=== PATIENT | male | born 1965 | race Caucasian/White ===

== ENCOUNTER 2017-04-28 05:07 | Outpatient (CLI) | payer MEDICARE | END 2017-04-28 05:08 | disposition EMS.NT | LOC: EMS 05:07 | PROVIDERS: ATTEND Surgery | DX: Z04.1 Encounter for examination and observation following transport accident (principal); V58.5XXA Driver of pick-up truck or van injured in noncollision transport accident in traffic accident, initial encounter; Y92.414 Local residential or business street as the place of occurrence of the external cause ==

== ENCOUNTER 2017-07-07 09:50 | Emergency (ER) | payer MEDICARE ==
[2017-07-07] MEDS ORDERED: SODIUM CHLORIDE 0.9% 1,000 ML IV ONE ×2 (10:07→10:16)
[2017-07-07] MEDS ORDERED: HYDROmorphone 1 MG/ML SYRINGE IVP STA (10:07)
[2017-07-07] MEDS ORDERED: ONDANSETRON 4 MG/2 ML VIAL IVP STA (10:07)
[2017-07-07] MEDS ORDERED: ONDANSETRON 4 MG/2 ML VIAL ONE (10:16)
[2017-07-07] MEDS ORDERED: HYDROmorphone 1 MG/ML SYRINGE ONE (10:16)
[2017-07-07 10:17] LABS: BASOPHILS # (AUTO) 0.1 10^3/uL (0.0-0.1); BASOPHILS % (AUTO) 1.2 %; EOSINOPHILS # (AUTO) 0.1 10^3/uL (0.0-0.7); HCT - HEMATOCRIT 45.3 % (42.0-52.0); HGB - HEMOGLOBIN 15.5 g/dL (14.0-18.0); LYMPHOCYTES # (AUTO) 1.9 10^3/uL (1.5-3.5); LYMPHOCYTES % (AUTO) 25.2 %; MEAN CORPUSCULAR HEMOGLOBIN 29.3 pg (27.0-31.0); MEAN CORPUSCULAR HGB CONC 34.1 g/dL (32.0-36.0); MEAN CORPUSCULAR VOLUME 85.9 fL (80.0-94.0); MEAN PLATELET VOLUME 8.5 fL (7.4-11.4); MONOCYTES # (AUTO) 0.6 10^3/uL (0.0-1.0); MONOCYTES % (AUTO) 8.4 %; NEUTROPHILS % (AUTO) 64.2 %; RED BLOOD COUNT 5.27 10^6/uL (4.70-6.10); RED CELL DISTRIBUTION WIDTH 13.2 % (12.0-15.0); UNCORRECTED WHITE BLOOD COUNT 7.7 x10^3/uL; WHITE BLOOD COUNT 7.7 x10^3/uL (4.8-10.8)
[2017-07-07 10:30] LABS: ALBUMIN/GLOBULIN RATIO 1.3 (1.0-2.2); BILIRUBIN,TOTAL 0.6 mg/dL (0.2-1.0); CALCIUM 9.8 mg/dL (8.5-10.3); CREATININE 0.8 mg/dL (0.6-1.2); POTASSIUM 4.2 mmol/L (3.5-5.0); TOTAL PROTEIN 7.2 g/dL (6.7-8.2)
[2017-07-07 10:56] VITALS: BP 120/76
[2017-07-07] MEDS ORDERED: IOPAMIDOL-300 100 ML VIAL IVP ONE (11:09)
--- NOTE | 2017-07-07 11:51 | CT Report ---
EXAM: CT ABDOMEN AND PELVIS EXAM DATE: 07/07/2017 11:03 AM. CLINICAL HISTORY: LlQ PAIN TENDERNESS. COMPARISONS: None. TECHNIQUE: Routine helical CT imaging was performed through the abdomen and pelvis. IV contrast: 100 cc Isovue-300. Enteric contrast: No. Reconstructions: Coronal and sagittal. In accordance with CT protocol optimization, one or more of the following dose reduction techniques w ere utilized for this exam: automated exposure control, adjustment of mA and/or KV based on patient s ize, or use of iterative reconstructive technique. FINDINGS: Lung Bases: Unremarkable. Liver: Normal. No masses. Gallbladder/Bile Ducts: Unremarkable. Spleen: Normal. Pancreas: Normal. Adrenal Glands: Normal. Kidneys: Bilateral multiple renal cysts, the largest is seen in the mid pole of left kidney measuring about 3 cm. No masses, opaque stone, hydroureter or hydronephrosis. No ureteral stone. Peritoneal Cavity/Bowel: Normal. No free fluid, free air or adenopathy. No masses or acute inflammato ry process. The appendix is not visualized. No evidence of acute diverticulitis or colitis. Pelvic Organs: Normal. The bladder and visualized pelvic organs are within normal limits. Vasculature: No aneurysms or other significant abnormality. Bones: L5-S1 grade 2 anterolisthesis with bilateral pars interarticularis defects. Degenerative mathis es in the lower thoracic and upper lumbar spine and L5-S1. Status post L5-S1 laminectomy. Other: None. IMPRESSION: 1. No acute intra-abdominal abnormality. Specifically, there is no evidence of bowel obstruction, acu te diverticulitis or colitis. 2. No urinary stone or obstruction. Bilateral multiple renal cysts. 3. L5-S1 grade 2 anterolisthesis with bilateral pars interarticularis defects. Degenerative changes i n the lower thoracic and upper lumbar spine and L5-S1. Status post L5-S1 laminectomy. [facility] Referring Provider Line: [phone] SITE ID: [id number]
--- NOTE | 2017-07-07 18:08 | ED Physician Documentation ---
History of Present Illness - Stated complaint Stated Complaint: ALOC - Chief complaint Chief Complaint: Abd Pain - Additonal information Additional information: Patient is a 52-year-old man with a history of previous stroke. He has a history of hypertension dyslipidemia and is a smoker. He presents with acute onset of left-sided abdominal pain and has had nausea vomiting diarrhea over the last day. Initially he was reticent to talk her once we got him in the room he started talking because it turns out he is very slow to respond because of receptive and probably expressive aphasia from a distant CVA. He says he has a history of diverticulitis and he feels like he might have it again. Review of systems: For pertinent positive and negatives in the review of systems please see the history of present illness, otherwise all other systems have been reviewed and are negative. Dragon disclaimer: Parts of this medical record were created using voice recognition technology. Because of the inherent limitations of this system, occasional same sounding word substitutions do occur and persist despite proofreading. Please read the document for context. Review of Systems Constitutional: denies: Fever, Chills GI: reports: Abdominal Pain, Nausea, Vomiting, Diarrhea. denies: Abdominal Swelling PD PAST MEDICAL HISTORY - Past Medical History Cardiovascular: Hypertension Respiratory: Pneumonia, Sleep apnea Neuro: CVA, TIA Endocrine/Autoimmune: None GI: None, Diverticulitis : Benign prostate hypertrophy HEENT: None Psych: Anxiety, Panic attacks, Claustrophobia Musculoskeletal: Rheumatoid arthritis Derm: None - Past Surgical History Past Surgical History: Yes Ortho: Spine surgery, Other - Present Medications Home Medications: Ambulatory Orders Medication Instructions Recorded Confirmed Aspirin 81 mg PO DAILY 02/21/15 07/29/16 Pravastatin Sodium [Pravachol] 20 mg PO DAILY 07/29/16 07/29/16 Propranolol HCl 60 mg PO DAILY 07/29/16 07/30/16 Sertraline [Zoloft] 50 mg PO DAILY 07/29/16 07/29/16 Acetaminophen [Tylenol] 650 - 975 mg PO Q4HR PRN #0 tablet 07/31/16 Ibuprofen [Motrin] 600 mg PO Q6HR PRN #0 tablet 07/31/16 Sulfamethoxazole/Trimethoprim 1 each PO BID #56 tablet 07/31/16 [Bactrim Ds Tablet] - Allergies Allergies/Adverse Reactions: Allergies Allergy/AdvReac Type Severity Reaction Status Date / Time morphine AdvReac Intermediate Anxiety Verified 07/29/16 12:08 - Social History Does the pt smoke?: Yes Smoking Status: Current every day smoker Does the pt drink ETOH?: Yes Does the pt have substance abuse?: Yes Substance Use and Type: Meth - Immunizations Immunizations are current?: Yes PD ED PE NORMAL - General General: Alert and oriented X 3, No acute distress, Well developed/nourished - HEENT HEENT: Atraumatic, PERRL, EOMI - Neck Neck: Supple, no meningeal sign, No JVD, No bruit - Cardiac Cardiac: RRR, No murmur, No gallop - Respiratory Respiratory: No respiratory distress, Clear bilaterally - Abdomen Abdomen: Normal bowel sounds, Soft, Non tender, Non distended - Back Back: No CVA TTP - Derm Derm: Normal color, Warm and dry - Extremities Extremities: No deformity, No tenderness to palpate, Normal ROM s pain, No edema , No calf tenderness / cord - Neuro Neuro: Alert and oriented X 3, No motor deficit, No sensory deficit Results - Vitals Vitals: Vital Signs - 24 hr 07/07/17 07/07/17 07/07/17 09:52 10:18 10:55 Heart Rate 84 76 86 Respiratory 20 16 15 Rate Blood Pressure 123/97 H 129/82 H 120/76 O2 Saturation 98 97 99 Oxygen O2 Source Room air - Labs Labs: Laboratory Tests 07/07/17 07/07/17 07/07/17 09:55 10:05 10:05 WBC 7.7 RBC 5.27 Hgb 15.5 Hct 45.3 MCV 85.9 MCH 29.3 MCHC 34.1 RDW 13.2 Plt Count 216 MPV 8.5 Neut # 5.0 Lymph # 1.9 [place] # 0.6 Eos # 0.1 Baso # 0.1 Absolute Nucleated RBC 0.00 Nucleated RBCs 0.0 Sodium 137 Potassium 4.2 Chloride 104 Carbon Dioxide 25 Anion Gap 8.0 BUN 13 Creatinine 0.8 Estimated GFR (MDRD) 101 Glucose 89 POC Whole Bld Glucose 90 Calcium 9.8 Total Bilirubin 0.6 AST 30 ALT 55 Alkaline Phosphatase 49 Total Protein 7.2 Albumin 4.0 Globulin 3.2 Albumin/Globulin Ratio 1.3 Lipase 26 PD MEDICAL DECISION MAKING - ED course Complexity details: reviewed old records ED course: Patient presents with outside abdominal pain nausea and vomiting diarrhea 1 day. Initially is hard to get information from them so there is a concern is having a stroke but once we got him in the room and waited for a short while he is able to communicate with us this is secondary to aphasia from a previous stroke. On examination he had mild left lower quadrant tenderness and given his symptoms and past history workup for diverticulitis ensued. Routine blood work was performed and is unremarkable. We did obtain a CT of the abdomen and pelvis with and without contrast and the CT scan is normal. He is given fluids pain and nausea medications and the patient left AGAINST MEDICAL ADVICE. I never had a chance to speak with him before leaving. Apparently he felt better. Disposition: AGAINST MEDICAL ADVICE Clinical impression: 1. Alleged nausea vomiting and diarrhea with left lower quadrant pain-negative workup Departure - Departure Disposition: 07 Against Medical Advice Discharge Date/Time: 07/07/17 12:59
== END 2017-07-07 12:59 | disposition left against medical advice (07) ==
LOC: ED 09:50
DX: R10.32 Left lower quadrant pain (principal); R11.2 Nausea with vomiting, unspecified; R19.7 Diarrhea, unspecified; Z87.19 Personal history of other diseases of the digestive system; I69.320 Aphasia following cerebral infarction; Z53.20 Procedure and treatment not carried out because of patient's decision for unspecified reasons; I10 Essential (primary) hypertension; E78.5 Hyperlipidemia, unspecified; N40.0 Benign prostatic hyperplasia without lower urinary tract symptoms; M06.9 Rheumatoid arthritis, unspecified; G47.30 Sleep apnea, unspecified; Z79.82 Long term (current) use of aspirin; F17.200 Nicotine dependence, unspecified, uncomplicated
CPT/HCPCS: 36415; 74177; 80053; 83690; 85025; 96374; 96375; 99283; 99284; J1170; Q9967

== ENCOUNTER 2017-09-02 16:04 | Outpatient (CLI) | payer MEDICARE ==
--- NOTE | 2017-09-03 09:51 | XRAY Report ---
TWO-VIEW CHEST: 09/02/2017 CLINICAL INDICATION: Cough. COMPARISON: 09/07/2016 FINDINGS: Frontal and lateral views of the chest demonstrate a normal cardiac silhouette. The lungs are clear. No effusion or pneumothorax is present. IMPRESSION: NORMAL CHEST, UNCHANGED. JOB #: [id number] EXT JOB #:[id number]
== END 2017-09-02 16:05 | disposition home or self-care (01) ==
LOC: DI.S 16:04
PROVIDERS: ATTEND Family Medicine
DX: R05 Cough (principal)
CPT/HCPCS: 71020

== ENCOUNTER 2017-10-22 07:00 | Outpatient (CLI) | payer MEDICARE | END 2017-10-22 07:01 | disposition EMS.NT | LOC: EMS 07:00 | PROVIDERS: ATTEND Surgery | DX: R56.9 Unspecified convulsions (principal) ==

== ENCOUNTER 2017-11-05 16:57 | Outpatient (CLI) | payer MEDICARE | END 2017-11-05 16:58 | disposition EMS.NT | LOC: EMS 16:57 | PROVIDERS: ATTEND Surgery | DX: Z03.89 Encounter for observation for other suspected diseases and conditions ruled out (principal) ==

== ENCOUNTER 2017-11-19 10:36 | Outpatient (CLI) | payer MEDICARE ==
--- NOTE | 2017-11-19 17:56 | XRAY Report ---
DATE OF SERVICE: 11/19/2017 EXAM: TWO VIEW CHEST CLINICAL INDICATION: Bronchitis. COMPARISON: 09/02/2017. FINDINGS: Frontal and lateral views of the chest demonstrate a normal cardiac silhouette. The lungs are clear. No effusion or pneumothorax is present. IMPRESSION: NORMAL CHEST, UNCHANGED. TD: 11/19/2017 16:51
== END 2017-11-19 10:37 | disposition home or self-care (01) ==
LOC: DI.S 10:36
PROVIDERS: ATTEND Nurse Practitioner Family
DX: J20.9 Acute bronchitis, unspecified (principal)
CPT/HCPCS: 71020

== ENCOUNTER 2017-12-07 07:46 | Emergency (ER) | payer MEDICARE ==
--- NOTE | 2017-12-07 08:00 | ED Physician Documentation ---
PD HPI URI - Stated complaint Stated Complaint: DIFFICULTY BREATHING - Chief complaint Chief Complaint: Resp - History obtained from History obtained from: Patient - History of Present Illness Timing - onset: How many days ago (he had cough and URI symptoms last month and was treated with Amox and Prednisone, Albuterol MDI. Improved but still some cough. He has increased cough with sputum and dyspnea the past few days.) Timing duration: Days Timing details: Gradual onset, Still present Associated symptoms: Chills, Nasal congestion, Dry cough, Dyspnea. No: Fever, Productive cough, Hemoptysis, Chest pain, NVD, Bilateral edema Contributing factors: Other (he is living in his car currently, so poor living conditions.). No: Sick contact, Travel, Immunocompromised Improves by: Rest Worsened by: Other (coughing) Similar symptoms before: Diagnosis (bronchitis last month) Recently seen: Clinic (a month ago with similar, improved awhile.) Review of Systems Constitutional: reports: Chills, Myalgias. denies: Fever Nose: reports: Congestion Throat: denies: Sore throat Cardiac: denies: Chest pain / pressure, Palpitations, Pedal edema, Calf pain Respiratory: reports: Dyspnea, Cough, Wheezing GI: denies: Nausea, Vomiting, Diarrhea Skin: denies: Rash, Lesions Immunocompromised: denies: Immunocompromised PD PAST MEDICAL HISTORY - Past Medical History Cardiovascular: Hypertension Respiratory: Pneumonia, Sleep apnea Neuro: CVA, TIA Endocrine/Autoimmune: None GI: None, Diverticulitis : Benign prostate hypertrophy HEENT: None Psych: Anxiety, Panic attacks, Claustrophobia Musculoskeletal: Rheumatoid arthritis Derm: None - Past Surgical History Past Surgical History: Yes Ortho: Spine surgery, Other - Present Medications Home Medications: Ambulatory Orders Medication Instructions Recorded Confirmed Aspirin 81 mg PO DAILY 02/21/15 12/07/17 Propranolol HCl 60 mg PO DAILY 07/29/16 12/07/17 Albuterol 12/07/17 Albuterol Sulf [Ventolin Hfa 1 - 2 puffs INH Q4HR PRN #1 inhaler 12/07/17 Inhaler] Azithromycin [Zithromax] 250 mg PO DAILY #6 tablet 12/07/17 Benzonatate [Tessalon] 100 mg PO TID PRN #25 capsule 12/07/17 Dexamethasone [Decadron] 4 mg PO DAILY #5 tablet 12/07/17 - Allergies Allergies/Adverse Reactions: Allergies Allergy/AdvReac Type Severity Reaction Status Date / Time morphine AdvReac Intermediate Anxiety Verified 12/07/17 07:57 - Social History Does the pt smoke?: Yes Smoking Status: Current every day smoker Does the pt drink ETOH?: Yes Does the pt have substance abuse?: Yes - Immunizations Immunizations are current?: Yes PD ED PE NORMAL - Vitals Vital signs reviewed: Yes - General General: Alert and oriented X 3, Well developed/nourished - HEENT HEENT: Ears normal, Pharynx benign - Neck Neck: Supple, no meningeal sign, No adenopathy - Cardiac Cardiac: RRR, No murmur - Respiratory Respiratory: No respiratory distress, Other (diffuse exp wheezing, no coarse sounds. ) - Abdomen Abdomen: Soft, Non tender - Derm Derm: Normal color, Warm and dry - Extremities Extremities: Normal ROM s pain, No edema, No calf tenderness / cord - Neuro Neuro: Alert and oriented X 3, No motor deficit, Normal speech (slightly hoarse) Results - Vitals Vitals: Oxygen O2 Source Room air - Rads (name of study) chest Radiology: Prelim report reviewed, EMP read contemporaneously (no infiltrates) PD MEDICAL DECISION MAKING - ED course Complexity details: reviewed results, considered differential, d/w patient Departure - Departure Disposition: 01 Home, Self Care Clinical Impression: Upper respiratory infection Qualifiers: URI type: unspecified URI Qualified Code(s): J06.9 - Acute upper respiratory infection, unspecified Condition: Stable Record reviewed to determine appropriate education?: Yes Instructions: ED URI Viral W Wheezing Follow-Up: Venecia Dumont ARNP [Primary Care Provider] - Prescriptions: Albuterol Sulf [Ventolin Hfa Inhaler] 1 - 2 puffs INH Q4HR PRN #1 inhaler PRN Reason: Shortness Of Air/Wheezing Azithromycin [Zithromax] 250 mg PO DAILY #6 tablet Benzonatate [Tessalon] 100 mg PO TID PRN #25 capsule PRN Reason: Cough Dexamethasone [Decadron] 4 mg PO DAILY #5 tablet Comments: The cause of this is likely viral or environmental. Forward we would treat with the albuterol inhaler as well as steroids, to decrease airway inflammation , and that often helps the most. for the cough, can use Tessalon to help suppress the cough. Codeine cough medicine sometimes helps a little bit. These are only sometimes bacterial and so antibiotics have a smaller likelihood of helping, but can be used in the mix of medications. Discharge Date/Time: 12/07/17 09:05
[2017-12-07] MEDS ORDERED: BENZONATATE 100 MG CAPSULE PO STA (08:25)
[2017-12-07] MEDS ORDERED: ALBUTEROL NEB 2.5 MG/3 ML INH STA (08:25)
[2017-12-07] MEDS ORDERED: DEXAMETHASONE 10 MG/ML VIAL PO STA (08:25)
--- NOTE | 2017-12-07 08:26 | XRAY Report ---
EXAM: CHEST RADIOGRAPHY EXAM DATE: 12/07/2017 08:15 AM. CLINICAL HISTORY: Cough. History of pneumonia. COMPARISON: 11/19/2017. 07/29/2016. TECHNIQUE: 2 views. FINDINGS: Lungs/Pleura: No focal opacities evident. No pleural effusion. No pneumothorax. Normal volumes. Mediastinum: Heart size is normal. Aorta is mildly tortuous. Other: Degenerative changes of the thoracic spine and both shoulders. IMPRESSION: 1. No acute disease in the chest. [facility] Referring Provider Line: [phone] SITE ID: [id number]
[2017-12-07 08:52] VITALS: BP 125/93
== END 2017-12-07 09:05 | disposition home or self-care (01) ==
LOC: ED 07:46
DX: J06.9 Acute upper respiratory infection, unspecified (principal); I10 Essential (primary) hypertension; F17.200 Nicotine dependence, unspecified, uncomplicated; Z86.73 Personal history of transient ischemic attack (TIA), and cerebral infarction without residual deficits
CPT/HCPCS: 71046; 93005; 94640; 94664; 99283; A9270; J7613

== ENCOUNTER 2018-02-01 07:59 | Inpatient (IN) | payer MEDICARE ==
[2018-02-01] MEDS ORDERED: LIDOCAINE 1% 2 ML VIAL SUBQ STA (08:31)
[2018-02-01] MEDS ORDERED: LIDOCAINE 1% 2 ML VIAL ONE (08:40)
[2018-02-01] MEDS ORDERED: HYDROcod/ACETAM 5/325 MG TABLET PO STA (08:52)
[2018-02-01] MEDS ORDERED: LORazepam 0.5 MG TABLET PO STA (08:52)
--- NOTE | 2018-02-01 08:56 | ED Physician Documentation ---
History of Present Illness - Stated complaint Stated Complaint: RT ARM SWOLLEN - Chief complaint Chief Complaint: Ext Problem - History obtained from History obtained from: Patient - History of Present Illness Timing: Today - Additonal information Additional information: 52-year-old male awoke this morning with a sore right elbow is discovered a lot of swelling and some redness associated with it. He has been working on some cars he does state that he is been leaning on his elbows a bit as well. He has had something similar to this happen to him on his knee and at that time he was seen in the emergency department placed on some antibiotic after incision and drainage and followed up in the orthopedic clinic the next day and needed admission for incision and drainage and IV antibiotic. The patient is disabled secondary to multiple TIAs and CVA. Review of Systems Constitutional: reports: Chills. denies: Fever Eyes: denies: Decreased vision Ears: denies: Ear pain Nose: denies: Congestion Throat: denies: Sore throat Respiratory: denies: Cough GI: denies: Vomiting Musculoskeletal: reports: Extremity pain, Joint pain, Extremity swelling, Joint swelling Neurologic: denies: Generalized weakness, Focal weakness, Numbness PD PAST MEDICAL HISTORY - Past Medical History Cardiovascular: Hypertension Respiratory: Pneumonia, Sleep apnea Neuro: CVA, TIA Endocrine/Autoimmune: None GI: None, Diverticulitis : Benign prostate hypertrophy HEENT: None Psych: Anxiety, Panic attacks, Claustrophobia Musculoskeletal: Rheumatoid arthritis Derm: None - Past Surgical History Past Surgical History: Yes Ortho: Spine surgery, Other - Present Medications Home Medications: Ambulatory Orders Medication Instructions Recorded Confirmed Aspirin 81 mg PO DAILY 02/21/15 12/07/17 Propranolol HCl 60 mg PO DAILY 07/29/16 12/07/17 Albuterol 12/07/17 Albuterol Sulf [Ventolin Hfa 1 - 2 puffs INH Q4HR PRN #1 inhaler 12/07/17 Inhaler] - Allergies Allergies/Adverse Reactions: Allergies Allergy/AdvReac Type Severity Reaction Status Date / Time morphine AdvReac Intermediate Anxiety Verified 12/07/17 07:57 - Social History Does the pt smoke?: Yes Smoking Status: Current every day smoker Does the pt drink ETOH?: Yes Does the pt have substance abuse?: No - Immunizations Immunizations are current?: Yes - POLST Patient has POLST: No PD ED PE NORMAL - Vitals Vital signs reviewed: Yes (normal) - General General: No acute distress, Well developed/nourished - HEENT HEENT: Atraumatic, PERRL, EOMI - Respiratory Respiratory: No respiratory distress - Derm Derm: Normal color, Warm and dry, No rash - Extremities Extremities: Other (There is swelling to the olecrenon with fluctuance and erythema that extends from the mid forearm dorsally to the mid arm dorsally distal n/v is intact. 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 ) Results - Vitals Vitals: Vital Signs - 24 hr 02/01/18 02/01/18 08:16 12:11 Temperature 36.6 C Heart Rate 96 96 Respiratory 20 18 Rate Blood Pressure 121/84 H 154/92 H O2 Saturation 97 97 Oxygen O2 Source Room air - Labs Labs: Laboratory Tests 02/01/18 02/01/18 10:45 10:45 Fluid Source SYNOVIAL Fluid Color PINK Fluid Clarity CLOUDY Fluid WBC 84756 Fluid RBC 73677 Fluid Neutrophils % 96 Fluid Lymphocytes % 3 Fluid Monocytes % 1 Fluid Crystals NONE SEEN Procedures - Arthrocentesis Joint: Elbow Preparation: Sterile prep and drape Anesthesia: Lidocaine 1% Fluid: Sent for cell count, Cloudy, Sent for crystals, Fluid obtained - cc (12) , Sent for gram stain Aftercare: Dressing applied, No complications. No: Patient tolerated well PD MEDICAL DECISION MAKING - ED course Complexity details: reviewed results, re-evaluated patient, considered differential, d/w patient, d/w [facility] consultant (Marley.) ED course: 52-year-old disabled male with a an olecranon bursa that appears infected infection appears angry it involves the forearm and arm. The fluid is drained from the olecranon bursa it is cloudy and purulent and Dr. Roach is consulted in the case and recommends admission for IV antibiotic and a posterior splint. The patient has some disability from his CVA and he has hyperalgesia associated with his elbow. Departure - Departure Disposition: [facility] DC/Xfer Clinical Impression: Olecranon bursitis of right elbow Condition: Stable
[2018-02-01] MEDS ORDERED: cefTRIAXone 1 GM VIAL IM STA (10:44)
[2018-02-01] MEDS ORDERED: LIDOCAINE 1% 2 ML VIAL SUBQ ONE (10:44)
[2018-02-01 11:18] LABS: CC,BF RBC 24831 /mm^3
[2018-02-01 11:32] LABS: BF COLOR PINK; BF SOURCE SYNOVIAL
[2018-02-01 12:34] LABS: LYMPHOCYTES %,BODY FLUID 3; MONOCYTES %,BODY FLUID 1 %
[2018-02-01] MEDS ORDERED: ONDANSETRON 4 MG/2 ML VIAL IVP STA (13:10)
[2018-02-01] MEDS ORDERED: HYDROmorphone 1 MG/ML SYRINGE IVP STA (13:10)
[2018-02-01] MEDS ORDERED: SODIUM CHLORIDE 0.9% 1,000 ML IV ONE (13:10)
[2018-02-01] MEDS ORDERED: VANCOMYCIN INJ 1 GM in SODIUM CHLORIDE 0.9% 250 ML IV STA (13:11)
[2018-02-01 13:53] LABS: BASOPHILS # (AUTO) 0.1 10^3/uL (0.0-0.1); BASOPHILS % (AUTO) 0.5 %; EOSINOPHILS # (AUTO) 0.1 10^3/uL (0.0-0.7); EOSINOPHILS % (AUTO) 0.8 %; HGB - HEMOGLOBIN 14.5 g/dL (14.0-18.0); LYMPHOCYTES # (AUTO) 1.4 10^3/uL (1.5-3.5); LYMPHOCYTES % (AUTO) 9.4 %; MEAN CORPUSCULAR HEMOGLOBIN 29.7 pg (27.0-31.0); MEAN CORPUSCULAR HGB CONC 34.1 g/dL (32.0-36.0); MEAN PLATELET VOLUME 8.5 fL (7.4-11.4); MONOCYTES % (AUTO) 6.4 %; NEUTROPHILS # (AUTO) 12.6 10^3/uL (1.5-6.6); NEUTROPHILS % (AUTO) 82.9 %; PLT - PLATELET COUNT 166 10^3/uL (130-450); RED BLOOD COUNT 4.87 10^6/uL (4.70-6.10); RED CELL DISTRIBUTION WIDTH 13.3 % (12.0-15.0); WHITE BLOOD COUNT 15.2 x10^3/uL (4.8-10.8)
[2018-02-01 14:08] LABS: ALBUMIN/GLOBULIN RATIO 1.3 (1.0-2.2); CALCIUM 9.3 mg/dL (8.5-10.3); CREATININE 0.9 mg/dL (0.6-1.2); TOTAL PROTEIN 7.1 g/dL (6.7-8.2)
--- NOTE | 2018-02-01 14:39 | PROVIDER PROGRESS NOTE ---
Subjective - Prog Note Date Prog Note Date: 02/01/18 Prog Note Time: 14:36 - Subjective Pt reports feeling: Worse (Patient has noted progressive redness and swelling about his irght posterior elbow, extending to his wrist over the past several days. 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.) Objective - Vital Signs/Intake & Output Vital Signs: Vital Signs x48h Temp Pulse Resp BP Pulse Ox 02/01/18 14:10 95 20 100 02/01/18 12:11 96 18 154/92 H 97 02/01/18 08:16 36.6 C 96 20 121/84 H 97 - Lab Results Fish Bones: 02/01/18 13:33 02/01/18 13:33 Other Labs: Lab Results x24hrs 02/01/18 02/01/18 02/01/18 Range/Units 13:33 13:33 10:45 WBC 15.2 H (4.8-10.8) x10^3/uL RBC 4.87 (4.70-6.10) 10^6/uL Hgb 14.5 (14.0-18.0) g/dL Hct 42.4 (42.0-52.0) % MCV 87.0 (80.0-94.0) fL MCH 29.7 (27.0-31.0) pg MCHC 34.1 (32.0-36.0) g/dL RDW 13.3 (12.0-15.0) % Plt Count 166 (130-450) 10^3/uL MPV 8.5 (7.4-11.4) fL Neut # 12.6 H (1.5-6.6) 10^3/uL Lymph # 1.4 L (1.5-3.5) 10^3/uL [place] # 1.0 (0.0-1.0) 10^3/uL Eos # 0.1 (0.0-0.7) 10^3/uL Baso # 0.1 (0.0-0.1) 10^3/uL Absolute Nucleated RBC 0.00 x10^3/uL Nucleated RBC % 0.0 /100WBC Sodium 138 (135-145) mmol/L Potassium 4.1 (3.5-5.0) mmol/L Chloride 105 (101-111) mmol/L Carbon Dioxide 27 (21-32) mmol/L Anion Gap 6.0 (6-13) BUN 12 (6-20) mg/dL Creatinine 0.9 (0.6-1.2) mg/dL Estimated GFR (MDRD) 88 L (>89) Glucose 107 H (70-100) mg/dL Calcium 9.3 (8.5-10.3) mg/dL Total Bilirubin 1.0 (0.2-1.0) mg/dL AST 24 (10-42) IU/L ALT 27 (10-60) IU/L Alkaline Phosphatase 41 L (42-121) IU/L Total Protein 7.1 (6.7-8.2) g/dL Albumin 4.0 (3.2-5.5) g/dL Globulin 3.1 (2.1-4.2) g/dL Albumin/Globulin Ratio 1.3 (1.0-2.2) Lipase 16 L (22-51) U/L Fluid Source Fluid Color Fluid Clarity Fluid WBC /mm^3 Fluid RBC /mm^3 Fluid Neutrophils % % Fluid Lymphocytes % Fluid Monocytes % % Fluid Crystals NONE SEEN (N) 02/01/18 Range/Units 10:45 WBC (4.8-10.8) x10^3/uL RBC (4.70-6.10) 10^6/uL Hgb (14.0-18.0) g/dL Hct (42.0-52.0) % MCV (80.0-94.0) fL MCH (27.0-31.0) pg MCHC (32.0-36.0) g/dL RDW (12.0-15.0) % Plt Count (130-450) 10^3/uL MPV (7.4-11.4) fL Neut # (1.5-6.6) 10^3/uL Lymph # (1.5-3.5) 10^3/uL [place] # (0.0-1.0) 10^3/uL Eos # (0.0-0.7) 10^3/uL Baso # (0.0-0.1) 10^3/uL Absolute Nucleated RBC x10^3/uL Nucleated RBC % /100WBC Sodium (135-145) mmol/L Potassium (3.5-5.0) mmol/L Chloride (101-111) mmol/L Carbon Dioxide (21-32) mmol/L Anion Gap (6-13) BUN (6-20) mg/dL Creatinine (0.6-1.2) mg/dL Estimated GFR (MDRD) (>89) Glucose (70-100) mg/dL Calcium (8.5-10.3) mg/dL Total Bilirubin (0.2-1.0) mg/dL AST (10-42) IU/L ALT (10-60) IU/L Alkaline Phosphatase (42-121) IU/L Total Protein (6.7-8.2) g/dL Albumin (3.2-5.5) g/dL Globulin (2.1-4.2) g/dL Albumin/Globulin Ratio (1.0-2.2) Lipase (22-51) U/L Fluid Source SYNOVIAL Fluid Color PINK Fluid Clarity CLOUDY Fluid WBC 20492 /mm^3 Fluid RBC 56637 /mm^3 Fluid Neutrophils % 96 % Fluid Lymphocytes % 3 Fluid Monocytes % 1 % Fluid Crystals (N) - Other Results/Comments Other Results/Comments: EXAM: Right olecranon bursa - swollen and red with some pain with AROM. Aspiration site covered with gauze. Erythema extends down to wrist. Elbow ROM : 30-90 degrees. Moves fingers well without pain. N/V ok distally Assessment/Plan - Problem List (1) Olecranon bursitis of right elbow Impression: PLAN: Long arm posterior splint to immobilize elbow and antibiotics to cover possible MRSA, pending culture results from today's aspiration.
[2018-02-01] MEDS ORDERED: ONDANSETRON ODT 4 MG TABLET TL PRN (15:10)
[2018-02-01] MEDS ORDERED: ACETAMINOPHEN 325 MG TABLET PO PRN (15:10)
[2018-02-01] MEDS ORDERED: ONDANSETRON 4 MG/2 ML VIAL IVP PRN (15:10)
--- NOTE | 2018-02-01 16:43 | CONSULTATION NOTE ---
DATE OF SERVICE: 02/01/2018 Physician: Neftaly Roach MD REFERRING PHYSICIAN: Dr. Kole Thomas, emergency room department. CHIEF COMPLAINT: "My right elbow hurts." HISTORY OF PRESENT ILLNESS: The patient is a 52-year-old male status post multiple TIAs and strokes in the past, who is being evaluated now for an acutely swollen and red right elbow. The patient does not talk a great deal in part due to his recent strokes. Unclear how long the redness and swelling around the elbow has been present. The patient has had no fever. No distal weakness or numbness noted in the hand. PHYSICAL EXAMINATION: The patient's right elbow shows a marked amount of redness and tenderness and fluctuance over the olecranon bursa of his right elbow. Has some limited range of motion to about 30 degrees secondary to the swelling and pain. Neurovascular appears to be intact distally. Has good finger range of motion noted. The patient apparently had an aspiration of his olecranon bursa sac done by the emergency room doctor prior to my examination. The aspiration site is currently dressed. Aspiration of the olecranon bursa fluid showed a white cell count of greater than 88,000 with 96% neutrophils. No crystals were seen. ASSESSMENT 1. Probable septic right olecranon bursitis - per examination clinically and initial analysis of the bursal fluid. 2. History of prior cerebrovascular accident and transient ischemic attacks - the patient shows some lack of understanding of his current problem likely due to his prior strokes. PLAN: The patient will go into a long-arm posterior splint to immobilize the elbow. Recommend starting him on some IV antibiotics, which will cover possible MRSA. The patient apparently had a prior MRSA knee infection. We will need to adjust the antibiotics as needed depending on the clinical response and the results of the culture results that were taken from the aspiration today. TD: 02/01/2018 16:42
--- NOTE | 2018-02-01 17:10 | HISTORY & PHYSICAL EXAMINATION ---
DATE OF SERVICE: 02/01/2018 Physician: Ramona Dangelo MD PRIMARY CARE PROVIDER: Venecia Mirza/Mario Laboy. ADMITTING PROVIDER: Ramona Dangelo MD.. CHIEF COMPLAINT: Right arm pain at the elbow with heat and redness. HISTORY OF PRESENT ILLNESS: The patient is a methamphetamine abuser. He protests that description and says that this society does not know the difference between abuse and regular recreational use. In either case, his last use was a week ago. He has a previous history of an MRSA knee infection that was taken care of by Dr. Ellis Cash in 06/2016. He ended up having to have the joint washed out. Between then and now he has had circumstances change in his life. [place], she last fall approximately September 2017. He was ejected from the home he was living in October 2017. He has been living out of his car. He chews tobacco, does no alcohol. Again, occasional methamphetamine abuse. A few days ago, he developed right elbow pain and it has gotten more and more swollen, more tender and he came to the emergency room. He was brought in by ambulance. Since he is living in his car I do not know if the ambulance brought him from his car or not. He denies fever or chills. Has not had any sweats. Appetite has been about the same. Denies any myalgias or rigors. He was seen by Dr. Thomas who found him to be afebrile, normotensive , oxygenating normally. However, would cry out in pain whenever you touch the right elbow. He needed quite a bit of pain medicine and sedation to do an arthrocentesis. Laboratory values found him to have an serum elevated white cell count of 15.2 and his synovial fluid was pink , cloudy, with 88,227 white cells. 96% neutrophils. No crystals were seen. The case was discussed with Dr. Neftaly Roach, Orthopedics. Dr. Roach is sitting on the fence about whether the patient needs to be admitted or not, but Dr. Thomas feels that the patient's joint is quite infected, very impressive redness and heat that extends from the elbow joint proximally up into the triceps region , and distally over the brachioradialis region. As such the patient is now admitted for IV antibiotics. Dr. Roach will consult. PAST MEDICAL HISTORY 1. History of cognitive deficit. Ostensibly from stroke x3 and he is on disability for this. 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 Then, he had stroke and has lost everything. An MRA and MRI of the brain was done 05/30/2015 for involuntary movements that may or may not be tremors. His mom had Parkinson's disease and tremors as well. The MRI in 05/2015 shows a completely normal arterial system with regards to angiogram. On brain tissue evaluation, there is no encephalomalacia. No evidence of acute or chronic infarcts. Nevertheless, he is felt to have significant cognitive deficits because of these strokes. He states that simple addition, subtraction, reading are beyond him now.He cannot focus on tasks. 2. Significant anxiety and depression secondary to #1. Also claustrophobia. Emotional lability. Cries easily. 3. Hypertension. 4. History of back surgery. 5. Benign prostatic hypertrophy. 6. Seizure disorder with last seizure 09/2014. 7. Obstructive sleep apnea. 8. Hyperlipidemia, on Pravachol in the past. 9. Gastroesophageal reflux disease. 10. Diverticular disease. Scope in 1999 was done. Most recent scope was [address] Cornelio Shaikh and he had a hyperplastic polyp and diverticulosis. He has been seen for diverticulitis in the emergency room and left lower quadrant pain, but his most recent CT of the abdomen and pelvis was negative this last year for acute inflammatory state. He left AMA before he could be treated. 11. Right knee MRSA as above 06/2016. 12. Chronic obstructive pulmonary disease/asthma. Seen 08/2017 and 10/2017 for bronchitis, coughing. Negative chest x-ray. In August, he was treated with Z-DAELA and prednisone. In October, he was treated with amoxicillin and prednisone. He also takes ProAir p.r.n. 13. Rheumatoid arthritis, seronegative. ALLERGY:Morphine makes him really angry. MEDICATIONS: Medications are supposed to be: 1. Zoloft for his anxiety, depression. 2. Pravachol for hyperlipidemia. 3. ProAir. He states he has not had them for over 2 months. He does not remember the last time he filled those prescriptions. SOCIAL HISTORY: He is . He has 1 child. He saw her about 2 weeks ago after two years of not seeing her. [place] He is not in contact with any of his family members. He states they just do not see eye to eye. He says it has nothing to do with his substance abuse. He was living with his mom until she this last September. He says that methamphetamine abuse is sporadic. Alcohol use is maybe once every 6 months. He never smoked tobacco, but he does chew tobacco on a regular basis. He denies any use of cocaine, heroin, LSD, cannabis. FAMILY HISTORY: Mom last September. She had a history of breast cancer, ovarian cancer, rheumatoid arthritis, Parkinson's disease. Dad of heart disease and had ruptured aneurysm. Also, had history of diabetes. Of three brothers, one has bipolar. His daughter is healthy. REVIEW OF SYSTEMS: He denies any unexpected weight changes, fevers, sweats on a constitutional basis. ENT: Does not see a dentist on a regular basis, teeth sometimes hurt. Denies any blurred vision. Denies any headaches. May be slight decreased hearing. Has allergies and a runny nose, depending on the time of year. PULMONARY: Has easy wheezing if he is not careful depending on what he is exposed to. But currently no acute bronchitis symptoms. Denies coughing, wheezing, shortness of breath right now. No chest congestion. CARDIOVASCULAR: Denies palpitations, orthopnea, edema, decreased endurance. He did have an episode of chest pain when he was in the emergency room and he was sent home last year. No stress test. Troponins were negative. GI: Intermittently poor appetite. Intermittent reflux. Intermittent left lower quadrant pain, but no recent change in bowel or bladder habits. Denies blood in his stool. : Positive nocturia. Positive hesitancy. Positive decreased stream. Denies dysuria, urgency, frequency, flank pain or hematuria. JOINTS: Positive for the above-knee infection. Occasional intermittent joint aching, but nothing severe. DERMATOLOGIC: No new lesions. Denies any MRSA boils. No rashes. PSYCHIATRIC: Significant anxiety, starts to cry just thinking about it. He says that he is under a lot of stress right now being homeless and living out of his car. Sometimes he lives with a friend named Amrik. Sometimes he stays with Amrik's mom. These are just friends. His last bath was about a week ago. This discussion brings on quite a bit of anxiety and hyperventilation for him. CENTRAL NERVOUS SYSTEM: Denies syncope. Seizure was 2014. He has had significant cognitive deficits from strokes. No hemiplegia, but more of a basis of unable to think straight. That is unchanged. PHYSICAL EXAMINATION VITAL SIGNS: On examination, temperature is 36.6, pulse is 95, blood pressure 154/92, respirations 20, and he is 100% on room air. GENERAL: He is a disheveled, malodorous middle-aged male who is unshaven, curled into the position on his left side, crying when you try and move his right arm. HEAD AND NECK: Has poor dental care, sclerae that is muddy. Pupils that are reactive. Halitosis. No facial asymmetry. Voice is slightly hoarse. Back of the throat is normal without erythema or cobblestoning. Tympanic membranes are slightly retracted, but no redness. NECK: Shotty adenopathy. No goiter or bruits. LUNGS: Clear to auscultation and percussion without any increased respiratory effort. HEART: PMI is normally placed with a regular rate and rhythm. No murmurs, rubs or gallops. ABDOMEN: Soft, nontender. No organomegaly. No masses. EXTREMITIES: Slightly cold hands and feet, but he says this is because he is cold, but no clubbing, cyanosis or edema. The right elbow is in a posterior forearm splint that keeps the angle of the elbow at about 30 degrees to 40 degrees. He cries out with pain when I undressed the Aram wrap to take off the splint to look at the elbow. The skin is pink and starts at the mid triceps region and extends distally to mid forearm region posteriorly. The elbow is swollen and hot. The flexion and extension of the right wrist is intact. Movement at the shoulder is intact. There is no necrosis, no petechiae. NEUROLOGIC: He is alert and oriented to person, place and time. He is uncomfortable with some of the questions I have asked him and wonders what this has to do anything with his hospitalization. But he can follow 2-step commands. Can sit up on his own with some help as long as he can use his left arm, but cannot use his right arm because of the elbow pain. He lifts his legs up for me. Extends at the knees for me without any difficulty. LABORATORY DATA: White cell count is 15.2, hemoglobin 14.5, hematocrit 42.4. Sodium 138, potassium 4.1, BUN 12, creatinine 0.9, glucose 107. Synovium is pink, cloudy with 88,227 white cells. 24,831 red cells. 96% segs, 3% lymphs. No crystals seen. ASSESSMENT 1. Olecranon bursitis with infection. Cellulitis. Dr. Roach does not feel that the joint in and of itself is infected. There is no fever, only an elevated white cell count. PLAN: Admit for IV antibiotics for a minimum of 48 hours. We are going to see if the cultures come back and the need to switch the antibiotics. At this time, it will be vancomycin and Rocephin. Once the cultures are done and we can switch him to an oral alternative the patient will be discharged. ATTESTATION: That the patient will be admitted for less than 96 hours with reevaluation at 96 hours for discharge or transfer. 2. Hypertension. Norvasc 5 mg p.o. daily will be started. 3. Anxiety and depression. Zoloft will be resumed while here. 4. Hyperlipidemia. Pravachol will be resumed. 5. Chronic obstructive pulmonary disease, asthma. At this time, no acute exacerbation. No rhinitis. No coryza, no chest congestion. He uses ProAir p.r.n. While here, we will order Albuterol p.r.n. 6. Seronegative rheumatoid arthritis. This is by history in the chart. On physical exam I am not finding any destructive joint disease of rheumatoid arthritis. 7. History of stroke. Again, MRA and MRI were negative 05/30/2015. Nevertheless, the patient still states that he is on disability for cognitive delay and deficits. 8. Deep venous thrombosis prophylaxis will be NANCY hose and he will be encouraged to ambulate in the room. 9. FULL CODE STATUS. 10. Homeless status. I will make sure the nurses help him get in and out of the shower and he can take this opportunity to do so. We will see if we can find him some clean clothes. TD: 02/01/2018 17:09 [facility]
[2018-02-01] MEDS: HYDROcod/ACETAM 5/325 MG TABLET PO PRN (17:56)
[2018-02-01] MEDS: SODIUM CHLORIDE FLUSH 0.9% 10 ML SYRINGE IVP SCH ×4 (18:59→23:52)
[2018-02-01] MEDS: PROPRANOLOL 10 MG TABLET PO SCH ×2 (18:59→22:21)
[2018-02-01] MEDS: SODIUM CHLORIDE FLUSH 0.9% 10 ML SYRINGE IVP PRN ×2 (18:59→21:39)
[2018-02-01] MEDS: SODIUM CHLORIDE 0.9% 1,000 ML IV SCH (18:59)
[2018-02-01] MEDS: cefTRIAXone 1 GM in SODIUM CHLORIDE 0.9% MINIBAG 100 ML IV SCH (19:00)
[2018-02-01] MEDS ORDERED: LORazepam 0.5 MG TABLET PO PRN (20:57)
[2018-02-01 21:15] LABS: MUDS CUTOFF CONCENTRATIONS CUTOFF CONC BELOW:
[2018-02-01 21:29] LABS: AMPHETAMINE SCREEN,URINE NEGATIVE (NEGATIVE); BENZODIAZEPINES SCREEN, URINE POSITIVE (NEGATIVE); COCAINE SCREEN URINE NEGATIVE (NEGATIVE); METHADONE SCREEN, URINE NEGATIVE (NEGATIVE); METHAMPHETAMINES SCREEN, URINE POSITIVE (NEGATIVE); OPIATE SCREEN, URINE POSITIVE (NEGATIVE); OXYCODONE SCREEN, URINE NEGATIVE (NEGATIVE); PROPOXYPHENE SCREEN, URINE NEGATIVE (NEGATIVE); TRICYCLIC ANTIDEPRESSANT,URINE NEGATIVE (NEGATIVE)
[2018-02-01] MEDS: VANCOMYCIN INJ 1 GM in SODIUM CHLORIDE 0.9% 250 ML IV SCH (21:31)
[2018-02-01] MEDS: KETOROLAC 30 MG/ML VIAL IVP PRN (21:31)
[2018-02-02] MEDS: HYDROcod/ACETAM 5/325 MG TABLET PO PRN ×4 (00:04→18:57)
[2018-02-02] MEDS ORDERED: WATER FOR INJECTION,STERILE 20 ML ONE (05:56)
[2018-02-02] MEDS: PROPRANOLOL 10 MG TABLET PO SCH ×3 (05:59→21:52)
[2018-02-02] MEDS: SODIUM CHLORIDE FLUSH 0.9% 10 ML SYRINGE IVP PRN (05:59)
[2018-02-02] MEDS: VANCOMYCIN INJ 1 GM in SODIUM CHLORIDE 0.9% 250 ML IV SCH ×2 (06:01→16:06)
[2018-02-02] MEDS: SODIUM CHLORIDE 0.9% 1,000 ML IV SCH (09:24)
[2018-02-02] MEDS: SODIUM CHLORIDE FLUSH 0.9% 10 ML SYRINGE IVP SCH ×2 (09:27→18:57)
--- NOTE | 2018-02-02 10:03 | PROVIDER PROGRESS NOTE ---
Subjective - Prog Note Date Prog Note Date: 02/02/18 Prog Note Time: 10:01 - Subjective Pt reports feeling: Improved (Less painful elbow today.) Objective - Vital Signs/Intake & Output Vital Signs: Vital Signs x48h Temp Pulse Resp BP Pulse Ox 02/02/18 06:06 36.8 C 82 18 127/75 92 Intake & Output: Intake & Output 01/30/18 01/31/18 02/01/18 02/02/18 23:59 23:59 23:59 23:59 Intake Total 2111.667 1538.333 Balance 2111.667 1538.333 - Lab Results Fish Bones: 02/01/18 13:33 02/01/18 13:33 Other Labs: Lab Results x24hrs 02/01/18 Range/Units 20:30 Urine Opiates Screen POSITIVE H (NEGATIVE) Ur Oxycodone Screen NEGATIVE (NEGATIVE) Urine Methadone Screen NEGATIVE (NEGATIVE) Ur Propoxyphene Screen NEGATIVE (NEGATIVE) Ur Barbiturates Screen NEGATIVE (NEGATIVE) Ur Tricyclics Screen NEGATIVE (NEGATIVE) Ur Phencyclidine Scrn NEGATIVE (NEGATIVE) Ur Amphetamine Screen NEGATIVE (NEGATIVE) U Methamphetamines Scrn POSITIVE H (NEGATIVE) U Benzodiazepines Scrn POSITIVE H (NEGATIVE) Urine Cocaine Screen NEGATIVE (NEGATIVE) U Cannabinoids Screen NEGATIVE (NEGATIVE) - Other Results/Comments Other Results/Comments: EXAM: Splint removed. Right olecranon bursa _ still swollen and tender without flocculence. Less erythema. Better ROM: 20-100 degrees. Hand somewhat swollen but non tender. Moves fingers well. Sensation intact. Good cap filling Assessment/Plan - Problem List (1) Olecranon bursitis of right elbow Impression: Improved Paln: Continue splint and elevation of hand/elbow with pillows. Will AROM hand THEODORA. Continue IV antibiotics and adjust per C&S>
[2018-02-02] MEDS: cefTRIAXone 1 GM in SODIUM CHLORIDE 0.9% MINIBAG 100 ML IV SCH (11:51)
[2018-02-02] MEDS: POLYETHYLENE GLYCOL 3350 17 GM PACKET PO SCH (11:59)
[2018-02-02 15:03] LABS: VANCOMYCIN,TROUGH 8.2 ug/mL (5.0-15.0)
--- NOTE | 2018-02-02 17:30 | PROVIDER PROGRESS NOTE ---
Subjective - Prog Note Date Prog Note Date: 02/02/18 Prog Note Time: 17:27 - Subjective Pt reports feeling: Improved Subjective: he still has pain in the right elbow joint but not as acute. frustrated bc his phone is and can't charge it. I tried to an android charger operator helper for his [place] but no luck seen by Dr. Roach. no fever, no rigors, Current Medications - Current Medications Current Medications: Active Medications Acetaminophen (Tylenol) 650 mg PO Q4HR PRN PRN Reason: Pain 1 to 4 Acetaminophen/Hydrocodone Bitart ([place] 5/325) 1 tab PO Q4HR PRN PRN Reason: Pain 5 to 7 Last Admin: 02/02/18 11:50 Dose: 1 tab Ceftriaxone Sodium 1 gm/ (Sodium Chloride) 100 mls @ 200 mls/hr IV DAILY [facility] Last Infusion: 02/02/18 12:30 Dose: Infused Vancomycin HCl 1 gm/ Sodium (Chloride) 250 mls @ 167 mls/hr IV Q8HR [facility] Last Admin: 02/02/18 16:06 Dose: 167 mls/hr Ketorolac Tromethamine (Toradol Inj) 30 mg IVP Q6HR PRN PRN Reason: PAIN Stop: 02/06/18 20:56 Last Admin: 02/01/18 21:31 Dose: 30 mg Lorazepam (Ativan) 1 mg PO Q6H PRN PRN Reason: Anxiety Ondansetron HCl (Zofran Inj) 4 mg IVP Q6HR PRN PRN Reason: Nausea / Vomiting Ondansetron HCl (Zofran Odt) 4 mg TL Q6HR PRN PRN Reason: Nausea / Vomiting Polyethylene Glycol (Miralax) 17 gm PO DAILY [facility] Last Admin: 02/02/18 11:59 Dose: 17 gm Propranolol HCl (Inderal) 10 mg PO TID [facility] Last Admin: 02/02/18 15:44 Dose: 10 mg Sodium Chloride (Normal Saline Flush 0.9%) 10 ml IVP PRN PRN PRN Reason: NEEDED PER PROVIDER ORDERS Last Admin: 02/02/18 05:59 Dose: 10 ml Sodium Chloride (Normal Saline Flush 0.9%) 10 ml IVP 0100,0900,1700 [facility] Last Admin: 02/02/18 09:27 Dose: Not Given Aspirin 81 mg PO DAILY 03/26/15 Propranolol HCl 60 mg PO DAILY 07/29/16 Objective - Vital Signs/Intake & Output Reviewed Vital Signs: Yes Vital Signs: Vital Signs x48h Temp Pulse Resp BP Pulse Ox 02/02/18 15:55 37.2 C 80 18 115/64 94 02/02/18 10:16 82 18 123/65 94 Intake & Output: Intake & Output 01/30/18 01/31/18 02/01/18 02/02/18 23:59 23:59 23:59 23:59 Intake Total 2111.667 2438.333 Balance 2111.1 2438.333 - Objective General Appearance: positive: No acute distress, Alert, Other (middle aged unshaven white male in NAD.) Eyes Bilateral: positive: PERRL, EOMI Neck: positive: No JVD. negative: Stiff neck, Carotid bruit Respiratory: positive: Chest non-tender. negative: Wheezes, Rales, Rhonchi Cardiovascular: positive: Regular rate & rhythm. negative: Systolic murmur, Gallop/S4, Friction rub Skin: positive: Warm, Dry, Pallor Extremities: positive: No pedal edema, Other (right elbow joint in posterior splint. Not examined, per Dr. Roach's note he has improved.) Neurologic/Psychiatric: positive: Oriented x3, CN's nml (2-12), Motor nml - Lab Results Fish Bones: 02/01/18 13:33 02/01/18 13:33 Other Labs: Lab Results x24hrs 02/02/18 02/01/18 Range/Units 14:25 20:30 Last Dose Date 02/02/2018 Last Dose Time 0800 Vancomycin Trough 8.2 (5.0-15.0) ug/mL Urine Opiates Screen POSITIVE H (NEGATIVE) Ur Oxycodone Screen NEGATIVE (NEGATIVE) Urine Methadone Screen NEGATIVE (NEGATIVE) Ur Propoxyphene Screen NEGATIVE (NEGATIVE) Ur Barbiturates Screen NEGATIVE (NEGATIVE) Ur Tricyclics Screen NEGATIVE (NEGATIVE) Ur Phencyclidine Scrn NEGATIVE (NEGATIVE) Ur Amphetamine Screen NEGATIVE (NEGATIVE) U Methamphetamines Scrn POSITIVE H (NEGATIVE) U Benzodiazepines Scrn POSITIVE H (NEGATIVE) Urine Cocaine Screen NEGATIVE (NEGATIVE) U Cannabinoids Screen NEGATIVE (NEGATIVE) Assessment/Plan - Problem List (1) Cellulitis and abscess of upper arm and forearm Impression: right elbow area with right olecranon bursitis. Staph aureus on fluid culture. no fever, no chills vancomycin and rocephin Day #2. Plan: await sensitivities and then change abx to oral plan to send home (2) HTN (hypertension) Impression: controlled so far while here. On propranolol for his tremors not HTN. Qualifiers: Hypertension type: essential hypertension Qualified Code(s): I10 - Essential (primary) hypertension (3) Rheumatoid arthritis Impression: seronegative by hx. recheck serolgoy check plain films of hands and feet to assess his joints. Qualifiers: Rheumatoid arthritis location: unspecified site Rheumatoid factor presence : without rheumatoid factor Qualified Code(s): M06.00 - Rheumatoid arthritis without rheumatoid factor, unspecified site (4) Methamphetamine abuse Impression: urine tox screen is positive. he confirms last use last week but doesn't regard it as a problem. educated about risk, complication, side effects, intermediate teacher problems that can develop including his MRSA status w joint infections.
[2018-02-02] MEDS: KETOROLAC 30 MG/ML VIAL IVP PRN (18:57)
--- NOTE | 2018-02-02 21:30 | XRAY Report ---
EXAMS: 1. RIGHT HAND RADIOGRAPHY 2. LEFT HAND RADIOGRAPHY EXAM DATE: 02/02/2018 07:52 PM. CLINICAL HISTORY: Followup of erosive arthritis. COMPARISON: None. TECHNIQUE: 2 views each hand. FINDINGS: Right: Bones: No traumatic or destructive bone abnormalities. No erosions or periostitis identified. Joints: Alignment and joint spaces maintained. No spurring. Soft Tissues: Normal. No soft tissue swelling. Left: Bones: No traumatic or destructive bone abnormalities. No erosions or periostitis identified. Joints: Alignment and joint spaces maintained. No spurring. Soft Tissues: Normal. No soft tissue swelling. IMPRESSION: Normal bilateral hand radiography. [facility] Referring Provider Line: [phone] SITE ID: [id number]
--- NOTE | 2018-02-02 21:44 | XRAY Report ---
EXAMS: 1. RIGHT FOOT RADIOGRAPHY 2. LEFT FOOT RADIOGRAPHY EXAM DATE: 02/02/2018 08:17 PM. CLINICAL HISTORY: Followup of erosive arthritis hx. COMPARISON: None. TECHNIQUE: 2 views each foot. FINDINGS: Right: Bones: No traumatic or destructive bone abnormalities. No erosions or periostitis identified. Joints: Alignment and joint spaces maintained. Soft Tissues: Unremarkable. Left: Bones: No traumatic or destructive bone abnormalities. No erosions or periostitis identified. Joints: Alignment and joint spaces maintained. Soft Tissues: Unremarkable. IMPRESSION: Normal bilateral feet radiography. [facility] Referring Provider Line: [phone] SITE ID: [id number]
[2018-02-03] MEDS: SODIUM CHLORIDE FLUSH 0.9% 10 ML SYRINGE IVP SCH ×2 (00:17→10:27)
[2018-02-03] MEDS: VANCOMYCIN INJ 1 GM in SODIUM CHLORIDE 0.9% 250 ML IV SCH ×2 (00:17→09:53)
[2018-02-03] MEDS: HYDROcod/ACETAM 5/325 MG TABLET PO PRN (03:42)
[2018-02-03 05:47] LABS: CALCIUM 8.9 mg/dL (8.5-10.3); CREATININE 0.8 mg/dL (0.6-1.2)
[2018-02-03 05:57] LABS: BASOPHILS # (AUTO) 0.1 10^3/uL (0.0-0.1); BASOPHILS % (AUTO) 0.7 %; EOSINOPHILS # (AUTO) 0.1 10^3/uL (0.0-0.7); EOSINOPHILS % (AUTO) 0.8 %; HGB - HEMOGLOBIN 12.7 g/dL (14.0-18.0); LYMPHOCYTES # (AUTO) 1.7 10^3/uL (1.5-3.5); LYMPHOCYTES % (AUTO) 13.8 %; MEAN CORPUSCULAR VOLUME 87.8 fL (80.0-94.0); MEAN PLATELET VOLUME 8.8 fL (7.4-11.4); MONOCYTES # (AUTO) 0.9 10^3/uL (0.0-1.0); MONOCYTES % (AUTO) 7.8 %; NEUTROPHILS # (AUTO) 9.2 10^3/uL (1.5-6.6); NEUTROPHILS % (AUTO) 76.9 %; PLT - PLATELET COUNT 168 10^3/uL (130-450); RED BLOOD COUNT 4.38 10^6/uL (4.70-6.10); RED CELL DISTRIBUTION WIDTH 12.9 % (12.0-15.0)
[2018-02-03] MEDS: PROPRANOLOL 10 MG TABLET PO SCH (06:07)
--- NOTE | 2018-02-03 07:49 | Discharge Plan ---
Discharge Plan Disposition: 01 Home, Self Care Condition: Stable Prescriptions: Albuterol Sulf [Ventolin Hfa Inhaler] 1 - 2 puffs INH Q4HR PRN #1 inhaler PRN Reason: Shortness Of Air/Wheezing Propranolol HCl 60 mg PO DAILY #30 tablet Sulfamethoxazole/Trimethoprim [Bactrim 400-80 mg Tablet] 1 each PO BID #24 tablet Diet: Regular Activity Restrictions: Additional Comments (please refrain from using any recreational substances such as metamphetamines.) Additional Instructions or Follow Up instructions: You were admitted to the hospital because of skin infection around your right elbow and an infected bursa around that elbow with Staph aureus bacteria. Dr. Roach from Orthopedics drained the elbow but you will not need surgery right now. After 48 hours the bacteria was identified and you can go home with appropriate antibiotics. you must finish the Bactrim tablets that are twice a day. Please see your primary care provider Venecia Dumont in the next 1-2 weeks. Please refrain from using metamphetamines. This is contributing to your resistant bacterial infections such as your previous knee infection and this. Use of this illegal substance may also cause high blood pressure, damage to the heart muscle, damage to your brain, personality changes, strokes, or early . No Smoking: If you smoke, Please STOP! Call for help. Follow-up with: Venecia Dumont ARNP [Primary Care Provider] -
[2018-02-03] MEDS: cefTRIAXone 1 GM in SODIUM CHLORIDE 0.9% MINIBAG 100 ML IV SCH (09:53)
[2018-02-03 10:10] VITALS: BP 134/71
[2018-02-03] MEDS: POLYETHYLENE GLYCOL 3350 17 GM PACKET PO SCH (10:27)
[2018-02-03] MEDS: KETOROLAC 30 MG/ML VIAL IVP PRN (11:41)
[2018-02-03] MEDS: SODIUM CHLORIDE FLUSH 0.9% 10 ML SYRINGE IVP PRN (11:42)
--- NOTE | 2018-02-03 12:46 | PROVIDER PROGRESS NOTE ---
Subjective - Prog Note Date Prog Note Date: 02/03/18 Prog Note Time: 12:44 - Subjective Pt reports feeling: Improved Objective - Vital Signs/Intake & Output Vital Signs: Vital Signs x48h Temp Pulse Resp BP Pulse Ox 02/03/18 10:09 36.5 C 77 18 134/71 H 98 02/03/18 06:08 75 16 123/75 Intake & Output: Intake & Output 01/31/18 02/01/18 02/02/18 02/03/18 23:59 23:59 23:59 23:59 Intake Total 2111.667 4248.333 1000 Output Total 400 1600 Balance 2111.667 3848.333 -600 - Lab Results Fish Bones: 02/03/18 05:28 02/03/18 05:28 Other Labs: Lab Results x24hrs 02/03/18 02/03/18 02/02/18 Range/Units 05:28 05:28 14:25 WBC 12.0 H (4.8-10.8) x10^3/uL RBC 4.38 L (4.70-6.10) 10^6/uL Hgb 12.7 L (14.0-18.0) g/dL Hct 38.5 L (42.0-52.0) % MCV 87.8 (80.0-94.0) fL MCH 29.0 (27.0-31.0) pg MCHC 33.0 (32.0-36.0) g/dL RDW 12.9 (12.0-15.0) % Plt Count 168 (130-450) 10^3/uL MPV 8.8 (7.4-11.4) fL Neut # 9.2 H (1.5-6.6) 10^3/uL Lymph # 1.7 (1.5-3.5) 10^3/uL Bradford # 0.9 (0.0-1.0) 10^3/uL Eos # 0.1 (0.0-0.7) 10^3/uL Baso # 0.1 (0.0-0.1) 10^3/uL Absolute Nucleated RBC 0.01 x10^3/uL Nucleated RBC % 0.0 /100WBC Sodium 136 (135-145) mmol/L Potassium 4.2 (3.5-5.0) mmol/L Chloride 107 (101-111) mmol/L Carbon Dioxide 23 (21-32) mmol/L Anion Gap 6.0 (6-13) BUN 8 (6-20) mg/dL Creatinine 0.8 (0.6-1.2) mg/dL Estimated GFR (MDRD) 101 (>89) Glucose 117 H (70-100) mg/dL Calcium 8.9 (8.5-10.3) mg/dL Last Dose Date 02/02/2018 Last Dose Time 0800 Vancomycin Trough 8.2 (5.0-15.0) ug/mL - Other Results/Comments Other Results/Comments: EXAM: Arm in posterior splint. Moving fingers ok Assessment/Plan - Problem List (1) Olecranon bursitis of right elbow Impression: Improving. C&S: Staph aureus Sensitive to muple antibiotics (not MRSA) PLAN: Benny p elbow splinted x 5 more days. Oral antibiotics per Sensitivities from cultures. Follow up with PCP as scheduled.
--- NOTE | 2018-02-04 03:20 | DISCHARGE SUMMARY ---
Physician: Ramona Dangelo MD DATE OF ADMISSION: 02/01/2018 DATE OF DISCHARGE: 02/03/2018 DISCHARGE DIAGNOSES 1. Olecranon bursitis of right elbow. 2. Cellulitis of right upper limb. 3. Staphylococcus aureus infection. 4. Hypertension. 5. Seronegative rheumatoid arthritis. 6. Methamphetamine abuse. DISCHARGE MEDICATIONS 1. Albuterol Ventolin HFA 1 puff. 2. Aspirin 81 mg a day. 3. Propranolol XL 60 mg daily. 4. Bactrim double strength b.i.d. #24. PRINCIPAL PROCEDURE 1. Arthrocentesis of bursa, right elbow. 2. Culture and sensitivity of fluid growing Staph aureus that is resistant to clindamycin, erythromycin, penicillin, but not MRSA. HOSPITAL COURSE: The patient is a 52-year-old, homeless man. He got kicked out of his mother's house in September, after she had in October. Prior to that, he has been an intermittent methamphetamine abuser. He had an MRSA joint infection of the knee , taken care of by Dr. Cash, Orthopedics, in 2015. In the days before this admission he developed swelling and redness and heat of the right elbow. No fever, no chills, no rigors. His last methamphetamine use was a week ago. In the emergency room, he had cellulitis of the elbow skin that extended distally to the forearm, and proximally up the triceps skin area. Because he is homeless, and it was unclear if the patient had MRSA versus regular Staph aureus, patient was brought in for IV antibiotics. He did have a mildly elevated white cell count, but no fever. Urine tox screen was positive for methamphetamines. The rest of his lab work was unremarkable. Dr. Neftaly Roach, Orthopedics, saw the patient. He did not feel the patient needed to go to the OR for a bursectomy. Risk of fistulas in this type of patient are high he said , or at least higher than normal. He did a simple arthrocentesis, sent off the culture and cell count. There were numerous, numerous white cells; numerous red cells. Culture ended up growing Staph aureus with above sensitivities. He was treated empirically with Rocephin and vancomycin while in the hospital. He was transitioned to oral Bactrim once these cultures came back. With identity known , no need to going into the OR, afebrile and stable, the patient was felt to be stable to go home to discharge. On the day of discharge, temperature was 36.5, pulse 77, blood pressure 134/71, respirations 18, 98% on room air. He is an alert, oriented, middle-aged man who has some cognitive deficits which related to a previous history of stroke. He is disheveled, malodorous. Unfortunately, he did not avail himself of the opportunity of taking a bath here. He has shotty cervical adenopathy. Clear lungs. A regular rate and rhythm without any murmurs, rubs or gallops. Benign abdominal exam. The right elbow has almost complete resolution of the redness and heat of the skin over that right elbow. The olecranon bursa still boggy and slightly swollen with about 50% reduction in size. He is ambulatory, eating well. He is asked to follow up with his primary care provider, Venecia Dumont, and to follow up with Dr. Roach in the next 1-2 weeks. He is to finish his antibiotic therapy. I have asked him to please refrain from any methamphetamine use. TD: 02/04/2018 03:18 MAU
== END 2018-02-03 12:46 | disposition home or self-care (01) | DRG 558 ==
LOC: ED 07:59 → MS3 15:10
PROVIDERS: ADMIT Specialist; ATTEND Specialist
DX: M70.21 Olecranon bursitis, right elbow (principal); I69.398 Other sequelae of cerebral infarction; R20.8 Other disturbances of skin sensation; L03.113 Cellulitis of right upper limb; F17.200 Nicotine dependence, unspecified, uncomplicated; B95.61 Methicillin susceptible Staphylococcus aureus infection as the cause of diseases classified elsewhere; I10 Essential (primary) hypertension; M06.00 Rheumatoid arthritis without rheumatoid factor, unspecified site; F15.10 Other stimulant abuse, uncomplicated; I69.315 Cognitive social or emotional deficit following cerebral infarction; F32.89 Other specified depressive episodes; F41.8 Other specified anxiety disorders; F40.240 Claustrophobia; E78.5 Hyperlipidemia, unspecified; J44.9 Chronic obstructive pulmonary disease, unspecified; R25.1 Tremor, unspecified; Z86.69 Personal history of other diseases of the nervous system and sense organs; Z79.82 Long term (current) use of aspirin; Z59.0 Homelessness; Z86.14 Personal history of Methicillin resistant Staphylococcus aureus infection; Z72.0 Tobacco use
CPT/HCPCS: 20605; 36415; 80048; 80053; 80306; 83690; 85025; 87070; 87205; 87640; 89051; 89060; 96365; 96372; 96375; 99283; 99284

== ENCOUNTER 2019-02-13 02:22 | Emergency (ER) | payer MEDICARE ==
[2019-02-13] MEDS ORDERED: DEXAMETHASONE 10 MG/ML VIAL PO STA (02:56)
--- NOTE | 2019-02-13 02:58 | ED Physician Documentation ---
PD HPI HEENT - Stated complaint Stated Complaint: SOA/SWOLLEN THROAT - Chief complaint Chief Complaint: Heent - History obtained from History obtained from: Patient - History of Present Illness Timing - onset: How many minutes ago (2) Timing - details: Still present (getting worse) Location: Throat Worsens: Swalllowing Associated symptoms: Cough Similar symptoms before: Has not had sx before - Additional information Additional information: The patient is a 53-year-old male who presents with sore throat that started yesterday, and has become worse during the past hour. He complains of swollen tonsils, and pain with swallowing. He reports having a "sinus cold" for the past 2 days. He has had cough, and complains of right earache. He denies fever or headache. He denies history of similar symptoms in the past. Review of Systems Constitutional: denies: Fever Eyes: denies: Irritation Ears: reports: Ear pain (right) Nose: reports: Congestion, Sinus pressure / pain Throat: reports: Sore throat, Swollen tonsils Cardiac: denies: Chest pain / pressure Respiratory: reports: Cough. denies: Dyspnea GI: denies: Abdominal Pain, Nausea, Vomiting Skin: denies: Rash Musculoskeletal: denies: Back pain, Extremity swelling Neurologic: denies: Headache PD PAST MEDICAL HISTORY - Past Medical History Past Medical History: Yes Cardiovascular: Hypertension Respiratory: Pneumonia, Sleep apnea Neuro: CVA Endocrine/Autoimmune: None GI: Diverticulitis : Benign prostate hypertrophy HEENT: None Psych: Anxiety, Panic attacks, Claustrophobia Musculoskeletal: Rheumatoid arthritis Derm: None - Past Surgical History Past Surgical History: Yes Ortho: Spine surgery, Other - Present Medications Home Medications: Ambulatory Orders Medication Instructions Recorded Confirmed Aspirin 81 mg PO DAILY 02/21/15 02/01/18 Albuterol Sulf [Ventolin Hfa 1 - 2 puffs INH Q4HR PRN #1 inhaler 02/03/18 Inhaler] Propranolol HCl 60 mg PO DAILY #30 tablet 02/03/18 Sulfamethoxazole/Trimethoprim 1 each PO BID #24 tablet 02/03/18 [Bactrim 400-80 mg Tablet] cephALEXin [Cephalexin] 500 mg PO TID #20 tablet 02/13/19 - Allergies Allergies/Adverse Reactions: Allergies Allergy/AdvReac Type Severity Reaction Status Date / Time morphine AdvReac Intermediate Anxiety Verified 02/13/19 02:29 - Social History Does the pt smoke?: Yes Smoking Status: Current every day smoker Does the pt drink ETOH?: No Does the pt have substance abuse?: No - Immunizations Immunizations are current?: Yes - POLST Patient has POLST: No PD ED PE NORMAL - Vitals Vital signs reviewed: Yes (hypertensive) - General General: Alert and oriented X 3, Well developed/nourished, Other (Appears to have pain with swallowing.) - HEENT HEENT: Atraumatic, Ears normal, Other (Oropharynx is erythematous with enlarged tonsils and uvula, without exudates.) - Neck Neck: Supple, no meningeal sign, No adenopathy - Cardiac Cardiac: RRR - Respiratory Respiratory: Clear bilaterally - Abdomen Abdomen: Soft, Non tender - Derm Derm: No rash - Extremities Extremities: No edema - Neuro Neuro: Alert and oriented X 3, No motor deficit, No sensory deficit Results - Vitals Vitals: Oxygen O2 Source Room air - Labs Labs: Microbiology 02/13/19 02:50 Group A Strep Throat Culture - Final Throat Beta Hemolytic Strep Group A Laboratory Tests 02/13/19 02:50 Group A Strep Rapid Negative - Rads (name of study) CT soft tissue neck w/contrast Radiology: Prelim report reviewed, EMP read contemporaneously, See rad report (There is asymmetric enlargement of the right Palatino tonsil with inflammatory change in the adjacent right parapharyngeal space fat. The findings suggest right-sided tonsillitis/phlegmon formation. No abscess is identified. There is no significant airway compromise. Otherwise unremarkable CT of the neck soft tissues.) PD MEDICAL DECISION MAKING - ED course Complexity details: reviewed results, re-evaluated patient, considered differential, d/w patient ED course: The patient's presentation is most consistent with right sided tonsillitis. Rapid strep screen is negative. CT soft tissue neck, reveals enlarged tonsils with surrounding inflammation, without evidence of abscess. There is no airway compromise. Treatment in the emergency department included administration of dexamethasone 10 mg orally, ceftriaxone 1 g IM, and ketorolac 30 mg IV. He is being discharged with a prescription for cephalexin. I discussed with him the expected course of illness, antibiotic treatment and outpatient follow-up, as well as potentially worrisome signs or symptoms that should prompt reevaluation in the emergency department. Departure - Departure Disposition: 01 Home, Self Care Clinical Impression: Tonsillitis Condition: Stable Instructions: ED Tonsillitis Follow-Up: Venecia Dumont ARNP [Primary Care Provider] - Prescriptions: cephALEXin [Cephalexin] 500 mg PO TID #20 tablet Comments: Gargle with cool liquids. You can use Tylenol or ibuprofen as needed for fever or discomfort. Take cephalexin as prescribed. Follow-up with your primary physician within 1 week. Call to schedule appointment. Return to the emergency department if you develop increasing difficulty swallowing, shortness of breath, or otherwise worsening symptoms. Discharge Date/Time: 02/13/19 07:40
[2019-02-13] MEDS ORDERED: cefTRIAXone 1 GM VIAL IM STA (04:05)
[2019-02-13] MEDS ORDERED: LIDOCAINE 1% 2 ML VIAL SUBQ ONE (04:05)
[2019-02-13] MEDS ORDERED: KETOROLAC 30 MG/ML VIAL IVP STA (05:16)
[2019-02-13] MEDS ORDERED: IOPAMIDOL-300 100 ML VIAL ONE (05:25)
[2019-02-13] MEDS ORDERED: IOPAMIDOL-300 100 ML VIAL IVP ONE (06:01)
--- NOTE | 2019-02-13 06:22 | CT Report ---
Reason: oropharyngeal swelling and erythema, ? abscess Procedure Date: 02/13/2019 Accession Number: [id number] / [id number] Procedure: CT - SOFT TISSUE NECK W CPT Code: FULL RESULT: EXAM: CT SOFT TISSUE NECK WITH CONTRAST. EXAM DATE: 02/13/2019 05:59 AM. HISTORY: Oral pharyngeal swelling and edema. Sore throat.? Abscess. COMPARISONS: None. TECHNIQUE: Routine soft tissue neck CT protocol. Reconstructions: Coronal and sagittal. IV contrast: 80 ML ISOVUE 300. In accordance with CT protocol optimization, one or more of the following dose reduction techniques were utilized for this exam: automated exposure control, adjustment of mA and/or KV based on patient size, or use of iterative reconstructive technique. FINDINGS: There is asymmetric enlargement of the right palatine tonsil compared to the left. In addition, there is stranding in the adjacent right parapharyngeal space fat compatible with inflammatory change. The findings are compatible with a right tonsillitis with possible phlegmon formation. There is no rimming enhancing collection to indicate a peritonsillar abscess. The left tonsil is unremarkable. There is no significant airway narrowing. There is no evidence of an abscess or mass lesion elsewhere in the neck. There is no abnormal cervical lymph node enlargement. The parotid and submandibular glands are within normal limits bilaterally. The thyroid gland is unremarkable. The laryngeal structures are symmetric and within normal limits bilaterally. Subglottic airway appears normal. Visualized intracranial structures and orbits are unremarkable. There is mild scattered mucosal thickening in the ethmoid air cells bilaterally and in both maxillary sinuses. No sinus fluid levels are present. Mastoid air cells are clear. There is mild to moderate degenerative change in the lower cervical spine. Visible osseous structures are otherwise unremarkable. Visualized lung apices are clear. IMPRESSION: 1. There is asymmetric enlargement of the right palatine tonsil with inflammatory change in the adjacent right parapharyngeal space fat. The findings suggest right-sided tonsillitis/phlegmon formation. No abscess is identified. There is no significant airway compromise. 2. Otherwise unremarkable CT of neck soft tissues. RADIA
[2019-02-13 07:30] VITALS: BP 121/77
== END 2019-02-13 07:40 | disposition home or self-care (01) ==
LOC: ED 02:22
DX: J03.90 Acute tonsillitis, unspecified (principal); I10 Essential (primary) hypertension; F17.200 Nicotine dependence, unspecified, uncomplicated
CPT/HCPCS: 36415; 70491; 87070; 87077; 87430; 96372; 96374; 99283; 99284; Q9967

== ENCOUNTER 2019-06-23 11:19 | Emergency (ER) | payer MEDICARE ==
[2019-06-23 13:12] LABS: BASOPHILS # (AUTO) 0.1 10^3/uL (0.0-0.1); BASOPHILS % (AUTO) 0.9 %; EOSINOPHILS % (AUTO) 0.3 %; HGB - HEMOGLOBIN 15.1 g/dL (14.0-18.0); LYMPHOCYTES # (AUTO) 0.7 10^3/uL (1.5-3.5); LYMPHOCYTES % (AUTO) 9.2 %; MEAN CORPUSCULAR HEMOGLOBIN 29.1 pg (27.0-31.0); MEAN CORPUSCULAR VOLUME 85.5 fL (80.0-94.0); MEAN PLATELET VOLUME 9.3 fL (7.4-11.4); MONOCYTES # (AUTO) 0.6 10^3/uL (0.0-1.0); MONOCYTES % (AUTO) 7.7 %; NEUTROPHILS # (AUTO) 6.4 10^3/uL (1.5-6.6); NEUTROPHILS % (AUTO) 81.3 %; PLT - PLATELET COUNT 192 10^3/uL (130-450); RED BLOOD COUNT 5.19 10^6/uL (4.70-6.10); RED CELL DISTRIBUTION WIDTH 12.8 % (12.0-15.0); WHITE BLOOD COUNT 7.9 x10^3/uL (4.8-10.8)
[2019-06-23 13:43] LABS: CARBON DIOXIDE - CO2 23 mmol/L (21-32); CHLORIDE 106 mmol/L (101-111); SODIUM 138 mmol/L (135-145)
[2019-06-23 13:44] LABS: ALBUMIN 3.6 g/dL (3.2-5.5); ALBUMIN/GLOBULIN RATIO 1.1 (1.0-2.2); ALKALINE PHOSPHATASE 50 IU/L (42-121); ALT ALANINE AMINOTRANSFERASE 31 IU/L (10-60); AST ASPARTATE AMINOTRANSFERASE 23 IU/L (10-42); BILIRUBIN,TOTAL 0.7 mg/dL (0.2-1.0); BUN - BLOOD UREA NITROGEN 10 mg/dL (6-20); CALCIUM 9.4 mg/dL (8.5-10.3); CREATININE 0.7 mg/dL (0.6-1.2); GFR - MDRD 117 (>89); GLUCOSE 123 mg/dL (70-100); TOTAL PROTEIN 6.9 g/dL (6.7-8.2)
--- NOTE | 2019-06-23 14:02 | ED Physician Documentation ---
PD HPI MHE - Stated complaint Stated Complaint: ETOH - Chief complaint Chief Complaint: MHE - History obtained from History obtained from: Patient - History of Present Illness Primary symptom: Other (drug abuse, having suicidal thoughts but denies any plan to harm himself, he is depressed and wants to get off of drugs. He abuses heroin and methamphetamines.) Timing - onset: Chronic, Other (he stopped using 1 day ago) Severity Comments: moderate. Contributing factors: Substance abuse - drugs Similar symptoms before: Has not had sx before Recently seen: Not recently seen - Treatment prior to arrival Treatment prior to arrival: none Review of Systems Ten Systems: 10 systems reviewed and negative Cardiac: reports: Reviewed and negative Respiratory: reports: Reviewed and negative GI: reports: Nausea Skin: reports: Reviewed and negative Musculoskeletal: reports: Reviewed and negative Neurologic: denies: Focal weakness, Numbness Psychiatric: reports: Anxiety, Insomnia Endocrine: reports: Reviewed and negative PD PAST MEDICAL HISTORY - Past Medical History Past Medical History: Yes Cardiovascular: Hypertension Respiratory: Pneumonia, Sleep apnea Neuro: CVA Endocrine/Autoimmune: None GI: Diverticulitis : Benign prostate hypertrophy HEENT: None Psych: Anxiety, Panic attacks, Claustrophobia Musculoskeletal: Rheumatoid arthritis Derm: None - Past Surgical History Past Surgical History: Yes Ortho: Spine surgery, Other - Present Medications Home Medications: Ambulatory Orders Medication Instructions Recorded Confirmed Aspirin 81 mg PO DAILY 02/21/15 02/01/18 Albuterol Sulf [Ventolin Hfa 1 - 2 puffs INH Q4HR PRN #1 inhaler 02/03/18 Inhaler] Propranolol HCl 60 mg PO DAILY #30 tablet 02/03/18 Sulfamethoxazole/Trimethoprim 1 each PO BID #24 tablet 02/03/18 [Bactrim 400-80 mg Tablet] cephALEXin [Cephalexin] 500 mg PO TID #20 tablet 02/13/19 Buprenorphine HCl/Naloxone HCl 1 each SL 5XD #8 film 06/23/19 [Suboxone 2 mg-0.5 mg Sl Film] - Allergies Allergies/Adverse Reactions: Allergies Allergy/AdvReac Type Severity Reaction Status Date / Time morphine AdvReac Intermediate Anxiety Verified 02/13/19 02:29 - Social History Does the pt smoke?: Yes Smoking Status: Current every day smoker Does the pt drink ETOH?: No Does the pt have substance abuse?: No - Immunizations Immunizations are current?: Yes - POLST Patient has POLST: No PD ED PE NORMAL - Vitals Vital signs reviewed: Yes - General General: Alert and oriented X 3, No acute distress, Well developed/nourished, Other (unkempt ) - HEENT HEENT: Atraumatic - Neck Neck: Supple, no meningeal sign - Cardiac Cardiac: RRR - Respiratory Respiratory: No respiratory distress - Abdomen Abdomen: Non distended - Male Male : Deferred - Rectal Rectal: Deferred - Derm Derm: Normal color, Warm and dry, No rash - Extremities Extremities: No deformity - Neuro Neuro: Alert and oriented X 3 Eye Opening: Spontaneous Motor: Obeys Commands Verbal: Oriented GCS Score: 15 - Psych Psych: Normal mood, Normal affect Results - Vitals Vitals: Vital Signs - 24 hr 06/23/19 06/23/19 11:25 14:09 Temperature 36.8 C 37 C Heart Rate 103 H 100 Respiratory 20 16 Rate Blood Pressure 131/85 H 142/84 H O2 Saturation 98 98 Oxygen O2 Source Room air - Labs Labs: Laboratory Tests 06/23/19 06/23/19 13:06 13:06 WBC 7.9 RBC 5.19 Hgb 15.1 Hct 44.4 MCV 85.5 MCH 29.1 MCHC 34.0 RDW 12.8 Plt Count 192 MPV 9.3 Neut # (Auto) 6.4 Lymph # (Auto) 0.7 L Crowley # (Auto) 0.6 Eos # (Auto) 0.0 Baso # (Auto) 0.1 Absolute Nucleated RBC 0.00 Nucleated RBC % 0.0 Sodium 138 Potassium 3.8 Chloride 106 Carbon Dioxide 23 Anion Gap 9.0 BUN 10 Creatinine 0.7 Estimated GFR (MDRD) 117 Glucose 123 H Calcium 9.4 Total Bilirubin 0.7 AST 23 ALT 31 Alkaline Phosphatase 50 Total Protein 6.9 Albumin 3.6 Globulin 3.3 Albumin/Globulin Ratio 1.1 Ethyl Alcohol < 5.0 mild hyperglycemia, otherwise stable PD MEDICAL DECISION MAKING - ED course Complexity details: reviewed old records, reviewed results, re-evaluated patient, considered differential, d/w patient, d/w it consultant ED course: ddx drug abuse, drug withdrawal, suicidal ideation, depression. 54 y/o male with hx of meth and heroin abuse as above. Last use 1 day ago having some thoughts of self harm without any plan. Does not appear to be acutely suicidal on my evaluation or social work's evaluation. He would like to stop abusing drugs. SW met with him and pt will go to [facility] today or tomorrow for outpt f/u. Prescribed him suboxone in the short term. Departure - Departure Disposition: 01 Home, Self Care Clinical Impression: Polysubstance (including opioids) dependence w/o physiol dependence Condition: Stable Instructions: ED Drug Abuse General Follow-Up: your, doctor [Other] Prescriptions: Buprenorphine HCl/Naloxone HCl [Suboxone 2 mg-0.5 mg Sl Film] 1 each SL 5XD #8 film
[2019-06-23 14:10] VITALS: BP 142/84
== END 2019-06-23 14:17 | disposition home or self-care (01) ==
LOC: ED 11:19
DX: F11.20 Opioid dependence, uncomplicated (principal); F15.20 Other stimulant dependence, uncomplicated; R45.851 Suicidal ideations; F32.9 Major depressive disorder, single episode, unspecified; F41.9 Anxiety disorder, unspecified; I10 Essential (primary) hypertension; Z79.82 Long term (current) use of aspirin; F17.200 Nicotine dependence, unspecified, uncomplicated
CPT/HCPCS: 36415; 80053; 80320; 85025; 99283

== ENCOUNTER 2020-01-09 12:29 | Emergency (ER) | payer MEDICARE ==
--- NOTE | 2020-01-09 13:12 | XRAY Report ---
Reason: tree vs shoulder, now with pain Procedure Date: 01/09/2020 Accession Number: [id number] / [id number] Procedure: XR - Shoulder 3 View LT CPT Code: Final Report FULL RESULT: EXAM: LEFT SHOULDER RADIOGRAPHY EXAM DATE: 01/09/2020 12:58 PM. CLINICAL HISTORY: Tree vs shoulder, now with pain. COMPARISON: CHEST 2 VIEW 12/07/2017 8:02 AM. TECHNIQUE: 3 views. FINDINGS: Bones: Normal. No fracture or bone lesion. Joints: Ovoid lucencies along left acromioclavicular joint are probably subchondral cysts from degenerative change. Subtle lucency was present along the superior aspect of distal left clavicle on prior chest x-ray 12/07/2017. Soft tissues: The visualized hemithorax is unremarkable. No soft tissue swelling. IMPRESSION: 1. Ovoid lucencies along left acromioclavicular joint are probably subchondral cysts from degenerative change. 2. No radiographic evidence of fracture. RADIA
[2020-01-09] MEDS ORDERED: CYCLOBENZAPRINE 10 MG TABLET PO STA (13:22)
[2020-01-09] MEDS ORDERED: KETOROLAC 60 MG/2 ML VIAL IM STA (13:22)
--- NOTE | 2020-01-09 13:27 | ED Physician Documentation ---
History of Present Illness - Stated complaint Stated Complaint: LT SHOULDER INJURY - Chief complaint Chief Complaint: Ext Problem - History obtained from History obtained from: Patient - History of Present Illness Timing: Today Pain level max: 8 Pain level now: 8 - Additonal information Additional information: Patient was cutting a tree branch when it fell on his left shoulder. Now has pain with movement. No numbness or tingling. Nothing makes it better or worse. Did not take anything prior to arrival. Patient is right-handed. Review of Systems Constitutional: denies: Fever, Chills GI: denies: Vomiting, Diarrhea Skin: denies: Rash Musculoskeletal: denies: Neck pain, Back pain Neurologic: denies: Confused, Headache, Head injury, LOC PD PAST MEDICAL HISTORY - Past Medical History Past Medical History: Yes Cardiovascular: Hypertension Respiratory: Pneumonia, Sleep apnea Neuro: CVA Endocrine/Autoimmune: None GI: Diverticulitis : Benign prostate hypertrophy HEENT: None Psych: Anxiety, Panic attacks, Claustrophobia Musculoskeletal: Rheumatoid arthritis Derm: None - Past Surgical History Past Surgical History: Yes Ortho: Spine surgery, Other - Present Medications Home Medications: Ambulatory Orders Medication Instructions Recorded Confirmed Aspirin 81 mg PO DAILY 02/21/15 02/01/18 Albuterol Sulf [Ventolin Hfa 1 - 2 puffs INH Q4HR PRN #1 inhaler 02/03/18 Inhaler] Propranolol HCl 60 mg PO DAILY #30 tablet 02/03/18 Sulfamethoxazole/Trimethoprim 1 each PO BID #24 tablet 02/03/18 [Bactrim 400-80 mg Tablet] cephALEXin [Cephalexin] 500 mg PO TID #20 tablet 02/13/19 Buprenorphine HCl/Naloxone HCl 1 each SL 5XD #8 film 06/23/19 [Suboxone 2 mg-0.5 mg Sl Film] Cyclobenzaprine [Flexeril] 10 mg PO TID PRN #20 tablet 01/09/20 Meloxicam [Mobic] 15 mg PO DAILY PRN #20 tablet 01/09/20 Oxycodone HCl/Acetaminophen 1 - 2 each PO Q6H PRN #14 tablet 01/09/20 [Percocet 5-325 mg Tablet] - Allergies Allergies/Adverse Reactions: Allergies Allergy/AdvReac Type Severity Reaction Status Date / Time morphine AdvReac Intermediate Anxiety Verified 01/09/20 12:31 - Social History Does the pt smoke?: Yes Smoking Status: Current every day smoker Does the pt drink ETOH?: No Does the pt have substance abuse?: No - Immunizations Immunizations are current?: Yes - POLST Patient has POLST: No PD ED PE NORMAL - Vitals Vital signs reviewed: Yes - General General: Alert and oriented X 3, No acute distress, Well developed/nourished - HEENT HEENT: Moist mucous membranes - Neck Neck: Supple, no meningeal sign - Cardiac Cardiac: RRR, Strong equal pulses - Respiratory Respiratory: No respiratory distress, Clear bilaterally - Abdomen Abdomen: Soft, Non tender, Non distended - Derm Derm: Warm and dry - Extremities Extremities: Other (Tender to palpation over the left glenohumeral joint. No deformity. Neurovascular intact. Limited range of motion secondary to pain. Otherwise normal exam of the elbow, wrist, forearm.) - Neuro Neuro: Alert and oriented X 3, staff climate scientist 2-12 intact, No motor deficit, No sensory deficit, Normal speech Eye Opening: Spontaneous Motor: Obeys Commands Verbal: Oriented GCS Score: 15 - Psych Psych: Normal mood, Normal affect Results - Vitals Vitals: Vital Signs - 24 hr 01/09/20 01/09/20 12:31 14:20 Temperature 36.5 C 36.6 C Heart Rate 109 H 99 Respiratory 14 16 Rate Blood Pressure 135/95 H 145/95 H O2 Saturation 98 97 Oxygen O2 Source Room air - Rads (name of study) Left shoulder x-ray Radiology: Prelim report reviewed, EMP read contemporaneously, See rad report (1. Ovoid lucencies along left acromioclavicular joint are probably subchondral cysts from degenerative change. 2. No radiographic evidence of fracture. ) PD MEDICAL DECISION MAKING - ED course Complexity details: reviewed results, re-evaluated patient, considered differential, d/w patient ED course: 54-year-old male presents to the emergency department with left shoulder injury. Likely that this represents a rotator cuff injury. Placed in a Byers brace for comfort. Neurovascularly intact. Axillary nerve intact. No compartment syndrome. Patient counseled regarding signs and symptoms for which I believe and urgent re-evaluation would be necessary. Patient with good understanding of and agreement to plan and is comfortable going home at this time This document was made in part using voice recognition software. While efforts are made to proofread this document, sound alike and grammatical errors may occur. Departure - Departure Disposition: 01 Home, Self Care Clinical Impression: Rotator cuff injury Qualifiers: Encounter type: initial encounter Laterality: left Qualified Code(s): S46.002A - Unspecified injury of muscle(s) and tendon(s) of the rotator cuff of left shoulder, initial encounter Condition: Good Instructions: ED Torn Rotator Cuff Follow-Up: [facility] [Provider Group] - Within 1 week Prescriptions: Cyclobenzaprine [Flexeril] 10 mg PO TID PRN #20 tablet PRN Reason: Spasms Meloxicam [Mobic] 15 mg PO DAILY PRN #20 tablet PRN Reason: pain Oxycodone HCl/Acetaminophen [Percocet 5-325 mg Tablet] 1 - 2 each PO Q6H PRN #14 tablet PRN Reason: pain Comments: Return if you worsen. Wear the splint for comfort. Follow-up with orthopedics for repeat evaluation. Do not drink alcohol or drive while on narcotic pain medicine. Note that many narcotic pain relievers also contain tylenol/acetaminophen. Please ensure that your total dose of acetaminophen from all sources does not exceed 3 grams (3000mg) per day. You may constipated on this medication, take a stool softener such as "Colace" twice a day while you are on it. Also recommend a [id number] laxative such as senna or MiraLAX any day that you do not have a bowel movement. If you received narcotic pain medication in the emergency department, do not drive or operate machinery for the next 24 hours. Discharge Date/Time: 01/09/20 14:24
[2020-01-09] MEDS ORDERED: oxyCODONE 5 MG TABLET PO STA (14:15)
[2020-01-09 14:21] VITALS: BP 145/95
== END 2020-01-09 14:24 | disposition home or self-care (01) ==
LOC: ED 12:29
DX: S46.002A Unspecified injury of muscle(s) and tendon(s) of the rotator cuff of left shoulder, initial encounter (principal); W20.8XXA Other cause of strike by thrown, projected or falling object, initial encounter; Y93.H2 Activity, gardening and landscaping; I10 Essential (primary) hypertension; F17.200 Nicotine dependence, unspecified, uncomplicated
CPT/HCPCS: 73030; 96372; 99283; 99284; A9270

== ENCOUNTER 2020-01-22 14:45 | Emergency (ER) | payer MEDICARE ==
[2020-01-22 15:24] VITALS: BP 134/95
== END 2020-01-22 16:50 | disposition left against medical advice (07) ==
LOC: ED 14:45
DX: Z53.21 Procedure and treatment not carried out due to patient leaving prior to being seen by health care provider (principal)

== ENCOUNTER 2020-03-05 17:30 | Emergency (ER) | payer MEDICARE ==
[2020-03-05] MEDS ORDERED: LIDOCAINE 1%-EPI 1:100000 20 ML MDV SUBQ STA (18:12)
--- NOTE | 2020-03-05 18:15 | ED Physician Documentation ---
History of Present Illness - Stated complaint Stated Complaint: LOW RT QUAD PX - Chief complaint Chief Complaint: Wound - History obtained from History obtained from: Patient (Pt presents with several days of redness and tenderness on his abdomen. Worsening today. He has been trying hot and cold compresses w/o relief. Denies fever, chills, cp, dyspnea, n/v/d. Has hx/o abscesses on his arms, but "I usually just pop them myself." Never had to come in for one before or take abx.) Review of Systems Constitutional: reports: Reviewed and negative Cardiac: reports: Reviewed and negative Respiratory: reports: Reviewed and negative GI: reports: Reviewed and negative : reports: Reviewed and negative Skin: reports: Rash, Lesions, Other (redness and swelling on the abdomen) Musculoskeletal: reports: Reviewed and negative Neurologic: reports: Reviewed and negative PD PAST MEDICAL HISTORY - Past Medical History Past Medical History: Yes Cardiovascular: Hypertension Respiratory: Pneumonia, Sleep apnea Neuro: CVA Endocrine/Autoimmune: None GI: Diverticulitis : Benign prostate hypertrophy HEENT: None Psych: Anxiety, Panic attacks, Claustrophobia Musculoskeletal: Rheumatoid arthritis Derm: None - Past Surgical History Past Surgical History: Yes Ortho: Spine surgery, Other - Present Medications Home Medications: Ambulatory Orders Medication Instructions Recorded Confirmed Aspirin 81 mg PO DAILY 02/21/15 02/01/18 Albuterol Sulf [Ventolin Hfa 1 - 2 puffs INH Q4HR PRN #1 inhaler 02/03/18 Inhaler] Propranolol HCl 60 mg PO DAILY #30 tablet 02/03/18 Sulfamethoxazole/Trimethoprim 1 each PO BID #24 tablet 02/03/18 [Bactrim 400-80 mg Tablet] cephALEXin [Cephalexin] 500 mg PO TID #20 tablet 02/13/19 Buprenorphine HCl/Naloxone HCl 1 each SL 5XD #8 film 06/23/19 [Suboxone 2 mg-0.5 mg Sl Film] Cyclobenzaprine [Flexeril] 10 mg PO TID PRN #20 tablet 01/09/20 Meloxicam [Mobic] 15 mg PO DAILY PRN #20 tablet 01/09/20 Oxycodone HCl/Acetaminophen 1 - 2 each PO Q6H PRN #14 tablet 01/09/20 [Percocet 5-325 mg Tablet] Clindamycin HCl [Clindamycin 300MG 300 mg PO Q6H #28 capsule 03/05/20 CAP] - Allergies Allergies/Adverse Reactions: Allergies Allergy/AdvReac Type Severity Reaction Status Date / Time morphine AdvReac Intermediate Anxiety Verified 03/05/20 17:44 - Social History Does the pt smoke?: Yes Smoking Status: Current every day smoker Does the pt drink ETOH?: No Does the pt have substance abuse?: Yes Substance Use and Type: Meth - Immunizations Immunizations are current?: Yes Immunizations: TDAP >10years/unknown - POLST Patient has POLST: No PD ED PE NORMAL - Vitals Vital signs reviewed: Yes - General General: Alert and oriented X 3, No acute distress, Well developed/nourished - HEENT HEENT: Atraumatic, PERRL - Neck Neck: Supple, no meningeal sign - Cardiac Cardiac: RRR, No murmur, No gallop, No rub, Strong equal pulses - Respiratory Respiratory: No respiratory distress, Clear bilaterally - Abdomen Abdomen: Normal bowel sounds, Other (There is cellulitis of the mid to right lower abdomen and up to the umbilicus. This area is tender. There is a large area of induration (see skin notes)) - Derm Derm: Other (Large patch of cellulitis on the lower mid and right abdomen extending up to the umbilicus. There is a 12cm in diameter area of induration in the right mid lower quadrant. ) - Extremities Extremities: No deformity, No tenderness to palpate, Normal ROM s pain, No edema, No calf tenderness / cord - Neuro Neuro: Alert and oriented X 3, No motor deficit, No sensory deficit, Normal speech Eye Opening: Spontaneous Motor: Obeys Commands Verbal: Oriented GCS Score: 15 Results - Vitals Vitals: Vital Signs - 24 hr 03/05/20 03/05/20 17:44 19:08 Temperature 36.5 C 36.8 C Heart Rate 98 86 Respiratory 18 20 Rate Blood Pressure 145/96 H 131/87 H O2 Saturation 96 99 Oxygen O2 Source Room air Procedures - Abscess I&D (location) abdomen Preparation: Confirmed with ultrasound (Confirmed w/ US by Dr. Sanches), Chlorhexadine, Alcohol, Lidocaine 1% Incision: Incised with scalpel (Incised area of fluid collection noted on US with #11 blade. There was small amt of purulent drainage followed by blood. A sterile hemostat was used to open wound but no additional purulent drainage was noted. The wound was packed with a single packing strip and covered with gauze and an ABD pad. Pt received 1gm of IM ceftriaxone here and will be sent home on Clindamycin for cellulitis + Abscess.), Loculations broken, Packed, Culture obta ined, Other Other: Pt tolerated well, Dressing applied, Antibiotic prescribed PD MEDICAL DECISION MAKING - ED course Complexity details: re-evaluated patient, considered differential, d/w patient ED course: Pt presented with abdominal cellulitis and abscess. Due to the large area of induration, I consulted w/ Dr. Sanches who evaluated pt w/ me at the bedside. We ultrasound the large area of induration and noted only a small area of fluid collection and the remainder was inflammation. After informed verbal consent obtained I prepped site in the usual manner and anesthetized locally with 4ml of 1% lidocaine plain. I then made a 2.5cm incision into the area of fluid collection noted on US. There was minimal pus. The wound was explored and then packed and dressed. Pt to continue warm compresses at home. He will go home with Clindamycin to cover strep/and mrsa. He was advised to monitor area of redness closely and return if worsening, increased pain, fever/chills, or otherwise worsening sx. Pt voices understanding. Departure - Departure Disposition: 01 Home, Self Care Clinical Impression: Abscess Condition: Good Instructions: ED Abscess IandD, ED Infec Skin Cellulitis Prescriptions: Clindamycin HCl [Clindamycin 300MG CAP] 300 mg PO Q6H #28 capsule Discharge Date/Time: 03/05/20 19:20
[2020-03-05] MEDS ORDERED: LIDOCAINE 1% 2 ML VIAL MC ONE (18:58)
[2020-03-05] MEDS ORDERED: cefTRIAXone 1 GM VIAL IM STA (18:58)
[2020-03-05 19:08] VITALS: BP 131/87
== END 2020-03-05 19:20 | disposition home or self-care (01) ==
LOC: ED 17:30
DX: L02.211 Cutaneous abscess of abdominal wall (principal); L03.311 Cellulitis of abdominal wall; F17.200 Nicotine dependence, unspecified, uncomplicated
CPT/HCPCS: 10061

== ENCOUNTER 2020-04-27 06:06 | Emergency (ER) | payer MEDICARE ==
[2020-04-27 06:23] VITALS: BP 123/87
--- NOTE | 2020-04-27 07:09 | ED Physician Documentation ---
PD HPI UPPER EXT INJURY - Stated complaint Stated Complaint: L SHOULDER PAIN - Chief complaint Chief Complaint: Ext Problem - History obtained from History obtained from: Patient PD PAST MEDICAL HISTORY - Past Medical History Past Medical History: Yes Cardiovascular: Hypertension Respiratory: Pneumonia, Sleep apnea Neuro: CVA Endocrine/Autoimmune: None GI: Diverticulitis : Benign prostate hypertrophy HEENT: None Psych: Anxiety, Panic attacks, Claustrophobia Musculoskeletal: Rheumatoid arthritis Derm: None - Past Surgical History Past Surgical History: Yes Ortho: Spine surgery, Other - Present Medications Home Medications: Ambulatory Orders Medication Instructions Recorded Confirmed Aspirin 81 mg PO DAILY 02/21/15 02/01/18 Albuterol Sulf [Ventolin Hfa 1 - 2 puffs INH Q4HR PRN #1 inhaler 02/03/18 Inhaler] Propranolol HCl 60 mg PO DAILY #30 tablet 02/03/18 Sulfamethoxazole/Trimethoprim 1 each PO BID #24 tablet 02/03/18 [Bactrim 400-80 mg Tablet] cephALEXin [Cephalexin] 500 mg PO TID #20 tablet 02/13/19 Buprenorphine HCl/Naloxone HCl 1 each SL 5XD #8 film 06/23/19 [Suboxone 2 mg-0.5 mg Sl Film] Cyclobenzaprine [Flexeril] 10 mg PO TID PRN #20 tablet 01/09/20 Meloxicam [Mobic] 15 mg PO DAILY PRN #20 tablet 01/09/20 Oxycodone HCl/Acetaminophen 1 - 2 each PO Q6H PRN #14 tablet 01/09/20 [Percocet 5-325 mg Tablet] Clindamycin HCl [Clindamycin 300MG 300 mg PO Q6H #28 capsule 03/05/20 CAP] - Allergies Allergies/Adverse Reactions: Allergies Allergy/AdvReac Type Severity Reaction Status Date / Time morphine AdvReac Intermediate Anxiety Verified 04/27/20 06:24 - Social History Does the pt smoke?: Yes Smoking Status: Current every day smoker Does the pt drink ETOH?: No Does the pt have substance abuse?: Yes - Immunizations Immunizations are current?: Yes Immunizations: TDAP >10years/unknown - POLST Patient has POLST: No Results - Vitals Vitals: Vital Signs - 24 hr 04/27/20 04/27/20 06:20 06:30 Temperature 36.6 C Heart Rate 100 Respiratory 16 17 Rate Blood Pressure 123/87 H O2 Saturation 96 Oxygen O2 Source Room air
== END 2020-04-27 07:20 | disposition left against medical advice (07) ==
LOC: ED 06:06
DX: Z53.21 Procedure and treatment not carried out due to patient leaving prior to being seen by health care provider (principal)

== ENCOUNTER 2020-08-01 04:01 | Emergency (ER) | payer MEDICARE ==
--- NOTE | 2020-08-01 04:40 | ED Physician Documentation ---
PD HPI SKIN - Stated complaint Stated Complaint: ARM PX - Chief complaint Chief Complaint: Wound - History obtained from History obtained from: Patient - History of Present Illness Timing - onset: How many days ago (5-6) Timing - duration: Days Timing - details: Abrupt onset Pain level now: 4 Location: LUE Quality / character: Painful, Burning, Discolored, Raised, Swelling Associated symptoms: No: Fever Contributing factors: Unknown (recently injected IV drugs at site) Similar symptoms before: Has not had sx before Recently seen: Not recently seen - Additional information Additional information: c/o 4-5 days sudden onset left antecubital painful swelling at site of recent injection of intravenous drug (heroin, methamphetamine), he says shortly after onset, the entire LUE became red, swollen, and tender along anterior surface d istal to antecubital fossa, but the area of inflammation has subsequently decreased to only involve antecubital fossa (left). he has been getting pus drainage from the wound x 1-2 days Review of Systems Constitutional: reports: Reviewed and negative Skin: reports: Rash, Lesions Musculoskeletal: reports: Extremity pain, Extremity swelling Neurologic: denies: Focal weakness, Numbness PD PAST MEDICAL HISTORY - Past Medical History Cardiovascular: Hypertension Respiratory: Pneumonia, Sleep apnea Neuro: CVA Endocrine/Autoimmune: None GI: Diverticulitis : Benign prostate hypertrophy HEENT: None Psych: Anxiety, Panic attacks, Claustrophobia Musculoskeletal: Rheumatoid arthritis Derm: None - Past Surgical History Past Surgical History: Yes Ortho: Spine surgery, Other - Present Medications Home Medications: Ambulatory Orders Medication Instructions Recorded Confirmed Aspirin 81 mg PO DAILY 02/21/15 08/01/20 Propranolol HCl 60 mg PO DAILY #30 tablet 02/03/18 08/01/20 Clindamycin HCl [Clindamycin 300MG 300 mg PO Q6H #28 capsule 08/01/20 CAP] - Allergies Allergies/Adverse Reactions: Allergies Allergy/AdvReac Type Severity Reaction Status Date / Time morphine AdvReac Intermediate Anxiety Verified 04/27/20 06:24 - Social History Does the pt smoke?: Yes Smoking Status: Current every day smoker Does the pt drink ETOH?: No Does the pt have substance abuse?: Yes - Immunizations Immunizations are current?: Yes Immunizations: TDAP >10years/unknown - POLST Patient has POLST: No PD ED PE NORMAL - Vitals Vital signs reviewed: Yes - General General: Alert and oriented X 3, No acute distress, Well developed/nourished - Extremities Extremities: Normal ROM s pain - Neuro Neuro: No motor deficit, No sensory deficit PD ED PE EXPANDED - Extremities ANITA UE/Hands Visual: 1 - swelling (swelling, tenderness, erythema, sinus tract with small purulent drainage without fluctuance), tenderness Results - Vitals Vitals: Oxygen O2 Source Room air PD MEDICAL DECISION MAKING - ED course Complexity details: considered differential, d/w patient Departure - Departure Disposition: 01 Home, Self Care Clinical Impression: Cellulitis Condition: Good Instructions: ED Infec Skin Cellulitis Prescriptions: Clindamycin HCl [Clindamycin 300MG CAP] 300 mg PO Q6H #28 capsule Discharge Date/Time: 08/01/20 05:28
[2020-08-01] MEDS ORDERED: CLINDAMYCIN 150 MG CAPSULE PO STA (05:07)
[2020-08-01] MEDS ORDERED: BACITRACIN ZINC OINT 1 PACKET TOP STA (05:18)
[2020-08-01 05:32] VITALS: BP 143/87
== END 2020-08-01 05:28 | disposition home or self-care (01) ==
LOC: ED 04:01
DX: L03.114 Cellulitis of left upper limb (principal); F11.10 Opioid abuse, uncomplicated; F15.10 Other stimulant abuse, uncomplicated; F17.200 Nicotine dependence, unspecified, uncomplicated; I10 Essential (primary) hypertension; Z79.82 Long term (current) use of aspirin
CPT/HCPCS: 99282; 99283; A9270

== ENCOUNTER 2020-10-09 22:55 | Outpatient (CLI) | payer MEDICARE | END 2020-10-09 22:56 | disposition critical access hospital (66) | LOC: EMS 22:55 | PROVIDERS: ATTEND Surgery | DX: R56.9 Unspecified convulsions (principal) | CPT/HCPCS: A0425; A0427 ==

== ENCOUNTER 2020-10-09 23:15 | Emergency (ER) | payer MEDICARE ==
--- NOTE | 2020-10-09 23:21 | ED Physician Documentation ---
PD HPI ALTERED MENTAL STATUS - Stated complaint Stated Complaint: SZ - History obtained from History obtained from: EMS - History of Present Illness Timing - onset: Today Quality / character: Less responsive Associated symptoms: Seizure activity Contributing factors: Substance abuse Basline status: Alert and oriented X 3, Ambulatory, Independent Treatment ENROLLMENT NURSE: Accucheck (80) Recently seen: Not recently seen - Additional information Additional information: BIBA, roommate called 911 for convulsions (per EMS; roommate is not in ED) followed by decreased responsiveness. EMS note patient has been shaking intermittently en route but not in coordinated nor rhythmic pattern (does not appear to be seizure activity that they are seeing). they also note that en route, patient answers few questions but not others Review of Systems Unable to obtain: AMS PD PAST MEDICAL HISTORY - Past Medical History Cardiovascular: Hypertension Respiratory: Pneumonia, Sleep apnea Neuro: CVA Endocrine/Autoimmune: None GI: Diverticulitis : Benign prostate hypertrophy HEENT: None Psych: Anxiety, Panic attacks, Claustrophobia Musculoskeletal: Rheumatoid arthritis Derm: None - Past Surgical History Past Surgical History: Yes Ortho: Spine surgery, Other - Present Medications Home Medications: Ambulatory Orders Medication Instructions Recorded Confirmed Aspirin 81 mg PO DAILY 02/21/15 08/01/20 Propranolol HCl 60 mg PO DAILY #30 tablet 02/03/18 08/01/20 Clindamycin HCl [Clindamycin 300MG 300 mg PO Q6H #28 capsule 08/01/20 CAP] - Allergies Allergies/Adverse Reactions: Allergies Allergy/AdvReac Type Severity Reaction Status Date / Time morphine AdvReac Intermediate Anxiety Verified 04/27/20 06:24 - Social History Does the pt smoke?: Yes Smoking Status: Current every day smoker Does the pt drink ETOH?: No Does the pt have substance abuse?: Yes - Immunizations Immunizations are current?: Yes Immunizations: TDAP >10years/unknown - POLST Patient has POLST: No PD ED PE NORMAL - Vitals Vital signs reviewed: Yes - General General: Well developed/nourished - HEENT HEENT: Atraumatic, PERRL, Moist mucous membranes - Neck Neck: Supple, no meningeal sign - Cardiac Cardiac: RRR, No murmur - Respiratory Respiratory: No respiratory distress, Clear bilaterally - Abdomen Abdomen: Soft, Non distended - Derm Derm: Normal color, Warm and dry - Extremities Extremities: No edema PD ED PE EXPANDED - General General: Lethargic, Other (follows few simple commands only. does not verbalize any responses to questions on my exam) - Neuro Neuro: Lethargic Results - Vitals Vitals: Vital Signs - 24 hr 10/10/20 10/10/20 10/10/20 00:40 01:57 05:00 Temperature 36.9 C 36.6 C Heart Rate 89 79 Respiratory 16 18 Rate Blood Pressure 140/92 H 145/87 H O2 Saturation 95 97 10/10/20 07:00 Temperature 36.7 C Heart Rate 85 Respiratory 18 Rate Blood Pressure 145/79 H O2 Saturation 96 Oxygen O2 Source Room air - EKG (time done) No standard instances Rate: Rate (enter#) Rhythm: NSR - Labs Labs: Laboratory Tests 10/09/20 10/09/20 10/09/20 00:05 00:05 00:05 WBC 10.0 RBC 4.88 Hgb 13.9 L Hct 43.0 MCV 88.1 MCH 28.5 MCHC 32.3 RDW 13.4 Plt Count 221 MPV 9.3 Neut # (Auto) 7.8 H Lymph # (Auto) 1.2 L [place] # (Auto) 0.8 Eos # (Auto) 0.1 Baso # (Auto) 0.1 Absolute Nucleated RBC 0.00 Nucleated RBC % 0.0 Sodium 140 Potassium 4.1 Chloride 104 Carbon Dioxide 29 Anion Gap 7.0 BUN 18 Creatinine 1.0 Estimated GFR (MDRD) 77 L Glucose 108 H Calcium 9.4 Magnesium 2.5 Total Bilirubin 0.4 AST 23 ALT 36 Alkaline Phosphatase 59 Total Creatine Kinase 99 CK-MB (CK-2) 2.9 Total Protein 7.1 Albumin 3.7 Globulin 3.4 Albumin/Globulin Ratio 1.1 Lipase 26 Urine Color Urine Clarity Urine pH Ur Specific [place] Urine Protein Urine Glucose (UA) Urine Ketones Urine Occult Blood Urine Nitrite Urine Bilirubin Urine Urobilinogen Ur Leukocyte Esterase Ur Microscopic Review Urine Culture Comments Salicylates < 6.0 Urine Opiates Screen Ur Oxycodone Screen Urine Methadone Screen Ur Propoxyphene Screen Acetaminophen < 10 L Ur Barbiturates Screen Ur Tricyclics Screen Ur Phencyclidine Scrn Ur Amphetamine Screen U Methamphetamines Scrn U Benzodiazepines Scrn Urine Cocaine Screen U Cannabinoids Screen Ethyl Alcohol < 5.0 10/10/20 02:05 WBC RBC Hgb Hct MCV MCH MCHC RDW Plt Count MPV Neut # (Auto) Lymph # (Auto) [place] # (Auto) Eos # (Auto) Baso # (Auto) Absolute Nucleated RBC Nucleated RBC % Sodium Potassium Chloride Carbon Dioxide Anion Gap BUN Creatinine Estimated GFR (MDRD) Glucose Calcium Magnesium Total Bilirubin AST ALT Alkaline Phosphatase Total Creatine Kinase CK-MB (CK-2) Total Protein Albumin Globulin Albumin/Globulin Ratio Lipase Urine Color YELLOW Urine Clarity CLEAR Urine pH 7.0 Ur Specific [place] 1.020 Urine Protein NEGATIVE Urine Glucose (UA) NEGATIVE Urine Ketones NEGATIVE Urine Occult Blood TRACE-INTA Urine Nitrite NEGATIVE Urine Bilirubin NEGATIVE Urine Urobilinogen 0.2 (NORMAL) Ur Leukocyte Esterase NEGATIVE Ur Microscopic Review NOT INDICATED Urine Culture Comments NOT INDICATED Salicylates Urine Opiates Screen POSITIVE H Ur Oxycodone Screen NEGATIVE Urine Methadone Screen NEGATIVE Ur Propoxyphene Screen NEGATIVE Acetaminophen Ur Barbiturates Screen NEGATIVE Ur Tricyclics Screen NEGATIVE Ur Phencyclidine Scrn NEGATIVE Ur Amphetamine Screen POSITIVE H U Methamphetamines Scrn POSITIVE H U Benzodiazepines Scrn NEGATIVE Urine Cocaine Screen NEGATIVE U Cannabinoids Screen POSITIVE H Ethyl Alcohol - Rads (name of study) CTA head Radiology: Prelim report reviewed, See rad report cxr Radiology: Prelim report reviewed, See rad report PD MEDICAL DECISION MAKING - ED course Complexity details: reviewed old records, reviewed results, re-evaluated patient, considered differential, d/w patient ED course: reassuring test results without diagnostic results although UDS is positive for opiates, methamphetamine, amphetamine, and cannabinoids. during ED stay, roommate called in and told ED RN that patient did inject drugs earlier tonight but not sure what he injected. When I was the treating physician for this patient in July, he had purulent cellulitis of arm at an injection site and he told me he had been using methamphetamines and heroin. During ED stay over the course of several hours, patient gradually became more awake and alert. At one point, patient wandered out of the ED unnoticed with IV in until stopped at front attendant by security who informed ED staff of this. ED RN and I went out and retrieved patient who was afraid, tearful, and slightly disoriented; he was cooperative but unsteady, repeatedly asking where he was and why he was here. He was reassurable and was clearly confused and frightened. He fell back asleep once returned to his room. At the end of my shift, he awoke and was ambulatory to and from bathroom with steady gait and without assistance. He eventually was AAOx3, conversant and appropriate. Test results d/w patient and advised to seek f/u with primary care provider or clinic Departure - Departure Disposition: 01 Home, Self Care Clinical Impression: Polysubstance abuse Altered mental status Qualifiers: Altered mental status type: unspecified Qualified Code(s): R41.82 - Altered mental status, unspecified Condition: Good Instructions: ED Altered Loc, ED Drug Abuse General Discharge Date/Time: 10/10/20 07:04
[2020-10-09] MEDS ORDERED: SODIUM CHLORIDE 0.9% 500 ML IV STA (23:26)
[2020-10-10 00:11] LABS: BASOPHILS # (AUTO) 0.1 10^3/uL (0.0-0.1); BASOPHILS % (AUTO) 0.6 %; EOSINOPHILS # (AUTO) 0.1 10^3/uL (0.0-0.7); EOSINOPHILS % (AUTO) 0.7 %; HGB - HEMOGLOBIN 13.9 g/dL (14.0-18.0); LYMPHOCYTES # (AUTO) 1.2 10^3/uL (1.5-3.5); MEAN CORPUSCULAR HEMOGLOBIN 28.5 pg (27.0-31.0); MEAN CORPUSCULAR HGB CONC 32.3 g/dL (32.0-36.0); MEAN CORPUSCULAR VOLUME 88.1 fL (80.0-94.0); MEAN PLATELET VOLUME 9.3 fL (7.4-11.4); MONOCYTES # (AUTO) 0.8 10^3/uL (0.0-1.0); MONOCYTES % (AUTO) 7.6 %; NEUTROPHILS # (AUTO) 7.8 10^3/uL (1.5-6.6); NEUTROPHILS % (AUTO) 78.4 %; PLT - PLATELET COUNT 221 10^3/uL (130-450); RED BLOOD COUNT 4.88 10^6/uL (4.70-6.10); RED CELL DISTRIBUTION WIDTH 13.4 % (12.0-15.0)
[2020-10-10 00:44] LABS: ACETAMINOPHEN < 10 ug/mL (10-30); ALBUMIN 3.7 g/dL (3.2-5.5); ALBUMIN/GLOBULIN RATIO 1.1 (1.0-2.2); ALKALINE PHOSPHATASE 59 IU/L (42-121); ALT ALANINE AMINOTRANSFERASE 36 IU/L (10-60); AST ASPARTATE AMINOTRANSFERASE 23 IU/L (10-42); BILIRUBIN,TOTAL 0.4 mg/dL (0.2-1.0); BUN - BLOOD UREA NITROGEN 18 mg/dL (6-20); CALCIUM 9.4 mg/dL (8.5-10.3); CARBON DIOXIDE - CO2 29 mmol/L (21-32); CHLORIDE 104 mmol/L (101-111); CK- CREATINE KINASE 99 IU/L (22-269); GLUCOSE 108 mg/dL (70-100); LIPASE 26 U/L (22-51); MAGNESIUM 2.5 mg/dL (1.7-2.8); SALICYLATE < 6.0 mg/dL; SODIUM 140 mmol/L (135-145); TOTAL PROTEIN 7.1 g/dL (6.7-8.2)
[2020-10-10] MEDS ORDERED: IOVERSOL 320 100 ML VIAL IVP ONE ×2 (01:01→01:23)
[2020-10-10 02:10] LABS: MUDS CUTOFF CONCENTRATIONS CUTOFF CONC BELOW:
[2020-10-10 02:11] LABS: BILIRUBIN,URINE NEGATIVE (NEGATIVE); GLUCOSE, URINE (UA) NEGATIVE (NEGATIVE); KETONES,URINE (UA) NEGATIVE (NEGATIVE); LEUKOCYTE ESTERASE, URINE NEGATIVE (NEGATIVE); NITRITE,URINE NEGATIVE (NEGATIVE); OCCULT BLOOD,URINE TRACE-INTA (NEGATIVE); PROTEIN,URINE NEGATIVE (NEGATIVE); UROBILINOGEN,URINE 0.2 (NORMAL) E.U./dL (NORMAL)
[2020-10-10 02:12] LABS: CLARITY,URINE CLEAR (CLEAR)
[2020-10-10 02:21] LABS: AMPHETAMINE SCREEN,URINE POSITIVE (NEGATIVE); BENZODIAZEPINES SCREEN, URINE NEGATIVE (NEGATIVE); COCAINE SCREEN URINE NEGATIVE (NEGATIVE); METHADONE SCREEN, URINE NEGATIVE (NEGATIVE); METHAMPHETAMINES SCREEN, URINE POSITIVE (NEGATIVE); OPIATE SCREEN, URINE POSITIVE (NEGATIVE); OXYCODONE SCREEN, URINE NEGATIVE (NEGATIVE); PROPOXYPHENE SCREEN, URINE NEGATIVE (NEGATIVE); TRICYCLIC ANTIDEPRESSANT,URINE NEGATIVE (NEGATIVE)
[2020-10-10 07:04] VITALS: BP 145/79
--- NOTE | 2020-10-10 08:46 | CT Report ---
PROCEDURE: ANGIO HEAD W/WO INDICATIONS: L sided facial droop CONTRAST: IV CONTRAST: Optiray 320 ml: 80 PO CONTRAST: *NO PO CONTRAST TECHNIQUE: Precontrast 4.5 mm thick angled axial sections acquired from the foramen magnum to the vertex. Afte r the administration of intravenous contrast, 1 mm thick sections acquired through the [place] of [place] is. Postcontrast 4.5 mm thick sections then re-acquired from the foramen magnum to the vertex. 3-di mensional [id number] (MIP) and/or volume rendering reformats were acquired of the c entral intracranial vasculature. For radiation dose reduction, the following was used: automated ex posure control, adjustment of mA and/or kV according to patient size. COMPARISON: None FINDINGS: Image quality: Excellent. Anterior circulation: Intracranial internal carotid arteries are normal in size and flow. The flow within the paired anterior cerebral arteries is normal and symmetric. The flow within the middle cer ebral arteries is normal and symmetric. The anterior communicating artery is seen. No aneurysms are seen. Posterior circulation: Visualized portions of the vertebral arteries demonstrate normal caliber, and join to form a normal appearing basilar artery. Flow within the posterior cerebral arteries is norm al and symmetric. No aneurysms are seen. Dural sinuses demonstrate normal postcontrast enhancement. CSF spaces: Ventricles are normal in size and shape. Basal cisterns are patent. No extra-axial flu id collections. Brain: No midline shift. No intracranial bleeds or masses. [place]-white matter interface appears int act. Skull and face: Calvarium and facial bones appear intact, without suspicious lesions. Sinuses: Visualized sinuses and mastoids are clear. IMPRESSION: 1. No acute intracranial disease process. 2. No large vessel occlusion, vascular stenosis, vascular dissection or aneurysm. Reviewed by: Aliza Cerrato MD, PhD on 10/10/2020 8:45 AM PST Approved by: Aliza Cerrato MD, PhD on 10/10/2020 8:[address] [facility] Station ID: [id number]
--- NOTE | 2020-10-10 09:01 | XRAY Report ---
PROCEDURE: Chest 1 View X-Ray INDICATIONS: AMS TECHNIQUE: One view of the chest was acquired. COMPARISON: 12/07/2017 FINDINGS: Surgical changes and devices: None. Lungs and pleura: No pleural effusions or pneumothorax. Lungs are clear. Mediastinum: Mediastinal contours appear normal. Heart size is normal. Bones and chest wall: No suspicious bony lesions. Overlying soft tissues appear unremarkable. IMPRESSION: No acute cardiopulmonary disease process. Reviewed by: Aliza Cerrato MD, PhD on 10/10/2020 8:59 AM [facility] Approved by: Aliza Cerrato MD, PhD on 10/10/2020 8:59 AM [facility] Station ID: [id number]
== END 2020-10-10 07:04 | disposition home or self-care (01) ==
LOC: EDUNIT# → ED 23:15
DX: F19.10 Other psychoactive substance abuse, uncomplicated (principal); R41.82 Altered mental status, unspecified; I45.10 Unspecified right bundle-branch block; I10 Essential (primary) hypertension; F17.200 Nicotine dependence, unspecified, uncomplicated; R53.83 Other fatigue; R00.0 Tachycardia, unspecified
CPT/HCPCS: 36415; 70496; 71045; 80053; 80306; 81003; 82550; 82553; 83690; 83735; 85025; 93005; 96360; 99281; 99284; Q9967; 80307; 80320; 80329; 81001; 87086

== ENCOUNTER 2021-02-07 17:32 | Emergency (ER) | payer MEDICARE ==
[2021-02-07 17:40] VITALS: BP 145/97
[2021-02-07] MEDS ORDERED: BUFFERED LIDOCAINE 10 ML SYRINGE SUBQ STA (17:47)
[2021-02-07] MEDS ORDERED: LIDOCAINE 1%-EPI 1:100000 20 ML MDV SUBQ STA (17:47)
[2021-02-07] MEDS ORDERED: SULFAMETH/TRIMETH DS 800/160 MG TABLET PO STA (17:47)
--- NOTE | 2021-02-07 17:49 | ED Physician Documentation ---
PD HPI WOUND RECHECK - Stated complaint Stated Complaint: LT ARM/BACK ABCESS - Chief complaint Chief Complaint: Wound - Histroy obtained from History obtained from: Patient - Additional information Additional information: 55-year-old gentleman with history of injection drug use presents with 2 abscesses, 1 on the upper back and one on the left forearm. He has a history of MRSA. Denies fevers. He also like his teeth looked at. Has not been to a dentist in a long time. Review of Systems Constitutional: reports: Reviewed and negative Eyes: reports: Reviewed and negative Ears: reports: Reviewed and negative Nose: reports: Reviewed and negative PD PAST MEDICAL HISTORY - Past Medical History Cardiovascular: Hypertension Respiratory: Pneumonia, Sleep apnea Neuro: CVA Endocrine/Autoimmune: None GI: Diverticulitis : Benign prostate hypertrophy HEENT: None Psych: Anxiety, Panic attacks, Claustrophobia Musculoskeletal: Rheumatoid arthritis Derm: None - Past Surgical History Past Surgical History: Yes Ortho: Spine surgery, Other - Present Medications Home Medications: Ambulatory Orders Medication Instructions Recorded Confirmed Aspirin 81 mg PO DAILY 02/21/15 02/07/21 Propranolol HCl 60 mg PO DAILY #30 tablet 02/03/18 02/07/21 Sulfamethoxazole/Trimethoprim 1 each PO BID #20 tablet 02/07/21 [Bactrim 400-80 mg Tablet] - Allergies Allergies/Adverse Reactions: Allergies Allergy/AdvReac Type Severity Reaction Status Date / Time morphine AdvReac Intermediate Anxiety Verified 02/07/21 17:35 - Social History Does the pt smoke?: Yes Smoking Status: Current every day smoker Does the pt drink ETOH?: No Does the pt have substance abuse?: Yes - Immunizations Immunizations are current?: Yes Immunizations: TDAP >10years/unknown - POLST Patient has POLST: No PD ED PE NORMAL - Vitals Vital signs reviewed: Yes - General General: Alert and oriented X 3, No acute distress - HEENT HEENT: Other (He is all but edentulous with carious teeth down to the gumline for the most part. No evidence of active infection.) - Neck Neck: Supple, no meningeal sign, No bony TTP - Extremities Extremities: Other (Large pointed abscess to the medial's posterior side of the left forearm. There is a shallow staphylococcal type infection of the right upper back with mild surrounding cellulitis.) - Neuro Neuro: Alert and oriented X 3, Normal speech Results - Vitals Vitals: Vital Signs - 24 hr 02/07/21 17:36 Temperature 36.4 C L Heart Rate 97 Respiratory 19 Rate Blood Pressure 145/97 H O2 Saturation 98 Oxygen O2 Source Room air Procedures - Abscess I&D (location) Back Preparation: Other (It was quite shallow and was really just debrided. Did not need anything else.) L forearm Preparation: Alcohol, Lidocaine 1% Incision: Incised with scalpel, Purulent drainage, Loculations broken, Culture obtained Other: Pt tolerated well, Dressing applied, Antibiotic prescribed Departure - Departure Disposition: Home, Self Care Clinical Impression: Carious teeth, Abscess, Polysubstance (including opioids) dependence w/o physiol dependence Condition: Stable Record reviewed to determine appropriate education?: Yes Instructions: ED Abscess IandD, ED Tooth Pain Follow-Up: EUGENE HERNANDEZ [Physician No Access] - Prescriptions: Sulfamethoxazole/Trimethoprim [Bactrim 400-80 mg Tablet] 1 each PO BID #20 tablet Comments: We are performing a wound culture, the results should be done in 48-72 hours. If antibiotic change is necessary we will call you. Return if worse in the meantime, especially if you develop increased pain, fevers, cannot keep down the medication. Otherwise follow-up with your physician in approximately 2-3 days.
--- NOTE | 2021-02-09 15:12 | ED Physician Documentation ---
ED Addendum - Addendum Addendum: 02/09/21 15:12 Cultures and sensitivities reviewed. Will change to clindamycin 300 mg p.o. every 6 hours x7 days. The MRSA is resistant to Bactrim
== END 2021-02-07 18:14 | disposition home or self-care (01) ==
LOC: ED 17:32
DX: L02.212 Cutaneous abscess of back [any part, except buttock and flank] (principal); L02.414 Cutaneous abscess of left upper limb; I10 Essential (primary) hypertension; F17.200 Nicotine dependence, unspecified, uncomplicated; K02.9 Dental caries, unspecified; F19.20 Other psychoactive substance dependence, uncomplicated
CPT/HCPCS: 10060; 87070; 87181; 87205; 99283; A9270

== ENCOUNTER 2021-06-07 20:56 | Outpatient (CLI) | payer OTHER | END 2021-06-07 20:57 | disposition critical access hospital (66) | LOC: EMS 20:56 | DX: R40.0 Somnolence (principal); R40.4 Transient alteration of awareness | CPT/HCPCS: A0425; A0427 ==

== ENCOUNTER 2021-06-07 21:16 | Emergency (ER) | payer MEDICARE, OTHER ==
[2021-06-07] MEDS ORDERED: NALOXONE 0.4 MG/ML VIAL IVP STA (21:27)
[2021-06-07] MEDS ORDERED: ONDANSETRON 4 MG/2 ML VIAL IVP STA (21:30)
[2021-06-07 21:42] LABS: BASOPHILS # (AUTO) 0.1 10^3/uL (0.0-0.1); BASOPHILS % (AUTO) 1.2 %; EOSINOPHILS # (AUTO) 0.2 10^3/uL (0.0-0.7); EOSINOPHILS % (AUTO) 2.3 %; HCT - HEMATOCRIT 42.2 % (42.0-52.0); HGB - HEMOGLOBIN 13.6 g/dL (14.0-18.0); LYMPHOCYTES # (AUTO) 1.9 10^3/uL (1.5-3.5); LYMPHOCYTES % (AUTO) 23.5 %; MEAN CORPUSCULAR HEMOGLOBIN 28.4 pg (27.0-31.0); MEAN CORPUSCULAR HGB CONC 32.2 g/dL (32.0-36.0); MEAN CORPUSCULAR VOLUME 88.1 fL (80.0-94.0); MEAN PLATELET VOLUME 10.1 fL (7.4-11.4); MONOCYTES # (AUTO) 0.7 10^3/uL (0.0-1.0); MONOCYTES % (AUTO) 8.9 %; NEUTROPHILS # (AUTO) 5.2 10^3/uL (1.5-6.6); NEUTROPHILS % (AUTO) 63.6 %; PLT - PLATELET COUNT 216 10^3/uL (130-450); RED BLOOD COUNT 4.79 10^6/uL (4.70-6.10); RED CELL DISTRIBUTION WIDTH 13.8 % (12.0-15.0); WHITE BLOOD COUNT 8.1 x10^3/uL (4.8-10.8)
[2021-06-07 22:00] LABS: ACETAMINOPHEN < 10 ug/mL (10-30); ALBUMIN 3.8 g/dL (3.2-5.5); ALBUMIN/GLOBULIN RATIO 1.1 (1.0-2.2); ALKALINE PHOSPHATASE 63 IU/L (42-121); ALT ALANINE AMINOTRANSFERASE 25 IU/L (10-60); AST ASPARTATE AMINOTRANSFERASE 23 IU/L (10-42); BILIRUBIN,TOTAL 0.5 mg/dL (0.2-1.0); BUN - BLOOD UREA NITROGEN 15 mg/dL (6-20); CALCIUM 9.4 mg/dL (8.5-10.3); CARBON DIOXIDE - CO2 27 mmol/L (21-32); CHLORIDE 104 mmol/L (101-111); CREATININE 0.8 mg/dL (0.6-1.2); ETOH - ETHANOL < 5.0 mg/dL; GFR - MDRD 100 (>89); GLUCOSE 63 mg/dL (70-100); LIPASE 26 U/L (22-51); POTASSIUM 3.9 mmol/L (3.5-5.0); SALICYLATE < 6.0 mg/dL; SODIUM 142 mmol/L (135-145); TOTAL PROTEIN 7.3 g/dL (6.7-8.2)
[2021-06-08 04:08] LABS: MUDS CUTOFF CONCENTRATIONS CUTOFF CONC BELOW:
[2021-06-08 04:10] LABS: BILIRUBIN,URINE NEGATIVE (NEGATIVE); CLARITY,URINE CLEAR (CLEAR); GLUCOSE, URINE (UA) NEGATIVE (NEGATIVE); KETONES,URINE (UA) NEGATIVE (NEGATIVE); LEUKOCYTE ESTERASE, URINE NEGATIVE (NEGATIVE); NITRITE,URINE NEGATIVE (NEGATIVE); OCCULT BLOOD,URINE TRACE-LYSE (NEGATIVE); PROTEIN,URINE NEGATIVE (NEGATIVE); UROBILINOGEN,URINE 0.2 (NORMAL) E.U./dL (NORMAL)
[2021-06-08 04:20] LABS: AMPHETAMINE SCREEN,URINE POSITIVE (NEGATIVE); METHAMPHETAMINES SCREEN, URINE POSITIVE (NEGATIVE); OPIATE SCREEN, URINE POSITIVE (NEGATIVE)
[2021-06-08 04:21] LABS: BARBITURATE SCREEN,UR NEGATIVE (NEGATIVE); BENZODIAZEPINES SCREEN, URINE NEGATIVE (NEGATIVE); COCAINE SCREEN URINE NEGATIVE (NEGATIVE); METHADONE SCREEN, URINE NEGATIVE (NEGATIVE); OXYCODONE SCREEN, URINE NEGATIVE (NEGATIVE); PROPOXYPHENE SCREEN, URINE NEGATIVE (NEGATIVE); THC CANNABINOID SCREEN, URINE NEGATIVE (NEGATIVE); TRICYCLIC ANTIDEPRESSANT,URINE NEGATIVE (NEGATIVE)
--- NOTE | 2021-06-08 04:51 | ED Physician Documentation ---
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 Please came in and administered for milligrams of Narcan intranasally which did not do much and when the ambulance arrived the eventually administered a total of another 2.8 mg intravenously at which time the patient went through acute withdrawal. He arrived to the emergency department in withdrawal vomiting and in pain.The patient states that he does have Narcan at his home but his roommates did not use it. He states he is not homicidal or suicidal and was not expecting to have an overdose. He has done heroin for more than 10 years. He is interested in treatment today. Review of Systems Constitutional: denies: Fever Eyes: denies: Decreased vision Ears: denies: Ear pain Nose: denies: Congestion Throat: denies: Sore throat Cardiac: denies: Chest pain / pressure, Palpitations Respiratory: reports: Cough. denies: Dyspnea GI: reports: Nausea, Vomiting. denies: Abdominal Pain : denies: Dysuria, Frequency Skin: denies: Rash Musculoskeletal: denies: Neck pain, Back pain, Extremity pain Neurologic: reports: Focal weakness (s/p CVA). denies: Generalized weakness PD PAST MEDICAL HISTORY - Past Medical History Past Medical History: Yes Cardiovascular: Hypertension Respiratory: Pneumonia, Sleep apnea Neuro: CVA Endocrine/Autoimmune: None GI: Diverticulitis : Benign prostate hypertrophy HEENT: None Psych: Anxiety, Panic attacks, Claustrophobia Musculoskeletal: Rheumatoid arthritis Derm: None - Past Surgical History Past Surgical History: Yes Ortho: Spine surgery, Other - Present Medications Home Medications: Ambulatory Orders Medication Instructions Recorded Confirmed Aspirin 81 mg PO DAILY 02/21/15 02/07/21 Propranolol HCl 60 mg PO DAILY #30 tablet 02/03/18 02/07/21 Sulfamethoxazole/Trimethoprim 1 each PO BID #20 tablet 02/07/21 [Bactrim 400-80 mg Tablet] - Allergies Allergies/Adverse Reactions: Allergies Allergy/AdvReac Type Severity Reaction Status Date / Time morphine AdvReac Intermediate Anxiety Verified 06/07/21 21:23 - Social History Does the pt smoke?: Yes Smoking Status: Current every day smoker Does the pt drink ETOH?: No Does the pt have substance abuse?: Yes - Immunizations Immunizations are current?: Yes Immunizations: TDAP >10years/unknown - POLST Patient has POLST: No PD ED PE NORMAL - Vitals Vital signs reviewed: Yes (tachy and hypertensive) - General General: Alert and oriented X 3, No acute distress, Well developed/nourished - HEENT HEENT: Atraumatic, PERRL, EOMI - Neck Neck: Supple, no meningeal sign, No bony TTP - Cardiac Cardiac: RRR, No murmur - Respiratory Respiratory: No respiratory distress, Clear bilaterally - Abdomen Abdomen: Normal bowel sounds, Soft, Non tender, Non distended, No organomegaly - Back Back: No CVA TTP, No spinal TTP - Derm Derm: Normal color, Warm and dry, No rash - Extremities Extremities: No deformity, No edema - Neuro Neuro: Alert and oriented X 3, filer metal patterns 2-12 intact, No motor deficit, No sensory deficit, Normal speech Eye Opening: Spontaneous Motor: Obeys Commands Verbal: Oriented GCS Score: 15 - Psych Psych: Normal mood, Normal affect Results - Vitals Vitals: Vital Signs - 24 hr 06/07/21 06/07/21 06/07/21 21:23 21:59 22:29 Temperature 36.6 C 36.6 C 36.5 C Heart Rate 92 92 92 Respiratory 26 H 16 16 Rate Blood Pressure 132/90 H 114/78 105/73 O2 Saturation 98 98 96 06/07/21 06/07/21 06/07/21 22:30 23:00 23:30 Temperature 36.9 C 36.8 C Heart Rate 86 85 Respiratory 15 16 Rate Blood Pressure 105/73 117/81 H 134/82 H O2 Saturation 93 92 06/08/21 06/08/21 06/08/21 00:00 00:30 01:00 Temperature 36.7 C 36.7 C 36.8 C Heart Rate 87 87 84 Respiratory 16 13 15 Rate Blood Pressure 128/81 H 122/87 H 138/82 H O2 Saturation 92 93 95 06/08/21 06/08/21 06/08/21 01:37 02:00 02:30 Temperature Heart Rate 84 84 78 Respiratory 15 13 12 Rate Blood Pressure 124/86 H 133/85 H 138/93 H O2 Saturation 93 94 96 06/08/21 06/08/21 06/08/21 03:00 03:30 04:00 Temperature 36.6 C Heart Rate 76 74 82 Respiratory 14 14 12 Rate Blood Pressure 136/90 H 122/87 H 117/91 H O2 Saturation 96 94 94 06/08/21 06/08/21 06/08/21 04:30 05:00 05:30 Temperature Heart Rate 85 73 68 Respiratory 16 12 13 Rate Blood Pressure 105/84 H 117/84 H 117/86 H O2 Saturation 95 94 95 06/08/21 06/08/21 06:00 06:30 Temperature Heart Rate 72 69 Respiratory 16 16 Rate Blood Pressure 117/92 H 129/90 H O2 Saturation 97 94 Oxygen O2 Source Room air - Labs Labs: Laboratory Tests 06/07/21 06/07/21 06/08/21 21:36 21:36 04:00 WBC 8.1 RBC 4.79 Hgb 13.6 L Hct 42.2 MCV 88.1 MCH 28.4 MCHC 32.2 RDW 13.8 Plt Count 216 MPV 10.1 Neut # (Auto) 5.2 Lymph # (Auto) 1.9 [place] # (Auto) 0.7 Eos # (Auto) 0.2 Baso # (Auto) 0.1 Absolute Nucleated RBC 0.00 Nucleated RBC % 0.0 Sodium 142 Potassium 3.9 Chloride 104 Carbon Dioxide 27 Anion Gap 11.0 BUN 15 Creatinine 0.8 Estimated GFR (MDRD) 100 Glucose 63 L Calcium 9.4 Total Bilirubin 0.5 AST 23 ALT 25 Alkaline Phosphatase 63 Total Protein 7.3 Albumin 3.8 Globulin 3.5 Albumin/Globulin Ratio 1.1 Lipase 26 Urine Color YELLOW Urine Clarity CLEAR Urine pH 6.0 Ur Specific [place] 1.025 Urine Protein NEGATIVE Urine Glucose (UA) NEGATIVE Urine Ketones NEGATIVE Urine Occult Blood TRACE-LYSE Urine Nitrite NEGATIVE Urine Bilirubin NEGATIVE Urine Urobilinogen 0.2 (NORMAL) Ur Leukocyte Esterase NEGATIVE Ur Microscopic Review NOT INDICATED Urine Culture Comments NOT INDICATED Salicylates < 6.0 Urine Opiates Screen POSITIVE H Ur Oxycodone Screen NEGATIVE Urine Methadone Screen NEGATIVE Ur Propoxyphene Screen NEGATIVE Acetaminophen < 10 L Ur Barbiturates Screen NEGATIVE Ur Tricyclics Screen NEGATIVE Ur Phencyclidine Scrn NEGATIVE Ur Amphetamine Screen POSITIVE H U Methamphetamines Scrn POSITIVE H U Benzodiazepines Scrn NEGATIVE Urine Cocaine Screen NEGATIVE U Cannabinoids Screen NEGATIVE Ethyl Alcohol < 5.0 PD MEDICAL DECISION MAKING - ED course Complexity details: reviewed results, re-evaluated patient, considered differential, d/w patient ED course: 56-year-old male IV drug abuser overdosed unintentionally on black tar heroin last night. He was tender to in the emergency department in acute withdrawal and this morning he is remorseful wants to talk to social media content manager about treatment and will consider going to treatment today. At shift change the patient's care is turned over to Dr. Carvajal with a chest x-ray pending as well as a nasal PCR.And a social work consult. Departure - Departure Clinical Impression: Polysubstance (including opioids) dependence w/o physiol dependence Opiate or related narcotic overdose Qualifiers: Encounter type: initial encounter Injury intent: accidental or unintentional Qualified Code(s): T40.601A - Poisoning by unspecified narcotics, accidental (unintentional), initial encounter Condition: Stable Instructions: ED Overdose Accidental Follow-Up: [facility] [Provider Group]
--- NOTE | 2021-06-08 07:39 | XRAY Report ---
PROCEDURE: Chest 1 View X-Ray INDICATIONS: chest pain TECHNIQUE: One view of the chest was acquired. COMPARISON: 10/09/2020, 09/07/2016, 11/08/2015 FINDINGS: Surgical changes and devices: None. Lungs and pleura: No pleural effusions or pneumothorax. Lungs are clear. Mediastinum: Mediastinal contours appear normal. Heart size is normal. Bones and chest wall: No suspicious bony lesions. Overlying soft tissues appear unremarkable. IMPRESSION: Portable chest within normal limits for age. Note: No significant discrepancy from the preliminary report. Reviewed by: Jewel Borrego MD on 06/08/2021 6:37 AM LUIS ALBERTO Approved by: Jewel Borrego MD on 06/08/2021 6:37 AM LUIS ALBERTO Station ID: [id number]
[2021-06-08 08:21] LABS: B. PARAPERTUSSIS- RESP PCR PAN NOT DETECTED; B. PERTUSSIS- RESP PCR PANEL NOT DETECTED; C. PNEUMONIAE- RESP PCR PANEL NOT DETECTED; CORONAVIRUS 229E-RESP PCR NOT DETECTED; CORONAVIRUS HKU1-RESP PCR NOT DETECTED; CORONAVIRUS NL63-RESP PCR NOT DETECTED; CORONAVIRUS OC43-RESP PCR NOT DETECTED; HUMAN METAPNEUMOVIRUS NOT DETECTED; INFLUENZA A- RESP PCR PANEL NOT DETECTED; INFLUENZA B - RESP PCR PANEL NOT DETECTED; M. PNEUMONIAE- RESP PCR PANEL NOT DETECTED; PARAINFLUENZA VIRUS 1 NOT DETECTED; PARAINFLUENZA VIRUS 2 NOT DETECTED; PARAINFLUENZA VIRUS 3 NOT DETECTED; PARAINFLUENZA VIRUS 4 NOT DETECTED; RHINOVIRUS/ENTEROVIRUS NOT DETECTED; RSV- RESP PCR PANEL NOT DETECTED; SARS-CoV-2 -RESP PCR PANEL NOT DETECTED
[2021-06-08 11:46] VITALS: BP 127/90
--- NOTE | 2021-06-08 12:14 | ED Physician Documentation ---
ED Addendum - Addendum Addendum: 06/08/21 12:12 Patient accepted to detox by [facility] in [place]. Patient clear for detox. Departure - Departure Disposition: 01 Home, Self Care Clinical Impression: Polysubstance (including opioids) dependence w/o physiol dependence Opiate or related narcotic overdose Qualifiers: Encounter type: initial encounter Injury intent: accidental or unintentional Qualified Code(s): T40.601A - Poisoning by unspecified narcotics, accidental (unintentional), initial encounter Condition: Good Instructions: ED Overdose Accidental Follow-Up: [facility] [Provider Group] Comments: Please got to [facility] as directed today. [address] in [place] [phone]
== END 2021-06-08 13:01 | disposition home or self-care (01) ==
LOC: EDUNIT# → ED 21:16
DX: T40.1X1A Poisoning by heroin, accidental (unintentional), initial encounter (principal); F11.23 Opioid dependence with withdrawal; R11.10 Vomiting, unspecified; R00.0 Tachycardia, unspecified; I10 Essential (primary) hypertension; F17.200 Nicotine dependence, unspecified, uncomplicated; Z79.82 Long term (current) use of aspirin; Z20.822 Contact with and (suspected) exposure to COVID-19
CPT/HCPCS: 0202U; 36415; 71045; 80053; 80306; 80307; 80320; 80329; 81003; 83690; 85025; 96374; 99284; 81001; 87086

== ENCOUNTER 2021-07-24 14:58 | Emergency (ER) | payer MEDICARE, OTHER ==
[2021-07-24] MEDS ORDERED: TETANUS/DIPHTHERIA/PERTUSSIS 0.5 ML SYRINGE IM ONE (15:18)
[2021-07-24] MEDS ORDERED: cefTRIAXone 1 GM VIAL IM STA (15:18)
[2021-07-24] MEDS ORDERED: LIDOCAINE 1% 2 ML VIAL MC ONE (15:18)
--- NOTE | 2021-07-24 15:24 | ED Physician Documentation ---
History of Present Illness - Stated complaint Stated Complaint: RT HAND/FOOT SWELLING - Chief complaint Chief Complaint: Ext Problem - Additonal information Additional information: 56-year-old homeless male with a history of opioid abuse presents the emergency department for evaluation 2 days right hand swelling and erythema. He believes that he was bitten by a spider. He states that he did have swelling and erythema that extended up the forearm though that has improved. He denies any fevers. No red streaking. He is also reporting right foot pain after dropping a set of wrenches on his foot about 1 week ago. He has pain in the midfoot and has had difficulty bearing weight and walking since. Unknown last tetanus Review of Systems Constitutional: denies: Fever, Chills Eyes: reports: Reviewed and negative Ears: reports: Reviewed and negative Nose: reports: Reviewed and negative Cardiac: reports: Reviewed and negative Respiratory: reports: Reviewed and negative GI: reports: Reviewed and negative : reports: Reviewed and negative Skin: denies: Rash, Lesions Musculoskeletal: reports: Extremity pain (Right hand; right foot) Neurologic: reports: Reviewed and negative PD PAST MEDICAL HISTORY - Past Medical History Cardiovascular: Hypertension Respiratory: Pneumonia, Sleep apnea Neuro: CVA Endocrine/Autoimmune: None GI: Diverticulitis : Benign prostate hypertrophy HEENT: None Psych: Anxiety, Panic attacks, Claustrophobia Musculoskeletal: Rheumatoid arthritis Derm: None - Past Surgical History Past Surgical History: Yes Ortho: Spine surgery, Other - Present Medications Home Medications: Ambulatory Orders Medication Instructions Recorded Confirmed Aspirin 81 mg PO DAILY 02/21/15 07/24/21 Propranolol HCl 60 mg PO DAILY #30 tablet 02/03/18 07/24/21 Ibuprofen [Motrin] 600 mg PO Q8H PRN #30 tablet 07/24/21 Sulfamethox/Trimeth 800/160 1 each PO BID #14 tablet 07/24/21 [Bactrim Ds 800/160] - Allergies Allergies/Adverse Reactions: Allergies Allergy/AdvReac Type Severity Reaction Status Date / Time morphine AdvReac Intermediate Anxiety Verified 07/24/21 15:07 - Social History Does the pt smoke?: Yes Smoking Status: Current every day smoker Does the pt drink ETOH?: No Does the pt have substance abuse?: Yes Substance Use and Type: Meth, Heroin - Immunizations Immunizations are current?: Yes Immunizations: TDAP >10years/unknown - POLST Patient has POLST: No PD ED PE EXPANDED - General General: Alert, Disheveled, poorly kept - Cardiac Cardiac: Regular Rate, Radial strong equal, Cap refill < 2 sec, Prolonged cap refill - Respiratory Respiratory: Clear to ausultation sarthak. No: Distress, Labored - Extremities Extremities: Normal, Tenderness, Right hand (Swelling on the dorsum of the hand without palpable fluctuance. No obvious sores or lesions. Ultrasound does not reveal abscess or fluid collection. Normal grasp and flexion of the fingers and wrist.), Right foot (Tenderness on the dorsum of the foot with palpation over the proximal and mid second and third metatarsals. No swelling or deformity. No tenderness of the ankle or Achilles. Full range of motion of the ankle in all planes. 2+ DP pulse.), Pedal Pulses Present. No: Deformity, Pedal edema bilateral Results - Vitals Vitals: Vital Signs - 24 hr 07/24/21 15:03 Temperature 36.8 C Heart Rate 84 Respiratory 15 Rate Blood Pressure 142/93 H O2 Saturation 99 Oxygen O2 Source Room air - Rads (name of study) right foot Radiology: EMP read indepedently (No acute fracture or dislocation) PD MEDICAL DECISION MAKING - ED course Complexity details: reviewed results, d/w patient ED course: 56-year-old homeless male has a history of opioid abuse presents emergency department for evaluation infection in the right hand as well as pain in the right foot after dropping a set of wrenches on it. He has significant swelling and erythema on the dorsum of the right hand but using ultrasound no fluid collection was found. Tetanus was updated today in the emergency department he was given a gram of ceftriaxone. Patient will be started on Bactrim. Emergent worrisome return precautions were discussed regarding the hand infection. He also reported pain in the right foot after dropping wrenches. X-ray does not reveal any obvious fracture or dislocation. He is able to ambulate well on the foot. I do suspect soft tissue injury or contusion. Prescription for ibuprofen was levied. Emergent worrisome return precautions discussed. Departure - Departure Disposition: 01 Home, Self Care Clinical Impression: Cellulitis of right hand Contusion of right foot Qualifiers: Encounter type: initial encounter Qualified Code(s): S90.31XA - Contusion of right foot, initial encounter Condition: Stable Record reviewed to determine appropriate education?: Yes Instructions: Cellulitis Dc, ED Contusion Lower Extr Ch Prescriptions: Sulfamethox/Trimeth 800/160 [Bactrim Ds 800/160] 1 each PO BID #14 tablet Ibuprofen [Motrin] 600 mg PO Q8H PRN #30 tablet PRN Reason: PAIN &/OR FEVER Comments: He was seen in the ER today for evaluation of pain in the right foot and right hand. You do have a bacterial skin infection of your right hand. This is called cellulitis. We did look with an ultrasound and did not see an abscess or fluid collection. Your first dose of antibiotics was given in the emergency department. Please fill the prescription for the Bactrim and begin taking twice daily for the next 7 days. If you are able I encourage you to place a warm compress over the hand for 10 minutes three times a day. This will help get good blood flow to the hand and can also help kill bacteria. You also had pain in the right foot after dropping a set of wrenches on your foot. The x-ray does not show a fracture. You most likely have contusion or bruising within the soft tissues. This will usually get better after about 1 to 2 weeks. I prescribed some ibuprofen to help with this. If any point you feel that the infection in your hand is worsening, you were swelling, fevers, red stringing them please return immediately to the ER for a second evaluation.
[2021-07-24 15:48] VITALS: BP 130/95
--- NOTE | 2021-07-24 16:18 | XRAY Report ---
PROCEDURE: Foot 3 View RT INDICATIONS: dropped wrenches; r/o fx TECHNIQUE: 3 views of the foot were acquired. COMPARISON: X-ray foot 02/02/2018 FINDINGS: Bones: No fractures or dislocations. No suspicious bony lesions. Soft tissues: No tibiotalar joint effusion. Achilles tendon appears normal. IMPRESSION: No visualized acute fracture or dislocation. However, occult injury cannot be excluded. Recommend guille rt interval imaging follow-up in 7-10 days as clinically indicated for additional evaluation. Reviewed by: Marlyn Torres MD on 07/24/2021 4:17 PM PDT Approved by: Marlyn Torres MD on 07/24/2021 4:17 PM PDT Station ID: [id number]
== END 2021-07-24 15:48 | disposition home or self-care (01) ==
LOC: ED 14:58
DX: S90.31XA Contusion of right foot, initial encounter (principal); W20.8XXA Other cause of strike by thrown, projected or falling object, initial encounter; L03.113 Cellulitis of right upper limb; I10 Essential (primary) hypertension; F17.200 Nicotine dependence, unspecified, uncomplicated; Z59.0 Homelessness
CPT/HCPCS: 90471; 96372; 99283

== ENCOUNTER 2021-08-18 20:27 | Emergency (ER) | payer MEDICARE ==
[2021-08-18 22:48] VITALS: BP 122/85
== END 2021-08-19 00:15 | disposition left against medical advice (07) ==
LOC: ED 20:27
DX: Z53.21 Procedure and treatment not carried out due to patient leaving prior to being seen by health care provider (principal)

== ENCOUNTER 2021-08-25 14:24 | Outpatient (CLI) | payer MEDICARE | END 2021-08-25 14:25 | disposition critical access hospital (66) | LOC: EMS 14:24 | DX: M54.9 Dorsalgia, unspecified (principal); R05 Cough; R50.9 Fever, unspecified | CPT/HCPCS: A0425; A0429 ==

== ENCOUNTER 2021-08-25 14:50 | Emergency (ER) | payer MEDICARE ==
[2021-08-25] MEDS ORDERED: HYDROmorphone 1 MG/ML CARPUJECT IVP STA ×2 (15:15→17:31)
--- NOTE | 2021-08-25 15:20 | ED Physician Documentation ---
PD HPI BACK PAIN - Stated complaint Stated Complaint: BACK PX - Chief complaint Chief Complaint: Back Pain - History obtained from History obtained from: Patient - Additional information Additional information: 56-year-old gentleman with history of IV drug use presents with productive cough for few days and body aches and chills. Developed mid to low back pain last night while coughing. Denies weakness, numbness, tingling, saddle anesthesia. Had a temperature 100.[address] here. He has a remote history of low back surgeries. Review of Systems Ten Systems: 10 systems reviewed and negative Constitutional: reports: Fever, Chills, Myalgias Cardiac: denies: Chest pain / pressure, Palpitations Respiratory: reports: Dyspnea, Cough PD PAST MEDICAL HISTORY - Past Medical History Cardiovascular: Hypertension Respiratory: Pneumonia, Sleep apnea Neuro: CVA Endocrine/Autoimmune: None GI: Diverticulitis : Benign prostate hypertrophy HEENT: None Psych: Anxiety, Panic attacks, Claustrophobia Musculoskeletal: Rheumatoid arthritis Derm: None - Past Surgical History Past Surgical History: Yes Ortho: Spine surgery, Other - Present Medications Home Medications: Ambulatory Orders Medication Instructions Recorded Confirmed Propranolol HCl 60 mg PO DAILY #30 tablet 02/03/18 08/18/21 Amox/Clav 875/125 [Augmentin] 1 each PO Q12H #20 tablet 08/25/21 Ibuprofen [Motrin] 800 mg PO Q8H PRN #30 tablet 08/25/21 Oxycodone HCl/Acetaminophen 1 - 2 each PO Q6H PRN #14 tablet 08/25/21 [Percocet 5-325 mg Tablet] - Allergies Allergies/Adverse Reactions: Allergies Allergy/AdvReac Type Severity Reaction Status Date / Time morphine AdvReac Intermediate Anxiety Verified 08/25/21 14:57 - Social History Does the pt smoke?: Yes Smoking Status: Current every day smoker Does the pt drink ETOH?: No Does the pt have substance abuse?: Yes - Immunizations Immunizations are current?: Yes Immunizations: TDAP >10years/unknown - POLST Patient has POLST: No PD ED PE NORMAL - Vitals Vital signs reviewed: Yes - General General: Alert and oriented X 3, Other (He is writhing and uncomfortable, but also winces with motion.) - HEENT HEENT: PERRL, EOMI - Neck Neck: Supple, no meningeal sign, No bony TTP - Cardiac Cardiac: RRR, No murmur - Respiratory Respiratory: No respiratory distress, Clear bilaterally - Abdomen Abdomen: Non tender - Back Back: Other (Severe tenderness in the upper lumbar low thoracic spine) - Extremities Extremities: Other (Track mendoza to both upper extremities, the patient has equal and normal Achilles and patellar reflexes bilaterally. Normal sensation in all areas of the legs. Patient denies saddle anesthesia. Normal strength in flexion-extension at the ankles, knees, and flexion of the hips.) - Neuro Neuro: Alert and oriented X 3, Normal speech Results - Vitals Vitals: Vital Signs - 24 hr 08/25/21 08/25/21 08/25/21 14:57 17:42 18:53 Temperature 37.2 C 36.5 C Heart Rate 86 89 88 Respiratory 20 20 18 Rate Blood Pressure 140/90 H 130/86 H 118/94 H O2 Saturation 96 95 98 Oxygen O2 Source Room air - Labs Labs: Laboratory Tests 08/25/21 08/25/21 08/25/21 15:27 15:27 15:27 WBC 11.7 H RBC 4.67 L Hgb 13.3 L Hct 39.6 L MCV 84.8 MCH 28.5 MCHC 33.6 RDW 13.1 Plt Count 161 MPV 9.5 Neut # (Auto) 9.6 H Lymph # (Auto) 1.0 L [place] # (Auto) 1.0 Eos # (Auto) 0.0 Baso # (Auto) 0.1 Absolute Nucleated RBC 0.00 Nucleated RBC % 0.0 ESR 49 H Sodium 131 L Potassium 3.7 Chloride 98 L Carbon Dioxide 22 Anion Gap 11.0 BUN 10 Creatinine 0.9 Estimated GFR (MDRD) 87 L Glucose 107 H Lactic Acid Calcium 8.7 C-Reactive Protein 10.7 H Nasal Adenovirus (PCR) Nasal B. parapertussis DNA (PCR) Nasal Coronavir 229E PCR Nasal Coronavir HKU1 PCR Nasal Coronavir NL63 PCR Nasal Coronavir OC43 PCR Nasal Enterovir/Rhinovir PCR Nasal Influenza B PCR Nasal Influenza A PCR Nasal Parainfluen 1 PCR Nasal Parainfluen 2 PCR Nasal Parainfluen 3 PCR Nasal Parainfluen 4 PCR Nasal RSV (PCR) Nasal B.pertussis DNA PCR Nasal C.pneumoniae (PCR) Derrek Human Metapneumo PCR Nasal M.pneumoniae (PCR) Nasal SARS-CoV-2 (PCR) 08/25/21 08/25/21 15:27 15:27 WBC RBC Hgb Hct MCV MCH MCHC RDW Plt Count MPV Neut # (Auto) Lymph # (Auto) [place] # (Auto) Eos # (Auto) Baso # (Auto) Absolute Nucleated RBC Nucleated RBC % ESR Sodium Potassium Chloride Carbon Dioxide Anion Gap BUN Creatinine Estimated GFR (MDRD) Glucose Lactic Acid 0.7 Calcium C-Reactive Protein Nasal Adenovirus (PCR) NOT DETECTED Nasal B. parapertussis DNA (PCR) NOT DETECTED Nasal Coronavir 229E PCR NOT DETECTED Nasal Coronavir HKU1 PCR NOT DETECTED Nasal Coronavir NL63 PCR NOT DETECTED Nasal Coronavir OC43 PCR NOT DETECTED Nasal Enterovir/Rhinovir PCR NOT DETECTED Nasal Influenza B PCR NOT DETECTED Nasal Influenza A PCR NOT DETECTED Nasal Parainfluen 1 PCR NOT DETECTED Nasal Parainfluen 2 PCR NOT DETECTED Nasal Parainfluen 3 PCR NOT DETECTED Nasal Parainfluen 4 PCR NOT DETECTED Nasal RSV (PCR) NOT DETECTED Nasal B.pertussis DNA PCR NOT DETECTED Nasal C.pneumoniae (PCR) NOT DETECTED Derrek Human Metapneumo PCR NOT DETECTED Nasal M.pneumoniae (PCR) NOT DETECTED Nasal SARS-CoV-2 (PCR) NOT DETECTED - Rads (name of study) 1v cxr Radiology: EMP read contemporaneously (NAD) PD MEDICAL DECISION MAKING - ED course ED course: 56-year-old gentleman with history of IV drug abuse presents with severe mid back pain and a low-grade temperature. History was not consistent with spinal epidural abscess and that it started suddenly while coughing, that said the rest of his findings and his lab work are concerning. His pain was controlled with divided doses of medications here and because of the circumstances needed urgent MRI to rule out infectious disease of the spine, this was done and negative for same. He was encouraged to go to the stabilization center to or for tomorrow. I suspect some of the severity of his pain is due to narcotic withdrawal. Given the cough and elevated inflammatory markers, seems reasonable to cover him with antibiotics. Departure - Departure Disposition: 01 Home, Self Care Clinical Impression: Polysubstance (including opioids) dependence w/o physiol dependence, Cough Back pain Qualifiers: Back pain location: low back pain Chronicity: acute Back pain laterality: unspecified Sciatica presence: without sciatica Qualified Code(s): M54.5 - Low back pain Fever Qualifiers: Fever type: due to other condition Qualified Code(s): R50.81 - Fever presenting with conditions classified elsewhere Condition: Good Record reviewed to determine appropriate education?: Yes Instructions: ED Low Back Pain Injury, ED Fever Unconf Cause Prescriptions: Amox/Clav 875/125 [Augmentin] 1 each PO Q12H #20 tablet Ibuprofen [Motrin] 800 mg PO Q8H PRN #30 tablet PRN Reason: PAIN &/OR FEVER Oxycodone HCl/Acetaminophen [Percocet 5-325 mg Tablet] 1 - 2 each PO Q6H PRN #14 tablet PRN Reason: pain Comments: Prescription sent electronically to [facility] in [place]. Return if you worsen. Otherwise recommend that you go to to have a stabilization center tomorrow, they are in [place]. The address is [facility] [address] Follow-up with your primary care physician as well. I am prescribing a short course of narcotic pain medication for you. These are potentially dangerous and addictive medications that should be used carefully. These medications may constipate you. Take an wzay-vse-subjpri stool softener (docusate) twice daily with plenty of water while taking these medications. If you go 24 hours without a bowel movement, take spoy-ufr-wywvgsz miralax, per package instructions. Do not drink or drive while taking these medications. If you received narcotic or sedating medications while in the emergency department, do not drive for 24 hours. Store this medication in a safe, secure place and out of reach of children. It is a violation of federal law to give or sell this medication to another person or to use in a manner other than prescribed. The ED will not refill narcotic prescriptions, including prescriptions lost or stolen. To dispose of unwanted medications: 1. [facility] at [address] in [place] has a medication drop box. They accept prescription medications (in pill form) Wednesday through Wednesday 9:00 a.m. to 5:00 p.m. 2. The [facility] [employer] accepts prescription medications (in pill form only) for disposal year round. Call for more inf ormation. 3. Contact the [facility] for the next [facility] sponsored prescription drug collection event. , [phone], or [phone]; Note that many narcotic pain relievers also contain Tylenol/acetaminophen. Please ensure that your total dose of acetaminophen from all sources does not exceed 3 g (3000 mg) per day. Discharge Date/Time: 08/25/21 19:15
[2021-08-25 15:34] LABS: BASOPHILS # (AUTO) 0.1 10^3/uL (0.0-0.1); BASOPHILS % (AUTO) 0.7 %; EOSINOPHILS % (AUTO) 0.3 %; HCT - HEMATOCRIT 39.6 % (42.0-52.0); HGB - HEMOGLOBIN 13.3 g/dL (14.0-18.0); LYMPHOCYTES % (AUTO) 8.3 %; MEAN CORPUSCULAR HEMOGLOBIN 28.5 pg (27.0-31.0); MEAN CORPUSCULAR HGB CONC 33.6 g/dL (32.0-36.0); MEAN CORPUSCULAR VOLUME 84.8 fL (80.0-94.0); MEAN PLATELET VOLUME 9.5 fL (7.4-11.4); MONOCYTES % (AUTO) 8.2 %; NEUTROPHILS # (AUTO) 9.6 10^3/uL (1.5-6.6); PLT - PLATELET COUNT 161 10^3/uL (130-450); RED BLOOD COUNT 4.67 10^6/uL (4.70-6.10); RED CELL DISTRIBUTION WIDTH 13.1 % (12.0-15.0); WHITE BLOOD COUNT 11.7 x10^3/uL (4.8-10.8)
--- NOTE | 2021-08-25 15:35 | XRAY Report ---
PROCEDURE: Chest 1 View X-Ray INDICATIONS: cough TECHNIQUE: One view of the chest was acquired. COMPARISON: 06/08/2021 FINDINGS: Suboptimal film secondary to difficulty positioning patient due to condition. Surgical changes and devices: None. Lungs and pleura: No pleural effusions or pneumothorax. Low lung volumes. Lungs are grossly clear. Mediastinum: Mediastinal contours appear normal. Heart size is normal. Bones and chest wall: No suspicious bony lesions. Overlying soft tissues appear unremarkable. IMPRESSION: 1. Given patient condition and technical limitations of the study, the lungs are grossly clear. Reviewed by: Jodi Ortega MD on 08/25/2021 3:34 PM PDT Approved by: Jodi Ortega MD on 08/25/2021 3:34 PM PDT Station ID: [id number]
[2021-08-25] MEDS ORDERED: KETOROLAC 30 MG/ML VIAL IVP STA (15:48)
[2021-08-25 15:55] LABS: CALCIUM 8.7 mg/dL (8.5-10.3); CREATININE 0.9 mg/dL (0.6-1.2); CRP - C-REACTIVE PROTEIN 10.7 mg/dL (0-1.0); POTASSIUM 3.7 mmol/L (3.5-5.0)
[2021-08-25] MEDS ORDERED: GADOBUTROL 15 MMOL/15 ML VIAL ONE (16:11)
[2021-08-25 16:43] LABS: B. PARAPERTUSSIS- RESP PCR PAN NOT DETECTED; B. PERTUSSIS- RESP PCR PANEL NOT DETECTED; C. PNEUMONIAE- RESP PCR PANEL NOT DETECTED; CORONAVIRUS 229E-RESP PCR NOT DETECTED; CORONAVIRUS HKU1-RESP PCR NOT DETECTED; CORONAVIRUS NL63-RESP PCR NOT DETECTED; CORONAVIRUS OC43-RESP PCR NOT DETECTED; HUMAN METAPNEUMOVIRUS NOT DETECTED; INFLUENZA A- RESP PCR PANEL NOT DETECTED; INFLUENZA B - RESP PCR PANEL NOT DETECTED; M. PNEUMONIAE- RESP PCR PANEL NOT DETECTED; PARAINFLUENZA VIRUS 1 NOT DETECTED; PARAINFLUENZA VIRUS 2 NOT DETECTED; PARAINFLUENZA VIRUS 3 NOT DETECTED; PARAINFLUENZA VIRUS 4 NOT DETECTED; RHINOVIRUS/ENTEROVIRUS NOT DETECTED; RSV- RESP PCR PANEL NOT DETECTED; SARS-CoV-2 -RESP PCR PANEL NOT DETECTED
[2021-08-25] MEDS ORDERED: GADOBUTROL 15 MMOL/15 ML VIAL IVP ONE (16:48)
--- NOTE | 2021-08-25 17:42 | MRI Report ---
PROCEDURE: Lumbar Spine W/WO INDICATIONS: Back pain, fever, IVDU, go from Mid Tspine down CONTRAST: IV CONTRAST: Gadavist ml: 9.4 TECHNIQUE: Noncontrast sagittal T1 spin echo and T2 fast spin echo, sagittal STIR, axial T1 and T2 fast spin ech o through the lumbar spine. In cases with scoliosis, additional coronal T2 fast spin echo may be per formed. After the administration of contrast, sagittal and axial T1 spin echo with fat saturation th rough the lumbar spine. The mid thoracic spine is included within the majority of this imaging. COMPARISON: None. FINDINGS: Image quality: Motion artifact is noted. Alignment and curvature: There is mild retrolisthesis at the L1-L2 level. Grade 1 anterolisthesis is seen at L5-S1, with associated bilateral pars defects. Marrow: Marrow is of normal overall signal. No acute vertebral body compression fractures. No susp icious marrow enhancement. Spinal cord: Conus medullaris terminates at the L1 level. Visualized spinal cord demonstrates camilla l signal, without suspicious enhancement. Paraspinous soft tissues: No paravertebral masses or abnormal enhancement. Simple appearing renal cy sts are seen, left larger than right. T12-L1: Moderate loss of disc height and signal are seen. No significant neural foraminal or central canal narrowing can be seen. L1-L2: Moderate loss of disc height and signal are seen. Bridging anterior osteophytes are seen. No significant neural foraminal or central canal narrowing can be seen. L2-L3: Moderate loss of disc height and signal are seen. Moderate disc bulge is seen at this le zach. There is a central disc protrusion. Bridging anterior osteophytes are seen. Mild to moderate f acet hypertrophy is seen. Mild to moderate bilateral neuroforaminal narrowing can be seen. The centr al canal is widely patent. L3-L4: The disc height and disc signal are well preserved. Mild disc bulge is seen. Mild facet hy pertrophy is seen. There is mild to moderate left-sided and mild right-sided neuroforaminal narrowin g seen. No central canal narrowing is seen. L4-L5: The disc height and disc signal are well preserved. Moderate facet hypertrophy is seen. There is moderate left-sided and at least moderate right-sided neuroforaminal narrowing seen. No significant central canal narrowing is seen. L5-S1: At least moderate loss of disc height and disc signal can be seen. Moderate disc bulge is seen at this level. At least moderate facet hypertrophy is seen. There is moderate to severe bilate ral neuroforaminal narrowing seen. Compression is seen upon the exiting nerve roots. Mild central canal narrowing is seen. IMPRESSION: Findings of discitis, osteomyelitis, or epidural abscess are seen. Degenerative changes are seen, which are worst at the L5-S1 level. Reviewed by: Jewel Borrego MD on 08/25/2021 4:41 PM LUIS ALBERTO Approved by: Jewel Borrego MD on 08/25/2021 4:41 PM LUIS ALBERTO Station ID: [id number]
[2021-08-25] MEDS ORDERED: AMOX/CLAV 875 MG/125 MG TABLET PO STA (18:04)
[2021-08-25 18:53] VITALS: BP 118/94
== END 2021-08-25 19:15 | disposition home or self-care (01) ==
LOC: ED 14:50
DX: M51.26 Other intervertebral disc displacement, lumbar region (principal); R05 Cough; R50.9 Fever, unspecified; Z20.822 Contact with and (suspected) exposure to COVID-19; F11.20 Opioid dependence, uncomplicated; F19.20 Other psychoactive substance dependence, uncomplicated; I10 Essential (primary) hypertension; F17.200 Nicotine dependence, unspecified, uncomplicated
CPT/HCPCS: 36415; 71045; 72158; 80048; 83605; 85025; 85651; 86140; 87040; 87150; 87181; 87631; 96374; 96375; 96376; 99284; A9270; A9585; J1170; 0202U

== ENCOUNTER 2021-08-26 12:24 | Outpatient (CLI) | payer MEDICARE | END 2021-08-26 12:25 | disposition critical access hospital (66) | LOC: EMS 12:24 | DX: M54.5 Low back pain (principal) | CPT/HCPCS: A0425; A0429 ==

== ENCOUNTER 2021-08-26 12:48 | Inpatient (IN) | payer MEDICARE ==
[2021-08-26] MEDS ORDERED: VANCOMYCIN INJ 2 GM in SODIUM CHLORIDE 0.9% 500 ML IV STA (12:52)
[2021-08-26 13:09] LABS: BASOPHILS # (AUTO) 0.1 10^3/uL (0.0-0.1); BASOPHILS % (AUTO) 0.5 %; EOSINOPHILS # (AUTO) 0.1 10^3/uL (0.0-0.7); EOSINOPHILS % (AUTO) 0.5 %; HCT - HEMATOCRIT 40.2 % (42.0-52.0); HGB - HEMOGLOBIN 13.5 g/dL (14.0-18.0); LYMPHOCYTES # (AUTO) 0.9 10^3/uL (1.5-3.5); MEAN CORPUSCULAR HEMOGLOBIN 28.4 pg (27.0-31.0); MEAN CORPUSCULAR HGB CONC 33.6 g/dL (32.0-36.0); MEAN CORPUSCULAR VOLUME 84.5 fL (80.0-94.0); MEAN PLATELET VOLUME 10.2 fL (7.4-11.4); MONOCYTES # (AUTO) 1.2 10^3/uL (0.0-1.0); MONOCYTES % (AUTO) 8.5 %; NEUTROPHILS # (AUTO) 12.2 10^3/uL (1.5-6.6); NEUTROPHILS % (AUTO) 83.6 %; PLT - PLATELET COUNT 173 10^3/uL (130-450); RED BLOOD COUNT 4.76 10^6/uL (4.70-6.10); RED CELL DISTRIBUTION WIDTH 13.2 % (12.0-15.0); WHITE BLOOD COUNT 14.6 x10^3/uL (4.8-10.8)
[2021-08-26] MEDS ORDERED: HYDROmorphone 1 MG/ML CARPUJECT IVP STA (13:11)
--- NOTE | 2021-08-26 13:19 | ED Physician Documentation ---
History of Present Illness - Stated complaint Stated Complaint: +CULTURE - Chief complaint Chief Complaint: General - History obtained from History obtained from: Patient - Additonal information Additional information: This is a 56-year-old gentleman with history of IV drug use who I saw yesterday with complaints of productive cough, low-grade fever and back pain. He was afebrile here with modestly elevated white count, sed rate, and CRP. Because of the predominant complaint of back pain an MRI of the lumbar spine and lower thoracic spine was done without findings of spinal epidural abscess/os teomyelitis/discitis. He was called back today and brought back by ambulance because he has 2 out of 2 blood cultures preliminarily positive for MRSA. He continues to be febrile with a fever of 101 at home and continues to have severe back pain, but now also complains of urinary hesitancy and atraumatic right foot pain. Review of Systems Ten Systems: 10 systems reviewed and negative Constitutional: denies: Fever, Chills Ears: reports: Reviewed and negative Nose: reports: Reviewed and negative Throat: reports: Reviewed and negative PD PAST MEDICAL HISTORY - Past Medical History Past Medical History: Yes Cardiovascular: Hypertension Respiratory: Pneumonia, Sleep apnea Neuro: CVA, Tremors Endocrine/Autoimmune: None GI: Diverticulitis : Benign prostate hypertrophy HEENT: None Psych: Anxiety, Panic attacks, Claustrophobia Musculoskeletal: Rheumatoid arthritis Derm: None - Past Surgical History Past Surgical History: Yes Ortho: Spine surgery, Other - Present Medications Home Medications: Ambulatory Orders Medication Instructions Recorded Confirmed Propranolol HCl 60 mg PO DAILY #30 tablet 02/03/18 08/18/21 Amox/Clav 875/125 [Augmentin] 1 each PO Q12H #20 tablet 08/25/21 Ibuprofen [Motrin] 800 mg PO Q8H PRN #30 tablet 08/25/21 Oxycodone HCl/Acetaminophen 1 - 2 each PO Q6H PRN #14 tablet 08/25/21 [Percocet 5-325 mg Tablet] - Allergies Allergies/Adverse Reactions: Allergies Allergy/AdvReac Type Severity Reaction Status Date / Time morphine AdvReac Intermediate Anxiety Verified 08/26/21 13:11 - Social History Does the pt smoke?: Yes Smoking Status: Current every day smoker Does the pt drink ETOH?: No Does the pt have substance abuse?: Yes Substance Use and Type: Heroin - Immunizations Immunizations are current?: Yes Immunizations: TDAP >10years/unknown - POLST Patient has POLST: No PD ED PE NORMAL - Vitals Vital signs reviewed: Yes - General General: Other (Appears uncomfortable, Unable to sit him up on initial evaluation to look at his back.) - HEENT HEENT: PERRL, EOMI - Neck Neck: Supple, no meningeal sign, No bony TTP - Cardiac Cardiac: Other (I do not appreciate a murmur, he is borderline tachycardic) - Respiratory Respiratory: No respiratory distress, Clear bilaterally - Abdomen Abdomen: Normal bowel sounds, Soft, Non tender - Back Back: No CVA TTP, No spinal TTP - Derm Derm: Other (He has a irregular nontender hemorrhagic macule on the medial left ankle which could be consistent with a Jan[place]ay lesion although the location is atypical.) - Extremities Extremities: Other (Quite tender to the dorsum of the right foot which is also swollen) - Neuro Neuro: Alert and oriented X 3, Normal speech Results - Vitals Vitals: Vital Signs - 24 hr 08/26/21 08/26/21 12:35 13:11 Temperature 37.4 C Heart Rate 100 97 Respiratory 20 36 H Rate Blood Pressure 134/92 H 134/92 H O2 Saturation 97 95 Oxygen O2 Source Room air - EKG (time done) 1319 Rate: Rate (enter#) (98) Rhythm: NSR [place]: Normal Intervals: RBBB QRS: Normal Ischemia: Normal ST segments - Labs Labs: Laboratory Tests 08/26/21 08/26/21 08/26/21 13:02 13:02 13:02 WBC 14.6 H RBC 4.76 Hgb 13.5 L Hct 40.2 L MCV 84.5 MCH 28.4 MCHC 33.6 RDW 13.2 Plt Count 173 MPV 10.2 Neut # (Auto) 12.2 H Lymph # (Auto) 0.9 L [place] # (Auto) 1.2 H Eos # (Auto) 0.1 Baso # (Auto) 0.1 Absolute Nucleated RBC 0.00 Nucleated RBC % 0.0 ESR 59 H Sodium 130 L Potassium 3.9 Chloride 95 L Carbon Dioxide 23 Anion Gap 12.0 BUN 13 Creatinine 0.8 Estimated GFR (MDRD) 100 Glucose 108 H Lactic Acid Calcium 9.0 Troponin I High Sens C-Reactive Protein 23.0 H 08/26/21 08/26/21 13:02 13:02 WBC RBC Hgb Hct MCV MCH MCHC RDW Plt Count MPV Neut # (Auto) Lymph # (Auto) [place] # (Auto) Eos # (Auto) Baso # (Auto) Absolute Nucleated RBC Nucleated RBC % ESR Sodium Potassium Chloride Carbon Dioxide Anion Gap BUN Creatinine Estimated GFR (MDRD) Glucose Lactic Acid 1.3 Calcium Troponin I High Sens 7.2 C-Reactive Protein PD MEDICAL DECISION MAKING - ED course ED course: 56-year-old gentleman returns at our behest because of 2 blood cultures positive preliminarily for MRSA. Now with right foot pain. Persistent back pain but this was imaged yesterday and I had the radiologist onsite look at the images to confirm that he also felt that there were no findings of infection in the spine. He does not have a murmur that I appreciate. We will x-ray the right foot and repeat labs. We will start vancomycin after repeat blood cultures. Foot x-ray, 3 views interpreted contemporaneous by me was negative without evidence of osteomyelitis. He will need to be admitted obviously for IV antibiotics and Dr. Deep connelly at 2:29 PM. Departure - Departure Disposition: [facility] DC/Xfer Clinical Impression: MRSA bacteremia, Polysubstance (including opioids) dependence w/o physiol dependence Fever Qualifiers: Fever type: due to other condition Qualified Code(s): R50.81 - Fever presenting with conditions classified elsewhere Back pain Qualifiers: Back pain location: low back pain Chronicity: acute Back pain laterality: midline Sciatica presence: without sciatica Qualified Code(s): M54.5 - Low back pain Contusion of right foot Qualifiers: Encounter type: initial encounter Qualified Code(s): S90.31XA - Contusion of right foot, initial encounter Condition: Serious
[2021-08-26 13:29] LABS: CREATININE 0.8 mg/dL (0.6-1.2); POTASSIUM 3.9 mmol/L (3.5-5.0)
--- NOTE | 2021-08-26 14:11 | XRAY Report ---
PROCEDURE: Foot 3 View RT INDICATIONS: foot pain, MRSA sepsis TECHNIQUE: 3 views of the foot were acquired. COMPARISON: None FINDINGS: Bones: No fractures or dislocations. No suspicious bony lesions. Soft tissues: No tibiotalar joint effusion. Achilles tendon appears normal. IMPRESSION: No acute fracture. No osseous lesion. If symptoms and/or clinical suspicion for pathology continue, f urther assessment with repeat plain films, or advanced imaging (e.g., CT, MRI, or bone scan) is recom mended for further assessment. Reviewed by: Shaan Eddy MD on 08/26/2021 2:09 PM PDT Approved by: Shaan Eddy MD on 08/26/2021 2:09 PM PDT Station ID: [id number]
[2021-08-26 14:25] LABS: GLUCOSE, URINE (UA) NEGATIVE (NEGATIVE); KETONES,URINE (UA) 15 mg/dL (NEGATIVE); LEUKOCYTE ESTERASE, URINE NEGATIVE (NEGATIVE); NITRITE,URINE NEGATIVE (NEGATIVE); OCCULT BLOOD,URINE LARGE (NEGATIVE); PH,URINE 5.5 PH (5.0-7.5); PROTEIN,URINE 100 mg/dL (NEGATIVE); UROBILINOGEN,URINE 0.2 (NORMAL) E.U./dL (NORMAL)
[2021-08-26 14:30] LABS: BILIRUBIN,URINE NEGATIVE (NEGATIVE); CLARITY,URINE CLEAR (CLEAR); ICTOTEST,URINE NEGATIVE
[2021-08-26 14:38] LABS: BACTERIA,URINE Few /HPF (None Seen); RBC,URINE 0-5 /HPF (0-5); SQUAMOUS EPITHELIAL CELL,UR NONE SEEN (<= Few); WBC,URINE 0-3 /HPF (0-3)
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
--- NOTE | 2021-08-26 15:12 | PHARMACY PROGRESS NOTE ---
- Therapy Status Therapy status: Awaiting steady state Basis for treatment: Culture result Treatment indication: MRSA bacteremia Trough goal: 15-20 - YASHIRA Risk Acute Kidney Injury risk factors: Goal trough >15 - Monitoring and Recommendation Clinical response to treatment: Lab Results 08/26/21 08/26/21 13:02 13:02 ESR 59 H BUN 13 Creatinine 0.8 Estimated GFR (MDRD) 100 Monitoring plan: Daily serum creatinine, Suggest ongoing fluid replacement Next trough due (date/time): 08/28 at 1230 Areas for additional monitoring: IV to PO when appropriate Pharmacy recommendation: Continue current regime (Patient received 2 gm loading dose in the ED. Will initiate maintenance dose of 1.75 gm IV q12h for estimated trough of 16.3 mcg/mL.)
[2021-08-26] MEDS: ACETAMINOPHEN 325 MG TABLET PO PRN (15:20)
[2021-08-26] MEDS: ONDANSETRON ODT 4 MG TABLET TL PRN (15:21)
[2021-08-26] MEDS: LACTATED RINGERS 1,000 ML IV SCH (15:52)
[2021-08-26] MEDS: SODIUM CHLORIDE FLUSH 0.9% 10 ML SYRINGE IVP SCH (15:53)
[2021-08-26] MEDS ORDERED: CYCLOBENZAPRINE 10 MG TABLET PO PRN (16:01)
[2021-08-26] MEDS: HYDROmorphone 2 MG/ML VIAL IVP PRN ×3 (16:09→21:42)
[2021-08-26 17:14] LABS: B. PARAPERTUSSIS- RESP PCR PAN NOT DETECTED; B. PERTUSSIS- RESP PCR PANEL NOT DETECTED; C. PNEUMONIAE- RESP PCR PANEL NOT DETECTED; CORONAVIRUS 229E-RESP PCR NOT DETECTED; CORONAVIRUS HKU1-RESP PCR NOT DETECTED; CORONAVIRUS NL63-RESP PCR NOT DETECTED; CORONAVIRUS OC43-RESP PCR NOT DETECTED; HUMAN METAPNEUMOVIRUS NOT DETECTED; INFLUENZA A- RESP PCR PANEL NOT DETECTED; INFLUENZA B - RESP PCR PANEL NOT DETECTED; M. PNEUMONIAE- RESP PCR PANEL NOT DETECTED; PARAINFLUENZA VIRUS 1 NOT DETECTED; PARAINFLUENZA VIRUS 2 NOT DETECTED; PARAINFLUENZA VIRUS 3 NOT DETECTED; PARAINFLUENZA VIRUS 4 NOT DETECTED; RHINOVIRUS/ENTEROVIRUS NOT DETECTED; RSV- RESP PCR PANEL NOT DETECTED; SARS-CoV-2 -RESP PCR PANEL NOT DETECTED
[2021-08-26] MEDS: oxyCODONE 5 MG TABLET PO PRN (18:20)
[2021-08-27] MEDS: oxyCODONE 5 MG TABLET PO PRN ×3 (00:51→09:59)
[2021-08-27] MEDS: VANCOMYCIN INJ 1.75 GM in SODIUM CHLORIDE 0.9% 500 ML IV SCH ×3 (00:52→13:02)
[2021-08-27] MEDS: SODIUM CHLORIDE FLUSH 0.9% 10 ML SYRINGE IVP SCH ×3 (01:00→16:39)
[2021-08-27] MEDS: LACTATED RINGERS 1,000 ML IV SCH (01:26)
[2021-08-27] MEDS: HYDROmorphone 2 MG/ML VIAL IVP PRN ×3 (02:53→16:48)
[2021-08-27 07:13] LABS: BASOPHILS # (AUTO) 0.1 10^3/uL (0.0-0.1); BASOPHILS % (AUTO) 0.6 %; EOSINOPHILS # (AUTO) 0.1 10^3/uL (0.0-0.7); EOSINOPHILS % (AUTO) 0.4 %; HCT - HEMATOCRIT 36.9 % (42.0-52.0); HGB - HEMOGLOBIN 12.2 g/dL (14.0-18.0); LYMPHOCYTES # (AUTO) 1.2 10^3/uL (1.5-3.5); LYMPHOCYTES % (AUTO) 7.7 %; MEAN CORPUSCULAR HEMOGLOBIN 28.2 pg (27.0-31.0); MEAN CORPUSCULAR HGB CONC 33.1 g/dL (32.0-36.0); MEAN CORPUSCULAR VOLUME 85.4 fL (80.0-94.0); MEAN PLATELET VOLUME 10.7 fL (7.4-11.4); MONOCYTES # (AUTO) 1.2 10^3/uL (0.0-1.0); MONOCYTES % (AUTO) 7.9 %; NEUTROPHILS # (AUTO) 12.7 10^3/uL (1.5-6.6); NEUTROPHILS % (AUTO) 82.4 %; PLT - PLATELET COUNT 161 10^3/uL (130-450); RED BLOOD COUNT 4.32 10^6/uL (4.70-6.10); RED CELL DISTRIBUTION WIDTH 13.2 % (12.0-15.0); WHITE BLOOD COUNT 15.4 x10^3/uL (4.8-10.8)
--- NOTE | 2021-08-27 07:25 | PROVIDER PROGRESS NOTE ---
Subjective - Prog Note Date Prog Note Date: 08/27/21 - Subjective Subjective: He states his back pain is still quite severe but is better controlled with the Dilaudid. This is only medication that works for him. He believes his abdominal pain is improved. He also has no pain in his right foot today. Current Medications - Current Medications Current Medications: Active Medications Acetaminophen (Acetaminophen 325 Mg Tablet) 650 mg PO Q4HR PRN PRN Reason: Pain 1 to 4 Last Admin: 08/26/21 15:20 Dose: 650 mg Documented by: Alcohol (Ethyl Alcohol 62% Swab Ampule) 1 amp JIMMY BID KATHERINE Aspirin (Aspirin Chew 81 Mg Tablet) 81 mg PO DAILY KATHERINE Cyclobenzaprine HCl (Cyclobenzaprine 10 Mg Tablet) 5 mg PO TID PRN PRN Reason: Spasms Last Admin: 08/26/21 16:08 Dose: 5 mg Documented by: Enoxaparin Sodium (Enoxaparin 40 Mg/0.4 Ml Syringe) 40 mg SUBQ DAILY [facility] Hydromorphone HCl (Hydromorphone 2 Mg/Ml Vial) 2 mg IVP Q2H PRN PRN Reason: PAIN Last Admin: 08/27/21 02:53 Dose: 2 mg Documented by: Lactated Ringer's (Lr) 1,000 mls @ 100 mls/hr IV .Q10H [facility] Stop: 08/27/21 10:59 Last Admin: 08/27/21 01:26 Dose: 100 mls/hr Documented by: Vancomycin HCl 1.75 gm/ Sodium (Chloride) 500 mls @ 250 mls/hr IV Q12H [facility] Last Infusion: 08/27/21 04:10 Dose: Infused Documented by: Ondansetron HCl (Ondansetron 4 Mg/2 Ml Vial) 4 mg IVP Q6HR PRN PRN Reason: Nausea / Vomiting Ondansetron HCl (Ondansetron Odt 4 Mg Tablet) 4 mg TL Q6HR PRN PRN Reason: Nausea / Vomiting Last Admin: 08/26/21 15:21 Dose: 4 mg Documented by: Oxycodone HCl (Oxycodone 5 Mg Tablet) 5 mg PO Q4HR PRN PRN Reason: PAIN Last Admin: 08/27/21 05:08 Dose: 5 mg Documented by: Sodium Chloride (Sodium Chloride Flush 0.9% 10 Ml Syringe) 10 ml IVP PRN PRN PRN Reason: NEEDED PER PROVIDER ORDERS Sodium Chloride (Sodium Chloride Flush 0.9% 10 Ml Syringe) 10 ml IVP 0100,0900,1700 KATHERINE Last Admin: 08/27/21 01:00 Dose: 10 ml Documented by: Objective - Vital Signs/Intake & Output Reviewed Vital Signs: Yes Vital Signs: Vital Signs x48h Temp Pulse Resp BP Pulse Ox 08/27/21 00:35 38.1 C H 100 22 124/76 93 Intake & Output: Intake & Output 08/24/21 08/25/21 08/26/21 08/27/21 23:59 23:59 23:59 23:59 Intake Total 1140 2306.667 Output Total 201 526 Balance 939 1780.667 - Objective General Appearance: positive: Alert, Mild distress Eyes Bilateral: positive: Normal inspection, Conjunctivae nml ENT: positive: ENT inspection nml, Other (Poor dentition.) Neck: positive: Nml inspection Respiratory: positive: No respiratory distress. negative: Wheezes, Rales Cardiovascular: positive: Regular rate & rhythm, No murmur. negative: Tachycardia Abdomen: positive: Non-tender, No distention. negative: Tenderness Back: positive: CVA tenderness (R), CVA tenderness (L), Other (He has lumbar spine tenderness as well as paraspinal tenderness) Skin: positive: Warm, Dry, Other (There is no erythema over the dorsum of his right foot.) Extremities: positive: No pedal edema Neurologic/Psychiatric: positive: Sensation nml. negative: Disoriented to pe rson, Disoriented to place, Weakness, Sensory loss - Lab Results Fish Bones: 08/27/21 05:58 08/27/21 05:58 Other Labs: Lab Results x24hrs 08/27/21 08/26/21 08/26/21 Range/Units 05:58 15:40 14:20 WBC 15.4 H (4.8-10.8) x10^3/uL RBC 4.32 L (4.70-6.10) 10^6/uL Hgb 12.2 L (14.0-18.0) g/dL Hct 36.9 L (42.0-52.0) % MCV 85.4 (80.0-94.0) fL MCH 28.2 (27.0-31.0) pg MCHC 33.1 (32.0-36.0) g/dL RDW 13.2 (12.0-15.0) % Plt Count 161 (130-450) 10^3/uL MPV 10.7 (7.4-11.4) fL Neut # (Auto) 12.7 H (1.5-6.6) 10^3/uL Lymph # (Auto) 1.2 L (1.5-3.5) 10^3/uL [place] # (Auto) 1.2 H (0.0-1.0) 10^3/uL Eos # (Auto) 0.1 (0.0-0.7) 10^3/uL Baso # (Auto) 0.1 (0.0-0.1) 10^3/uL Absolute Nucleated RBC 0.00 x10^3/uL Nucleated RBC % 0.0 /100WBC ESR (0-20) mm/Hr Sodium (135-145) mmol/L Potassium (3.5-5.0) mmol/L Chloride (101-111) mmol/L Carbon Dioxide (21-32) mmol/L Anion Gap (6-13) BUN (6-20) mg/dL Creatinine (0.6-1.2) mg/dL Estimated GFR (MDRD) (>89) Glucose (70-100) mg/dL Lactic Acid (0.5-2.2) mmol/L Calcium (8.5-10.3) mg/dL Troponin I High Sens (2.3-19.7) ng/L C-Reactive Protein (0-1.0) mg/dL Urine Color DARK YELLOW Urine Clarity CLEAR (CLEAR) Urine pH 5.5 (5.0-7.5) PH Ur Specific [place] >=1.030 H (1.002-1.030) Urine Protein 100 H (NEGATIVE) mg/dL Urine Glucose (UA) NEGATIVE (NEGATIVE) mg/dL Urine Ketones 15 H (NEGATIVE) mg/dL Urine Occult Blood LARGE H (NEGATIVE) Urine Nitrite NEGATIVE (NEGATIVE) Urine Bilirubin NEGATIVE (NEGATIVE) Urine Urobilinogen 0.2 (NORMAL) (NORMAL) E.U./dL Ur Leukocyte Esterase NEGATIVE (NEGATIVE) Urine RBC 0-5 (0-5) /HPF Urine WBC 0-3 (0-3) /HPF Ur Squamous Epith Cells NONE SEEN (<= Few) Urine Bacteria Few (None Seen) /HPF Ur Microscopic Review INDICATED Urine Culture Comments NOT INDICATED Nasal Adenovirus (PCR) NOT DETECTED Nasal B. parapertussis DNA (PCR) NOT DETECTED Nasal Coronavir 229E PCR NOT DETECTED Nasal Coronavir HKU1 PCR NOT DETECTED Nasal Coronavir NL63 PCR NOT DETECTED Nasal Coronavir OC43 PCR NOT DETECTED Nasal Enterovir/Rhinovir PCR NOT DETECTED Nasal Influenza B PCR NOT DETECTED Nasal Influenza A PCR NOT DETECTED Nasal Parainfluen 1 PCR NOT DETECTED Nasal Parainfluen 2 PCR NOT DETECTED Nasal Parainfluen 3 PCR NOT DETECTED Nasal Parainfluen 4 PCR NOT DETECTED Nasal RSV (PCR) NOT DETECTED Nasal B.pertussis DNA PCR NOT DETECTED Nasal C.pneumoniae (PCR) NOT DETECTED Jimmy Human Metapneumo PCR NOT DETECTED Nasal M.pneumoniae (PCR) NOT DETECTED Nasal SARS-CoV-2 (PCR) NOT DETECTED 08/26/21 08/26/21 08/26/21 Range/Units 13:02 13:02 13:02 WBC (4.8-10.8) x10^3/uL RBC (4.70-6.10) 10^6/uL Hgb (14.0-18.0) g/dL Hct (42.0-52.0) % MCV (80.0-94.0) fL MCH (27.0-31.0) pg MCHC (32.0-36.0) g/dL RDW (12.0-15.0) % Plt Count (130-450) 10^3/uL MPV (7.4-11.4) fL Neut # (Auto) (1.5-6.6) 10^3/uL Lymph # (Auto) (1.5-3.5) 10^3/uL [place] # (Auto) (0.0-1.0) 10^3/uL Eos # (Auto) (0.0-0.7) 10^3/uL Baso # (Auto) (0.0-0.1) 10^3/uL Absolute Nucleated RBC x10^3/uL Nucleated RBC % /100WBC ESR 59 H (0-20) mm/Hr Sodium (135-145) mmol/L Potassium (3.5-5.0) mmol/L Chloride (101-111) mmol/L Carbon Dioxide (21-32) mmol/L Anion Gap (6-13) BUN (6-20) mg/dL Creatinine (0.6-1.2) mg/dL Estimated GFR (MDRD) (>89) Glucose (70-100) mg/dL Lactic Acid 1.3 (0.5-2.2) mmol/L Calcium (8.5-10.3) mg/dL Troponin I High Sens 7.2 (2.3-19.7) ng/L C-Reactive Protein (0-1.0) mg/dL Urine Color Urine Clarity (CLEAR) Urine pH (5.0-7.5) PH Ur Specific [place] (1.002-1.030) Urine Protein (NEGATIVE) mg/dL Urine Glucose (UA) (NEGATIVE) mg/dL Urine Ketones (NEGATIVE) mg/dL Urine Occult Blood (NEGATIVE) Urine Nitrite (NEGATIVE) Urine Bilirubin (NEGATIVE) Urine Urobilinogen (NORMAL) E.U./dL Ur Leukocyte Esterase (NEGATIVE) Urine RBC (0-5) /HPF Urine WBC (0-3) /HPF Ur Squamous Epith Cells (<= Few) Urine Bacteria (None Seen) /HPF Ur Microscopic Review Urine Culture Comments Nasal Adenovirus (PCR) Nasal B. parapertussis DNA (PCR) Nasal Coronavir 229E PCR Nasal Coronavir HKU1 PCR Nasal Coronavir NL63 PCR Nasal Coronavir OC43 PCR Nasal Enterovir/Rhinovir PCR Nasal Influenza B PCR Nasal Influenza A PCR Nasal Parainfluen 1 PCR Nasal Parainfluen 2 PCR Nasal Parainfluen 3 PCR Nasal Parainfluen 4 PCR Nasal RSV (PCR) Nasal B.pertussis DNA PCR Nasal C.pneumoniae (PCR) Jimmy Human Metapneumo PCR Nasal M.pneumoniae (PCR) Nasal SARS-CoV-2 (PCR) 08/26/21 08/26/21 Range/Units 13:02 13:02 WBC 14.6 H (4.8-10.8) x10^3/uL RBC 4.76 (4.70-6.10) 10^6/uL Hgb 13.5 L (14.0-18.0) g/dL Hct 40.2 L (42.0-52.0) % MCV 84.5 (80.0-94.0) fL MCH 28.4 (27.0-31.0) pg MCHC 33.6 (32.0-36.0) g/dL RDW 13.2 (12.0-15.0) % Plt Count 173 (130-450) 10^3/uL MPV 10.2 (7.4-11.4) fL Neut # (Auto) 12.2 H (1.5-6.6) 10^3/uL Lymph # (Auto) 0.9 L (1.5-3.5) 10^3/uL [place] # (Auto) 1.2 H (0.0-1.0) 10^3/uL Eos # (Auto) 0.1 (0.0-0.7) 10^3/uL Baso # (Auto) 0.1 (0.0-0.1) 10^3/uL Absolute Nucleated RBC 0.00 x10^3/uL Nucleated RBC % 0.0 /100WBC ESR (0-20) mm/Hr Sodium 130 L (135-145) mmol/L Potassium 3.9 (3.5-5.0) mmol/L Chloride 95 L (101-111) mmol/L Carbon Dioxide 23 (21-32) mmol/L Anion Gap 12.0 (6-13) BUN 13 (6-20) mg/dL Creatinine 0.8 (0.6-1.2) mg/dL Estimated GFR (MDRD) 100 (>89) Glucose 108 H (70-100) mg/dL Lactic Acid (0.5-2.2) mmol/L Calcium 9.0 (8.5-10.3) mg/dL Troponin I High Sens (2.3-19.7) ng/L C-Reactive Protein 23.0 H (0-1.0) mg/dL Urine Color Urine Clarity (CLEAR) Urine pH (5.0-7.5) PH Ur Specific [place] (1.002-1.030) Urine Protein (NEGATIVE) mg/dL Urine Glucose (UA) (NEGATIVE) mg/dL Urine Ketones (NEGATIVE) mg/dL Urine Occult Blood (NEGATIVE) Urine Nitrite (NEGATIVE) Urine Bilirubin (NEGATIVE) Urine Urobilinogen (NORMAL) E.U./dL Ur Leukocyte Esterase (NEGATIVE) Urine RBC (0-5) /HPF Urine WBC (0-3) /HPF Ur Squamous Epith Cells (<= Few) Urine Bacteria (None Seen) /HPF Ur Microscopic Review Urine Culture Comments Nasal Adenovirus (PCR) Nasal B. parapertussis DNA (PCR) Nasal Coronavir 229E PCR Nasal Coronavir HKU1 PCR Nasal Coronavir NL63 PCR Nasal Coronavir OC43 PCR Nasal Enterovir/Rhinovir PCR Nasal Influenza B PCR Nasal Influenza A PCR Nasal Parainfluen 1 PCR Nasal Parainfluen 2 PCR Nasal Parainfluen 3 PCR Nasal Parainfluen 4 PCR Nasal RSV (PCR) Nasal B.pertussis DNA PCR Nasal C.pneumoniae (PCR) Jimmy Human Metapneumo PCR Nasal M.pneumoniae (PCR) Nasal SARS-CoV-2 (PCR) ABX Reporting Has patient been on IV antibiotics over the past 48 hours?: Yes Assessment/Plan - Problem List (1) MRSA bacteremia Impression: His initial blood cultures are positive for MRSA and repeat cultures obtained in the emergency department are still positive although this is not surprising as they were rechecked before receiving IV antibiotics. The source of his bacteremia is not clear at this moment. He does complain of significant lower back pain after trauma but MRI obtained 2 days ago does not show evidence of infection. He does have erythema over the dorsum of his right foot but no obvious osteomyelitis on imaging. He remains febrile with an increasing white count and CRP. We will keep him on vancomycin IV and will repeat blood cultures tomorrow which will be 48 hours after receiving IV antibiotics. We will obtain an echocardiogram today. If repeat cultures obtained tomorrow are still positive for MRSA then we will need to discuss with infectious disease regarding the potential need for transfer for further evaluation. (2) Back pain Impression: He continues to complain of back pain that is improved with Dilaudid. MRI showed no acute normalities and there was no evidence of infection. I suspect his back pain is like related to the trauma he received a few days ago and may not be related to his fever. We will keep him on Dilaudid for the day before slowly decreasing it. We will continue oxycodone and Tylenol. We will change the muscle relaxant to Robaxin and will trial Toradol. Qualifiers: Back pain location: low back pain Chronicity: acute Back pain laterality: midline Sciatica presence: without sciatica Qualified Code(s): M54.5 - Low back pain (3) Heroin abuse Impression: He has a history of heroin abuse with his last use being about 5 days ago now. This likely contributing to his poor the controlled pain. We have consulted social work to provide him with resources regarding substance abuse. We will continue with pain control as mentioned above. (4) History of stroke with residual deficit Impression: He has a history of stroke with residual deficit of aphasia. We will continue his aspirin.
[2021-08-27 07:29] LABS: CALCIUM 8.8 mg/dL (8.5-10.3); CREATININE 0.7 mg/dL (0.6-1.2); CRP - C-REACTIVE PROTEIN 27.7 mg/dL (0-1.0); MAGNESIUM 2.2 mg/dL (1.7-2.8); POTASSIUM 3.9 mmol/L (3.5-5.0)
[2021-08-27] MEDS: methocarbamoL 500 MG TABLET PO PRN (08:59)
[2021-08-27] MEDS: ethyl alcohoL 62% SWAB AMPULE NAS SCH ×2 (08:59→21:06)
[2021-08-27] MEDS: ASPIRIN CHEW 81 MG TABLET PO SCH (08:59)
[2021-08-27] MEDS: ENOXAPARIN 40 MG/0.4 ML SYRINGE SUBQ SCH (09:00)
--- NOTE | 2021-08-27 10:33 | PHARMACY PROGRESS NOTE ---
- Best Possible Medication History Admit Date and Time: 08/26/21 1430 Processed by: Pharmacy Medication History completed: Yes Patient Interview: Completed (PATIENT ABLE TO CONFIRM HOME MEDICATIONS) As the person ultimately responsible for medication therapy, providers are able to order a medication from an existing home medication list in [facility] via the "Reconcile Routine" prior to Confirmation of that medication by sales support coordinator. Such practice is discouraged except when the physician, in their clinical judgment, deems that a medical need exists for a medication without regard to previous use.
[2021-08-27] MEDS: SODIUM CHLORIDE FLUSH 0.9% 10 ML SYRINGE IVP PRN ×3 (11:19→21:06)
[2021-08-27] MEDS: KETOROLAC 30 MG/ML VIAL IVP PRN ×2 (11:19→21:06)
[2021-08-28] MEDS: SODIUM CHLORIDE FLUSH 0.9% 10 ML SYRINGE IVP SCH ×4 (00:38→23:28)
[2021-08-28] MEDS: VANCOMYCIN INJ 1.75 GM in SODIUM CHLORIDE 0.9% 500 ML IV SCH ×2 (00:38→14:29)
[2021-08-28] MEDS: ONDANSETRON 4 MG/2 ML VIAL IVP PRN ×2 (00:40→08:08)
[2021-08-28] MEDS: HYDROmorphone 2 MG/ML VIAL IVP PRN ×3 (01:32→12:49)
[2021-08-28 06:20] LABS: BASOPHILS # (AUTO) 0.1 10^3/uL (0.0-0.1); BASOPHILS % (AUTO) 0.6 %; EOSINOPHILS # (AUTO) 0.1 10^3/uL (0.0-0.7); EOSINOPHILS % (AUTO) 0.6 %; HGB - HEMOGLOBIN 12.2 g/dL (14.0-18.0); LYMPHOCYTES % (AUTO) 6.7 %; MEAN CORPUSCULAR HEMOGLOBIN 27.4 pg (27.0-31.0); MEAN CORPUSCULAR HGB CONC 32.1 g/dL (32.0-36.0); MEAN CORPUSCULAR VOLUME 85.4 fL (80.0-94.0); MEAN PLATELET VOLUME 10.3 fL (7.4-11.4); MONOCYTES # (AUTO) 0.9 10^3/uL (0.0-1.0); MONOCYTES % (AUTO) 5.9 %; NEUTROPHILS # (AUTO) 12.2 10^3/uL (1.5-6.6); NEUTROPHILS % (AUTO) 83.7 %; PLT - PLATELET COUNT 187 10^3/uL (130-450); RED BLOOD COUNT 4.45 10^6/uL (4.70-6.10); RED CELL DISTRIBUTION WIDTH 13.2 % (12.0-15.0); WHITE BLOOD COUNT 14.5 x10^3/uL (4.8-10.8)
[2021-08-28] MEDS: KETOROLAC 30 MG/ML VIAL IVP PRN ×3 (06:42→21:01)
[2021-08-28] MEDS: SODIUM CHLORIDE FLUSH 0.9% 10 ML SYRINGE IVP PRN ×5 (06:42→21:01)
[2021-08-28] MEDS: methocarbamoL 500 MG TABLET PO PRN ×2 (06:42→11:22)
[2021-08-28 06:52] LABS: CALCIUM 8.9 mg/dL (8.5-10.3); CREATININE 0.7 mg/dL (0.6-1.2); CRP - C-REACTIVE PROTEIN 26.3 mg/dL (0-1.0); MAGNESIUM 2.3 mg/dL (1.7-2.8); POTASSIUM 4.1 mmol/L (3.5-5.0)
--- NOTE | 2021-08-28 07:21 | PROVIDER PROGRESS NOTE ---
Subjective - Prog Note Date Prog Note Date: 08/28/21 - Subjective Subjective: Continues to complain of back pain that is not improved. He feels the erythema over his right foot has resolved. Current Medications - Current Medications Current Medications: Active Medications Acetaminophen (Acetaminophen 325 Mg Tablet) 650 mg PO Q4HR PRN PRN Reason: Pain 1 to 4 Last Admin: 08/26/21 15:20 Dose: 650 mg Documented by: Alcohol (Ethyl Alcohol 62% Swab Ampule) 1 amp JIMMY BID [facility] Last Admin: 08/27/21 21:06 Dose: 1 amp Documented by: Aspirin (Aspirin Chew 81 Mg Tablet) 81 mg PO DAILY [facility] Last Admin: 08/27/21 08:59 Dose: 81 mg Documented by: Enoxaparin Sodium (Enoxaparin 40 Mg/0.4 Ml Syringe) 40 mg SUBQ DAILY [facility] Last Admin: 08/27/21 09:00 Dose: 40 mg Documented by: Hydromorphone HCl (Hydromorphone 2 Mg/Ml Vial) 2 mg IVP Q2H PRN PRN Reason: PAIN Last Admin: 08/28/21 01:32 Dose: 2 mg Documented by: Vancomycin HCl 1.75 gm/ Sodium (Chloride) 500 mls @ 250 mls/hr IV Q12H [facility] Last Infusion: 08/28/21 02:43 Dose: Infused Documented by: Ketorolac Tromethamine (Ketorolac 30 Mg/Ml Vial) 30 mg IVP Q6HR PRN PRN Reason: PAIN Stop: 09/01/21 10:47 Last Admin: 08/28/21 06:42 Dose: 30 mg Documented by: Methocarbamol (Methocarbamol 500 Mg Tablet) 500 mg PO Q6HR PRN PRN Reason: Spasms Last Admin: 08/27/21 08:59 Dose: 500 mg Documented by: Ondansetron HCl (Ondansetron 4 Mg/2 Ml Vial) 4 mg IVP Q6HR PRN PRN Reason: Nausea / Vomiting Last Admin: 08/28/21 00:40 Dose: 4 mg Documented by: Ondansetron HCl (Ondansetron Odt 4 Mg Tablet) 4 mg TL Q6HR PRN PRN Reason: Nausea / Vomiting Last Admin: 08/26/21 15:21 Dose: 4 mg Documented by: Oxycodone HCl (Oxycodone 5 Mg Tablet) 5 mg PO Q4HR PRN PRN Reason: PAIN Last Admin: 08/27/21 09:59 Dose: 5 mg Documented by: Polyethylene Glycol (Polyethylene Glycol 3350 17 Gm Packet) 17 gm PO DAILY [facility] Sodium Chloride (Sodium Chloride Flush 0.9% 10 Ml Syringe) 10 ml IVP PRN PRN PRN Reason: NEEDED PER PROVIDER ORDERS Last Admin: 08/28/21 06:42 Dose: 10 ml Documented by: Sodium Chloride (Sodium Chloride Flush 0.9% 10 Ml Syringe) 10 ml IVP 0100,0900,1700 [facility] Last Admin: 08/28/21 00:38 Dose: 10 ml Documented by: Aspirin [Aspirin EC] 81 mg PO DAILY 08/27/21 Objective - Vital Signs/Intake & Output Reviewed Vital Signs: Yes Vital Signs: Vital Signs x48h Temp Pulse Resp BP Pulse Ox 08/27/21 23:52 37.1 C 86 20 128/79 95 Intake & Output: Intake & Output 08/25/21 08/26/21 08/27/21 08/28/21 23:59 23:59 23:59 23:59 Intake Total 1140 4786.667 800 Output Total 201 1501 400 Balance 939 3285.667 400 - Objective General Appearance: positive: Alert, Mild distress Eyes Bilateral: positive: Normal inspection, Conjunctivae nml ENT: positive: ENT inspection nml Neck: positive: Nml inspection Respiratory: negative: Wheezes, Rhonchi Cardiovascular: positive: Regular rate & rhythm. negative: Irregularly irregular, Tachycardia Abdomen: positive: No distention, Tenderness (Diffuse tenderness.). negative: Non-tender, Guarding, Rebound Skin: positive: Warm, Dry Extremities: positive: No pedal edema Neurologic/Psychiatric: negative: Disoriented to person, Disoriented to place - Lab Results Fish Bones: 08/29/21 05:25 08/29/21 05:25 Other Labs: Lab Results x24hrs 08/28/21 08/28/21 08/27/21 Range/Units 06:05 06:05 05:58 WBC 14.5 H (4.8-10.8) x10^3/uL RBC 4.45 L (4.70-6.10) 10^6/uL Hgb 12.2 L (14.0-18.0) g/dL Hct 38.0 L (42.0-52.0) % MCV 85.4 (80.0-94.0) fL MCH 27.4 (27.0-31.0) pg MCHC 32.1 (32.0-36.0) g/dL RDW 13.2 (12.0-15.0) % Plt Count 187 (130-450) 10^3/uL MPV 10.3 (7.4-11.4) fL Neut # (Auto) 12.2 H (1.5-6.6) 10^3/uL Lymph # (Auto) 1.0 L (1.5-3.5) 10^3/uL Branch # (Auto) 0.9 (0.0-1.0) 10^3/uL Eos # (Auto) 0.1 (0.0-0.7) 10^3/uL Baso # (Auto) 0.1 (0.0-0.1) 10^3/uL Absolute Nucleated RBC 0.00 x10^3/uL Nucleated RBC % 0.0 /100WBC Sodium 134 L 132 L (135-145) mmol/L Potassium 4.1 3.9 (3.5-5.0) mmol/L Chloride 97 L 98 L (101-111) mmol/L Carbon Dioxide 27 24 (21-32) mmol/L Anion Gap 10.0 10.0 (6-13) BUN 16 13 (6-20) mg/dL Creatinine 0.7 0.7 (0.6-1.2) mg/dL Estimated GFR (MDRD) 116 116 (>89) Glucose 121 H 107 H (70-100) mg/dL Calcium 8.9 8.8 (8.5-10.3) mg/dL Magnesium 2.3 2.2 (1.7-2.8) mg/dL C-Reactive Protein 26.3 H 27.7 H (0-1.0) mg/dL ABX Reporting Has patient been on IV antibiotics over the past 48 hours?: Yes Assessment/Plan - Problem List (1) MRSA bacteremia Impression: Initial blood cultures are positive for MRSA and repeat cultures obtained on admission are still positive although this was obtained before antibiotics were administered. Given his back pain, MRI was obtained 2 days ago but showed no evidence of infection. He did have erythema of his right foot but this is since resolved and imaging showed no evidence of osteomyelitis. He has been on vancomycin and we will now repeat cultures given he has received antibiotics for 48 hours. If repeat cultures are positive will need to discuss with infectious disease regarding need for potential transfer or at least obtaining a [facility]ERSON given his history of IV drug use. TTE did not show any obvious vegetation. Given he is complaining of abdominal pain with emesis, I will order a CT of the chest and abdomen/pelvis with IV contrast. (2) Back pain Impression: He continues to complain of back pain that is improved with Dilaudid. MRI sh owed no acute normalities and there was no evidence of infection. I suspect his back pain is like related to the trauma he received a few days ago and may not be related to his fever. His pain is improving as he is requiring Dilaudid less frequently. We will decrease the dose of Dilaudid and increase the frequency further before discontinuing this tomorrow. Continue oxycodone and Tylenol as well as Robaxin. Qualifiers: Back pain location: low back pain Chronicity: acute Back pain laterality: midline Sciatica presence: without sciatica Qualified Code(s): M54.50 - Low back pain, unspecified (3) Heroin abuse Impression: He has a history of heroin abuse with his last use being about one week now. This is likely contributing to his difficult to control pain. We have consulted social work to provide him with resources regarding substance abuse. We will continue with pain management as mentioned above. (4) History of stroke with residual deficit Impression: He has a history of stroke with residual deficit of aphasia. We will continue his aspirin. Will also start him on lipitor.
[2021-08-28] MEDS: ENOXAPARIN 40 MG/0.4 ML SYRINGE SUBQ SCH (08:07)
[2021-08-28] MEDS: polyethylene glycoL 3350 17 GM PACKET PO SCH (08:07)
[2021-08-28] MEDS: ethyl alcohoL 62% SWAB AMPULE NAS SCH ×2 (08:08→21:00)
[2021-08-28] MEDS: ASPIRIN CHEW 81 MG TABLET PO SCH (08:08)
[2021-08-28] MEDS: oxyCODONE 5 MG TABLET PO PRN ×4 (08:08→23:28)
[2021-08-28] MEDS ORDERED: IOVERSOL 320 100 ML VIAL IVP ONE ×2 (09:23→14:56)
[2021-08-28] MEDS: ONDANSETRON ODT 4 MG TABLET TL PRN (12:44)
[2021-08-28 13:24] LABS: VANCOMYCIN,TROUGH 9.6 ug/mL (10.0-20.0)
--- NOTE | 2021-08-28 14:19 | CT Report ---
PROCEDURE: CT chest abdomen pelvis with contrast INDICATIONS: Abdominal pain. Vomiting. Fever. MRSA bacteremia. CONTRAST: IV CONTRAST: Optiray 320 ml: 100 PO CONTRAST: *NO PO CONTRAST TECHNIQUE: Helical axial CT of the chest abdomen and pelvis was obtained with intravenous contrast an d reconstructed in multiplanar reformats. For radiation dose reduction, the following was used: auto mated exposure control, adjustment of mA and/or kV according to patient size. COMPARISON: CT abdomen and pelvis 07/07/2017 FINDINGS: Chest: Cardiovascular: Heart size is normal. Aorta and great vessels are unremarkable without evidence of aneurysm. Lungs and pleural spaces: Small bibasilar pleural effusions with associated compressive atelectasis n oted. Small rounded pleural-based consolidation in the left upper lobe measuring 1.3 cm present with surrounding pulmonary infiltrate consistent infection. An 1.4 centimeter nodule associated with the r ight minor fissure also noted. Calcified granulomas noted in the dependent right lower lobe similar p rior study. Lymph nodes: No mediastinal, hilar or axillary adenopathy. Mediastinum: Anterior mediastinum unremarkable. No hiatal hernia. Bones: Unremarkable. No acute fracture. Other: Thyroid unremarkable. Abdomen and Pelvis: Liver: Normal in size and attenuation. No contour deformity present. Biliary system: No calcified cholelithiasis or pericholecystic inflammation. No intra or extrahepat ic bile duct dilatation. Pancreas: Unremarkable without mass or inflammation evident. Spleen: Normal in size and density. Adrenals: Normal morphology and density. Reproductive system: Unremarkable as visualized. Urinary system: Normal renal size and attenuation. Left renal cortical cysts measuring up to 2.9 cm. No hydronephrosis or renal calculi present bilaterally. No renal calculi, hydronephrosis, or solid m ass present. Urinary bladder unremarkable. Gastrointestinal system: The bowel appears unremarkable with no evidence of bowel obstruction or inf lammation. The stomach appears unremarkable. No findings to suggest acute appendicitis. There is gas eous distention of the right colon without evidence of obstruction. Peritoneal spaces: No intra- or retroperitoneal adenopathy. No free air. [id number] amount o f free fluid noted dependently in the pelvis. Vasculature: The IVC, aorta and iliac vasculature are unremarkable. Musculoskeletal: Normal bone mineralization. No acute fractures. Abdominal wall intact without junior dence of ventral or inguinal hernias. There is grade 2 L5-S1 spondylolisthesis with bilateral L5 pars defects and L5 laminectomy, similar to prior exam. Degenerative disease noted at the thoracolumbar j unction. IMPRESSION: 1. Left upper lobe pulmonary infiltrate with small rounded consolidation is consistent with pneumonia . Consider follow-up to resolution to exclude underlying pulmonary nodule. 2. Small bibasilar pleural effusions with associated compressive atelectasis. 3. Right middle lobe pleural-based nodule associated with the minor fissure measures 1.4 cm. Consider short-term interval 3 month follow-up and/or PET CT 4. Small to moderate nonspecific free fluid in the pelvis is associated with right colonic gaseous di stention without obstruction. Consider colonic ileus and/or mild colitis. 5. Stable grade 2 L5-S1 isthmic spondylolisthesis and L5 laminectomy defect Reviewed by: Efrem Iraheta MD on 08/28/2021 1:18 PM [facility] Approved by: Efrem Iraheta MD on 08/28/2021 1:18 PM [facility] Station ID: [id number]
--- NOTE | 2021-08-28 15:07 | PHARMACY PROGRESS NOTE ---
- Therapy Status Vancomycin regimen day #: 3 Therapy status: Trough subtherapeutic Basis for treatment: Culture result Treatment indication: MRSA bacteremia Trough goal: 15-20 - YASHIRA Risk Risk level for Acute Kidney Injury: High Acute Kidney Injury risk factors: Goal trough >15, Total daily Vancomycin >4 grams - Monitoring and Recommendation Clinical response to treatment: I&O Previous 24 hours 08/26/21 08/27/21 08/28/21 23:59 23:59 23:59 Intake Total 1140 4786.667 1260 Output Total 201 1501 900 Balance 939 3285.667 360 Lab Results 08/28/21 08/27/21 08/26/21 06:05 05:58 13:02 ESR 59 H BUN 16 13 Creatinine 0.7 0.7 Estimated GFR (MDRD) 116 116 08/26/21 13:02 ESR BUN 13 Creatinine 0.8 Estimated GFR (MDRD) 100 Vancomycin Monitoring 08/28/21 13:07 Vancomycin Trough 9.6 L Cultures 08/26/21 13:02 Blood - Right Iv-Start Blood Culture - Preliminary Methicillin Resist S. Aureus 08/26/21 13:02 Blood - Left Hand Blood Culture - Preliminary Methicillin Resist S. Aureus Monitoring plan: Daily serum creatinine, Suggest ongoing fluid replacement Next trough due prior to maintenance dose #: 6 Next trough due (date/time): 08/30/21 @ 1300 Areas for additional monitoring: IV to PO when appropriate Pharmacy recommendation: Increase dose (Increasing total daily dose to 1.5 grams q8h; will schedule trough for next time pharmacy on site when closer to steady state.)
[2021-08-28] MEDS: DOCUSATE SODIUM 250 MG CAPSULE PO SCH (21:00)
[2021-08-28] MEDS: ATORVASTATIN 40 MG TABLET PO SCH (21:00)
[2021-08-28] MEDS: SENNA 8.6 MG TABLET PO SCH (21:00)
[2021-08-28] MEDS: VANCOMYCIN INJ 1 GM, VANCOMYCIN INJ 500 MG in SODIUM CHLORIDE 0.9% 500 ML IV SCH (21:01)
[2021-08-29] MEDS: HYDROmorphone 2 MG/ML VIAL IVP PRN (02:49)
[2021-08-29] MEDS: methocarbamoL 500 MG TABLET PO PRN ×2 (05:25→11:18)
[2021-08-29] MEDS: KETOROLAC 30 MG/ML VIAL IVP PRN ×3 (05:26→18:46)
[2021-08-29] MEDS: VANCOMYCIN INJ 1 GM, VANCOMYCIN INJ 500 MG in SODIUM CHLORIDE 0.9% 500 ML IV SCH ×3 (05:34→21:25)
[2021-08-29 06:29] LABS: BASOPHILS # (AUTO) 0.1 10^3/uL (0.0-0.1); BASOPHILS % (AUTO) 0.6 %; EOSINOPHILS # (AUTO) 0.2 10^3/uL (0.0-0.7); EOSINOPHILS % (AUTO) 1.5 %; HCT - HEMATOCRIT 36.1 % (42.0-52.0); HGB - HEMOGLOBIN 11.6 g/dL (14.0-18.0); LYMPHOCYTES # (AUTO) 1.6 10^3/uL (1.5-3.5); LYMPHOCYTES % (AUTO) 10.6 %; MEAN CORPUSCULAR HEMOGLOBIN 27.5 pg (27.0-31.0); MEAN CORPUSCULAR HGB CONC 32.1 g/dL (32.0-36.0); MEAN CORPUSCULAR VOLUME 85.5 fL (80.0-94.0); MEAN PLATELET VOLUME 10.8 fL (7.4-11.4); MONOCYTES % (AUTO) 6.9 %; NEUTROPHILS # (AUTO) 11.1 10^3/uL (1.5-6.6); NEUTROPHILS % (AUTO) 75.6 %; PLT - PLATELET COUNT 248 10^3/uL (130-450); RED BLOOD COUNT 4.22 10^6/uL (4.70-6.10); RED CELL DISTRIBUTION WIDTH 13.4 % (12.0-15.0); WHITE BLOOD COUNT 14.7 x10^3/uL (4.8-10.8)
[2021-08-29 06:31] LABS: SLIDE REVIEW? Indicated
[2021-08-29 06:57] LABS: CALCIUM 8.5 mg/dL (8.5-10.3); CREATININE 0.7 mg/dL (0.6-1.2); MAGNESIUM 2.2 mg/dL (1.7-2.8); POTASSIUM 4.1 mmol/L (3.5-5.0)
[2021-08-29 07:33] LABS: RBC MORPHOLOGY (MULTIPLE) 1+ ANISOCYTOSIS (NORMAL)
[2021-08-29] MEDS ORDERED: MAGNESIUM HYDROXIDE 2,400 MG/30 ML UDC PO ONE (08:07)
[2021-08-29] MEDS: oxyCODONE 5 MG TABLET PO PRN ×3 (09:27→21:24)
[2021-08-29] MEDS: ASPIRIN CHEW 81 MG TABLET PO SCH (09:27)
[2021-08-29] MEDS: DOCUSATE SODIUM 250 MG CAPSULE PO SCH (09:27)
[2021-08-29] MEDS: SENNA 8.6 MG TABLET PO SCH (09:27)
[2021-08-29] MEDS: ethyl alcohoL 62% SWAB AMPULE NAS SCH ×2 (09:28→21:25)
[2021-08-29] MEDS: ENOXAPARIN 40 MG/0.4 ML SYRINGE SUBQ SCH (09:28)
[2021-08-29] MEDS: polyethylene glycoL 3350 17 GM PACKET PO SCH (09:48)
--- NOTE | 2021-08-29 10:34 | PROVIDER PROGRESS NOTE ---
Assessment/Plan - Problem List (1) MRSA bacteremia Assessment/Plan: Patient is on vancomycin IV with pharmacy to dose. WBC was 14.7 today. Patient is afebrile. Repeat blood cultures of 08/28/2021 grew gram-positive cocci in clusters. We will repeat blood cultures tomorrow 08/30/2021. I spoke with an infectious disease specialist to the [facility] consult line. He advises that endocarditis is still suspect despite the TTE No vegetation. He recommended a follow-up ANDERSON. Recommended continuing vancomycin and ensuring therapeutic range/doses. Further that Staph aureus bacteremia can take a longer period to clear (2) Pneumonia Assessment/Plan: CT of the chest done 08/28/2021 showed left upper lobe pulmonary infiltrates with small round consolidation consistent with pneumonia. Patient is on vancomycin IV with pharmacy to dose. WBC was 14.7 today. Patient is afebrile. Repeat blood cultures of 08/28/2021 grew gram-positive cocci in clusters. We will repeat blood cultures tomorrow 08/30/2021. (3) Ileus Assessment/Plan: Ileus vs Colitis CT abdomen done 08/28/2021 showed small to moderate nonspecific free fluid in the pelvis associated with right colonic gaseous distention without obstruction. We will place the patient on Cipro and Flagyl (4) Heroin abuse Assessment/Plan: Social work to provide resources regarding substance abuse. (5) Back pain Qualifiers: Back pain location: low back pain Chronicity: acute Back pain laterality: midline Sciatica presence: without sciatica Qualified Code(s): M54.50 - Low back pain, unspecified Assessment/Plan: MRI of the lumbar spine done 08/25/2021 showed no findings of discitis, osteomyelitis or epidural abscess. Back pain is likely related to trauma he received a few days prior to admission. Patient is receiving Dilaudid, Toradol, Robaxin and oxycodone as needed (6) History of stroke with residual deficit Assessment/Plan: He has a history of stroke with residual deficit of aphasia. We will continue his aspirin. Will also start him on lipitor. - Current Meds Current Meds: Current Medications Generic Name Dose Route Start Last Admin Trade Name Freq PRN Reason Stop Dose Admin Acetaminophen 650 mg 08/26/21 14:30 08/26/21 15:20 Acetaminophen 325 Mg Tablet PO 650 mg Q4HR PRN Administration Pain 1 to 4 Alcohol 1 amp 08/27/21 09:00 08/29/21 09:28 Ethyl Alcohol 62% Swab Ampule JIMMY 1 amp BID KATHERINE Administration Aspirin 81 mg 08/27/21 09:00 08/29/21 09:27 Aspirin Chew 81 Mg Tablet PO 81 mg DAILY KATHERINE Administration Atorvastatin Calcium 40 mg 08/28/21 21:00 08/28/21 21:00 Atorvastatin 40 Mg Tablet PO 40 mg QPM KATHERINE Administration Docusate Sodium 250 - 500 mg 08/28/21 21:00 08/29/21 09:27 Docusate Sodium 250 Mg Capsule PO 500 mg DAILY KATHERINE Administration Enoxaparin Sodium 40 mg 08/27/21 09:00 08/29/21 09:28 Enoxaparin 40 Mg/0.4 Ml Syringe SUBQ 40 mg DAILY KATHERINE Administration Vancomycin HCl 1 gm/ 500 mls @ 250 mls/hr 08/28/21 22:00 08/29/21 07:30 Vancomycin HCl 500 mg/ Sodium IV 0 mls/hr Chloride Q8H KATHERINE Infusion Ketorolac Tromethamine 30 mg 08/27/21 10:48 08/29/21 05:26 Ketorolac 30 Mg/Ml Vial IVP 09/01/21 10:47 30 mg Q6HR PRN Administration PAIN Methocarbamol 500 mg 08/27/21 08:27 08/29/21 05:25 Methocarbamol 500 Mg Tablet PO 500 mg Q6HR PRN Administration Spasms Ondansetron HCl 4 mg 08/26/21 14:30 08/28/21 08:08 Ondansetron 4 Mg/2 Ml Vial IVP 4 mg Q6HR PRN Administration Nausea / Vomiting Ondansetron HCl 4 mg 08/26/21 14:30 08/28/21 12:44 Ondansetron Odt 4 Mg Tablet TL 4 mg Q6HR PRN Administration Nausea / Vomiting Oxycodone HCl 5 mg 08/26/21 16:00 08/29/21 09:27 Oxycodone 5 Mg Tablet PO 5 mg Q4HR PRN Administration PAIN Polyethylene Glycol 17 gm 08/28/21 09:00 08/29/21 09:48 Polyethylene Glycol 3350 17 Gm Packet PO 17 gm DAILY KATHERINE Administration Senna 8.6 - 17.2 mg 08/28/21 21:00 08/29/21 09:27 Senna 8.6 Mg Tablet PO 17.2 mg DAILY KATHERINE Administration Sodium Chloride 10 ml 08/26/21 14:30 08/28/21 21:01 Sodium Chloride Flush 0.9% 10 Ml Syringe IVP 10 ml PRN PRN Administration NEEDED PER PROVIDER ORDERS Sodium Chloride 10 ml 08/26/21 17:00 08/28/21 23:28 Sodium Chloride Flush 0.9% 10 Ml Syringe IVP 10 ml 0100,0900,1700 KATHERINE Administration - Lab Result Fish Bone Diagrams: 08/29/21 05:25 08/29/21 05:25 Subjective - Subjective Patient Reports: Other (Patient was resting comfortably in bed. He complained of back pain. He also complained of no bowel movement in 3 days. He denied any other complaints.) Objective Vital Signs: Vital Signs - 24 hr 08/28/21 08/28/21 08/29/21 15:40 23:25 07:39 Temperature 37.1 C 37 C 36.5 C Heart Rate [ 91 82 77 Brachial] Respiratory 21 16 20 Rate Blood Pressure 136/72 H 133/87 H 140/88 H [Right Brachial artery] O2 Saturation 94 94 94 Oxygen O2 Source Room air I&O (Last 24 Hrs): Intake and Output Totals x24h 08/27/21 08/28/21 08/29/21 23:59 23:59 23:59 Intake Total 4786.667 2840 843.333 Output Total 1501 1050 150 Balance 3285.667 1790 693.333 General: Alert, Oriented x3, Mild distress HEENT: PERRLA, EOMI Neck: Supple, No JVD Neuro: Alert, Non Focal, Oriented Times 3 Cardiovascular: Regular rate, No murmurs Respiratory: Chest non-tender, No respiratory distress, Breath sounds nml Abdomen: Normal bowel sounds, Soft, No tenderness Extremities: No clubbing, No cyanosis, No edema Skin: No rashes, No breakdown, No significant lesion - Results Results: Laboratory Results WBC 14.7 x10^3/uL (4.8-10.8) H 08/29/21 05:25 RBC 4.22 10^6/uL (4.70-6.10) L 08/29/21 05:25 Hgb 11.6 g/dL (14.0-18.0) L 08/29/21 05:25 Hct 36.1 % (42.0-52.0) L 08/29/21 05:25 MCV 85.5 fL (80.0-94.0) 08/29/21 05:25 MCH 27.5 pg (27.0-31.0) 08/29/21 05:25 MCHC 32.1 g/dL (32.0-36.0) 08/29/21 05:25 RDW 13.4 % (12.0-15.0) 08/29/21 05:25 Plt Count 248 10^3/uL (130-450) 08/29/21 05:25 MPV 10.8 fL (7.4-11.4) 08/29/21 05:25 Neut # (Auto) 11.1 10^3/uL (1.5-6.6) H 08/29/21 05:25 Lymph # (Auto) 1.6 10^3/uL (1.5-3.5) 08/29/21 05:25 [place] # (Auto) 1.0 10^3/uL (0.0-1.0) 08/29/21 05:25 Eos # (Auto) 0.2 10^3/uL (0.0-0.7) 08/29/21 05:25 Baso # (Auto) 0.1 10^3/uL (0.0-0.1) 08/29/21 05:25 Absolute Nucleated RBC 0.00 x10^3/uL 08/29/21 05:25 Nucleated RBC % 0.0 /100WBC 08/29/21 05:25 Manual Slide Review Indicated 08/29/21 05:25 RBC Morph Micro Appear 1+ ANISOCYTOSIS (NORMAL) 08/29/21 05:25 ESR 59 mm/Hr (0-20) H 08/26/21 13:02 Sodium 132 mmol/L (135-145) L 08/29/21 05:25 Potassium 4.1 mmol/L (3.5-5.0) 08/29/21 05:25 Chloride 99 mmol/L (101-111) L 08/29/21 05:25 Carbon Dioxide 25 mmol/L (21-32) 08/29/21 05:25 Anion Gap 8.0 (6-13) 08/29/21 05:25 BUN 15 mg/dL (6-20) 08/29/21 05:25 Creatinine 0.7 mg/dL (0.6-1.2) 08/29/21 05:25 Estimated GFR (MDRD) 116 (>89) 08/29/21 05:25 Glucose 105 mg/dL (70-100) H 08/29/21 05:25 Lactic Acid 1.3 mmol/L (0.5-2.2) 08/26/21 13:02 Calcium 8.5 mg/dL (8.5-10.3) 08/29/21 05:25 Magnesium 2.2 mg/dL (1.7-2.8) 08/29/21 05:25 Troponin I High Sens 7.2 ng/L (2.3-19.7) 08/26/21 13:02 C-Reactive Protein 20.0 mg/dL (0-1.0) H 08/29/21 05:25 Urine Color DARK YELLOW 08/26/21 14:20 Urine Clarity CLEAR (CLEAR) 08/26/21 14:20 Urine pH 5.5 PH (5.0-7.5) 08/26/21 14:20 Ur Specific [place] >=1.030 (1.002-1.030) H 08/26/21 14:20 Urine Protein 100 mg/dL (NEGATIVE) H 08/26/21 14:20 Urine Glucose (UA) NEGATIVE mg/dL (NEGATIVE) 08/26/21 14:20 Urine Ketones 15 mg/dL (NEGATIVE) H 08/26/21 14:20 Urine Occult Blood LARGE (NEGATIVE) H 08/26/21 14:20 Urine Nitrite NEGATIVE (NEGATIVE) 08/26/21 14:20 Urine Bilirubin NEGATIVE (NEGATIVE) 08/26/21 14:20 Urine Urobilinogen 0.2 (NORMAL) E.U./dL (NORMAL) 08/26/21 14:20 Ur Leukocyte Esterase NEGATIVE (NEGATIVE) 08/26/21 14:20 Urine RBC 0-5 /HPF (0-5) 08/26/21 14:20 Urine WBC 0-3 /HPF (0-3) 08/26/21 14:20 Ur Squamous Epith Cells NONE SEEN (<= Few) 08/26/21 14:20 Urine Bacteria Few /HPF (None Seen) 08/26/21 14:20 Ur Microscopic Review INDICATED 08/26/21 14:20 Urine Culture Comments NOT INDICATED 08/26/21 14:20 Nasal Adenovirus (PCR) NOT DETECTED 08/26/21 15:40 Nasal B. parapertussis DNA (PCR) NOT DETECTED 08/26/21 15:40 Nasal Coronavir 229E PCR NOT DETECTED 08/26/21 15:40 Nasal Coronavir HKU1 PCR NOT DETECTED 08/26/21 15:40 Nasal Coronavir NL63 PCR NOT DETECTED 08/26/21 15:40 Nasal Coronavir OC43 PCR NOT DETECTED 08/26/21 15:40 Nasal Enterovir/Rhinovir PCR NOT DETECTED 08/26/21 15:40 Nasal Influenza B PCR NOT DETECTED 08/26/21 15:40 Nasal Influenza A PCR NOT DETECTED 08/26/21 15:40 Nasal Parainfluen 1 PCR NOT DETECTED 08/26/21 15:40 Nasal Parainfluen 2 PCR NOT DETECTED 08/26/21 15:40 Nasal Parainfluen 3 PCR NOT DETECTED 08/26/21 15:40 Nasal Parainfluen 4 PCR NOT DETECTED 08/26/21 15:40 Nasal RSV (PCR) NOT DETECTED 08/26/21 15:40 Nasal B.pertussis DNA PCR NOT DETECTED 08/26/21 15:40 Nasal C.pneumoniae (PCR) NOT DETECTED 08/26/21 15:40 Jimmy Human Metapneumo PCR NOT DETECTED 08/26/21 15:40 Nasal M.pneumoniae (PCR) NOT DETECTED 08/26/21 15:40 Nasal SARS-CoV-2 (PCR) NOT DETECTED 08/26/21 15:40 Last Dose Date 08/28/21 08/28/21 13:07 Last Dose Time 0243 08/28/21 13:07 Vancomycin Trough 9.6 ug/mL (10.0-20.0) L 08/28/21 13:07 - Procedures Procedures: Procedures ENDOSC POLYPECTOMY OF LG INTEST (02/22/15) EXCISION OF RIGHT KNEE BURSA AND LIGAMENT, OPEN APPROACH (07/29/16) ABX Reporting Has patient been on IV antibiotics over the past 48 hours?: Yes
[2021-08-29] MEDS: SODIUM CHLORIDE FLUSH 0.9% 10 ML SYRINGE IVP SCH ×3 (11:22→23:56)
[2021-08-29] MEDS: HYDROmorphone 1 MG/ML CARPUJECT IVP PRN ×3 (11:22→23:49)
[2021-08-29] MEDS ORDERED: MAGNESIUM CITRATE 296 ML BOTTLE PO PRN (15:48)
[2021-08-29] MEDS: CIPROFLOXACIN 400 MG/200 ML 400 MG/200 ML BAG IV SCH (16:11)
[2021-08-29] MEDS: metroNIDAZOLE 500 MG/100 ML 500 MG/100 ML BAG IV SCH ×2 (16:30→23:53)
[2021-08-29] MEDS: ATORVASTATIN 40 MG TABLET PO SCH (21:25)
[2021-08-30] MEDS: CIPROFLOXACIN 400 MG/200 ML 400 MG/200 ML BAG IV SCH ×2 (03:31→18:22)
[2021-08-30] MEDS: KETOROLAC 30 MG/ML VIAL IVP PRN ×4 (03:35→20:39)
[2021-08-30] MEDS: HYDROmorphone 1 MG/ML CARPUJECT IVP PRN ×6 (04:46→21:18)
[2021-08-30] MEDS: VANCOMYCIN INJ 1 GM, VANCOMYCIN INJ 500 MG in SODIUM CHLORIDE 0.9% 500 ML IV SCH ×3 (06:18→21:18)
[2021-08-30 07:12] LABS: CALCIUM 8.1 mg/dL (8.5-10.3); CREATININE 0.7 mg/dL (0.6-1.2); CRP - C-REACTIVE PROTEIN 13.4 mg/dL (0-1.0); MAGNESIUM 2.3 mg/dL (1.7-2.8); POTASSIUM 3.6 mmol/L (3.5-5.0)
[2021-08-30 07:21] LABS: EOSINOPHILS % (AUTO) 1.8 %; HCT - HEMATOCRIT 35.2 % (42.0-52.0); HGB - HEMOGLOBIN 11.5 g/dL (14.0-18.0); LYMPHOCYTES % (AUTO) 8.8 %; MEAN CORPUSCULAR HGB CONC 32.7 g/dL (32.0-36.0); MEAN CORPUSCULAR VOLUME 85.9 fL (80.0-94.0); MEAN PLATELET VOLUME 10.3 fL (7.4-11.4); MONOCYTES % (AUTO) 7.1 %; NEUTROPHILS % (AUTO) 74.4 %; PLT - PLATELET COUNT 261 10^3/uL (130-450); RED CELL DISTRIBUTION WIDTH 13.4 % (12.0-15.0); WHITE BLOOD COUNT 14.7 x10^3/uL (4.8-10.8)
[2021-08-30 07:27] LABS: SLIDE REVIEW? Indicated
--- NOTE | 2021-08-30 07:49 | PROVIDER PROGRESS NOTE ---
Assessment/Plan - Problem List (1) MRSA bacteremia Assessment/Plan: (1) MRSA bacteremia Assessment/Plan: Patient is on vancomycin IV with pharmacy to dose. WBC remains at 14.7 today. Patient is afebrile. Repeat blood cultures of 08/28/2021 grew gram-positive cocci in clusters. Blood cultures repeated 08/30/2021. I spoke with an infectious disease specialist via [facility] med consult line. He advised that endocarditis is still suspect despite the TTE showing No vegetation. He recommended a follow-up ANDERSON. He eecommended continuing vancomycin and ensuring therapeutic range. Further that Staph aureus bacteremia can take a longer period to clear Give high volumes at hospitals in the area difficulty for transfers and long wait timed for transfer, we will coordinated transfer to another facility for ANDERSON and then return to [facility] during a week day (2) Pneumonia Assessment/Plan: CT of the chest done 08/28/2021 showed left upper lobe pulmonary infiltrates with small round consolidation consistent with pneumonia. Patient is on vancomycin IV with pharmacy to dose. WBC was 14.7 today. Patient is afebrile. Repeat blood cultures of 08/28/2021 grew gram-positive cocci in clusters. Blood cultures repeated on 08/30/2021. (3) Ileus Assessment/Plan: Ileus vs Colitis CT abdomen done 08/28/2021 showed small to moderate nonspecific free fluid in the pelvis associated with right colonic gaseous distention without obstruction. We will place the patient on Cipro and Flagyl (4) Heroin abuse Assessment/Plan: Social work to provide resources regarding substance abuse. (5) Back pain Qualifiers: Back pain location: low back pain Chronicity: acute Back pain laterality: midline Sciatica presence: without sciatica Qualified Code(s): M54.50 - Low back pain, unspecified Assessment/Plan: MRI of the lumbar spine done 08/25/2021 showed no findings of discitis, ost eomyelitis or epidural abscess. Back pain is likely related to trauma he received a few days prior to admission. Patient is receiving Dilaudid, Toradol, Robaxin and oxycodone as needed (6) History of stroke with residual deficit Assessment/Plan: He has a history of stroke with residual deficit of aphasia. We will continue his aspirin. Will also start him on lipitor. (5) Back pain Qualifiers: Back pain location: low back pain Chronicity: acute Back pain laterality: midline Sciatica presence: without sciatica Qualified Code(s): M54.50 - Low back pain, unspecified - Current Meds Current Meds: Current Medications Generic Name Dose Route Start Last Admin Trade Name Freq PRN Reason Stop Dose Admin Acetaminophen 650 mg 08/26/21 14:30 08/26/21 15:20 Acetaminophen 325 Mg Tablet PO 650 mg Q4HR PRN Administration Pain 1 to 4 Alcohol 1 amp 08/27/21 09:00 08/29/21 21:25 Ethyl Alcohol 62% Swab Ampule JIMMY 1 amp BID KATHERINE Administration Aspirin 81 mg 08/27/21 09:00 08/29/21 09:27 Aspirin Chew 81 Mg Tablet PO 81 mg DAILY KATHERINE Administration Atorvastatin Calcium 40 mg 08/28/21 21:00 08/29/21 21:25 Atorvastatin 40 Mg Tablet PO 40 mg QPM KATHERINE Administration Docusate Sodium 250 - 500 mg 08/28/21 21:00 08/29/21 09:27 Docusate Sodium 250 Mg Capsule PO 500 mg DAILY KATHERINE Administration Enoxaparin Sodium 40 mg 08/27/21 09:00 08/29/21 09:28 Enoxaparin 40 Mg/0.4 Ml Syringe SUBQ 40 mg DAILY KATHERINE Administration Hydromorphone HCl 1 mg 08/29/21 10:33 08/30/21 04:46 Hydromorphone 1 Mg/Ml Carpuject IVP 1 mg Q3H PRN Administration PAIN Vancomycin HCl 1 gm/ 500 mls @ 250 mls/hr 08/28/21 22:00 08/30/21 06:18 Vancomycin HCl 500 mg/ Sodium IV 250 mls/hr Chloride Q8H KATHERINE Administration Metronidazole 500 mg in 100 mls @ 100 mls/hr 08/29/21 16:00 08/30/21 00:57 Flagyl 500 Mg/100 Ml IV Infused Q8H KATHERINE Infusion Ciprofloxacin 400 mg in 200 mls @ 200 mls/hr 08/29/21 16:00 08/30/21 04:44 Cipro 400 Mg/200 Ml IV Infused Q12H KATHERINE Infusion Ketorolac Tromethamine 30 mg 08/27/21 10:48 08/30/21 03:35 Ketorolac 30 Mg/Ml Vial IVP 09/01/21 10:47 30 mg Q6HR PRN Administration PAIN Methocarbamol 500 mg 08/27/21 08:27 08/29/21 11:18 Methocarbamol 500 Mg Tablet PO 500 mg Q6HR PRN Administration Spasms Ondansetron HCl 4 mg 08/26/21 14:30 08/28/21 08:08 Ondansetron 4 Mg/2 Ml Vial IVP 4 mg Q6HR PRN Administration Nausea / Vomiting Ondansetron HCl 4 mg 08/26/21 14:30 08/28/21 12:44 Ondansetron Odt 4 Mg Tablet TL 4 mg Q6HR PRN Administration Nausea / Vomiting Oxycodone HCl 5 mg 08/26/21 16:00 08/29/21 21:24 Oxycodone 5 Mg Tablet PO 5 mg Q4HR PRN Administration PAIN Polyethylene Glycol 17 gm 08/28/21 09:00 08/29/21 09:48 Polyethylene Glycol 3350 17 Gm Packet PO 17 gm DAILY KATHERINE Administration Senna 8.6 - 17.2 mg 08/28/21 21:00 08/29/21 09:27 Senna 8.6 Mg Tablet PO 17.2 mg DAILY KATHERINE Administration Sodium Chloride 10 ml 08/26/21 14:30 08/28/21 21:01 Sodium Chloride Flush 0.9% 10 Ml Syringe IVP 10 ml PRN PRN Administration NEEDED PER PROVIDER ORDERS Sodium Chloride 10 ml 08/26/21 17:00 08/29/21 23:56 Sodium Chloride Flush 0.9% 10 Ml Syringe IVP 10 ml 0100,0900,1700 KATHERINE Administration - Lab Result Fish Bone Diagrams: 08/30/21 06:15 08/30/21 06:15 - Additional Planning My Orders: My Active Orders 08/29/21 16:00 Ciprofloxacin 400 mg/200 ml [Cipro 400 mg/200 ml] 400 mg in 200 ml IV Q12H metroNIDAZOLE 500 MG/100 ML [Flagyl 500 mg/100 ml] 500 mg in 100 ml IV Q8H 08/30/21 Blood Culture [CULTURE, BLOOD #1] [] Routine Blood Culture [CULTURE, BLOOD #2] [] Routine 08/30/21 07:45 Pharmacy Consult [CONS] Routine Subjective - Subjective Patient Reports: Other (He was resting comfortably in the bedside chair. His back pain from recent trauma he received persist. He denies any other complaints.) Objective Vital Signs: Vital Signs - 24 hr 08/29/21 08/29/21 15:32 23:46 Temperature 36.4 C L 36.6 C Heart Rate [ 78 79 Brachial] Respiratory 24 20 Rate Blood Pressure 141/88 H 126/79 [Right Brachial artery] O2 Saturation 97 97 Oxygen O2 Source Room air I&O (Last 24 Hrs): Intake and Output Totals x24h 08/28/21 08/29/21 08/30/21 23:59 23:59 23:59 Intake Total 2840 2433.333 1000 Output Total 1050 152 775 Balance 1790 2281.333 225 Comments/Notes: General: Alert, Oriented x3, Mild distress HEENT: PERRLA, EOMI Neck: Supple, No JVD Neuro: Alert, Non Focal, Oriented Times 3 Cardiovascular: Regular rate, No murmurs Respiratory: Chest non-tender, No respiratory distress, Breath sounds nml Abdomen: Normal bowel sounds, Soft, No tenderness Extremities: No clubbing, No cyanosis, No edema Skin: No rashes, No breakdown, No significant lesion - Results Results: Laboratory Results WBC 14.7 x10^3/uL (4.8-10.8) H 08/30/21 06:15 RBC 4.10 10^6/uL (4.70-6.10) L 08/30/21 06:15 Hgb 11.5 g/dL (14.0-18.0) L 08/30/21 06:15 Hct 35.2 % (42.0-52.0) L 08/30/21 06:15 MCV 85.9 fL (80.0-94.0) 08/30/21 06:15 MCH 28.0 pg (27.0-31.0) 08/30/21 06:15 MCHC 32.7 g/dL (32.0-36.0) 08/30/21 06:15 RDW 13.4 % (12.0-15.0) 08/30/21 06:15 Plt Count 261 10^3/uL (130-450) 08/30/21 06:15 MPV 10.3 fL (7.4-11.4) 08/30/21 06:15 Neut # (Auto) 11.1 10^3/uL (1.5-6.6) H 08/29/21 05:25 Lymph # (Auto) 1.6 10^3/uL (1.5-3.5) 08/29/21 05:25 [place] # (Auto) 1.0 10^3/uL (0.0-1.0) 08/29/21 05:25 Eos # (Auto) 0.2 10^3/uL (0.0-0.7) 08/29/21 05:25 Baso # (Auto) 0.1 10^3/uL (0.0-0.1) 08/29/21 05:25 Absolute Nucleated RBC 0.00 x10^3/uL 08/29/21 05:25 Nucleated RBC % 0.0 /100WBC 08/29/21 05:25 Manual Slide Review Indicated 08/30/21 06:15 RBC Morph Micro Appear 1+ ANISOCYTOSIS (NORMAL) 08/29/21 05:25 ESR 59 mm/Hr (0-20) H 08/26/21 13:02 Sodium 135 mmol/L (135-145) 08/30/21 06:15 Potassium 3.6 mmol/L (3.5-5.0) 08/30/21 06:15 Chloride 102 mmol/L (101-111) 08/30/21 06:15 Carbon Dioxide 24 mmol/L (21-32) 08/30/21 06:15 Anion Gap 9.0 (6-13) 08/30/21 06:15 BUN 14 mg/dL (6-20) 08/30/21 06:15 Creatinine 0.7 mg/dL (0.6-1.2) 08/30/21 06:15 Estimated GFR (MDRD) 116 (>89) 08/30/21 06:15 Glucose 102 mg/dL (70-100) H 08/30/21 06:15 Lactic Acid 1.3 mmol/L (0.5-2.2) 08/26/21 13:02 Calcium 8.1 mg/dL (8.5-10.3) L 08/30/21 06:15 Magnesium 2.3 mg/dL (1.7-2.8) 08/30/21 06:15 Troponin I High Sens 7.2 ng/L (2.3-19.7) 08/26/21 13:02 C-Reactive Protein 13.4 mg/dL (0-1.0) H 08/30/21 06:15 Urine Color DARK YELLOW 08/26/21 14:20 Urine Clarity CLEAR (CLEAR) 08/26/21 14:20 Urine pH 5.5 PH (5.0-7.5) 08/26/21 14:20 Ur Specific [place] >=1.030 (1.002-1.030) H 08/26/21 14:20 Urine Protein 100 mg/dL (NEGATIVE) H 08/26/21 14:20 Urine Glucose (UA) NEGATIVE mg/dL (NEGATIVE) 08/26/21 14:20 Urine Ketones 15 mg/dL (NEGATIVE) H 08/26/21 14:20 Urine Occult Blood LARGE (NEGATIVE) H 08/26/21 14:20 Urine Nitrite NEGATIVE (NEGATIVE) 08/26/21 14:20 Urine Bilirubin NEGATIVE (NEGATIVE) 08/26/21 14:20 Urine Urobilinogen 0.2 (NORMAL) E.U./dL (NORMAL) 08/26/21 14:20 Ur Leukocyte Esterase NEGATIVE (NEGATIVE) 08/26/21 14:20 Urine RBC 0-5 /HPF (0-5) 08/26/21 14:20 Urine WBC 0-3 /HPF (0-3) 08/26/21 14:20 Ur Squamous Epith Cells NONE SEEN (<= Few) 08/26/21 14:20 Urine Bacteria Few /HPF (None Seen) 08/26/21 14:20 Ur Microscopic Review INDICATED 08/26/21 14:20 Urine Culture Comments NOT INDICATED 08/26/21 14:20 Nasal Adenovirus (PCR) NOT DETECTED 08/26/21 15:40 Nasal B. parapertussis DNA (PCR) NOT DETECTED 08/26/21 15:40 Nasal Coronavir 229E PCR NOT DETECTED 08/26/21 15:40 Nasal Coronavir HKU1 PCR NOT DETECTED 08/26/21 15:40 Nasal Coronavir NL63 PCR NOT DETECTED 08/26/21 15:40 Nasal Coronavir OC43 PCR NOT DETECTED 08/26/21 15:40 Nasal Enterovir/Rhinovir PCR NOT DETECTED 08/26/21 15:40 Nasal Influenza B PCR NOT DETECTED 08/26/21 15:40 Nasal Influenza A PCR NOT DETECTED 08/26/21 15:40 Nasal Parainfluen 1 PCR NOT DETECTED 08/26/21 15:40 Nasal Parainfluen 2 PCR NOT DETECTED 08/26/21 15:40 Nasal Parainfluen 3 PCR NOT DETECTED 08/26/21 15:40 Nasal Parainfluen 4 PCR NOT DETECTED 08/26/21 15:40 Nasal RSV (PCR) NOT DETECTED 08/26/21 15:40 Nasal B.pertussis DNA PCR NOT DETECTED 08/26/21 15:40 Nasal C.pneumoniae (PCR) NOT DETECTED 08/26/21 15:40 Jimmy Human Metapneumo PCR NOT DETECTED 08/26/21 15:40 Nasal M.pneumoniae (PCR) NOT DETECTED 08/26/21 15:40 Nasal SARS-CoV-2 (PCR) NOT DETECTED 08/26/21 15:40 Last Dose Date 08/28/21 08/28/21 13:07 Last Dose Time 0243 08/28/21 13:07 Vancomycin Trough 9.6 ug/mL (10.0-20.0) L 08/28/21 13:07 - Procedures Procedures: Procedures ENDOSC POLYPECTOMY OF LG INTEST (02/22/15) EXCISION OF RIGHT KNEE BURSA AND LIGAMENT, OPEN APPROACH (07/29/16) ABX Reporting Has patient been on IV antibiotics over the past 48 hours?: Yes
[2021-08-30 07:58] LABS: ABNORMAL LYMPHS % (MANUAL) 0 %; BAND NEUTROPHILS % (MANUAL) 8 %; DIFFERENTIAL COMMENT MANUAL DIFFERENTIAL; EOSINOPHILS # (MANUAL) 0.3 10^3/uL (0-0.7); LYMPHOCYTES # (MANUAL) 1.6 10^3/uL (1.5-3.5); LYMPHOCYTES % (MANUAL) 10 %; MONOCYTES # (MANUAL) 0.9 10^3/uL (0.0-1.0); NEUTROPHILS # (MANUAL) 11.9 10^3/uL (1.5-6.6); PLATELET ESTIMATE, MANUAL NORMAL (130-450,000) (NORMAL); PLATELET MORPHOLOGY NORMAL APPEARANCE (NORMAL); RBC MORPHOLOGY (MULTIPLE) NORMAL APPEARANCE (NORMAL); REACTIVE LYMPHS % (MANUAL) 1 %
[2021-08-30] MEDS: methocarbamoL 500 MG TABLET PO PRN ×2 (08:11→20:39)
[2021-08-30] MEDS: ASPIRIN CHEW 81 MG TABLET PO SCH (08:12)
[2021-08-30] MEDS: ENOXAPARIN 40 MG/0.4 ML SYRINGE SUBQ SCH (08:12)
[2021-08-30] MEDS: DOCUSATE SODIUM 250 MG CAPSULE PO SCH (08:12)
[2021-08-30] MEDS: polyethylene glycoL 3350 17 GM PACKET PO SCH (08:13)
[2021-08-30] MEDS: SENNA 8.6 MG TABLET PO SCH (08:13)
[2021-08-30] MEDS: ethyl alcohoL 62% SWAB AMPULE NAS SCH ×2 (08:13→20:39)
[2021-08-30] MEDS: SODIUM CHLORIDE FLUSH 0.9% 10 ML SYRINGE IVP SCH ×3 (08:14→23:50)
[2021-08-30] MEDS: metroNIDAZOLE 500 MG/100 ML 500 MG/100 ML BAG IV SCH ×3 (08:20→23:50)
[2021-08-30] MEDS: SODIUM CHLORIDE FLUSH 0.9% 10 ML SYRINGE IVP PRN (12:18)
[2021-08-30] MEDS: oxyCODONE 5 MG TABLET PO PRN ×3 (12:18→20:39)
[2021-08-30 13:27] LABS: VANCOMYCIN,TROUGH 15.8 ug/mL (10.0-20.0)
[2021-08-30] MEDS ORDERED: VANCOMYCIN 1 GM VIAL ONE (16:35)
[2021-08-30] MEDS ORDERED: SODIUM CHLORIDE 0.9% 500 ML IV ONE (16:35)
[2021-08-30] MEDS: ACETAMINOPHEN 325 MG TABLET PO PRN (16:40)
[2021-08-30] MEDS: SODIUM CHLORIDE 0.9% 500 ML IV PRN (17:15)
[2021-08-30] MEDS: ATORVASTATIN 40 MG TABLET PO SCH (20:39)
[2021-08-30] MEDS: NICOTINE 14 MG PATCH TOP SCH (21:20)
[2021-08-31] MEDS: HYDROmorphone 1 MG/ML CARPUJECT IVP PRN ×5 (01:13→20:01)
[2021-08-31] MEDS: methocarbamoL 500 MG TABLET PO PRN ×2 (02:27→12:52)
[2021-08-31] MEDS: KETOROLAC 30 MG/ML VIAL IVP PRN (02:27)
[2021-08-31] MEDS: oxyCODONE 5 MG TABLET PO PRN ×2 (02:27→07:55)
[2021-08-31] MEDS: CIPROFLOXACIN 400 MG/200 ML 400 MG/200 ML BAG IV SCH ×2 (04:41→16:56)
[2021-08-31] MEDS: VANCOMYCIN INJ 1 GM, VANCOMYCIN INJ 500 MG in SODIUM CHLORIDE 0.9% 500 ML IV SCH (05:35)
[2021-08-31 06:01] LABS: BASOPHILS % (AUTO) 0.8 %; EOSINOPHILS % (AUTO) 2.4 %; HCT - HEMATOCRIT 32.7 % (42.0-52.0); HGB - HEMOGLOBIN 10.7 g/dL (14.0-18.0); LYMPHOCYTES % (AUTO) 10.1 %; MEAN CORPUSCULAR HEMOGLOBIN 27.9 pg (27.0-31.0); MEAN CORPUSCULAR HGB CONC 32.7 g/dL (32.0-36.0); MEAN CORPUSCULAR VOLUME 85.4 fL (80.0-94.0); MONOCYTES % (AUTO) 5.5 %; NEUTROPHILS % (AUTO) 72.9 %; PLT - PLATELET COUNT 271 10^3/uL (130-450); RED BLOOD COUNT 3.83 10^6/uL (4.70-6.10); RED CELL DISTRIBUTION WIDTH 13.4 % (12.0-15.0); WHITE BLOOD COUNT 15.9 x10^3/uL (4.8-10.8)
[2021-08-31 06:03] LABS: ABNORMAL LYMPHS % (MANUAL) 0 %
[2021-08-31 06:16] LABS: CALCIUM 8.2 mg/dL (8.5-10.3); CREATININE 0.7 mg/dL (0.6-1.2); CRP - C-REACTIVE PROTEIN 9.8 mg/dL (0-1.0); MAGNESIUM 2.2 mg/dL (1.7-2.8); POTASSIUM 3.8 mmol/L (3.5-5.0)
[2021-08-31 07:23] LABS: BAND NEUTROPHILS % (MANUAL) 12 %; BASOPHILS # (MANUAL) 0.2 10^3/uL (0-0.1); BASOPHILS % (MANUAL) 1 %; LYMPHOCYTES % (MANUAL) 19 %; METAMYELOCYTES % (MANUAL) 2 %; MONOCYTES # (MANUAL) 0.3 10^3/uL (0.0-1.0); MYELOCYTES % (MANUAL) 1 %; NEUTROPHILS # (MANUAL) 11.9 10^3/uL (1.5-6.6)
[2021-08-31 07:26] LABS: DIFFERENTIAL COMMENT MANUAL DIFFERENTIAL
[2021-08-31] MEDS: ethyl alcohoL 62% SWAB AMPULE NAS SCH ×2 (07:50→20:55)
[2021-08-31] MEDS: polyethylene glycoL 3350 17 GM PACKET PO SCH (07:50)
[2021-08-31] MEDS: ENOXAPARIN 40 MG/0.4 ML SYRINGE SUBQ SCH (07:54)
[2021-08-31] MEDS: NICOTINE 14 MG PATCH TOP SCH (07:54)
[2021-08-31] MEDS: DOCUSATE SODIUM 250 MG CAPSULE PO SCH (07:55)
[2021-08-31] MEDS: SENNA 8.6 MG TABLET PO SCH (07:55)
[2021-08-31] MEDS: ASPIRIN CHEW 81 MG TABLET PO SCH (07:55)
[2021-08-31] MEDS: SODIUM CHLORIDE FLUSH 0.9% 10 ML SYRINGE IVP SCH ×2 (07:57→16:32)
--- NOTE | 2021-08-31 08:11 | PROVIDER PROGRESS NOTE ---
Assessment/Plan - Problem List (1) MRSA bacteremia Assessment/Plan: Patient is on vancomycin IV with pharmacy to dose. WBC further elevated to 15.9 from 14.7. Patient is afebrile. Repeat blood cultures of 08/30/2021 grew gram-positive cocci in clusters. Blood cultures will be [id number]/04/2021. Repeating CT of the chest, abdomen and pelvis with contrast today to assess for possible abscess. Will also do an MRI of the cervical, lumbar and thoracic spine tomorrow 09/01/2021 I spoke with an infectious disease specialist via [facility] med consult line on 08/29/21. He advised that endocarditis is still suspect despite the TTE showing No vegetation. He recommended a follow-up ANDERSON. He recommended continuing vancomycin and ensuring therapeutic range. Further that Staph aureus bacteremia can take a longer period to clear Give high volumes at hospitals in the area difficulty for transfers and long wait timed for transfer, we will coordinated transfer to another facility for ANDERSON and then return to [facility] during a week day (2) Pneumonia Assessment/Plan: CT of the chest done 08/28/2021 showed left upper lobe pulmonary infiltrates with small round consolidation consistent with pneumonia. Patient has been on vancomycin IV with pharmacy to dose. WBC was 15.9 today. Patient is afebrile. Repeating CT of the chest with contrast due to persistent MRSA bacteremia as of 08/30/2021 and elevating white blood cell count Blood cultures repeated on 09/01/2021. (3) Ileus Assessment/Plan: Ileus vs Colitis CT abdomen done 08/28/2021 showed small to moderate nonspecific free fluid in the pelvis associated with right colonic gaseous distention without obstruction. On Cipro and Flagyl. Started 08/30/21. Will discontinue 09/02/21 (4) Heroin abuse Assessment/Plan: Social work to provide resources regarding substance abuse. (5) Back pain Qualifiers: Back pain location: low back pain Chronicity: acute Back pain laterality: midline Sciatica presence: without sciatica Qualified Code(s): M54.50 - Low back pain, unspecified Assessment/Plan: MRI of the lumbar spine done 08/25/2021 showed no findings of discitis, osteomyelitis or epidural abscess. Patient's pain appears worse today and white blood cell count is further elevated at 15.9. Furthermore blood cultures done 08/30/2021 continue to be positive for MRSA. We will repeat cultures on 09/01/2021 We will repeat MRI of the entire spine on 09/01/21 Patient is receiving Dilaudid, Toradol, Robaxin and oxycodone as needed (6) History of stroke with residual deficit Assessment/Plan: He has a history of stroke with residual deficit of aphasia. We will continue his aspirin. Will also start him on lipitor. - Current Meds Current Meds: Current Medications Generic Name Dose Route Start Last Admin Trade Name Freq PRN Reason Stop Dose Admin Acetaminophen 650 mg 08/26/21 14:30 08/30/21 16:40 Acetaminophen 325 Mg Tablet PO 650 mg Q4HR PRN Administration Pain 1 to 4 Alcohol 1 amp 08/27/21 09:00 08/31/21 07:50 Ethyl Alcohol 62% Swab Ampule JIMMY 1 amp BID KATHERINE Administration Aspirin 81 mg 08/27/21 09:00 08/31/21 07:55 Aspirin Chew 81 Mg Tablet PO 81 mg DAILY KATHERINE Administration Atorvastatin Calcium 40 mg 08/28/21 21:00 08/30/21 20:39 Atorvastatin 40 Mg Tablet PO 40 mg QPM KATHERINE Administration Docusate Sodium 250 - 500 mg 08/28/21 21:00 08/31/21 07:55 Docusate Sodium 250 Mg Capsule PO 250 mg DAILY KATHERINE Administration Enoxaparin Sodium 40 mg 08/27/21 09:00 08/31/21 07:54 Enoxaparin 40 Mg/0.4 Ml Syringe SUBQ 40 mg DAILY KATHERINE Administration Hydromorphone HCl 1 mg 08/29/21 10:33 08/31/21 04:41 Hydromorphone 1 Mg/Ml Carpuject IVP 1 mg Q3H PRN Administration PAIN Vancomycin HCl 1 gm/ 500 mls @ 250 mls/hr 08/28/21 22:00 08/31/21 06:01 Vancomycin HCl 500 mg/ Sodium IV 250 mls/hr Chloride Q8H KATHERINE Infusion Metronidazole 500 mg in 100 mls @ 100 mls/hr 08/29/21 16:00 08/31/21 01:06 Flagyl 500 Mg/100 Ml IV Infused Q8H KATHERINE Infusion Ciprofloxacin 400 mg in 200 mls @ 200 mls/hr 08/30/21 17:00 08/31/21 06:01 Cipro 400 Mg/200 Ml IV Infused Q12H KATHERINE Infusion Sodium Chloride 500 mls @ 20 mls/hr 08/30/21 16:26 08/30/21 17:15 Normal Saline 0.9% IV 25 mls/hr Q24H PRN Administration TKO RATE Ketorolac Tromethamine 30 mg 08/27/21 10:48 08/31/21 02:27 Ketorolac 30 Mg/Ml Vial IVP 09/01/21 10:47 30 mg Q6HR PRN Administration PAIN Methocarbamol 500 mg 08/27/21 08:27 08/31/21 02:27 Methocarbamol 500 Mg Tablet PO 500 mg Q6HR PRN Administration Spasms Nicotine 1 patch 08/30/21 20:43 08/31/21 07:54 Nicotine 14 Mg Patch TOP 1 patch DAILY KATHERINE Administration Ondansetron HCl 4 mg 08/26/21 14:30 08/28/21 08:08 Ondansetron 4 Mg/2 Ml Vial IVP 4 mg Q6HR PRN Administration Nausea / Vomiting Ondansetron HCl 4 mg 08/26/21 14:30 08/28/21 12:44 Ondansetron Odt 4 Mg Tablet TL 4 mg Q6HR PRN Administration Nausea / Vomiting Oxycodone HCl 5 mg 08/26/21 16:00 08/31/21 07:55 Oxycodone 5 Mg Tablet PO 5 mg Q4HR PRN Administration PAIN Polyethylene Glycol 17 gm 08/28/21 09:00 08/31/21 07:50 Polyethylene Glycol 3350 17 Gm Packet PO 17 gm DAILY KATHERINE Administration Senna 8.6 - 17.2 mg 08/28/21 21:00 08/31/21 07:55 Senna 8.6 Mg Tablet PO 8.6 mg DAILY KATHERINE Administration Sodium Chloride 10 ml 08/26/21 14:30 08/30/21 12:18 Sodium Chloride Flush 0.9% 10 Ml Syringe IVP 10 ml PRN PRN Administration NEEDED PER PROVIDER ORDERS Sodium Chloride 10 ml 08/26/21 17:00 08/31/21 07:57 Sodium Chloride Flush 0.9% 10 Ml Syringe IVP Not Given 0100,0900,1700 KATHERINE - Lab Result Fish Bone Diagrams: 08/31/21 05:35 08/31/21 05:35 - Additional Planning My Orders: My Active Orders 08/30/21 07:45 Pharmacy Consult [CONS] Routine 08/30/21 08:25 Blood Culture [CULTURE, BLOOD #1] [RM] Routine 08/30/21 08:30 Blood Culture [CULTURE, BLOOD #2] [RM] Routine 08/30/21 17:00 Ciprofloxacin 400 mg/200 ml [Cipro 400 mg/200 ml] 400 mg in 200 ml IV Q12H 09/01/21 09:00 CERVICAL SPINE W/WO [MRI] Routine LUMBAR SPINE W/WO [MRI] Routine THORACIC SPINE W/WO [MRI] Routine Subjective - Subjective Patient Reports: Other (Patient appeared very uncomfortable at time of exam. He remains afebrile. On examination he has significant pain to palpation of his lumbar/sacral region. He complained of feeling bloated. He had worsening pain when laying down on a hard surface like the table down in radiology department.) Objective Vital Signs: Vital Signs - 24 hr 08/30/21 08/30/21 16:37 23:49 Temperature 37.0 C 36.4 C L Heart Rate [ 79 77 Brachial] Respiratory 18 20 Rate Blood Pressure 132/77 H 132/77 H [Right Brachial artery] O2 Saturation 92 95 Oxygen O2 Source Room air I&O (Last 24 Hrs): Intake and Output Totals x24h 08/29/21 08/30/21 08/31/21 23:59 23:59 23:59 Intake Total 2433.333 4640 504.167 Output Total 152 775 750 Balance 2281.333 3865 -245.833 General: Alert, Oriented x3, Moderate distress, Severe distress HEENT: PERRLA, EOMI Neck: Supple, No JVD Neuro: Alert, Non Focal, Oriented Times 3 Cardiovascular: Regular rate, No murmurs Respiratory: Chest non-tender, No respiratory distress, Breath sounds nml Abdomen: Soft, No tenderness Extremities: No clubbing, No cyanosis, No edema Skin: No rashes, No breakdown, No significant lesion - Results Results: Laboratory Results WBC 15.9 x10^3/uL (4.8-10.8) H 08/31/21 05:35 RBC 3.83 10^6/uL (4.70-6.10) L 08/31/21 05:35 Hgb 10.7 g/dL (14.0-18.0) L 08/31/21 05:35 Hct 32.7 % (42.0-52.0) L 08/31/21 05:35 MCV 85.4 fL (80.0-94.0) 08/31/21 05:35 MCH 27.9 pg (27.0-31.0) 08/31/21 05:35 MCHC 32.7 g/dL (32.0-36.0) 08/31/21 05:35 RDW 13.4 % (12.0-15.0) 08/31/21 05:35 Plt Count 271 10^3/uL (130-450) 08/31/21 05:35 MPV 10.0 fL (7.4-11.4) 08/31/21 05:35 Neut # (Auto) Not Reportable 08/31/21 05:35 Lymph # (Auto) Not Reportable 08/31/21 05:35 [place] # (Auto) Not Reportable 08/31/21 05:35 Eos # (Auto) Not Reportable 08/31/21 05:35 Baso # (Auto) Not Reportable 08/31/21 05:35 Absolute Nucleated RBC Not Reportable 08/31/21 05:35 Total Counted 100 08/31/21 05:35 Band Ne[place] % (Manual) 12 % (0-10) H 08/31/21 05:35 Reactive Lymphs % (Man) 1 % 08/30/21 06:15 Abnorm Lymph % (Manual) 0 % 08/31/21 05:35 Metamyelocytes % 2 % (-0) H 08/31/21 05:35 Myelocytes % 1 % (-0) H 08/31/21 05:35 Nucleated RBC % Not Reportable 08/31/21 05:35 Neutrophils # (Manual) 11.9 10^3/uL (1.5-6.6) H 08/31/21 05:35 Lymphocytes # (Manual) 3.0 10^3/uL (1.5-3.5) 08/31/21 05:35 Monocytes # (Manual) 0.3 10^3/uL (0.0-1.0) 08/31/21 05:35 Eosinophils # (Manual) 0.0 10^3/uL (0-0.7) 08/31/21 05:35 Basophils # (Manual) 0.2 10^3/uL (0-0.1) H 08/31/21 05:35 Differential Comment MANUAL DIFFERENTIAL 08/31/21 05:35 Manual Slide Review Indicated 08/30/21 06:15 Platelet Estimate NORMAL (130-450,000) (NORMAL) 08/30/21 06:15 Platelet Morphology NORMAL APPEARANCE (NORMAL) 08/30/21 06:15 RBC Morph Micro Appear NORMAL APPEARANCE (NORMAL) 08/30/21 06:15 ESR 59 mm/Hr (0-20) H 08/26/21 13:02 Sodium 134 mmol/L (135-145) L 08/31/21 05:35 Potassium 3.8 mmol/L (3.5-5.0) 08/31/21 05:35 Chloride 103 mmol/L (101-111) 08/31/21 05:35 Carbon Dioxide 22 mmol/L (21-32) 08/31/21 05:35 Anion Gap 9.0 (6-13) 08/31/21 05:35 BUN 11 mg/dL (6-20) 08/31/21 05:35 Creatinine 0.7 mg/dL (0.6-1.2) 08/31/21 05:35 Estimated GFR (MDRD) 116 (>89) 08/31/21 05:35 Glucose 112 mg/dL (70-100) H 08/31/21 05:35 Lactic Acid 1.3 mmol/L (0.5-2.2) 08/26/21 13:02 Calcium 8.2 mg/dL (8.5-10.3) L 08/31/21 05:35 Magnesium 2.2 mg/dL (1.7-2.8) 08/31/21 05:35 Troponin I High Sens 7.2 ng/L (2.3-19.7) 08/26/21 13:02 C-Reactive Protein 9.8 mg/dL (0-1.0) H 08/31/21 05:35 Urine Color DARK YELLOW 08/26/21 14:20 Urine Clarity CLEAR (CLEAR) 08/26/21 14:20 Urine pH 5.5 PH (5.0-7.5) 08/26/21 14:20 Ur Specific [place] >=1.030 (1.002-1.030) H 08/26/21 14:20 Urine Protein 100 mg/dL (NEGATIVE) H 08/26/21 14:20 Urine Glucose (UA) NEGATIVE mg/dL (NEGATIVE) 08/26/21 14:20 Urine Ketones 15 mg/dL (NEGATIVE) H 08/26/21 14:20 Urine Occult Blood LARGE (NEGATIVE) H 08/26/21 14:20 Urine Nitrite NEGATIVE (NEGATIVE) 08/26/21 14:20 Urine Bilirubin NEGATIVE (NEGATIVE) 08/26/21 14:20 Urine Urobilinogen 0.2 (NORMAL) E.U./dL (NORMAL) 08/26/21 14:20 Ur Leukocyte Esterase NEGATIVE (NEGATIVE) 08/26/21 14:20 Urine RBC 0-5 /HPF (0-5) 08/26/21 14:20 Urine WBC 0-3 /HPF (0-3) 08/26/21 14:20 Ur Squamous Epith Cells NONE SEEN (<= Few) 08/26/21 14:20 Urine Bacteria Few /HPF (None Seen) 08/26/21 14:20 Ur Microscopic Review INDICATED 08/26/21 14:20 Urine Culture Comments NOT INDICATED 08/26/21 14:20 Nasal Adenovirus (PCR) NOT DETECTED 08/26/21 15:40 Nasal B. parapertussis DNA (PCR) NOT DETECTED 08/26/21 15:40 Nasal Coronavir 229E PCR NOT DETECTED 08/26/21 15:40 Nasal Coronavir HKU1 PCR NOT DETECTED 08/26/21 15:40 Nasal Coronavir NL63 PCR NOT DETECTED 08/26/21 15:40 Nasal Coronavir OC43 PCR NOT DETECTED 08/26/21 15:40 Nasal Enterovir/Rhinovir PCR NOT DETECTED 08/26/21 15:40 Nasal Influenza B PCR NOT DETECTED 08/26/21 15:40 Nasal Influenza A PCR NOT DETECTED 08/26/21 15:40 Nasal Parainfluen 1 PCR NOT DETECTED 08/26/21 15:40 Nasal Parainfluen 2 PCR NOT DETECTED 08/26/21 15:40 Nasal Parainfluen 3 PCR NOT DETECTED 08/26/21 15:40 Nasal Parainfluen 4 PCR NOT DETECTED 08/26/21 15:40 Nasal RSV (PCR) NOT DETECTED 08/26/21 15:40 Nasal B.pertussis DNA PCR NOT DETECTED 08/26/21 15:40 Nasal C.pneumoniae (PCR) NOT DETECTED 08/26/21 15:40 Jimmy Human Metapneumo PCR NOT DETECTED 08/26/21 15:40 Nasal M.pneumoniae (PCR) NOT DETECTED 08/26/21 15:40 Nasal SARS-CoV-2 (PCR) NOT DETECTED 08/26/21 15:40 Last Dose Date Not Reportable 08/30/21 13:05 Last Dose Time Not Reportable 08/30/21 13:05 Vancomycin Trough 15.8 ug/mL (10.0-20.0) 08/30/21 13:05 - Procedures Procedures: Procedures ENDOSC POLYPECTOMY OF LG INTEST (02/22/15) EXCISION OF RIGHT KNEE BURSA AND LIGAMENT, OPEN APPROACH (07/29/16) ABX Reporting Has patient been on IV antibiotics over the past 48 hours?: Yes
[2021-08-31] MEDS: metroNIDAZOLE 500 MG/100 ML 500 MG/100 ML BAG IV SCH ×2 (09:22→16:31)
[2021-08-31] MEDS ORDERED: IOVERSOL 320 100 ML VIAL IVP ONE ×2 (11:55→16:34)
--- NOTE | 2021-08-31 12:56 | PHARMACY PROGRESS NOTE ---
- Therapy Status Vancomycin regimen day #: 5 Therapy status: Trough therapeutic (Trough obtain 08/30 is therapeutic at 15.8; however, repeat blood cultures from 08/30 have turned positive. After consulting with the provider, I will increase from 1500 to 1750 mg q8h in an attempt to move toward the higher end to the 15 to 20 goal range.) Basis for treatment: Culture result Trough goal: 15-20 - YASHIRA Risk Risk level for Acute Kidney Injury: High Acute Kidney Injury risk factors: Goal trough >15, Total daily Vancomycin >4 grams - Monitoring and Recommendation Clinical response to treatment: I&O Previous 24 hours 08/29/21 08/30/21 08/31/21 23:59 23:59 23:59 Intake Total 2433.333 4640 1650.000 Output Total 576 587 9427 Balance 2281.333 3865 -750.000 Lab Results 08/31/21 08/30/21 08/29/21 05:35 06:15 05:25 ESR BUN 11 14 15 Creatinine 0.7 0.7 0.7 Estimated GFR (MDRD) 116 116 116 08/28/21 08/27/21 08/26/21 06:05 05:58 13:02 ESR 59 H BUN 16 13 Creatinine 0.7 0.7 Estimated GFR (MDRD) 116 116 08/26/21 13:02 ESR BUN 13 Creatinine 0.8 Estimated GFR (MDRD) 100 Vancomycin Monitoring 08/30/21 08/28/21 13:05 13:07 Vancomycin Trough 15.8 9.6 L Cultures 08/28/21 13:07 Blood Blood Culture - Preliminary Methicillin Resist S. Aureus 08/28/21 13:07 Blood Blood Culture - Preliminary Methicillin Resist S. Aureus 08/26/21 13:02 Blood - Right Iv-Start Blood Culture - Final Methicillin Resist S. Aureus 08/26/21 13:02 Blood - Left Hand Blood Culture - Final Methicillin Resist S. Aureus 08/30/21 08:25 Blood - Right Hand Blood Culture - Preliminary 08/30/21 08:30 Blood - Right Hand Blood Culture (PCR) - Final 08/30/21 08:30 Blood - Right Hand Blood Culture - Preliminary Monitoring plan: Daily serum creatinine, Suggest ongoing fluid replacement Areas for additional monitoring: IV to PO when appropriate Pharmacy recommendation: Increase dose (Increasing total daily dose to 1.5 grams q8h; will schedule trough for next time pharmacy on site when closer to steady state.)
[2021-08-31] MEDS: VANCOMYCIN INJ 1.75 GM in SODIUM CHLORIDE 0.9% 500 ML IV SCH ×2 (14:36→21:31)
--- NOTE | 2021-08-31 14:37 | CONSULTATION NOTE ---
Consultation Report: Call for assist with IV access. Pt with history of difficult start and multiple failed attempts. Consent from pt, verbally, placement of IVs as follows. R FA 20ga 1.88" with ultrasound assist x1. L FA 20 ga placed with ultrasound x1 (only flushes with catheter exposed 1cm. Pt tolerated procedures without complaint.
[2021-08-31] MEDS ORDERED: HYDROmorphone 1 MG/ML CARPUJECT IVP STA (15:51)
--- NOTE | 2021-08-31 17:17 | CT Report ---
PROCEDURE: Abdomen/Pelvis W INDICATIONS: persistent MRSA bacteremia CONTRAST: IV CONTRAST: Optiray 320 ml: 100 PO CONTRAST: *NO PO CONTRAST TECHNIQUE: After the administration of contrast, 5 mm thick sections acquired from the diaphragms to the sym physis. 5 mm thick coronal and sagittal reformats were acquired. For radiation dose reduction, the following was used: automated exposure control, adjustment of mA and/or kV according to patient size . COMPARISON: 2020 FINDINGS: Image quality: Excellent. ABDOMEN: Lung bases: Small bibasilar pleural effusions with associated compressive atelectasis is similar prio r. Solid organs: Liver and spleen are normal in size and enhancement. Gallbladder unremarkable. Bilia ry system is non dilated. Pancreas enhances normally. No adrenal nodules. Kidneys demonstrate norm al size and enhancement, without hydronephrosis. Stable left renal simple cysts. Peritoneum and bowel: There is persistent gaseous distention of the right and transverse colon withou t evidence of obstruction. Small amount of free fluid in the pelvis remains unchanged from the prior. Nodes and vessels: No retroperitoneal or mesenteric adenopathy by size criteria. Aorta and inferior vena cava are normal in size. Miscellaneous: No ventral hernias. PELVIS: Genitourinary: Bladder wall thickness is normal. Miscellaneous: No inguinal hernias or adenopathy. 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 IMPRESSION: 1. Persistent gaseous distention of the colon, similar prior exam. Colonic ileus and/or mild colitis. 2. Moderate free fluid in the pelvis also stable from the prior. No change. 3. Bibasilar pleural effusions with associated compressive atelectasis, stable. Reviewed by: Efrem Iraheta MD on 08/31/2021 4:16 PM AKDT Approved by: Efrem Iraheta MD on 08/31/2021 4:16 PM AKDT Station ID: [id number]
--- NOTE | 2021-08-31 17:21 | CT Report ---
PROCEDURE: CHEST W INDICATIONS: persisted MRSA bacteremia CONTRAST: IV CONTRAST: Optiray 320 ml: 100 PO CONTRAST: *NO PO CONTRAST TECHNIQUE: After the administration of intravenous contrast, 1 mm axial images were acquired from the pulmonary apices through the posterior costophrenic angles. Axial 5 mm soft tissue kernel reconstructions were performed as well as 8 mm axial MIP and coronal and sagittal 5 mm reformations. For radiation dose reduction, the following was used: automated exposure control, adjustment of mA and/or kV according to patient size. COMPARISON: 08/28/2021 FINDINGS: Image quality: Excellent. Lungs and pleura: Small bibasilar pleural effusions with compressive atelectasis remains unchanged fr om the prior exam. Small rounded pleural-based consolidation in the left upper lobe measuring 1.3 cm with surrounding pulmonary infiltrate skin noted, similar prior. 1.4 cm nodule in the right minor fis sure also noted. Calcified granuloma present in the dependent right lower lobe. Mediastinum: Heart size is normal. No pericardial effusion. No mediastinal or hilar adenopathy by size criteria. Thoracic aorta and central pulmonary arteries are normal in size. Esophagus is camilla l in caliber. No hiatal hernia. Bones and chest wall: No suspicious bony lesions. No vertebral body compression fractures. No axil jojo or supraclavicular adenopathy by size criteria. The thyroid is normal in size and there are no incidental findings.. Abdomen: Visualized upper abdominal solid organs appear normal. Upper abdominal bowel loops are nor mal in caliber. IMPRESSION: 1. Stable study without change from the prior exam 08/28/2021 2. Small bilateral pleural effusions with associated compressive atelectasis and or infiltrate. 3. Left upper lobe pleural-based a small rounded consolidation with surrounding infiltrate. Follow-up to resolution to exclude pulmonary nodule 4. Right middle lobe pleural-based nodule associated with the right minor fissure is unchanged. Consi gena short-term interval follow-up and/or PET CT. Reviewed by: Efrem Iraheta MD on 08/31/2021 4:20 PM AKDT Approved by: Efrem Iraheta MD on 08/31/2021 4:20 PM AKDT Station ID: [id number]
[2021-08-31] MEDS: ATORVASTATIN 40 MG TABLET PO SCH (20:55)
[2021-09-01] MEDS: metroNIDAZOLE 500 MG/100 ML 500 MG/100 ML BAG IV SCH ×4 (00:11→23:50)
[2021-09-01] MEDS: SODIUM CHLORIDE FLUSH 0.9% 10 ML SYRINGE IVP SCH ×3 (00:11→17:50)
[2021-09-01] MEDS: HYDROmorphone 1 MG/ML CARPUJECT IVP PRN ×6 (00:20→21:34)
[2021-09-01] MEDS: CIPROFLOXACIN 400 MG/200 ML 400 MG/200 ML BAG IV SCH ×2 (05:34→17:50)
[2021-09-01] MEDS: VANCOMYCIN INJ 1.75 GM in SODIUM CHLORIDE 0.9% 500 ML IV SCH ×3 (05:34→21:34)
[2021-09-01 07:03] LABS: BASOPHILS % (AUTO) 0.9 %; EOSINOPHILS % (AUTO) 1.1 %; HCT - HEMATOCRIT 36.2 % (42.0-52.0); HGB - HEMOGLOBIN 11.8 g/dL (14.0-18.0); LYMPHOCYTES % (AUTO) 8.1 %; MEAN CORPUSCULAR HEMOGLOBIN 27.9 pg (27.0-31.0); MEAN CORPUSCULAR HGB CONC 32.6 g/dL (32.0-36.0); MEAN CORPUSCULAR VOLUME 85.6 fL (80.0-94.0); MEAN PLATELET VOLUME 10.2 fL (7.4-11.4); MONOCYTES % (AUTO) 5.3 %; PLT - PLATELET COUNT 330 10^3/uL (130-450); RED BLOOD COUNT 4.23 10^6/uL (4.70-6.10); RED CELL DISTRIBUTION WIDTH 13.7 % (12.0-15.0); WHITE BLOOD COUNT 18.7 x10^3/uL (4.8-10.8)
[2021-09-01 07:07] LABS: SLIDE REVIEW? Indicated
[2021-09-01 07:08] LABS: ABNORMAL LYMPHS % (MANUAL) 0 %
[2021-09-01 07:22] LABS: CALCIUM 8.4 mg/dL (8.5-10.3); CREATININE 0.7 mg/dL (0.6-1.2); CRP - C-REACTIVE PROTEIN 11.4 mg/dL (0-1.0); MAGNESIUM 2.1 mg/dL (1.7-2.8); POTASSIUM 3.4 mmol/L (3.5-5.0)
[2021-09-01 08:15] LABS: BAND NEUTROPHILS % (MANUAL) 6 %; EOSINOPHILS # (MANUAL) 0.6 10^3/uL (0-0.7); LYMPHOCYTES # (MANUAL) 1.3 10^3/uL (1.5-3.5); LYMPHOCYTES % (MANUAL) 7 %; METAMYELOCYTES % (MANUAL) 1 %; MONOCYTES # (MANUAL) 0.2 10^3/uL (0.0-1.0); MYELOCYTES % (MANUAL) 1 %; NEUTROPHILS # (MANUAL) 16.3 10^3/uL (1.5-6.6)
[2021-09-01 08:27] LABS: DIFFERENTIAL COMMENT MANUAL DIFFERENTIAL; PLATELET ESTIMATE, MANUAL NORMAL (130-450,000) (NORMAL); PLATELET MORPHOLOGY NORMAL APPEARANCE (NORMAL); WBC MORPHOLOGY (MULTIPLE) NORMAL APPEARANCE (NORMAL)
[2021-09-01] MEDS: ASPIRIN CHEW 81 MG TABLET PO SCH (09:21)
[2021-09-01] MEDS: NICOTINE 14 MG PATCH TOP SCH (09:21)
[2021-09-01] MEDS: SENNA 8.6 MG TABLET PO SCH (09:21)
[2021-09-01] MEDS: polyethylene glycoL 3350 17 GM PACKET PO SCH (09:21)
[2021-09-01] MEDS: ethyl alcohoL 62% SWAB AMPULE NAS SCH ×2 (09:21→21:33)
[2021-09-01] MEDS: DOCUSATE SODIUM 250 MG CAPSULE PO SCH (09:22)
[2021-09-01] MEDS: ENOXAPARIN 40 MG/0.4 ML SYRINGE SUBQ SCH (09:22)
[2021-09-01] MEDS: SODIUM CHLORIDE FLUSH 0.9% 10 ML SYRINGE IVP PRN (10:18)
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
[2021-09-01] MEDS: POTASSIUM CHLORIDE 20 MEQ TABLET PO SCH (19:16)
[2021-09-01] MEDS ORDERED: ZINC OXIDE 20% OINT 30 GM TUBE TOP PRN (19:26)
[2021-09-01] MEDS: ATORVASTATIN 40 MG TABLET PO SCH (21:33)
[2021-09-01] MEDS: SIMETHICONE CHEW 80 MG TABLET PO PRN (21:39)
[2021-09-02] MEDS: SODIUM CHLORIDE FLUSH 0.9% 10 ML SYRINGE IVP SCH ×3 (00:26→17:11)
[2021-09-02] MEDS: HYDROmorphone 1 MG/ML CARPUJECT IVP PRN ×6 (00:27→21:51)
[2021-09-02] MEDS: CIPROFLOXACIN 400 MG/200 ML 400 MG/200 ML BAG IV SCH ×2 (05:09→17:10)
[2021-09-02] MEDS: VANCOMYCIN INJ 1.75 GM in SODIUM CHLORIDE 0.9% 500 ML IV SCH ×3 (06:14→22:06)
[2021-09-02 06:25] LABS: BASOPHILS % (AUTO) 0.9 %; EOSINOPHILS % (AUTO) 1.8 %; HCT - HEMATOCRIT 36.5 % (42.0-52.0); HGB - HEMOGLOBIN 11.8 g/dL (14.0-18.0); MEAN CORPUSCULAR HGB CONC 32.3 g/dL (32.0-36.0); MEAN CORPUSCULAR VOLUME 86.5 fL (80.0-94.0); MEAN PLATELET VOLUME 9.9 fL (7.4-11.4); MONOCYTES % (AUTO) 5.8 %; NEUTROPHILS % (AUTO) 71.2 %; PLT - PLATELET COUNT 364 10^3/uL (130-450); RED BLOOD COUNT 4.22 10^6/uL (4.70-6.10); RED CELL DISTRIBUTION WIDTH 13.8 % (12.0-15.0); WHITE BLOOD COUNT 16.1 x10^3/uL (4.8-10.8)
[2021-09-02 06:29] LABS: ABNORMAL LYMPHS % (MANUAL) 0 %
[2021-09-02 06:45] LABS: CALCIUM 8.4 mg/dL (8.5-10.3); CREATININE 0.6 mg/dL (0.6-1.2); CRP - C-REACTIVE PROTEIN 9.2 mg/dL (0-1.0); MAGNESIUM 2.2 mg/dL (1.7-2.8); POTASSIUM 3.9 mmol/L (3.5-5.0)
[2021-09-02] MEDS: POTASSIUM CHLORIDE 20 MEQ TABLET PO SCH (07:42)
[2021-09-02] MEDS: DOCUSATE SODIUM 250 MG CAPSULE PO SCH (07:43)
[2021-09-02] MEDS: ASPIRIN CHEW 81 MG TABLET PO SCH (07:43)
[2021-09-02] MEDS: SENNA 8.6 MG TABLET PO SCH (07:43)
[2021-09-02] MEDS: ENOXAPARIN 40 MG/0.4 ML SYRINGE SUBQ SCH (07:44)
[2021-09-02] MEDS: ethyl alcohoL 62% SWAB AMPULE NAS SCH ×2 (07:44→22:04)
[2021-09-02] MEDS: polyethylene glycoL 3350 17 GM PACKET PO SCH (07:44)
[2021-09-02] MEDS: NICOTINE 14 MG PATCH TOP SCH (07:44)
[2021-09-02 07:54] LABS: BAND NEUTROPHILS % (MANUAL) 3 %; DIFFERENTIAL COMMENT MANUAL DIFFERENTIAL; EOSINOPHILS # (MANUAL) 0.2 10^3/uL (0-0.7); LYMPHOCYTES # (MANUAL) 2.3 10^3/uL (1.5-3.5); LYMPHOCYTES % (MANUAL) 14 %; MONOCYTES # (MANUAL) 0.8 10^3/uL (0.0-1.0); NEUTROPHILS # (MANUAL) 12.9 10^3/uL (1.5-6.6); PLATELET ESTIMATE, MANUAL NORMAL (130-450,000) (NORMAL); PLATELET MORPHOLOGY NORMAL APPEARANCE (NORMAL); RBC MORPHOLOGY (MULTIPLE) NORMAL APPEARANCE (NORMAL)
[2021-09-02] MEDS: metroNIDAZOLE 500 MG/100 ML 500 MG/100 ML BAG IV SCH ×2 (09:00→16:55)
[2021-09-02] MEDS: SODIUM CHLORIDE FLUSH 0.9% 10 ML SYRINGE IVP PRN (14:21)
[2021-09-02] MEDS: methocarbamoL 500 MG TABLET PO PRN ×2 (14:28→22:30)
[2021-09-02] MEDS: oxyCODONE 5 MG TABLET PO PRN ×2 (16:55→23:55)
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
[2021-09-02] MEDS: ATORVASTATIN 40 MG TABLET PO SCH (22:03)
[2021-09-02] MEDS: SIMETHICONE CHEW 80 MG TABLET PO PRN (23:59)
[2021-09-03] MEDS: metroNIDAZOLE 500 MG/100 ML 500 MG/100 ML BAG IV SCH ×3 (00:17→16:42)
[2021-09-03] MEDS: SODIUM CHLORIDE FLUSH 0.9% 10 ML SYRINGE IVP SCH ×3 (00:48→17:00)
[2021-09-03] MEDS: HYDROmorphone 1 MG/ML CARPUJECT IVP PRN ×7 (00:51→21:53)
[2021-09-03] MEDS: CIPROFLOXACIN 400 MG/200 ML 400 MG/200 ML BAG IV SCH ×2 (04:43→16:42)
[2021-09-03] MEDS: VANCOMYCIN INJ 1.75 GM in SODIUM CHLORIDE 0.9% 500 ML IV SCH ×3 (05:42→21:54)
[2021-09-03 07:50] LABS: EOSINOPHILS % (AUTO) 2.7 %; HCT - HEMATOCRIT 36.6 % (42.0-52.0); HGB - HEMOGLOBIN 11.8 g/dL (14.0-18.0); LYMPHOCYTES % (AUTO) 13.5 %; MEAN CORPUSCULAR HEMOGLOBIN 27.6 pg (27.0-31.0); MEAN CORPUSCULAR HGB CONC 32.2 g/dL (32.0-36.0); MEAN CORPUSCULAR VOLUME 85.7 fL (80.0-94.0); MONOCYTES % (AUTO) 5.6 %; NEUTROPHILS % (AUTO) 71.1 %; PLT - PLATELET COUNT 385 10^3/uL (130-450); RED BLOOD COUNT 4.27 10^6/uL (4.70-6.10); RED CELL DISTRIBUTION WIDTH 13.7 % (12.0-15.0); WHITE BLOOD COUNT 14.4 x10^3/uL (4.8-10.8)
[2021-09-03 08:08] LABS: CALCIUM 8.6 mg/dL (8.5-10.3); CREATININE 0.7 mg/dL (0.6-1.2); MAGNESIUM 2.3 mg/dL (1.7-2.8); POTASSIUM 3.7 mmol/L (3.5-5.0); SLIDE REVIEW? Indicated
[2021-09-03 08:22] LABS: ABNORMAL LYMPHS % (MANUAL) 0 %
[2021-09-03 08:30] LABS: BAND NEUTROPHILS % (MANUAL) 3 %; DIFFERENTIAL COMMENT MANUAL DIFFERENTIAL; LYMPHOCYTES # (MANUAL) 3.2 10^3/uL (1.5-3.5); LYMPHOCYTES % (MANUAL) 17 %; METAMYELOCYTES % (MANUAL) 2 %; MONOCYTES # (MANUAL) 1.9 10^3/uL (0.0-1.0); NEUTROPHILS # (MANUAL) 9.1 10^3/uL (1.5-6.6); PLATELET ESTIMATE, MANUAL NORMAL (130-450,000) (NORMAL); PLATELET MORPHOLOGY NORMAL APPEARANCE (NORMAL); RBC MORPHOLOGY (MULTIPLE) NORMAL APPEARANCE (NORMAL); REACTIVE LYMPHS % (MANUAL) 5 %
[2021-09-03] MEDS: NICOTINE 14 MG PATCH TOP SCH (09:02)
[2021-09-03] MEDS: ENOXAPARIN 40 MG/0.4 ML SYRINGE SUBQ SCH (09:02)
[2021-09-03] MEDS: polyethylene glycoL 3350 17 GM PACKET PO SCH (09:02)
[2021-09-03] MEDS: ethyl alcohoL 62% SWAB AMPULE NAS SCH ×2 (09:02→21:26)
[2021-09-03] MEDS: POTASSIUM CHLORIDE 20 MEQ TABLET PO SCH (09:03)
[2021-09-03] MEDS: SENNA 8.6 MG TABLET PO SCH (09:03)
[2021-09-03] MEDS: DOCUSATE SODIUM 250 MG CAPSULE PO SCH (09:03)
[2021-09-03] MEDS: ASPIRIN CHEW 81 MG TABLET PO SCH (09:04)
[2021-09-03] MEDS: SIMETHICONE CHEW 80 MG TABLET PO PRN ×3 (10:33→19:15)
--- NOTE | 2021-09-03 13:20 | PROVIDER PROGRESS NOTE ---
Assessment/Plan - Problem List (1) MRSA bacteremia Assessment/Plan: Patient is hemodynamically stable and afebrile WBC is coming down Patient underwent ANDERSON at [facility] on 09/02/2021. I discussed with senior officer Dr. George who was kind enough to give me verbal report that the echocardiogram looked reassuring with no evidence of valvular damage or vegetations. We are currently attempting to obtain formal report from [facility], and are still awaiting response. Continue 2 weeks IV antibiotics. Due to history of IV drug use, he is not a candidate for outpatient IV antibiotics and may have to complete this course here. (2) Back pain Qualifiers: Back pain location: low back pain Chronicity: acute Back pain laterality: midline Sciatica presence: without sciatica Qualified Code(s): M54.50 - Low back pain, unspecified (3) Heroin abuse Assessment/Plan: Patient is not exhibiting signs of withdrawal currently He does self report cravings but is agreeable to current management He is interested in possible Suboxone treatment after her discharge - Current Meds Current Meds: Current Medications Generic Name Dose Route Start Last Admin Trade Name Freq PRN Reason Stop Dose Admin Acetaminophen 650 mg 08/26/21 14:30 08/30/21 16:40 Acetaminophen 325 Mg Tablet PO 650 mg Q4HR PRN Administration Pain 1 to 4 Alcohol 1 amp 08/27/21 09:00 09/03/21 09:02 Ethyl Alcohol 62% Swab Ampule JIMMY 1 amp BID KATHERINE Administration Aspirin 81 mg 08/27/21 09:00 09/03/21 09:04 Aspirin Chew 81 Mg Tablet PO 81 mg DAILY KATHERINE Administration Atorvastatin Calcium 40 mg 08/28/21 21:00 09/02/21 22:03 Atorvastatin 40 Mg Tablet PO 40 mg QPM KATHERINE Administration Docusate Sodium 250 - 500 mg 08/28/21 21:00 09/03/21 09:03 Docusate Sodium 250 Mg Capsule PO 250 mg DAILY KATHERINE Administration Enoxaparin Sodium 40 mg 08/27/21 09:00 09/03/21 09:02 Enoxaparin 40 Mg/0.4 Ml Syringe SUBQ 40 mg DAILY KATHERINE Administration Hydromorphone HCl 1 mg 08/29/21 10:33 09/03/21 10:15 Hydromorphone 1 Mg/Ml Carpuject IVP 1 mg Q3H PRN Administration PAIN Metronidazole 500 mg in 100 mls @ 100 mls/hr 08/29/21 16:00 09/03/21 10:41 Flagyl 500 Mg/100 Ml IV Infused Q8H KATHERINE Infusion Ciprofloxacin 400 mg in 200 mls @ 200 mls/hr 08/30/21 17:00 09/03/21 05:53 Cipro 400 Mg/200 Ml IV Infused Q12H KATHERINE Infusion Sodium Chloride 500 mls @ 20 mls/hr 08/30/21 16:26 09/01/21 00:44 Normal Saline 0.9% IV Infused Q24H PRN Infusion TKO RATE Vancomycin HCl 1.75 gm/ Sodium 500 mls @ 250 mls/hr 08/31/21 14:00 09/03/21 09:01 Chloride IV Infused Q8H KATHERINE Infusion Methocarbamol 500 mg 08/27/21 08:27 09/02/21 22:30 Methocarbamol 500 Mg Tablet PO 500 mg Q6HR PRN Administration Spasms Multi-Ingredient Ointment 1 applic 09/01/21 19:26 09/01/21 21:39 Zinc Oxide 20% Oint 30 Gm Tube TOP 1 applic PRN PRN Administration Skin Care Nicotine 1 patch 08/30/21 20:43 09/03/21 09:02 Nicotine 14 Mg Patch TOP 1 patch DAILY KATHERINE Administration Ondansetron HCl 4 mg 08/26/21 14:30 08/28/21 08:08 Ondansetron 4 Mg/2 Ml Vial IVP 4 mg Q6HR PRN Administration Nausea / Vomiting Ondansetron HCl 4 mg 08/26/21 14:30 08/28/21 12:44 Ondansetron Odt 4 Mg Tablet TL 4 mg Q6HR PRN Administration Nausea / Vomiting Oxycodone HCl 5 mg 08/26/21 16:00 09/02/21 23:55 Oxycodone 5 Mg Tablet PO 5 mg Q4HR PRN Administration PAIN Polyethylene Glycol 17 gm 08/28/21 09:00 09/03/21 09:02 Polyethylene Glycol 3350 17 Gm Packet PO 17 gm DAILY KATHERINE Administration Potassium Chloride 20 meq 09/01/21 19:00 09/03/21 09:03 Potassium Chloride 20 Meq Tablet PO 20 meq DAILYWM KATHERINE Administration Senna 8.6 - 17.2 mg 08/28/21 21:00 09/03/21 09:03 Senna 8.6 Mg Tablet PO 8.6 mg DAILY KATHERINE Administration Simethicone 80 mg 09/01/21 18:59 09/03/21 10:33 Simethicone Chew 80 Mg Tablet PO 80 mg 0900,1300,1800,2100 PRN Administration Gas Sodium Chloride 10 ml 08/26/21 14:30 09/02/21 14:21 Sodium Chloride Flush 0.9% 10 Ml Syringe IVP 10 ml PRN PRN Administration NEEDED PER PROVIDER ORDERS Sodium Chloride 10 ml 08/26/21 17:00 09/03/21 09:06 Sodium Chloride Flush 0.9% 10 Ml Syringe IVP 10 ml 0100,0900,1700 KATHERINE Administration - Lab Result Fish Bone Diagrams: 09/03/21 07:19 09/03/21 07:19 - Additional Planning My Orders: My Active Orders 09/02/21 Dinner DIET [Regular Diet] [DIET] 09/04/21 05:00 Blood Culture [CULTURE, BLOOD #1] [RM] Routine Blood Culture [CULTURE, BLOOD #2] [] Routine Objective Vital Signs: Vital Signs - 24 hr 09/02/21 09/02/21 09/02/21 14:20 15:00 15:48 Temperature 36.4 C L 36.4 C L 36.8 C Heart Rate [ 76 70 77 Brachial] Respiratory 20 18 24 Rate Blood Pressure 146/91 H 138/88 H 134/88 H [Right Brachial artery] O2 Saturation 96 96 96 09/02/21 09/03/21 09/03/21 18:38 00:04 08:05 Temperature 37.1 C 36.5 C 36.6 C Heart Rate [ 100 84 77 Brachial] Respiratory 22 18 16 Rate Blood Pressure 127/88 H 137/85 H 133/80 H [Right Brachial artery] O2 Saturation 95 95 95 Oxygen O2 Source Room air I&O (Last 24 Hrs): Intake and Output Totals x24h 09/01/21 09/02/21 09/03/21 23:59 23:59 23:59 Intake Total 3586.667 2437.5 3385 Output Total 3390 2625 1675 Balance 196.667 -187.5 1710 General: Alert, Oriented x3 Cardiovascular: Regular rate, Normal S1, Normal S2 Respiratory: Chest non-tender, No respiratory distress, Breath sounds nml Abdomen: Normal bowel sounds Skin: No rashes - Results Results: Laboratory Results WBC 14.4 x10^3/uL (4.8-10.8) H 09/03/21 07:19 RBC 4.27 10^6/uL (4.70-6.10) L 09/03/21 07:19 Hgb 11.8 g/dL (14.0-18.0) L 09/03/21 07:19 Hct 36.6 % (42.0-52.0) L 09/03/21 07:19 MCV 85.7 fL (80.0-94.0) 09/03/21 07:19 MCH 27.6 pg (27.0-31.0) 09/03/21 07:19 MCHC 32.2 g/dL (32.0-36.0) 09/03/21 07:19 RDW 13.7 % (12.0-15.0) 09/03/21 07:19 Plt Count 385 10^3/uL (130-450) 09/03/21 07:19 MPV 10.0 fL (7.4-11.4) 09/03/21 07:19 Neut # (Auto) Not Reportable 09/03/21 07:19 Lymph # (Auto) Not Reportable 09/03/21 07:19 [place] # (Auto) Not Reportable 09/03/21 07:19 Eos # (Auto) Not Reportable 09/03/21 07:19 Baso # (Auto) Not Reportable 09/03/21 07:19 Absolute Nucleated RBC Not Reportable 09/03/21 07:19 Total Counted 100 09/03/21 07:19 Band Neuts % (Manual) 3 % (0-10) 09/03/21 07:19 Reactive Lymphs % (Man) 5 % 09/03/21 07:19 Abnorm Lymph % (Manual) 0 % 09/03/21 07:19 Metamyelocytes % 2 % (-0) H 09/03/21 07:19 Myelocytes % 1 % (-0) H 09/01/21 06:19 Nucleated RBC % Not Reportable 09/03/21 07:19 Neutrophils # (Manual) 9.1 10^3/uL (1.5-6.6) H 09/03/21 07:19 Lymphocytes # (Manual) 3.2 10^3/uL (1.5-3.5) 09/03/21 07:19 Monocytes # (Manual) 1.9 10^3/uL (0.0-1.0) H 09/03/21 07:19 Eosinophils # (Manual) 0.0 10^3/uL (0-0.7) 09/03/21 07:19 Basophils # (Manual) 0.0 10^3/uL (0-0.1) 09/03/21 07:19 Differential Comment MANUAL DIFFERENTIAL 09/03/21 07:19 Manual Slide Review Indicated 09/03/21 07:19 WBC Morphology NORMAL APPEARANCE (NORMAL) 09/01/21 06:19 Platelet Estimate NORMAL (130-450,000) (NORMAL) 09/03/21 07:19 Platelet Morphology NORMAL APPEARANCE (NORMAL) 09/03/21 07:19 RBC Morph Micro Appear NORMAL APPEARANCE (NORMAL) 09/03/21 07:19 ESR 59 mm/Hr (0-20) H 08/26/21 13:02 Sodium 133 mmol/L (135-145) L 09/03/21 07:19 Potassium 3.7 mmol/L (3.5-5.0) 09/03/21 07:19 Chloride 102 mmol/L (101-111) 09/03/21 07:19 Carbon Dioxide 22 mmol/L (21-32) 09/03/21 07:19 Anion Gap 9.0 (6-13) 09/03/21 07:19 BUN 12 mg/dL (6-20) 09/03/21 07:19 Creatinine 0.7 mg/dL (0.6-1.2) 09/03/21 07:19 Estimated GFR (MDRD) 116 (>89) 09/03/21 07:19 Glucose 99 mg/dL (70-100) 09/03/21 07:19 Lactic Acid 1.3 mmol/L (0.5-2.2) 08/26/21 13:02 Calcium 8.6 mg/dL (8.5-10.3) 09/03/21 07:19 Magnesium 2.3 mg/dL (1.7-2.8) 09/03/21 07:19 Troponin I High Sens 7.2 ng/L (2.3-19.7) 08/26/21 13:02 C-Reactive Protein 5.0 mg/dL (0-1.0) H 09/03/21 07:19 Urine Color DARK YELLOW 08/26/21 14:20 Urine Clarity CLEAR (CLEAR) 08/26/21 14:20 Urine pH 5.5 PH (5.0-7.5) 08/26/21 14:20 Ur Specific [place] >=1.030 (1.002-1.030) H 08/26/21 14:20 Urine Protein 100 mg/dL (NEGATIVE) H 08/26/21 14:20 Urine Glucose (UA) NEGATIVE mg/dL (NEGATIVE) 08/26/21 14:20 Urine Ketones 15 mg/dL (NEGATIVE) H 08/26/21 14:20 Urine Occult Blood LARGE (NEGATIVE) H 08/26/21 14:20 Urine Nitrite NEGATIVE (NEGATIVE) 08/26/21 14:20 Urine Bilirubin NEGATIVE (NEGATIVE) 08/26/21 14:20 Urine Urobilinogen 0.2 (NORMAL) E.U./dL (NORMAL) 08/26/21 14:20 Ur Leukocyte Esterase NEGATIVE (NEGATIVE) 08/26/21 14:20 Urine RBC 0-5 /HPF (0-5) 08/26/21 14:20 Urine WBC 0-3 /HPF (0-3) 08/26/21 14:20 Ur Squamous Epith Cells NONE SEEN (<= Few) 08/26/21 14:20 Urine Bacteria Few /HPF (None Seen) 08/26/21 14:20 Ur Microscopic Review INDICATED 08/26/21 14:20 Urine Culture Comments NOT INDICATED 08/26/21 14:20 Nasal Adenovirus (PCR) NOT DETECTED 08/26/21 15:40 Nasal B. parapertussis DNA (PCR) NOT DETECTED 08/26/21 15:40 Nasal Coronavir 229E PCR NOT DETECTED 08/26/21 15:40 Nasal Coronavir HKU1 PCR NOT DETECTED 08/26/21 15:40 Nasal Coronavir NL63 PCR NOT DETECTED 08/26/21 15:40 Nasal Coronavir OC43 PCR NOT DETECTED 08/26/21 15:40 Nasal Enterovir/Rhinovir PCR NOT DETECTED 08/26/21 15:40 Nasal Influenza B PCR NOT DETECTED 08/26/21 15:40 Nasal Influenza A PCR NOT DETECTED 08/26/21 15:40 Nasal Parainfluen 1 PCR NOT DETECTED 08/26/21 15:40 Nasal Parainfluen 2 PCR NOT DETECTED 08/26/21 15:40 Nasal Parainfluen 3 PCR NOT DETECTED 08/26/21 15:40 Nasal Parainfluen 4 PCR NOT DETECTED 08/26/21 15:40 Nasal RSV (PCR) NOT DETECTED 08/26/21 15:40 Nasal B.pertussis DNA PCR NOT DETECTED 08/26/21 15:40 Nasal C.pneumoniae (PCR) NOT DETECTED 08/26/21 15:40 Jimmy Human Metapneumo PCR NOT DETECTED 08/26/21 15:40 Nasal M.pneumoniae (PCR) NOT DETECTED 08/26/21 15:40 Nasal SARS-CoV-2 (PCR) NOT DETECTED 08/26/21 15:40 Last Dose Date Not Reportable 08/30/21 13:05 Last Dose Time Not Reportable 08/30/21 13:05 Vancomycin Trough 15.8 ug/mL (10.0-20.0) 08/30/21 13:05 - Procedures Procedures: Procedures ENDOSC POLYPECTOMY OF LG INTEST (02/22/15) EXCISION OF RIGHT KNEE BURSA AND LIGAMENT, OPEN APPROACH (07/29/16) ABX Reporting Has patient been on IV antibiotics over the past 48 hours?: Yes Current Medications - Current Medications Current Medications: Current Medications Generic Name Dose Route Start Last Admin Trade Name Freq PRN Reason Stop Dose Admin Acetaminophen 650 mg 08/26/21 14:30 08/30/21 16:40 Acetaminophen 325 Mg Tablet PO 650 mg Q4HR PRN Administration Pain 1 to 4 Alcohol 1 amp 08/27/21 09:00 09/03/21 09:02 Ethyl Alcohol 62% Swab Ampule JIMMY 1 amp BID KATHERINE Administration Aspirin 81 mg 08/27/21 09:00 09/03/21 09:04 Aspirin Chew 81 Mg Tablet PO 81 mg DAILY KATHERINE Administration Atorvastatin Calcium 40 mg 08/28/21 21:00 09/02/21 22:03 Atorvastatin 40 Mg Tablet PO 40 mg QPM KATHERINE Administration Docusate Sodium 250 - 500 mg 08/28/21 21:00 09/03/21 09:03 Docusate Sodium 250 Mg Capsule PO 250 mg DAILY KATHERINE Administration Enoxaparin Sodium 40 mg 08/27/21 09:00 09/03/21 09:02 Enoxaparin 40 Mg/0.4 Ml Syringe SUBQ 40 mg DAILY KATHERINE Administration Hydromorphone HCl 1 mg 08/29/21 10:33 09/03/21 10:15 Hydromorphone 1 Mg/Ml Carpuject IVP 1 mg Q3H PRN Administration PAIN Metronidazole 500 mg in 100 mls @ 100 mls/hr 08/29/21 16:00 09/03/21 10:41 Flagyl 500 Mg/100 Ml IV Infused Q8H KATHERINE Infusion Ciprofloxacin 400 mg in 200 mls @ 200 mls/hr 08/30/21 17:00 09/03/21 05:53 Cipro 400 Mg/200 Ml IV Infused Q12H KATHERINE Infusion Sodium Chloride 500 mls @ 20 mls/hr 08/30/21 16:26 09/01/21 00:44 Normal Saline 0.9% IV Infused Q24H PRN Infusion TKO RATE Vancomycin HCl 1.75 gm/ Sodium 500 mls @ 250 mls/hr 08/31/21 14:00 09/03/21 09:01 Chloride IV Infused Q8H KATHERINE Infusion Methocarbamol 500 mg 08/27/21 08:27 09/02/21 22:30 Methocarbamol 500 Mg Tablet PO 500 mg Q6HR PRN Administration Spasms Multi-Ingredient Ointment 1 applic 09/01/21 19:26 09/01/21 21:39 Zinc Oxide 20% Oint 30 Gm Tube TOP 1 applic PRN PRN Administration Skin Care Nicotine 1 patch 08/30/21 20:43 09/03/21 09:02 Nicotine 14 Mg Patch TOP 1 patch DAILY KATHERINE Administration Ondansetron HCl 4 mg 08/26/21 14:30 08/28/21 08:08 Ondansetron 4 Mg/2 Ml Vial IVP 4 mg Q6HR PRN Administration Nausea / Vomiting Ondansetron HCl 4 mg 08/26/21 14:30 08/28/21 12:44 Ondansetron Odt 4 Mg Tablet TL 4 mg Q6HR PRN Administration Nausea / Vomiting Oxycodone HCl 5 mg 08/26/21 16:00 09/02/21 23:55 Oxycodone 5 Mg Tablet PO 5 mg Q4HR PRN Administration PAIN Polyethylene Glycol 17 gm 08/28/21 09:00 09/03/21 09:02 Polyethylene Glycol 3350 17 Gm Packet PO 17 gm DAILY KATHERINE Administration Potassium Chloride 20 meq 09/01/21 19:00 09/03/21 09:03 Potassium Chloride 20 Meq Tablet PO 20 meq DAILYWM KATHERINE Administration Senna 8.6 - 17.2 mg 08/28/21 21:00 09/03/21 09:03 Senna 8.6 Mg Tablet PO 8.6 mg DAILY KATHERINE Administration Simethicone 80 mg 09/01/21 18:59 09/03/21 10:33 Simethicone Chew 80 Mg Tablet PO 80 mg 0900,1300,1800,2100 PRN Administration Gas Sodium Chloride 10 ml 08/26/21 14:30 09/02/21 14:21 Sodium Chloride Flush 0.9% 10 Ml Syringe IVP 10 ml PRN PRN Administration NEEDED PER PROVIDER ORDERS Sodium Chloride 10 ml 08/26/21 17:00 09/03/21 09:06 Sodium Chloride Flush 0.9% 10 Ml Syringe IVP 10 ml 0100,0900,1700 KATHERINE Administration
[2021-09-03 14:43] LABS: VANCOMYCIN,TROUGH 19.2 ug/mL (10.0-20.0)
[2021-09-03] MEDS: oxyCODONE 5 MG TABLET PO PRN (16:40)
[2021-09-03] MEDS: SODIUM CHLORIDE 0.9% 500 ML IV PRN (19:10)
[2021-09-03] MEDS: ATORVASTATIN 40 MG TABLET PO SCH (21:26)
[2021-09-03] MEDS: methocarbamoL 500 MG TABLET PO PRN (21:53)
[2021-09-04] MEDS: metroNIDAZOLE 500 MG/100 ML 500 MG/100 ML BAG IV SCH ×4 (00:04→23:36)
[2021-09-04] MEDS: SIMETHICONE CHEW 80 MG TABLET PO PRN ×2 (00:14→08:37)
[2021-09-04] MEDS: oxyCODONE 5 MG TABLET PO PRN ×3 (00:14→23:35)
[2021-09-04] MEDS: SODIUM CHLORIDE FLUSH 0.9% 10 ML SYRINGE IVP SCH ×4 (00:15→23:35)
[2021-09-04] MEDS: HYDROmorphone 1 MG/ML CARPUJECT IVP PRN ×7 (01:00→21:19)
[2021-09-04] MEDS: CIPROFLOXACIN 400 MG/200 ML 400 MG/200 ML BAG IV SCH ×2 (05:03→17:54)
[2021-09-04 06:07] LABS: BASOPHILS % (AUTO) 1.2 %; EOSINOPHILS % (AUTO) 2.8 %; HCT - HEMATOCRIT 38.2 % (42.0-52.0); HGB - HEMOGLOBIN 12.6 g/dL (14.0-18.0); LYMPHOCYTES % (AUTO) 16.1 %; MEAN CORPUSCULAR HEMOGLOBIN 28.2 pg (27.0-31.0); MEAN CORPUSCULAR VOLUME 85.5 fL (80.0-94.0); MEAN PLATELET VOLUME 9.8 fL (7.4-11.4); MONOCYTES % (AUTO) 6.1 %; NEUTROPHILS % (AUTO) 68.1 %; PLT - PLATELET COUNT 433 10^3/uL (130-450); RED BLOOD COUNT 4.47 10^6/uL (4.70-6.10); RED CELL DISTRIBUTION WIDTH 13.7 % (12.0-15.0); WHITE BLOOD COUNT 13.4 x10^3/uL (4.8-10.8)
[2021-09-04] MEDS: VANCOMYCIN INJ 1.75 GM in SODIUM CHLORIDE 0.9% 500 ML IV SCH ×3 (06:12→21:19)
[2021-09-04 06:15] LABS: ABNORMAL LYMPHS % (MANUAL) 0 %
[2021-09-04 06:20] LABS: CALCIUM 8.7 mg/dL (8.5-10.3); CREATININE 0.7 mg/dL (0.6-1.2); MAGNESIUM 2.2 mg/dL (1.7-2.8); POTASSIUM 3.9 mmol/L (3.5-5.0)
[2021-09-04 06:29] LABS: BAND NEUTROPHILS % (MANUAL) 5 %; DIFFERENTIAL COMMENT MANUAL DIFFERENTIAL; EOSINOPHILS # (MANUAL) 0.5 10^3/uL (0-0.7); LYMPHOCYTES # (MANUAL) 2.9 10^3/uL (1.5-3.5); LYMPHOCYTES % (MANUAL) 22 %; METAMYELOCYTES % (MANUAL) 1 %; MONOCYTES # (MANUAL) 0.3 10^3/uL (0.0-1.0); MYELOCYTES % (MANUAL) 2 %; NEUTROPHILS # (MANUAL) 9.2 10^3/uL (1.5-6.6); PLATELET ESTIMATE, MANUAL NORMAL (130-450,000) (NORMAL); RBC MORPHOLOGY (MULTIPLE) NORMAL APPEARANCE (NORMAL)
[2021-09-04] MEDS: ethyl alcohoL 62% SWAB AMPULE NAS SCH ×2 (08:36→21:18)
[2021-09-04] MEDS: NICOTINE 14 MG PATCH TOP SCH (08:36)
[2021-09-04] MEDS: SENNA 8.6 MG TABLET PO SCH (08:37)
[2021-09-04] MEDS: POTASSIUM CHLORIDE 20 MEQ TABLET PO SCH (08:37)
[2021-09-04] MEDS: polyethylene glycoL 3350 17 GM PACKET PO SCH (08:37)
[2021-09-04] MEDS: ASPIRIN CHEW 81 MG TABLET PO SCH (08:37)
[2021-09-04] MEDS: DOCUSATE SODIUM 250 MG CAPSULE PO SCH (08:37)
[2021-09-04] MEDS: ENOXAPARIN 40 MG/0.4 ML SYRINGE SUBQ SCH (08:38)
[2021-09-04] MEDS: MULTIVITAMIN W/MINERALS TABLET PO SCH (10:31)
--- NOTE | 2021-09-04 11:06 | PROVIDER PROGRESS NOTE ---
Subjective - Prog Note Date Prog Note Date: 09/04/21 Objective - Vital Signs/Intake & Output Vital Signs: Vital Signs x48h Temp Pulse Resp BP Pulse Ox 09/04/21 07:40 36.5 C 78 18 125/85 H 96 Intake & Output: Intake & Output 09/01/21 09/02/21 09/03/21 09/04/21 23:59 23:59 23:59 23:59 Intake Total 3586.667 2437.5 4661 2760.333 Output Total 3390 2625 1875 2575 Balance 196.667 -187.5 2786 185.333 - Lab Results Fish Bones: 09/04/21 05:34 09/04/21 05:34 Other Labs: Lab Results x24hrs 09/04/21 09/04/21 09/03/21 Range/Units 05:34 05:34 14:15 WBC 13.4 H (4.8-10.8) x10^3/uL RBC 4.47 L (4.70-6.10) 10^6/uL Hgb 12.6 L (14.0-18.0) g/dL Hct 38.2 L (42.0-52.0) % MCV 85.5 (80.0-94.0) fL MCH 28.2 (27.0-31.0) pg MCHC 33.0 (32.0-36.0) g/dL RDW 13.7 (12.0-15.0) % Plt Count 433 (130-450) 10^3/uL MPV 9.8 (7.4-11.4) fL Neut # (Auto) Not Reportable Lymph # (Auto) Not Reportable [place] # (Auto) Not Reportable Eos # (Auto) Not Reportable Baso # (Auto) Not Reportable Absolute Nucleated RBC Not Reportable Total Counted 100 Band Neuts % (Manual) 5 (0 - 10) % Abnorm Lymph % (Manual) 0 % Metamyelocytes % 1 H ( - 0) % Myelocytes % 2 H ( - 0) % Nucleated RBC % Not Reportable Neutrophils # (Manual) 9.2 H (1.5-6.6) 10^3/uL Lymphocytes # (Manual) 2.9 (1.5-3.5) 10^3/uL Monocytes # (Manual) 0.3 (0.0-1.0) 10^3/uL Eosinophils # (Manual) 0.5 (0-0.7) 10^3/uL Basophils # (Manual) 0.0 (0-0.1) 10^3/uL Differential Comment MANUAL DIFFERENTIAL Platelet Estimate NORMAL (130-450,000) (NORMAL) RBC Morph Micro Appear NORMAL APPEARANCE (NORMAL) Sodium 133 L (135-145) mmol/L Potassium 3.9 (3.5-5.0) mmol/L Chloride 100 L (101-111) mmol/L Carbon Dioxide 23 (21-32) mmol/L Anion Gap 10.0 (6-13) BUN 12 (6-20) mg/dL Creatinine 0.7 (0.6-1.2) mg/dL Estimated GFR (MDRD) 116 (>89) Glucose 120 H (70-100) mg/dL Calcium 8.7 (8.5-10.3) mg/dL Magnesium 2.2 (1.7-2.8) mg/dL C-Reactive Protein 3.0 H (0-1.0) mg/dL Last Dose Date 09/03/21 Last Dose Time 0901 Vancomycin Trough 19.2 (10.0-20.0) ug/mL Assessment/Plan - Problem List (2) Back pain Qualifiers: Back pain location: low back pain Chronicity: acute Back pain laterality: midline Sciatica presence: without sciatica Qualified Code(s): M54.50 - Low back pain, unspecified
--- NOTE | 2021-09-04 11:12 | PROVIDER PROGRESS NOTE ---
Assessment/Plan - Problem List (1) MRSA bacteremia Assessment/Plan: Patient is hemodynamically stable and afebrile WBC is coming down Patient underwent [facility]ERSON at [facility] on 09/02/2021. Shows No evidence of valvular structure no vegetations. Repeat blood cultures drawn 08/30/21 still positive for MRSA. We will repeat blood cultures again on 09/05/2029 Continue 2 weeks IV antibiotics. End date of IV Abx is 09/09/21. Due to history of IV drug use, he is not a candidate for outpatient IV antibiotics and may have to complete this course here. (2) Back pain Qualifiers: Back pain location: low back pain Chronicity: acute Back pain laterality: midline Sciatica presence: without sciatica Qualified Code(s): M54.50 - Low back pain, unspecified Assessment/Plan: Stable. Improved from earlier in the admission. (3) Heroin abuse Assessment/Plan: Patient is not exhibiting signs of withdrawal currently He does self report cravings but is agreeable to current management He is interested in possible Suboxone treatment after her discharge - Current Meds Current Meds: Current Medications Generic Name Dose Route Start Last Admin Trade Name Freq PRN Reason Stop Dose Admin Acetaminophen 650 mg 08/26/21 14:30 08/30/21 16:40 Acetaminophen 325 Mg Tablet PO 650 mg Q4HR PRN Administration Pain 1 to 4 Alcohol 1 amp 08/27/21 09:00 09/04/21 08:36 Ethyl Alcohol 62% Swab Ampule JIMMY 1 amp BID KATHERINE Administration Aspirin 81 mg 08/27/21 09:00 09/04/21 08:37 Aspirin Chew 81 Mg Tablet PO 81 mg DAILY KATHERINE Administration Atorvastatin Calcium 40 mg 08/28/21 21:00 09/03/21 21:26 Atorvastatin 40 Mg Tablet PO 40 mg QPM KATHERINE Administration Docusate Sodium 250 - 500 mg 08/28/21 21:00 09/04/21 08:37 Docusate Sodium 250 Mg Capsule PO 250 mg DAILY KATHERINE Administration Enoxaparin Sodium 40 mg 08/27/21 09:00 09/04/21 08:38 Enoxaparin 40 Mg/0.4 Ml Syringe SUBQ 40 mg DAILY KATHERINE Administration Hydromorphone HCl 1 mg 08/29/21 10:33 09/04/21 10:31 Hydromorphone 1 Mg/Ml Carpuject IVP 1 mg Q3H PRN Administration PAIN Metronidazole 500 mg in 100 mls @ 100 mls/hr 08/29/21 16:00 09/04/21 09:47 Flagyl 500 Mg/100 Ml IV 100 mls/hr Q8H KATHERINE Administration Ciprofloxacin 400 mg in 200 mls @ 200 mls/hr 08/30/21 17:00 09/04/21 06:11 Cipro 400 Mg/200 Ml IV Infused Q12H KATHERINE Infusion Sodium Chloride 500 mls @ 20 mls/hr 08/30/21 16:26 09/04/21 09:47 Normal Saline 0.9% IV 20 mls/hr Q24H PRN Infusion TKO RATE Vancomycin HCl 1.75 gm/ Sodium 500 mls @ 250 mls/hr 08/31/21 14:00 09/04/21 09:35 Chloride IV Infused Q8H KATHERINE Infusion Methocarbamol 500 mg 08/27/21 08:27 09/03/21 21:53 Methocarbamol 500 Mg Tablet PO 500 mg Q6HR PRN Administration Spasms Multi-Ingredient Ointment 1 applic 09/01/21 19:26 09/01/21 21:39 Zinc Oxide 20% Oint 30 Gm Tube TOP 1 applic PRN PRN Administration Skin Care Multivitamins/Minerals 1 tab 09/04/21 09:00 09/04/21 10:31 Multivitamin W/Minerals Tablet PO 1 tab DAILYWM KATHERINE Administration Nicotine 1 patch 08/30/21 20:43 09/04/21 08:36 Nicotine 14 Mg Patch TOP 1 patch DAILY KATHERINE Administration Ondansetron HCl 4 mg 08/26/21 14:30 08/28/21 08:08 Ondansetron 4 Mg/2 Ml Vial IVP 4 mg Q6HR PRN Administration Nausea / Vomiting Ondansetron HCl 4 mg 08/26/21 14:30 08/28/21 12:44 Ondansetron Odt 4 Mg Tablet TL 4 mg Q6HR PRN Administration Nausea / Vomiting Oxycodone HCl 5 mg 08/26/21 16:00 09/04/21 00:14 Oxycodone 5 Mg Tablet PO 5 mg Q4HR PRN Administration PAIN Polyethylene Glycol 17 gm 08/28/21 09:00 09/04/21 08:37 Polyethylene Glycol 3350 17 Gm Packet PO 17 gm DAILY KATHERINE Administration Potassium Chloride 20 meq 09/01/21 19:00 09/04/21 08:37 Potassium Chloride 20 Meq Tablet PO 20 meq DAILYWM KATHERINE Administration Senna 8.6 - 17.2 mg 08/28/21 21:00 09/04/21 08:37 Senna 8.6 Mg Tablet PO 8.6 mg DAILY KATHERINE Administration Simethicone 80 mg 09/01/21 18:59 09/04/21 08:37 Simethicone Chew 80 Mg Tablet PO 80 mg 0900,1300,1800,2100 PRN Administration Gas Sodium Chloride 10 ml 08/26/21 14:30 09/02/21 14:21 Sodium Chloride Flush 0.9% 10 Ml Syringe IVP 10 ml PRN PRN Administration NEEDED PER PROVIDER ORDERS Sodium Chloride 10 ml 08/26/21 17:00 09/04/21 08:38 Sodium Chloride Flush 0.9% 10 Ml Syringe IVP 10 ml 0100,0900,1700 KATHERINE Administration - Lab Result Lab results reviewed: Yes Fish Bone Diagrams: 09/04/21 05:34 09/04/21 05:34 - Diagnostic Imaging Results Diagnostic Imaging Results: Final report reviewed - Additional Planning My Orders: My Active Orders 09/04/21 05:34 Blood Culture [CULTURE, BLOOD #1] [] Routine 09/04/21 05:38 Blood Culture [CULTURE, BLOOD #2] [] Routine 09/04/21 09:00 Multivitamin W/Minerals [Theragran M] 1 tab PO DAILYWM Subjective - Subjective Patient Reports: Feeling Better Objective Vital Signs: Vital Signs - 24 hr 09/03/21 09/03/21 09/04/21 16:05 23:38 07:40 Temperature 36.9 C 37.5 C 36.5 C Heart Rate [ 85 89 78 Brachial] Respiratory 22 18 18 Rate Blood Pressure 137/86 H 134/81 H 125/85 H [Right Brachial artery] O2 Saturation 96 94 96 Oxygen O2 Source Room air I&O (Last 24 Hrs): Intake and Output Totals x24h 09/02/21 09/03/21 09/04/21 23:59 23:59 23:59 Intake Total 2437.5 4661 2760.333 Output Total 2625 1875 2575 Balance -187.5 2786 185.333 General: Alert, Oriented x3 Cardiovascular: Regular rate, Normal S1, Normal S2 Respiratory: Chest non-tender, No respiratory distress, Breath sounds nml Extremities: No edema Skin: No rashes - Results Results: Laboratory Results WBC 13.4 x10^3/uL (4.8-10.8) H 09/04/21 05:34 RBC 4.47 10^6/uL (4.70-6.10) L 09/04/21 05:34 Hgb 12.6 g/dL (14.0-18.0) L 09/04/21 05:34 Hct 38.2 % (42.0-52.0) L 09/04/21 05:34 MCV 85.5 fL (80.0-94.0) 09/04/21 05:34 MCH 28.2 pg (27.0-31.0) 09/04/21 05:34 MCHC 33.0 g/dL (32.0-36.0) 09/04/21 05:34 RDW 13.7 % (12.0-15.0) 09/04/21 05:34 Plt Count 433 10^3/uL (130-450) 09/04/21 05:34 MPV 9.8 fL (7.4-11.4) 09/04/21 05:34 Neut # (Auto) Not Reportable 09/04/21 05:34 Lymph # (Auto) Not Reportable 09/04/21 05:34 [place] # (Auto) Not Reportable 09/04/21 05:34 Eos # (Auto) Not Reportable 09/04/21 05:34 Baso # (Auto) Not Reportable 09/04/21 05:34 Absolute Nucleated RBC Not Reportable 09/04/21 05:34 Total Counted 100 09/04/21 05:34 Band Neuts % (Manual) 5 % (0-10) 09/04/21 05:34 Reactive Lymphs % (Man) 5 % 09/03/21 07:19 Abnorm Lymph % (Manual) 0 % 09/04/21 05:34 Metamyelocytes % 1 % (-0) H 09/04/21 05:34 Myelocytes % 2 % (-0) H 09/04/21 05:34 Nucleated RBC % Not Reportable 09/04/21 05:34 Neutrophils # (Manual) 9.2 10^3/uL (1.5-6.6) H 09/04/21 05:34 Lymphocytes # (Manual) 2.9 10^3/uL (1.5-3.5) 09/04/21 05:34 Monocytes # (Manual) 0.3 10^3/uL (0.0-1.0) 09/04/21 05:34 Eosinophils # (Manual) 0.5 10^3/uL (0-0.7) 09/04/21 05:34 Basophils # (Manual) 0.0 10^3/uL (0-0.1) 09/04/21 05:34 Differential Comment MANUAL DIFFERENTIAL 09/04/21 05:34 Manual Slide Review Indicated 09/03/21 07:19 WBC Morphology NORMAL APPEARANCE (NORMAL) 09/01/21 06:19 Platelet Estimate NORMAL (130-450,000) (NORMAL) 09/04/21 05:34 Platelet Morphology NORMAL APPEARANCE (NORMAL) 09/03/21 07:19 RBC Morph Micro Appear NORMAL APPEARANCE (NORMAL) 09/04/21 05:34 ESR 59 mm/Hr (0-20) H 08/26/21 13:02 Sodium 133 mmol/L (135-145) L 09/04/21 05:34 Potassium 3.9 mmol/L (3.5-5.0) 09/04/21 05:34 Chloride 100 mmol/L (101-111) L 09/04/21 05:34 Carbon Dioxide 23 mmol/L (21-32) 09/04/21 05:34 Anion Gap 10.0 (6-13) 09/04/21 05:34 BUN 12 mg/dL (6-20) 09/04/21 05:34 Creatinine 0.7 mg/dL (0.6-1.2) 09/04/21 05:34 Estimated GFR (MDRD) 116 (>89) 09/04/21 05:34 Glucose 120 mg/dL (70-100) H 09/04/21 05:34 Lactic Acid 1.3 mmol/L (0.5-2.2) 08/26/21 13:02 Calcium 8.7 mg/dL (8.5-10.3) 09/04/21 05:34 Magnesium 2.2 mg/dL (1.7-2.8) 09/04/21 05:34 Troponin I High Sens 7.2 ng/L (2.3-19.7) 08/26/21 13:02 C-Reactive Protein 3.0 mg/dL (0-1.0) H 09/04/21 05:34 Urine Color DARK YELLOW 08/26/21 14:20 Urine Clarity CLEAR (CLEAR) 08/26/21 14:20 Urine pH 5.5 PH (5.0-7.5) 08/26/21 14:20 Ur Specific [place] >=1.030 (1.002-1.030) H 08/26/21 14:20 Urine Protein 100 mg/dL (NEGATIVE) H 08/26/21 14:20 Urine Glucose (UA) NEGATIVE mg/dL (NEGATIVE) 08/26/21 14:20 Urine Ketones 15 mg/dL (NEGATIVE) H 08/26/21 14:20 Urine Occult Blood LARGE (NEGATIVE) H 08/26/21 14:20 Urine Nitrite NEGATIVE (NEGATIVE) 08/26/21 14:20 Urine Bilirubin NEGATIVE (NEGATIVE) 08/26/21 14:20 Urine Urobilinogen 0.2 (NORMAL) E.U./dL (NORMAL) 08/26/21 14:20 Ur Leukocyte Esterase NEGATIVE (NEGATIVE) 08/26/21 14:20 Urine RBC 0-5 /HPF (0-5) 08/26/21 14:20 Urine WBC 0-3 /HPF (0-3) 08/26/21 14:20 Ur Squamous Epith Cells NONE SEEN (<= Few) 08/26/21 14:20 Urine Bacteria Few /HPF (None Seen) 08/26/21 14:20 Ur Microscopic Review INDICATED 08/26/21 14:20 Urine Culture Comments NOT INDICATED 08/26/21 14:20 Nasal Adenovirus (PCR) NOT DETECTED 08/26/21 15:40 Nasal B. parapertussis DNA (PCR) NOT DETECTED 08/26/21 15:40 Nasal Coronavir 229E PCR NOT DETECTED 08/26/21 15:40 Nasal Coronavir HKU1 PCR NOT DETECTED 08/26/21 15:40 Nasal Coronavir NL63 PCR NOT DETECTED 08/26/21 15:40 Nasal Coronavir OC43 PCR NOT DETECTED 08/26/21 15:40 Nasal Enterovir/Rhinovir PCR NOT DETECTED 08/26/21 15:40 Nasal Influenza B PCR NOT DETECTED 08/26/21 15:40 Nasal Influenza A PCR NOT DETECTED 08/26/21 15:40 Nasal Parainfluen 1 PCR NOT DETECTED 08/26/21 15:40 Nasal Parainfluen 2 PCR NOT DETECTED 08/26/21 15:40 Nasal Parainfluen 3 PCR NOT DETECTED 08/26/21 15:40 Nasal Parainfluen 4 PCR NOT DETECTED 08/26/21 15:40 Nasal RSV (PCR) NOT DETECTED 08/26/21 15:40 Nasal B.pertussis DNA PCR NOT DETECTED 08/26/21 15:40 Nasal C.pneumoniae (PCR) NOT DETECTED 08/26/21 15:40 Jimmy Human Metapneumo PCR NOT DETECTED 08/26/21 15:40 Nasal M.pneumoniae (PCR) NOT DETECTED 08/26/21 15:40 Nasal SARS-CoV-2 (PCR) NOT DETECTED 08/26/21 15:40 Last Dose Date 09/03/21 09/03/21 14:15 Last Dose Time 0909/03/21 14:15 Vancomycin Trough 19.2 ug/mL (10.0-20.0) 09/03/21 14:15 - Procedures Procedures: Procedures ENDOSC POLYPECTOMY OF LG INTEST (02/22/15) EXCISION OF RIGHT KNEE BURSA AND LIGAMENT, OPEN APPROACH (07/29/16) ABX Reporting Has patient been on IV antibiotics over the past 48 hours?: Yes Current Medications - Current Medications Current Medications: Current Medications Generic Name Dose Route Start Last Admin Trade Name Freq PRN Reason Stop Dose Admin Acetaminophen 650 mg 08/26/21 14:30 08/30/21 16:40 Acetaminophen 325 Mg Tablet PO 650 mg Q4HR PRN Administration Pain 1 to 4 Alcohol 1 amp 08/27/21 09:00 09/04/21 08:36 Ethyl Alcohol 62% Swab Ampule JIMMY 1 amp BID KATHERINE Administration Aspirin 81 mg 08/27/21 09:00 09/04/21 08:37 Aspirin Chew 81 Mg Tablet PO 81 mg DAILY KATHERINE Administration Atorvastatin Calcium 40 mg 08/28/21 21:00 09/03/21 21:26 Atorvastatin 40 Mg Tablet PO 40 mg QPM KATHERINE Administration Docusate Sodium 250 - 500 mg 08/28/21 21:00 09/04/21 08:37 Docusate Sodium 250 Mg Capsule PO 250 mg DAILY KATHERINE Administration Enoxaparin Sodium 40 mg 08/27/21 09:00 09/04/21 08:38 Enoxaparin 40 Mg/0.4 Ml Syringe SUBQ 40 mg DAILY KATHERINE Administration Hydromorphone HCl 1 mg 08/29/21 10:33 09/04/21 10:31 Hydromorphone 1 Mg/Ml Carpuject IVP 1 mg Q3H PRN Administration PAIN Metronidazole 500 mg in 100 mls @ 100 mls/hr 08/29/21 16:00 09/04/21 09:47 Flagyl 500 Mg/100 Ml IV 100 mls/hr Q8H KATHERINE Administration Ciprofloxacin 400 mg in 200 mls @ 200 mls/hr 08/30/21 17:00 09/04/21 06:11 Cipro 400 Mg/200 Ml IV Infused Q12H KATHERINE Infusion Sodium Chloride 500 mls @ 20 mls/hr 08/30/21 16:26 09/04/21 09:47 Normal Saline 0.9% IV 20 mls/hr Q24H PRN Infusion TKO RATE Vancomycin HCl 1.75 gm/ Sodium 500 mls @ 250 mls/hr 08/31/21 14:00 09/04/21 09:35 Chloride IV Infused Q8H KATHERINE Infusion Methocarbamol 500 mg 08/27/21 08:27 09/03/21 21:53 Methocarbamol 500 Mg Tablet PO 500 mg Q6HR PRN Administration Spasms Multi-Ingredient Ointment 1 applic 09/01/21 19:26 09/01/21 21:39 Zinc Oxide 20% Oint 30 Gm Tube TOP 1 applic PRN PRN Administration Skin Care Multivitamins/Minerals 1 tab 09/04/21 09:00 09/04/21 10:31 Multivitamin W/Minerals Tablet PO 1 tab DAILYWM KATHERINE Administration Nicotine 1 patch 08/30/21 20:43 09/04/21 08:36 Nicotine 14 Mg Patch TOP 1 patch DAILY KATHERINE Administration Ondansetron HCl 4 mg 08/26/21 14:30 08/28/21 08:08 Ondansetron 4 Mg/2 Ml Vial IVP 4 mg Q6HR PRN Administration Nausea / Vomiting Ondansetron HCl 4 mg 08/26/21 14:30 08/28/21 12:44 Ondansetron Odt 4 Mg Tablet TL 4 mg Q6HR PRN Administration Nausea / Vomiting Oxycodone HCl 5 mg 08/26/21 16:00 09/04/21 00:14 Oxycodone 5 Mg Tablet PO 5 mg Q4HR PRN Administration PAIN Polyethylene Glycol 17 gm 08/28/21 09:00 09/04/21 08:37 Polyethylene Glycol 3350 17 Gm Packet PO 17 gm DAILY KATHERINE Administration Potassium Chloride 20 meq 09/01/21 19:00 09/04/21 08:37 Potassium Chloride 20 Meq Tablet PO 20 meq DAILYWM KATHERINE Administration Senna 8.6 - 17.2 mg 08/28/21 21:00 09/04/21 08:37 Senna 8.6 Mg Tablet PO 8.6 mg DAILY KATHERINE Administration Simethicone 80 mg 09/01/21 18:59 09/04/21 08:37 Simethicone Chew 80 Mg Tablet PO 80 mg 0900,1300,1800,2100 PRN Administration Gas Sodium Chloride 10 ml 08/26/21 14:30 09/02/21 14:21 Sodium Chloride Flush 0.9% 10 Ml Syringe IVP 10 ml PRN PRN Administration NEEDED PER PROVIDER ORDERS Sodium Chloride 10 ml 08/26/21 17:00 09/04/21 08:38 Sodium Chloride Flush 0.9% 10 Ml Syringe IVP 10 ml 0100,0900,1700 KATHERINE Administration
[2021-09-04] MEDS: methocarbamoL 500 MG TABLET PO PRN ×2 (16:33→23:43)
[2021-09-04] MEDS: ATORVASTATIN 40 MG TABLET PO SCH (21:18)
[2021-09-05] MEDS: SIMETHICONE CHEW 80 MG TABLET PO PRN ×2 (00:36→18:36)
[2021-09-05] MEDS: HYDROmorphone 1 MG/ML CARPUJECT IVP PRN ×7 (00:36→22:38)
[2021-09-05] MEDS: ACETAMINOPHEN 325 MG TABLET PO PRN ×2 (05:07→18:37)
[2021-09-05] MEDS: oxyCODONE 5 MG TABLET PO PRN ×3 (05:07→18:35)
[2021-09-05] MEDS: CIPROFLOXACIN 400 MG/200 ML 400 MG/200 ML BAG IV SCH ×2 (05:07→18:30)
[2021-09-05] MEDS: VANCOMYCIN INJ 1.75 GM in SODIUM CHLORIDE 0.9% 500 ML IV SCH ×3 (06:16→21:38)
[2021-09-05] MEDS: methocarbamoL 500 MG TABLET PO PRN ×2 (06:16→16:10)
[2021-09-05 07:31] LABS: BASOPHILS % (AUTO) 1.4 %; EOSINOPHILS % (AUTO) 2.5 %; HCT - HEMATOCRIT 37.7 % (42.0-52.0); HGB - HEMOGLOBIN 12.2 g/dL (14.0-18.0); LYMPHOCYTES % (AUTO) 16.6 %; MEAN CORPUSCULAR HEMOGLOBIN 27.7 pg (27.0-31.0); MEAN CORPUSCULAR HGB CONC 32.4 g/dL (32.0-36.0); MEAN CORPUSCULAR VOLUME 85.5 fL (80.0-94.0); MEAN PLATELET VOLUME 9.5 fL (7.4-11.4); MONOCYTES % (AUTO) 5.4 %; NEUTROPHILS % (AUTO) 69.5 %; PLT - PLATELET COUNT 434 10^3/uL (130-450); RED BLOOD COUNT 4.41 10^6/uL (4.70-6.10); RED CELL DISTRIBUTION WIDTH 13.8 % (12.0-15.0); WHITE BLOOD COUNT 13.8 x10^3/uL (4.8-10.8)
[2021-09-05 07:34] LABS: CALCIUM 8.9 mg/dL (8.5-10.3); CREATININE 0.8 mg/dL (0.6-1.2); CRP - C-REACTIVE PROTEIN 1.6 mg/dL (0-1.0); MAGNESIUM 2.2 mg/dL (1.7-2.8); POTASSIUM 3.9 mmol/L (3.5-5.0)
[2021-09-05 07:56] LABS: SLIDE REVIEW? Indicated
[2021-09-05 08:13] LABS: ABNORMAL LYMPHS % (MANUAL) 0 %
[2021-09-05 08:16] LABS: BAND NEUTROPHILS % (MANUAL) 1 %; EOSINOPHILS # (MANUAL) 0.1 10^3/uL (0-0.7); LYMPHOCYTES # (MANUAL) 2.6 10^3/uL (1.5-3.5); LYMPHOCYTES % (MANUAL) 14 %; METAMYELOCYTES % (MANUAL) 1 %; MONOCYTES # (MANUAL) 1.1 10^3/uL (0.0-1.0); NEUTROPHILS # (MANUAL) 9.8 10^3/uL (1.5-6.6); PLATELET MORPHOLOGY NORMAL APPEARANCE (NORMAL); RBC MORPHOLOGY (MULTIPLE) NORMAL APPEARANCE (NORMAL); REACTIVE LYMPHS % (MANUAL) 5 %
[2021-09-05 08:17] LABS: DIFFERENTIAL COMMENT MANUAL DIFFERENTIAL; PLATELET ESTIMATE, MANUAL NORMAL (130-450,000) (NORMAL)
[2021-09-05] MEDS: ENOXAPARIN 40 MG/0.4 ML SYRINGE SUBQ SCH (08:36)
[2021-09-05] MEDS: SENNA 8.6 MG TABLET PO SCH (08:36)
[2021-09-05] MEDS: DOCUSATE SODIUM 250 MG CAPSULE PO SCH (08:36)
[2021-09-05] MEDS: ASPIRIN CHEW 81 MG TABLET PO SCH (08:36)
[2021-09-05] MEDS: polyethylene glycoL 3350 17 GM PACKET PO SCH (08:37)
[2021-09-05] MEDS: NICOTINE 14 MG PATCH TOP SCH (08:37)
[2021-09-05] MEDS: ethyl alcohoL 62% SWAB AMPULE NAS SCH ×2 (08:37→21:36)
[2021-09-05] MEDS: POTASSIUM CHLORIDE 20 MEQ TABLET PO SCH (08:37)
[2021-09-05] MEDS: MULTIVITAMIN W/MINERALS TABLET PO SCH (08:37)
[2021-09-05] MEDS: metroNIDAZOLE 500 MG/100 ML 500 MG/100 ML BAG IV SCH ×2 (10:43→17:30)
[2021-09-05] MEDS: SODIUM CHLORIDE 0.9% 500 ML IV PRN (12:39)
[2021-09-05] MEDS: SODIUM CHLORIDE FLUSH 0.9% 10 ML SYRINGE IVP SCH ×2 (12:43→16:11)
--- NOTE | 2021-09-05 14:52 | PROVIDER PROGRESS NOTE ---
Assessment/Plan - Problem List (1) MRSA bacteremia Assessment/Plan: Patient is hemodynamically stable and afebrile WBC is coming down Patient underwent ANDERSON at [facility] on 09/02/2021. Shows No evidence of valvular structure no vegetations. Repeat blood cultures drawn 08/30/21 still positive for MRSA. We will repeat blood cultures again on 09/05/2029 Continue 2 weeks IV antibiotics. End date of IV Abx is 09/09/21. Due to history of IV drug use, he is not a candidate for outpatient IV antibiotics and may have to complete this course here. (2) Back pain Qualifiers: Back pain location: low back pain Chronicity: acute Back pain laterality: midline Sciatica presence: without sciatica Qualified Code(s): M54.50 - Low back pain, unspecified Assessment/Plan: Stable. Improved from earlier in the admission. (3) Heroin abuse Assessment/Plan: Patient is not exhibiting signs of withdrawal currently He does self report cravings but is agreeable to current management He is interested in possible Suboxone treatment after her discharge - Current Meds Current Meds: Current Medications Generic Name Dose Route Start Last Admin Trade Name Freq PRN Reason Stop Dose Admin Acetaminophen 650 mg 08/26/21 14:30 09/05/21 05:07 Acetaminophen 325 Mg Tablet PO 650 mg Q4HR PRN Administration Pain 1 to 4 Alcohol 1 amp 08/27/21 09:00 09/05/21 08:37 Ethyl Alcohol 62% Swab Ampule JIMMY 1 amp BID KATHERINE Administration Aspirin 81 mg 08/27/21 09:00 09/05/21 08:36 Aspirin Chew 81 Mg Tablet PO 81 mg DAILY KATHERINE Administration Atorvastatin Calcium 40 mg 08/28/21 21:00 09/04/21 21:18 Atorvastatin 40 Mg Tablet PO 40 mg QPM KATHERINE Administration Docusate Sodium 250 - 500 mg 08/28/21 21:00 09/05/21 08:36 Docusate Sodium 250 Mg Capsule PO 250 mg DAILY KATHERINE Administration Enoxaparin Sodium 40 mg 08/27/21 09:00 09/05/21 08:36 Enoxaparin 40 Mg/0.4 Ml Syringe SUBQ 40 mg DAILY KATHERINE Administration Hydromorphone HCl 1 mg 08/29/21 10:33 09/05/21 12:42 Hydromorphone 1 Mg/Ml Carpuject IVP 1 mg Q3H PRN Administration PAIN Metronidazole 500 mg in 100 mls @ 100 mls/hr 08/29/21 16:00 09/05/21 12:32 Flagyl 500 Mg/100 Ml IV Infused Q8H KATHERINE Infusion Ciprofloxacin 400 mg in 200 mls @ 200 mls/hr 08/30/21 17:00 09/05/21 06:10 Cipro 400 Mg/200 Ml IV Infused Q12H KATHERINE Infusion Sodium Chloride 500 mls @ 20 mls/hr 08/30/21 16:26 09/05/21 12:39 Normal Saline 0.9% IV 20 mls/hr Q24H PRN Administration TKO RATE Vancomycin HCl 1.75 gm/ Sodium 500 mls @ 250 mls/hr 08/31/21 14:00 09/05/21 08:30 Chloride IV 0 mls/hr Q8H KATHERINE Infusion Methocarbamol 500 mg 08/27/21 08:27 09/05/21 06:16 Methocarbamol 500 Mg Tablet PO 500 mg Q6HR PRN Administration Spasms Multi-Ingredient Ointment 1 applic 09/01/21 19:26 09/01/21 21:39 Zinc Oxide 20% Oint 30 Gm Tube TOP 1 applic PRN PRN Administration Skin Care Multivitamins/Minerals 1 tab 09/04/21 09:00 09/05/21 08:37 Multivitamin W/Minerals Tablet PO 1 tab DAILYWM KATHERINE Administration Nicotine 1 patch 08/30/21 20:43 09/05/21 08:37 Nicotine 14 Mg Patch TOP 1 patch DAILY KATHERINE Administration Ondansetron HCl 4 mg 08/26/21 14:30 08/28/21 08:08 Ondansetron 4 Mg/2 Ml Vial IVP 4 mg Q6HR PRN Administration Nausea / Vomiting Ondansetron HCl 4 mg 08/26/21 14:30 08/28/21 12:44 Ondansetron Odt 4 Mg Tablet TL 4 mg Q6HR PRN Administration Nausea / Vomiting Oxycodone HCl 5 mg 08/26/21 16:00 09/05/21 11:21 Oxycodone 5 Mg Tablet PO 5 mg Q4HR PRN Administration PAIN Polyethylene Glycol 17 gm 08/28/21 09:00 09/05/21 08:37 Polyethylene Glycol 3350 17 Gm Packet PO 17 gm DAILY KATHERINE Administration Potassium Chloride 20 meq 09/01/21 19:00 09/05/21 08:37 Potassium Chloride 20 Meq Tablet PO 20 meq DAILYWM KATHERINE Administration Senna 8.6 - 17.2 mg 08/28/21 21:00 09/05/21 08:36 Senna 8.6 Mg Tablet PO 17.2 mg DAILY KATHERINE Administration Simethicone 80 mg 09/01/21 18:59 09/05/21 00:36 Simethicone Chew 80 Mg Tablet PO 80 mg 0900,1300,1800,2100 PRN Administration Gas Sodium Chloride 10 ml 08/26/21 14:30 09/02/21 14:21 Sodium Chloride Flush 0.9% 10 Ml Syringe IVP 10 ml PRN PRN Administration NEEDED PER PROVIDER ORDERS Sodium Chloride 10 ml 08/26/21 17:00 09/05/21 12:43 Sodium Chloride Flush 0.9% 10 Ml Syringe IVP 10 ml 0100,0900,1700 KATHERINE Administration - Lab Result Lab results reviewed: Yes Fish Bone Diagrams: 09/05/21 06:58 09/05/21 06:58 - EKG Results EKG Interpreted Independently: Yes - Diagnostic Imaging Results Diagnostic Imaging Results: Final report reviewed - Additional Planning Condition/Complexity: Stable Subjective - Subjective Patient Reports: Resting Comfortably Objective Vital Signs: Vital Signs - 24 hr 09/04/21 09/04/21 09/05/21 16:12 23:36 08:00 Temperature 37.1 C 36.4 C L 36.8 C Heart Rate [ 100 102 H 84 Brachial] Respiratory 20 20 18 Rate Blood Pressure 131/90 H 132/88 H 125/84 H [Right Brachial artery] O2 Saturation 97 96 95 09/05/21 13:30 Temperature 36.5 C Heart Rate [ 106 H Brachial] Respiratory 18 Rate Blood Pressure 144/84 H [Right Brachial artery] O2 Saturation 96 Oxygen O2 Source Room air I&O (Last 24 Hrs): Intake and Output Totals x24h 09/03/21 09/04/21 09/05/21 23:59 23:59 23:59 Intake Total 4661 5350.000 2123.333 Output Total 1875 4450 925 Balance 2786 320.234 0083.333 General: No acute distress HEENT: Atraumatic Respiratory: No respiratory distress, Breath sounds nml Extremities: No edema Skin: No rashes - Results Results: Laboratory Results WBC 13.8 x10^3/uL (4.8-10.8) H 09/05/21 06:58 RBC 4.41 10^6/uL (4.70-6.10) L 09/05/21 06:58 Hgb 12.2 g/dL (14.0-18.0) L 09/05/21 06:58 Hct 37.7 % (42.0-52.0) L 09/05/21 06:58 MCV 85.5 fL (80.0-94.0) 09/05/21 06:58 MCH 27.7 pg (27.0-31.0) 09/05/21 06:58 MCHC 32.4 g/dL (32.0-36.0) 09/05/21 06:58 RDW 13.8 % (12.0-15.0) 09/05/21 06:58 Plt Count 434 10^3/uL (130-450) 09/05/21 06:58 MPV 9.5 fL (7.4-11.4) 09/05/21 06:58 Neut # (Auto) Not Reportable 09/05/21 06:58 Lymph # (Auto) Not Reportable 09/05/21 06:58 [place] # (Auto) Not Reportable 09/05/21 06:58 Eos # (Auto) Not Reportable 09/05/21 06:58 Baso # (Auto) Not Reportable 09/05/21 06:58 Absolute Nucleated RBC Not Reportable 09/05/21 06:58 Total Counted 100 09/05/21 06:58 Band Neuts % (Manual) 1 % (0-10) 09/05/21 06:58 Reactive Lymphs % (Man) 5 % 09/05/21 06:58 Abnorm Lymph % (Manual) 0 % 09/05/21 06:58 Metamyelocytes % 1 % (-0) H 09/05/21 06:58 Myelocytes % 2 % (-0) H 09/04/21 05:34 Nucleated RBC % Not Reportable 09/05/21 06:58 Neutrophils # (Manual) 9.8 10^3/uL (1.5-6.6) H 09/05/21 06:58 Lymphocytes # (Manual) 2.6 10^3/uL (1.5-3.5) 09/05/21 06:58 Monocytes # (Manual) 1.1 10^3/uL (0.0-1.0) H 09/05/21 06:58 Eosinophils # (Manual) 0.1 10^3/uL (0-0.7) 09/05/21 06:58 Basophils # (Manual) 0.0 10^3/uL (0-0.1) 09/05/21 06:58 Differential Comment MANUAL DIFFERENTIAL 09/05/21 06:58 Manual Slide Review Indicated 09/05/21 06:58 WBC Morphology NORMAL APPEARANCE (NORMAL) 09/01/21 06:19 Platelet Estimate NORMAL (130-450,000) (NORMAL) 09/05/21 06:58 Platelet Morphology NORMAL APPEARANCE (NORMAL) 09/05/21 06:58 RBC Morph Micro Appear NORMAL APPEARANCE (NORMAL) 09/05/21 06:58 ESR 59 mm/Hr (0-20) H 08/26/21 13:02 Sodium 135 mmol/L (135-145) 09/05/21 06:58 Potassium 3.9 mmol/L (3.5-5.0) 09/05/21 06:58 Chloride 102 mmol/L (101-111) 09/05/21 06:58 Carbon Dioxide 23 mmol/L (21-32) 09/05/21 06:58 Anion Gap 10.0 (6-13) 09/05/21 06:58 BUN 13 mg/dL (6-20) 09/05/21 06:58 Creatinine 0.8 mg/dL (0.6-1.2) 09/05/21 06:58 Estimated GFR (MDRD) 100 (>89) 09/05/21 06:58 Glucose 135 mg/dL (70-100) H 09/05/21 06:58 Lactic Acid 1.3 mmol/L (0.5-2.2) 08/26/21 13:02 Calcium 8.9 mg/dL (8.5-10.3) 09/05/21 06:58 Magnesium 2.2 mg/dL (1.7-2.8) 09/05/21 06:58 Troponin I High Sens 7.2 ng/L (2.3-19.7) 08/26/21 13:02 C-Reactive Protein 1.6 mg/dL (0-1.0) H 09/05/21 06:58 Urine Color DARK YELLOW 08/26/21 14:20 Urine Clarity CLEAR (CLEAR) 08/26/21 14:20 Urine pH 5.5 PH (5.0-7.5) 08/26/21 14:20 Ur Specific [place] >=1.030 (1.002-1.030) H 08/26/21 14:20 Urine Protein 100 mg/dL (NEGATIVE) H 08/26/21 14:20 Urine Glucose (UA) NEGATIVE mg/dL (NEGATIVE) 08/26/21 14:20 Urine Ketones 15 mg/dL (NEGATIVE) H 08/26/21 14:20 Urine Occult Blood LARGE (NEGATIVE) H 08/26/21 14:20 Urine Nitrite NEGATIVE (NEGATIVE) 08/26/21 14:20 Urine Bilirubin NEGATIVE (NEGATIVE) 08/26/21 14:20 Urine Urobilinogen 0.2 (NORMAL) E.U./dL (NORMAL) 08/26/21 14:20 Ur Leukocyte Esterase NEGATIVE (NEGATIVE) 08/26/21 14:20 Urine RBC 0-5 /HPF (0-5) 08/26/21 14:20 Urine WBC 0-3 /HPF (0-3) 08/26/21 14:20 Ur Squamous Epith Cells NONE SEEN (<= Few) 08/26/21 14:20 Urine Bacteria Few /HPF (None Seen) 08/26/21 14:20 Ur Microscopic Review INDICATED 08/26/21 14:20 Urine Culture Comments NOT INDICATED 08/26/21 14:20 Nasal Adenovirus (PCR) NOT DETECTED 08/26/21 15:40 Nasal B. parapertussis DNA (PCR) NOT DETECTED 08/26/21 15:40 Nasal Coronavir 229E PCR NOT DETECTED 08/26/21 15:40 Nasal Coronavir HKU1 PCR NOT DETECTED 08/26/21 15:40 Nasal Coronavir NL63 PCR NOT DETECTED 08/26/21 15:40 Nasal Coronavir OC43 PCR NOT DETECTED 08/26/21 15:40 Nasal Enterovir/Rhinovir PCR NOT DETECTED 08/26/21 15:40 Nasal Influenza B PCR NOT DETECTED 08/26/21 15:40 Nasal Influenza A PCR NOT DETECTED 08/26/21 15:40 Nasal Parainfluen 1 PCR NOT DETECTED 08/26/21 15:40 Nasal Parainfluen 2 PCR NOT DETECTED 08/26/21 15:40 Nasal Parainfluen 3 PCR NOT DETECTED 08/26/21 15:40 Nasal Parainfluen 4 PCR NOT DETECTED 08/26/21 15:40 Nasal RSV (PCR) NOT DETECTED 08/26/21 15:40 Nasal B.pertussis DNA PCR NOT DETECTED 08/26/21 15:40 Nasal C.pneumoniae (PCR) NOT DETECTED 08/26/21 15:40 Jimmy Human Metapneumo PCR NOT DETECTED 08/26/21 15:40 Nasal M.pneumoniae (PCR) NOT DETECTED 08/26/21 15:40 Nasal SARS-CoV-2 (PCR) NOT DETECTED 08/26/21 15:40 Last Dose Date 09/03/21 09/03/21 14:15 Last Dose Time 90009/03/21 14:15 Vancomycin Trough 19.2 ug/mL (10.0-20.0) 09/03/21 14:15 - Procedures Procedures: Procedures ENDOSC POLYPECTOMY OF LG INTEST (02/22/15) EXCISION OF RIGHT KNEE BURSA AND LIGAMENT, OPEN APPROACH (07/29/16) ABX Reporting Has patient been on IV antibiotics over the past 48 hours?: Yes Current Medications - Current Medications Current Medications: Current Medications Generic Name Dose Route Start Last Admin Trade Name Freq PRN Reason Stop Dose Admin Acetaminophen 650 mg 08/26/21 14:30 09/05/21 05:07 Acetaminophen 325 Mg Tablet PO 650 mg Q4HR PRN Administration Pain 1 to 4 Alcohol 1 amp 08/27/21 09:00 09/05/21 08:37 Ethyl Alcohol 62% Swab Ampule JIMMY 1 amp BID KATHERINE Administration Aspirin 81 mg 08/27/21 09:00 09/05/21 08:36 Aspirin Chew 81 Mg Tablet PO 81 mg DAILY KATHERINE Administration Atorvastatin Calcium 40 mg 08/28/21 21:00 09/04/21 21:18 Atorvastatin 40 Mg Tablet PO 40 mg QPM KATEHRINE Administration Docusate Sodium 250 - 500 mg 08/28/21 21:00 09/05/21 08:36 Docusate Sodium 250 Mg Capsule PO 250 mg DAILY KATHERINE Administration Enoxaparin Sodium 40 mg 08/27/21 09:00 09/05/21 08:36 Enoxaparin 40 Mg/0.4 Ml Syringe SUBQ 40 mg DAILY KATHERINE Administration Hydromorphone HCl 1 mg 08/29/21 10:33 09/05/21 12:42 Hydromorphone 1 Mg/Ml Carpuject IVP 1 mg Q3H PRN Administration PAIN Metronidazole 500 mg in 100 mls @ 100 mls/hr 08/29/21 16:00 09/05/21 12:32 Flagyl 500 Mg/100 Ml IV Infused Q8H KATHERINE Infusion Ciprofloxacin 400 mg in 200 mls @ 200 mls/hr 08/30/21 17:00 09/05/21 06:10 Cipro 400 Mg/200 Ml IV Infused Q12H KATHERINE Infusion Sodium Chloride 500 mls @ 20 mls/hr 08/30/21 16:26 09/05/21 12:39 Normal Saline 0.9% IV 20 mls/hr Q24H PRN Administration TKO RATE Vancomycin HCl 1.75 gm/ Sodium 500 mls @ 250 mls/hr 08/31/21 14:00 09/05/21 14:45 Chloride IV 250 mls/hr Q8H KATHERINE Administration Methocarbamol 500 mg 08/27/21 08:27 09/05/21 06:16 Methocarbamol 500 Mg Tablet PO 500 mg Q6HR PRN Administration Spasms Multi-Ingredient Ointment 1 applic 09/01/21 19:26 09/01/21 21:39 Zinc Oxide 20% Oint 30 Gm Tube TOP 1 applic PRN PRN Administration Skin Care Multivitamins/Minerals 1 tab 09/04/21 09:00 09/05/21 08:37 Multivitamin W/Minerals Tablet PO 1 tab DAILYWM KATHERINE Administration Nicotine 1 patch 08/30/21 20:43 09/05/21 08:37 Nicotine 14 Mg Patch TOP 1 patch DAILY KATHERINE Administration Ondansetron HCl 4 mg 08/26/21 14:30 08/28/21 08:08 Ondansetron 4 Mg/2 Ml Vial IVP 4 mg Q6HR PRN Administration Nausea / Vomiting Ondansetron HCl 4 mg 08/26/21 14:30 08/28/21 12:44 Ondansetron Odt 4 Mg Tablet TL 4 mg Q6HR PRN Administration Nausea / Vomiting Oxycodone HCl 5 mg 08/26/21 16:00 09/05/21 11:21 Oxycodone 5 Mg Tablet PO 5 mg Q4HR PRN Administration PAIN Polyethylene Glycol 17 gm 08/28/21 09:00 09/05/21 08:37 Polyethylene Glycol 3350 17 Gm Packet PO 17 gm DAILY KATHERINE Administration Potassium Chloride 20 meq 09/01/21 19:00 09/05/21 08:37 Potassium Chloride 20 Meq Tablet PO 20 meq DAILYWM KATHERINE Administration Senna 8.6 - 17.2 mg 08/28/21 21:00 09/05/21 08:36 Senna 8.6 Mg Tablet PO 17.2 mg DAILY KATHERINE Administration Simethicone 80 mg 09/01/21 18:59 09/05/21 00:36 Simethicone Chew 80 Mg Tablet PO 80 mg 0900,1300,1800,2100 PRN Administration Gas Sodium Chloride 10 ml 08/26/21 14:30 09/02/21 14:21 Sodium Chloride Flush 0.9% 10 Ml Syringe IVP 10 ml PRN PRN Administration NEEDED PER PROVIDER ORDERS Sodium Chloride 10 ml 08/26/21 17:00 09/05/21 12:43 Sodium Chloride Flush 0.9% 10 Ml Syringe IVP 10 ml 0100,0900,1700 KATHERINE Administration
[2021-09-05] MEDS: ATORVASTATIN 40 MG TABLET PO SCH (21:36)
[2021-09-06] MEDS: oxyCODONE 5 MG TABLET PO PRN ×3 (00:18→23:30)
[2021-09-06] MEDS: SODIUM CHLORIDE FLUSH 0.9% 10 ML SYRINGE IVP SCH ×4 (00:19→23:54)
[2021-09-06] MEDS: diphenhydrAMINE 25 MG CAPSULE PO PRN (00:23)
[2021-09-06] MEDS: metroNIDAZOLE 500 MG/100 ML 500 MG/100 ML BAG IV SCH (01:26)
[2021-09-06] MEDS: methocarbamoL 500 MG TABLET PO PRN ×2 (01:26→11:42)
[2021-09-06] MEDS: HYDROmorphone 1 MG/ML CARPUJECT IVP PRN ×7 (01:31→23:31)
[2021-09-06] MEDS: SODIUM CHLORIDE FLUSH 0.9% 10 ML SYRINGE IVP PRN ×3 (04:41→08:13)
[2021-09-06] MEDS: CIPROFLOXACIN 400 MG/200 ML 400 MG/200 ML BAG IV SCH (05:05)
[2021-09-06] MEDS: VANCOMYCIN INJ 1.75 GM in SODIUM CHLORIDE 0.9% 500 ML IV SCH ×3 (06:12→21:34)
[2021-09-06] MEDS: LIDOCAINE PATCH 5% TOP PRN ×2 (08:14→21:34)
--- NOTE | 2021-09-06 09:04 | PROVIDER PROGRESS NOTE ---
Assessment/Plan - Problem List (1) MRSA bacteremia Assessment/Plan: Assessment/Plan: Patient is hemodynamically stable and afebrile WBC is coming down Patient underwent ANDERSON at [facility] on 09/02/2021. Shows No evidence of valvular structure no vegetations. Repeat blood cultures drawn 08/30/21 still positive for MRSA. last BCX on 09/04 were ngtd. Continue 2 weeks IV antibiotics from first negative BCX on 09/04- Due to history of IV drug use, he is not a candidate for outpatient IV antibiotics and may have to complete this course here. (2) Back pain Qualifiers: Back pain location: low back pain Chronicity: acute Back pain laterality: midline Sciatica presence: without sciatica Qualified Code(s): M54.50 - Low back pain, unspecified Assessment/Plan: Stable. Improved from earlier in the admission. osteomyelitis ruled out on negative MRI of lumbar spine (3) Heroin abuse Assessment/Plan: Patient is not exhibiting signs of withdrawal currently He does self report cravings but is agreeable to current management He is interested in possible Suboxone treatment after her discharge - Current Meds Current Meds: Current Medications Generic Name Dose Route Start Last Admin Trade Name Freq PRN Reason Stop Dose Admin Acetaminophen 650 mg 08/26/21 14:30 09/05/21 18:37 Acetaminophen 325 Mg Tablet PO 650 mg Q4HR PRN Administration Pain 1 to 4 Alcohol 1 amp 08/27/21 09:00 09/05/21 21:36 Ethyl Alcohol 62% Swab Ampule JIMMY 1 amp BID KATHERINE Administration Aspirin 81 mg 08/27/21 09:00 09/05/21 08:36 Aspirin Chew 81 Mg Tablet PO 81 mg DAILY KATHERINE Administration Atorvastatin Calcium 40 mg 08/28/21 21:00 09/05/21 21:36 Atorvastatin 40 Mg Tablet PO 40 mg QPM KATHERINE Administration Diphenhydramine HCl 25 mg 09/05/21 23:51 09/06/21 00:23 Diphenhydramine 25 Mg Capsule PO 25 mg QPM PRN Administration Insomnia Docusate Sodium 250 - 500 mg 08/28/21 21:00 09/05/21 08:36 Docusate Sodium 250 Mg Capsule PO 250 mg DAILY KATHERINE Administration Enoxaparin Sodium 40 mg 08/27/21 09:00 09/05/21 08:36 Enoxaparin 40 Mg/0.4 Ml Syringe SUBQ 40 mg DAILY KATHERINE Administration Hydromorphone HCl 1 mg 08/29/21 10:33 09/06/21 04:40 Hydromorphone 1 Mg/Ml Carpuject IVP 1 mg Q3H PRN Administration PAIN Metronidazole 500 mg in 100 mls @ 100 mls/hr 08/29/21 16:00 09/06/21 02:29 Flagyl 500 Mg/100 Ml IV Infused Q8H KATHERINE Infusion Ciprofloxacin 400 mg in 200 mls @ 200 mls/hr 08/30/21 17:00 09/06/21 06:19 Cipro 400 Mg/200 Ml IV Infused Q12H KATHERINE Infusion Sodium Chloride 500 mls @ 20 mls/hr 08/30/21 16:26 09/06/21 05:12 Normal Saline 0.9% IV 0 mls/hr Q24H PRN Infusion TKO RATE Vancomycin HCl 1.75 gm/ Sodium 500 mls @ 250 mls/hr 08/31/21 14:00 09/06/21 06:12 Chloride IV 250 mls/hr Q8H KATHERINE Administration Lidocaine 1 patch 09/06/21 07:02 09/06/21 08:14 Lidocaine Patch 5% TOP 1 patch DAILY PRN Administration PAIN Methocarbamol 500 mg 08/27/21 08:27 09/06/21 01:26 Methocarbamol 500 Mg Tablet PO 500 mg Q6HR PRN Administration Spasms Multi-Ingredient Ointment 1 applic 09/01/21 19:26 09/01/21 21:39 Zinc Oxide 20% Oint 30 Gm Tube TOP 1 applic PRN PRN Administration Skin Care Multivitamins/Minerals 1 tab 09/04/21 09:00 09/05/21 08:37 Multivitamin W/Minerals Tablet PO 1 tab DAILYWM KATHERINE Administration Nicotine 1 patch 08/30/21 20:43 09/05/21 08:37 Nicotine 14 Mg Patch TOP 1 patch DAILY KATHERINE Administration Ondansetron HCl 4 mg 08/26/21 14:30 08/28/21 08:08 Ondansetron 4 Mg/2 Ml Vial IVP 4 mg Q6HR PRN Administration Nausea / Vomiting Ondansetron HCl 4 mg 08/26/21 14:30 08/28/21 12:44 Ondansetron Odt 4 Mg Tablet TL 4 mg Q6HR PRN Administration Nausea / Vomiting Oxycodone HCl 5 mg 08/26/21 16:00 09/06/21 00:18 Oxycodone 5 Mg Tablet PO 5 mg Q4HR PRN Administration PAIN Polyethylene Glycol 17 gm 08/28/21 09:00 09/05/21 08:37 Polyethylene Glycol 3350 17 Gm Packet PO 17 gm DAILY KATHERINE Administration Potassium Chloride 20 meq 09/01/21 19:00 09/05/21 08:37 Potassium Chloride 20 Meq Tablet PO 20 meq DAILYWM KATHERINE Administration Senna 8.6 - 17.2 mg 08/28/21 21:00 09/05/21 08:36 Senna 8.6 Mg Tablet PO 17.2 mg DAILY KATHERINE Administration Simethicone 80 mg 09/01/21 18:59 09/05/21 18:36 Simethicone Chew 80 Mg Tablet PO 80 mg 0900,1300,1800,2100 PRN Administration Gas Sodium Chloride 10 ml 08/26/21 14:30 09/06/21 08:13 Sodium Chloride Flush 0.9% 10 Ml Syringe IVP 10 ml PRN PRN Administration NEEDED PER PROVIDER ORDERS Sodium Chloride 10 ml 08/26/21 17:00 09/06/21 00:19 Sodium Chloride Flush 0.9% 10 Ml Syringe IVP 10 ml 0100,0900,1700 KATHERINE Administration - Lab Result Fish Bone Diagrams: 09/05/21 06:58 09/05/21 06:58 Subjective - Subjective Patient Reports: Feeling Better Nursing Reports: No Complaints (pt denies any chest pain, sob, pt was drowsy, but fully oriented, tolerating abx well, reported soft stools but no diarrhea. no abd pain.) Objective Vital Signs: Vital Signs - 24 hr 09/05/21 09/05/21 09/05/21 13:30 15:57 23:47 Temperature 36.5 C 37.4 C 37.0 C Heart Rate [ 106 H 96 81 Brachial] Respiratory 18 18 18 Rate Blood Pressure 144/84 H 134/80 H 128/70 [Right Brachial artery] O2 Saturation 96 95 95 09/06/21 07:42 Temperature 36.8 C Heart Rate [ 86 Brachial] Respiratory 20 Rate Blood Pressure 133/83 H [Right Brachial artery] O2 Saturation 97 Oxygen O2 Source Room air I&O (Last 24 Hrs): Intake and Output Totals x24h 09/04/21 09/05/21 09/06/21 23:59 23:59 23:59 Intake Total 5350.000 3400.833 1703.5 Output Total 4450 1825 1925 Balance 551.311 9779.833 -221.5 General: Alert, Oriented x3, Cooperative, No acute distress Cardiovascular: Regular rate, Normal S1, Normal S2, No murmurs Respiratory: Chest non-tender, No respiratory distress, Breath sounds nml Abdomen: Normal bowel sounds, Soft, No tenderness, No hepatospenomegaly, No masses Extremities: No clubbing, No cyanosis, No edema, Normal pulses, No tenderness/swelling - Results Results: Laboratory Results WBC 13.8 x10^3/uL (4.8-10.8) H 09/05/21 06:58 RBC 4.41 10^6/uL (4.70-6.10) L 09/05/21 06:58 Hgb 12.2 g/dL (14.0-18.0) L 09/05/21 06:58 Hct 37.7 % (42.0-52.0) L 09/05/21 06:58 MCV 85.5 fL (80.0-94.0) 09/05/21 06:58 MCH 27.7 pg (27.0-31.0) 09/05/21 06:58 MCHC 32.4 g/dL (32.0-36.0) 09/05/21 06:58 RDW 13.8 % (12.0-15.0) 09/05/21 06:58 Plt Count 434 10^3/uL (130-450) 09/05/21 06:58 MPV 9.5 fL (7.4-11.4) 09/05/21 06:58 Neut # (Auto) Not Reportable 09/05/21 06:58 Lymph # (Auto) Not Reportable 09/05/21 06:58 [place] # (Auto) Not Reportable 09/05/21 06:58 Eos # (Auto) Not Reportable 09/05/21 06:58 Baso # (Auto) Not Reportable 09/05/21 06:58 Absolute Nucleated RBC Not Reportable 09/05/21 06:58 Total Counted 100 09/05/21 06:58 Band Neuts % (Manual) 1 % (0-10) 09/05/21 06:58 Reactive Lymphs % (Man) 5 % 09/05/21 06:58 Abnorm Lymph % (Manual) 0 % 09/05/21 06:58 Metamyelocytes % 1 % (-0) H 09/05/21 06:58 Myelocytes % 2 % (-0) H 09/04/21 05:34 Nucleated RBC % Not Reportable 09/05/21 06:58 Neutrophils # (Manual) 9.8 10^3/uL (1.5-6.6) H 09/05/21 06:58 Lymphocytes # (Manual) 2.6 10^3/uL (1.5-3.5) 09/05/21 06:58 Monocytes # (Manual) 1.1 10^3/uL (0.0-1.0) H 09/05/21 06:58 Eosinophils # (Manual) 0.1 10^3/uL (0-0.7) 09/05/21 06:58 Basophils # (Manual) 0.0 10^3/uL (0-0.1) 09/05/21 06:58 Differential Comment MANUAL DIFFERENTIAL 09/05/21 06:58 Manual Slide Review Indicated 09/05/21 06:58 WBC Morphology NORMAL APPEARANCE (NORMAL) 09/01/21 06:19 Platelet Estimate NORMAL (130-450,000) (NORMAL) 09/05/21 06:58 Platelet Morphology NORMAL APPEARANCE (NORMAL) 09/05/21 06:58 RBC Morph Micro Appear NORMAL APPEARANCE (NORMAL) 09/05/21 06:58 ESR 59 mm/Hr (0-20) H 08/26/21 13:02 Sodium 135 mmol/L (135-145) 09/05/21 06:58 Potassium 3.9 mmol/L (3.5-5.0) 09/05/21 06:58 Chloride 102 mmol/L (101-111) 09/05/21 06:58 Carbon Dioxide 23 mmol/L (21-32) 09/05/21 06:58 Anion Gap 10.0 (6-13) 09/05/21 06:58 BUN 13 mg/dL (6-20) 09/05/21 06:58 Creatinine 0.8 mg/dL (0.6-1.2) 09/05/21 06:58 Estimated GFR (MDRD) 100 (>89) 09/05/21 06:58 Glucose 135 mg/dL (70-100) H 09/05/21 06:58 Lactic Acid 1.3 mmol/L (0.5-2.2) 08/26/21 13:02 Calcium 8.9 mg/dL (8.5-10.3) 09/05/21 06:58 Magnesium 2.2 mg/dL (1.7-2.8) 09/05/21 06:58 Troponin I High Sens 7.2 ng/L (2.3-19.7) 08/26/21 13:02 C-Reactive Protein 1.6 mg/dL (0-1.0) H 09/05/21 06:58 Urine Color DARK YELLOW 08/26/21 14:20 Urine Clarity CLEAR (CLEAR) 08/26/21 14:20 Urine pH 5.5 PH (5.0-7.5) 08/26/21 14:20 Ur Specific [place] >=1.030 (1.002-1.030) H 08/26/21 14:20 Urine Protein 100 mg/dL (NEGATIVE) H 08/26/21 14:20 Urine Glucose (UA) NEGATIVE mg/dL (NEGATIVE) 08/26/21 14:20 Urine Ketones 15 mg/dL (NEGATIVE) H 08/26/21 14:20 Urine Occult Blood LARGE (NEGATIVE) H 08/26/21 14:20 Urine Nitrite NEGATIVE (NEGATIVE) 08/26/21 14:20 Urine Bilirubin NEGATIVE (NEGATIVE) 08/26/21 14:20 Urine Urobilinogen 0.2 (NORMAL) E.U./dL (NORMAL) 08/26/21 14:20 Ur Leukocyte Esterase NEGATIVE (NEGATIVE) 08/26/21 14:20 Urine RBC 0-5 /HPF (0-5) 08/26/21 14:20 Urine WBC 0-3 /HPF (0-3) 08/26/21 14:20 Ur Squamous Epith Cells NONE SEEN (<= Few) 08/26/21 14:20 Urine Bacteria Few /HPF (None Seen) 08/26/21 14:20 Ur Microscopic Review INDICATED 08/26/21 14:20 Urine Culture Comments NOT INDICATED 08/26/21 14:20 Nasal Adenovirus (PCR) NOT DETECTED 08/26/21 15:40 Nasal B. parapertussis DNA (PCR) NOT DETECTED 08/26/21 15:40 Nasal Coronavir 229E PCR NOT DETECTED 08/26/21 15:40 Nasal Coronavir HKU1 PCR NOT DETECTED 08/26/21 15:40 Nasal Coronavir NL63 PCR NOT DETECTED 08/26/21 15:40 Nasal Coronavir OC43 PCR NOT DETECTED 08/26/21 15:40 Nasal Enterovir/Rhinovir PCR NOT DETECTED 08/26/21 15:40 Nasal Influenza B PCR NOT DETECTED 08/26/21 15:40 Nasal Influenza A PCR NOT DETECTED 08/26/21 15:40 Nasal Parainfluen 1 PCR NOT DETECTED 08/26/21 15:40 Nasal Parainfluen 2 PCR NOT DETECTED 08/26/21 15:40 Nasal Parainfluen 3 PCR NOT DETECTED 08/26/21 15:40 Nasal Parainfluen 4 PCR NOT DETECTED 08/26/21 15:40 Nasal RSV (PCR) NOT DETECTED 08/26/21 15:40 Nasal B.pertussis DNA PCR NOT DETECTED 08/26/21 15:40 Nasal C.pneumoniae (PCR) NOT DETECTED 08/26/21 15:40 Jimmy Human Metapneumo PCR NOT DETECTED 08/26/21 15:40 Nasal M.pneumoniae (PCR) NOT DETECTED 08/26/21 15:40 Nasal SARS-CoV-2 (PCR) NOT DETECTED 08/26/21 15:40 Last Dose Date 09/03/21 09/03/21 14:15 Last Dose Time 0901 09/03/21 14:15 Vancomycin Trough 19.2 ug/mL (10.0-20.0) 09/03/21 14:15 - Procedures Procedures: Procedures ENDOSC POLYPECTOMY OF LG INTEST (02/22/15) EXCISION OF RIGHT KNEE BURSA AND LIGAMENT, OPEN APPROACH (07/29/16)
[2021-09-06] MEDS: NICOTINE 14 MG PATCH TOP SCH (09:56)
[2021-09-06] MEDS: MULTIVITAMIN W/MINERALS TABLET PO SCH (09:58)
[2021-09-06] MEDS: ASPIRIN CHEW 81 MG TABLET PO SCH (09:58)
[2021-09-06] MEDS: POTASSIUM CHLORIDE 20 MEQ TABLET PO SCH (09:59)
[2021-09-06] MEDS: ethyl alcohoL 62% SWAB AMPULE NAS SCH ×2 (10:02→20:22)
[2021-09-06] MEDS: polyethylene glycoL 3350 17 GM PACKET PO SCH (10:12)
[2021-09-06] MEDS: DOCUSATE SODIUM 250 MG CAPSULE PO SCH (10:13)
[2021-09-06] MEDS: ENOXAPARIN 40 MG/0.4 ML SYRINGE SUBQ SCH (10:13)
[2021-09-06] MEDS: SENNA 8.6 MG TABLET PO SCH (11:47)
[2021-09-06] MEDS: SODIUM CHLORIDE 0.9% 500 ML IV PRN (13:16)
[2021-09-06] MEDS: ATORVASTATIN 40 MG TABLET PO SCH (20:22)
[2021-09-07] MEDS: HYDROmorphone 1 MG/ML CARPUJECT IVP PRN ×5 (03:39→22:07)
[2021-09-07] MEDS: SODIUM CHLORIDE FLUSH 0.9% 10 ML SYRINGE IVP PRN ×3 (03:39→14:06)
[2021-09-07] MEDS: methocarbamoL 500 MG TABLET PO PRN (03:39)
[2021-09-07] MEDS: SIMETHICONE CHEW 80 MG TABLET PO PRN ×2 (03:45→22:56)
[2021-09-07] MEDS: VANCOMYCIN INJ 1.75 GM in SODIUM CHLORIDE 0.9% 500 ML IV SCH ×3 (05:55→22:07)
[2021-09-07] MEDS: SENNA 8.6 MG TABLET PO SCH (08:57)
[2021-09-07] MEDS: polyethylene glycoL 3350 17 GM PACKET PO SCH (08:57)
[2021-09-07] MEDS: DOCUSATE SODIUM 250 MG CAPSULE PO SCH (08:58)
[2021-09-07] MEDS: MULTIVITAMIN W/MINERALS TABLET PO SCH (08:59)
[2021-09-07] MEDS: oxyCODONE 5 MG TABLET PO PRN ×4 (08:59→22:06)
[2021-09-07] MEDS: ASPIRIN CHEW 81 MG TABLET PO SCH (08:59)
[2021-09-07] MEDS: ACETAMINOPHEN 325 MG TABLET PO PRN ×4 (08:59→22:06)
[2021-09-07] MEDS: POTASSIUM CHLORIDE 20 MEQ TABLET PO SCH (09:00)
[2021-09-07] MEDS: SODIUM CHLORIDE FLUSH 0.9% 10 ML SYRINGE IVP SCH ×2 (09:02→16:36)
[2021-09-07] MEDS: NICOTINE 14 MG PATCH TOP SCH (10:15)
[2021-09-07] MEDS: ethyl alcohoL 62% SWAB AMPULE NAS SCH ×2 (10:17→22:06)
[2021-09-07] MEDS: ENOXAPARIN 40 MG/0.4 ML SYRINGE SUBQ SCH (10:17)
--- NOTE | 2021-09-07 10:20 | PROVIDER PROGRESS NOTE ---
Assessment/Plan - Problem List (1) MRSA bacteremia Assessment/Plan: Patient is hemodynamically stable and afebrile WBC is coming down Patient underwent ANDERSON at [facility] on 09/02/2021. Shows No evidence of valvular structure no vegetations. Repeat blood cultures drawn 08/30/21 still positive for MRSA. last BCX on 09/04 were ngtd. Continue 2 weeks IV antibiotics from first negative BCX on 09/04- Due to history of IV drug use, he is not a candidate for outpatient IV antibiotics and may have to complete this course here. (2) Back pain Qualifiers: Back pain location: low back pain Chronicity: acute Back pain laterality: midline Sciatica presence: without sciatica Qualified Code(s): M54.50 - Low back pain, unspecified Assessment/Plan: Stable. Improved from earlier in the admission. osteomyelitis ruled out on negative MRI of lumbar spine (3) Heroin abuse Assessment/Plan: Patient is not exhibiting signs of withdrawal currently He does self report cravings but is agreeable to current management He is interested in possible Suboxone treatment after her discharge - Current Meds Current Meds: Current Medications Generic Name Dose Route Start Last Admin Trade Name Freq PRN Reason Stop Dose Admin Acetaminophen 650 mg 08/26/21 14:30 09/07/21 08:59 Acetaminophen 325 Mg Tablet PO 650 mg Q4HR PRN Administration Pain 1 to 4 Alcohol 1 amp 08/27/21 09:00 09/06/21 20:22 Ethyl Alcohol 62% Swab Ampule JIMMY 1 amp BID KATHERINE Administration Aspirin 81 mg 08/27/21 09:00 09/07/21 08:59 Aspirin Chew 81 Mg Tablet PO 81 mg DAILY KATHERINE Administration Atorvastatin Calcium 40 mg 08/28/21 21:00 09/06/21 20:22 Atorvastatin 40 Mg Tablet PO 40 mg QPM KATHERINE Administration Diphenhydramine HCl 25 mg 09/05/21 23:51 09/06/21 00:23 Diphenhydramine 25 Mg Capsule PO 25 mg QPM PRN Administration Insomnia Docusate Sodium 250 - 500 mg 08/28/21 21:00 09/07/21 08:58 Docusate Sodium 250 Mg Capsule PO 500 mg DAILY KATHERINE Administration Enoxaparin Sodium 40 mg 08/27/21 09:00 09/06/21 10:13 Enoxaparin 40 Mg/0.4 Ml Syringe SUBQ 40 mg DAILY KATHERINE Administration Hydromorphone HCl 1 mg 08/29/21 10:33 09/07/21 09:01 Hydromorphone 1 Mg/Ml Carpuject IVP 1 mg Q3H PRN Administration PAIN Sodium Chloride 500 mls @ 20 mls/hr 08/30/21 16:26 09/06/21 17:32 Normal Saline 0.9% IV 0 mls/hr Q24H PRN Infusion TKO RATE Vancomycin HCl 1.75 gm/ Sodium 500 mls @ 250 mls/hr 08/31/21 14:00 09/07/21 05:55 Chloride IV 250 mls/hr Q8H KATHERINE Administration Lidocaine 1 patch 09/06/21 07:02 09/06/21 21:34 Lidocaine Patch 5% TOP 1 patch DAILY PRN Administration PAIN Methocarbamol 500 mg 08/27/21 08:27 09/07/21 03:39 Methocarbamol 500 Mg Tablet PO 500 mg Q6HR PRN Administration Spasms Multi-Ingredient Ointment 1 applic 09/01/21 19:26 09/01/21 21:39 Zinc Oxide 20% Oint 30 Gm Tube TOP 1 applic PRN PRN Administration Skin Care Multivitamins/Minerals 1 tab 09/04/21 09:00 09/07/21 08:59 Multivitamin W/Minerals Tablet PO 1 tab DAILYWM KATHERINE Administration Nicotine 1 patch 08/30/21 20:43 09/06/21 09:56 Nicotine 14 Mg Patch TOP 1 patch DAILY KATHERINE Administration Ondansetron HCl 4 mg 08/26/21 14:30 08/28/21 08:08 Ondansetron 4 Mg/2 Ml Vial IVP 4 mg Q6HR PRN Administration Nausea / Vomiting Ondansetron HCl 4 mg 08/26/21 14:30 08/28/21 12:44 Ondansetron Odt 4 Mg Tablet TL 4 mg Q6HR PRN Administration Nausea / Vomiting Oxycodone HCl 5 mg 08/26/21 16:00 09/07/21 08:59 Oxycodone 5 Mg Tablet PO 5 mg Q4HR PRN Administration PAIN Polyethylene Glycol 17 gm 08/28/21 09:00 09/07/21 08:57 Polyethylene Glycol 3350 17 Gm Packet PO 17 gm DAILY KATHERINE Administration Potassium Chloride 20 meq 09/01/21 19:00 09/06/21 09:59 Potassium Chloride 20 Meq Tablet PO 20 meq DAILYWM KATHERINE Administration Senna 8.6 - 17.2 mg 08/28/21 21:00 09/07/21 08:57 Senna 8.6 Mg Tablet PO 17.2 mg DAILY KATHERINE Administration Simethicone 80 mg 09/01/21 18:59 09/07/21 03:45 Simethicone Chew 80 Mg Tablet PO 80 mg 0900,1300,1800,2100 PRN Administration Gas Sodium Chloride 10 ml 08/26/21 14:30 09/07/21 05:52 Sodium Chloride Flush 0.9% 10 Ml Syringe IVP 10 ml PRN PRN Administration NEEDED PER PROVIDER ORDERS Sodium Chloride 10 ml 08/26/21 17:00 09/07/21 09:02 Sodium Chloride Flush 0.9% 10 Ml Syringe IVP 10 ml 0100,0900,1700 KATHERINE Administration - Lab Result Fish Bone Diagrams: 09/05/21 06:58 09/05/21 06:58 Subjective - Subjective Patient Reports: Other (no overnight event. denied any complaints.) Objective Vital Signs: Vital Signs - 24 hr 09/06/21 09/06/21 16:09 23:56 Temperature 37.3 C 36.8 C Heart Rate [ 90 91 Brachial] Respiratory 20 18 Rate Blood Pressure 124/73 110/74 [Right Brachial artery] O2 Saturation 94 95 Oxygen O2 Source Room air I&O (Last 24 Hrs): Intake and Output Totals x24h 09/05/21 09/06/21 09/07/21 23:59 23:59 23:59 Intake Total 3400.833 3838.833 1100 Output Total 1825 2925 1875 Balance 1575.833 913.833 -775 General: Alert, Oriented x3, Cooperative, No acute distress HEENT: Atraumatic, PERRLA, EOMI Neck: Supple, No JVD, No thyromegaly, +2 carotid pulse wo bruit, No LAD Lymphatic: no adenopathy Neuro: Alert, CN 2-12 Grossly Intact, Oriented Times 3 Cardiovascular: Regular rate, Normal S1, Normal S2, No murmurs Respiratory: Chest non-tender, No respiratory distress, Breath sounds nml Abdomen: Normal bowel sounds, Soft, No tenderness, No hepatospenomegaly, No masses Genitourinary: Normal Inspection, No Mass, No Discharge, No Meatal Blood, No Hernia Rectal: Non-Tender Extremities: No clubbing, No cyanosis, No edema, Normal pulses, No tenderness/swelling Skin: No rashes, No breakdown, No significant lesion - Results Results: Laboratory Results WBC 13.8 x10^3/uL (4.8-10.8) H 09/05/21 06:58 RBC 4.41 10^6/uL (4.70-6.10) L 09/05/21 06:58 Hgb 12.2 g/dL (14.0-18.0) L 09/05/21 06:58 Hct 37.7 % (42.0-52.0) L 09/05/21 06:58 MCV 85.5 fL (80.0-94.0) 09/05/21 06:58 MCH 27.7 pg (27.0-31.0) 09/05/21 06:58 MCHC 32.4 g/dL (32.0-36.0) 09/05/21 06:58 RDW 13.8 % (12.0-15.0) 09/05/21 06:58 Plt Count 434 10^3/uL (130-450) 09/05/21 06:58 MPV 9.5 fL (7.4-11.4) 09/05/21 06:58 Neut # (Auto) Not Reportable 09/05/21 06:58 Lymph # (Auto) Not Reportable 09/05/21 06:58 [place] # (Auto) Not Reportable 09/05/21 06:58 Eos # (Auto) Not Reportable 09/05/21 06:58 Baso # (Auto) Not Reportable 09/05/21 06:58 Absolute Nucleated RBC Not Reportable 09/05/21 06:58 Total Counted 100 09/05/21 06:58 Band Neuts % (Manual) 1 % (0-10) 09/05/21 06:58 Reactive Lymphs % (Man) 5 % 09/05/21 06:58 Abnorm Lymph % (Manual) 0 % 09/05/21 06:58 Metamyelocytes % 1 % (-0) H 09/05/21 06:58 Myelocytes % 2 % (-0) H 09/04/21 05:34 Nucleated RBC % Not Reportable 09/05/21 06:58 Neutrophils # (Manual) 9.8 10^3/uL (1.5-6.6) H 09/05/21 06:58 Lymphocytes # (Manual) 2.6 10^3/uL (1.5-3.5) 09/05/21 06:58 Monocytes # (Manual) 1.1 10^3/uL (0.0-1.0) H 09/05/21 06:58 Eosinophils # (Manual) 0.1 10^3/uL (0-0.7) 09/05/21 06:58 Basophils # (Manual) 0.0 10^3/uL (0-0.1) 09/05/21 06:58 Differential Comment MANUAL DIFFERENTIAL 09/05/21 06:58 Manual Slide Review Indicated 09/05/21 06:58 WBC Morphology NORMAL APPEARANCE (NORMAL) 09/01/21 06:19 Platelet Estimate NORMAL (130-450,000) (NORMAL) 09/05/21 06:58 Platelet Morphology NORMAL APPEARANCE (NORMAL) 09/05/21 06:58 RBC Morph Micro Appear NORMAL APPEARANCE (NORMAL) 09/05/21 06:58 ESR 59 mm/Hr (0-20) H 08/26/21 13:02 Sodium 135 mmol/L (135-145) 09/05/21 06:58 Potassium 3.9 mmol/L (3.5-5.0) 09/05/21 06:58 Chloride 102 mmol/L (101-111) 09/05/21 06:58 Carbon Dioxide 23 mmol/L (21-32) 09/05/21 06:58 Anion Gap 10.0 (6-13) 09/05/21 06:58 BUN 13 mg/dL (6-20) 09/05/21 06:58 Creatinine 0.8 mg/dL (0.6-1.2) 09/05/21 06:58 Estimated GFR (MDRD) 100 (>89) 09/05/21 06:58 Glucose 135 mg/dL (70-100) H 09/05/21 06:58 Lactic Acid 1.3 mmol/L (0.5-2.2) 08/26/21 13:02 Calcium 8.9 mg/dL (8.5-10.3) 09/05/21 06:58 Magnesium 2.2 mg/dL (1.7-2.8) 09/05/21 06:58 Troponin I High Sens 7.2 ng/L (2.3-19.7) 08/26/21 13:02 C-Reactive Protein 1.6 mg/dL (0-1.0) H 09/05/21 06:58 Urine Color DARK YELLOW 08/26/21 14:20 Urine Clarity CLEAR (CLEAR) 08/26/21 14:20 Urine pH 5.5 PH (5.0-7.5) 08/26/21 14:20 Ur Specific [place] >=1.030 (1.002-1.030) H 08/26/21 14:20 Urine Protein 100 mg/dL (NEGATIVE) H 08/26/21 14:20 Urine Glucose (UA) NEGATIVE mg/dL (NEGATIVE) 08/26/21 14:20 Urine Ketones 15 mg/dL (NEGATIVE) H 08/26/21 14:20 Urine Occult Blood LARGE (NEGATIVE) H 08/26/21 14:20 Urine Nitrite NEGATIVE (NEGATIVE) 08/26/21 14:20 Urine Bilirubin NEGATIVE (NEGATIVE) 08/26/21 14:20 Urine Urobilinogen 0.2 (NORMAL) E.U./dL (NORMAL) 08/26/21 14:20 Ur Leukocyte Esterase NEGATIVE (NEGATIVE) 08/26/21 14:20 Urine RBC 0-5 /HPF (0-5) 08/26/21 14:20 Urine WBC 0-3 /HPF (0-3) 08/26/21 14:20 Ur Squamous Epith Cells NONE SEEN (<= Few) 08/26/21 14:20 Urine Bacteria Few /HPF (None Seen) 08/26/21 14:20 Ur Microscopic Review INDICATED 08/26/21 14:20 Urine Culture Comments NOT INDICATED 08/26/21 14:20 Nasal Adenovirus (PCR) NOT DETECTED 08/26/21 15:40 Nasal B. parapertussis DNA (PCR) NOT DETECTED 08/26/21 15:40 Nasal Coronavir 229E PCR NOT DETECTED 08/26/21 15:40 Nasal Coronavir HKU1 PCR NOT DETECTED 08/26/21 15:40 Nasal Coronavir NL63 PCR NOT DETECTED 08/26/21 15:40 Nasal Coronavir OC43 PCR NOT DETECTED 08/26/21 15:40 Nasal Enterovir/Rhinovir PCR NOT DETECTED 08/26/21 15:40 Nasal Influenza B PCR NOT DETECTED 08/26/21 15:40 Nasal Influenza A PCR NOT DETECTED 08/26/21 15:40 Nasal Parainfluen 1 PCR NOT DETECTED 08/26/21 15:40 Nasal Parainfluen 2 PCR NOT DETECTED 08/26/21 15:40 Nasal Parainfluen 3 PCR NOT DETECTED 08/26/21 15:40 Nasal Parainfluen 4 PCR NOT DETECTED 08/26/21 15:40 Nasal RSV (PCR) NOT DETECTED 08/26/21 15:40 Nasal B.pertussis DNA PCR NOT DETECTED 08/26/21 15:40 Nasal C.pneumoniae (PCR) NOT DETECTED 08/26/21 15:40 Jimmy Human Metapneumo PCR NOT DETECTED 08/26/21 15:40 Nasal M.pneumoniae (PCR) NOT DETECTED 08/26/21 15:40 Nasal SARS-CoV-2 (PCR) NOT DETECTED 08/26/21 15:40 Last Dose Date 09/03/21 09/03/21 14:15 Last Dose Time 0909/03/21 14:15 Vancomycin Trough 19.2 ug/mL (10.0-20.0) 09/03/21 14:15 - Procedures Procedures: Procedures ENDOSC POLYPECTOMY OF LG INTEST (02/22/15) EXCISION OF RIGHT KNEE BURSA AND LIGAMENT, OPEN APPROACH (07/29/16)
[2021-09-07] MEDS: ATORVASTATIN 40 MG TABLET PO SCH (22:07)
[2021-09-07] MEDS: LIDOCAINE PATCH 5% TOP PRN (23:50)
[2021-09-08] MEDS: oxyCODONE 5 MG TABLET PO PRN ×4 (02:04→23:46)
[2021-09-08] MEDS: ACETAMINOPHEN 325 MG TABLET PO PRN ×2 (02:05→06:17)
[2021-09-08] MEDS: HYDROmorphone 1 MG/ML CARPUJECT IVP PRN ×6 (02:17→21:48)
[2021-09-08] MEDS: SODIUM CHLORIDE FLUSH 0.9% 10 ML SYRINGE IVP SCH ×4 (02:50→23:37)
[2021-09-08] MEDS: VANCOMYCIN INJ 1.75 GM in SODIUM CHLORIDE 0.9% 500 ML IV SCH ×3 (06:16→21:39)
[2021-09-08] MEDS: ethyl alcohoL 62% SWAB AMPULE NAS SCH ×2 (07:40→21:39)
[2021-09-08] MEDS: polyethylene glycoL 3350 17 GM PACKET PO SCH (07:40)
[2021-09-08] MEDS: NICOTINE 14 MG PATCH TOP SCH (07:41)
[2021-09-08] MEDS: DOCUSATE SODIUM 250 MG CAPSULE PO SCH (07:42)
[2021-09-08] MEDS: MULTIVITAMIN W/MINERALS TABLET PO SCH (07:42)
[2021-09-08] MEDS: SENNA 8.6 MG TABLET PO SCH (07:43)
[2021-09-08] MEDS: POTASSIUM CHLORIDE 20 MEQ TABLET PO SCH (07:43)
[2021-09-08] MEDS: ASPIRIN CHEW 81 MG TABLET PO SCH (07:43)
[2021-09-08] MEDS: ENOXAPARIN 40 MG/0.4 ML SYRINGE SUBQ SCH (07:44)
[2021-09-08] MEDS: SIMETHICONE CHEW 80 MG TABLET PO PRN ×2 (07:50→16:24)
--- NOTE | 2021-09-08 08:35 | PROVIDER PROGRESS NOTE ---
Subjective - Prog Note Date Prog Note Date: 09/08/21 Prog Note Time: 08:35 - Subjective Pt reports feeling: Improved Subjective: He is awake, alert. Able to tell me that he really thinks he needs a PICC line because his IVs keep on leaking. He denies chest pain, palpitations, shortness of breath. Transesophageal echo from September 02 shows no valvular disease. Current Medications - Current Medications Current Medications: Active Medications Acetaminophen (Acetaminophen 325 Mg Tablet) 650 mg PO Q4HR PRN PRN Reason: Pain 1 to 4 Last Admin: 09/08/21 06:17 Dose: 650 mg Documented by: Alcohol (Ethyl Alcohol 62% Swab Ampule) 1 amp JIMMY BID [facility] Last Admin: 09/08/21 07:40 Dose: 1 amp Documented by: Aspirin (Aspirin Chew 81 Mg Tablet) 81 mg PO DAILY [facility] Last Admin: 09/08/21 07:43 Dose: 81 mg Documented by: Atorvastatin Calcium (Atorvastatin 40 Mg Tablet) 40 mg PO QPM [facility] Last Admin: 09/07/21 22:07 Dose: 40 mg Documented by: Diphenhydramine HCl (Diphenhydramine 25 Mg Capsule) 25 mg PO QPM PRN PRN Reason: Insomnia Last Admin: 09/06/21 00:23 Dose: 25 mg Documented by: Docusate Sodium (Docusate Sodium 250 Mg Capsule) 250 - 500 mg PO DAILY [facility] Last Admin: 09/08/21 07:42 Dose: 250 mg Documented by: Enoxaparin Sodium (Enoxaparin 40 Mg/0.4 Ml Syringe) 40 mg SUBQ DAILY [facility] Last Admin: 09/08/21 07:44 Dose: 40 mg Documented by: Hydromorphone HCl (Hydromorphone 1 Mg/Ml Carpuject) 1 mg IVP Q3H PRN PRN Reason: PAIN Last Admin: 09/08/21 06:17 Dose: 1 mg Documented by: Sodium Chloride (Normal Saline 0.9%) 500 mls @ 20 mls/hr IV Q24H PRN PRN Reason: TKO RATE Last Infusion: 09/07/21 17:07 Dose: Infused Documented by: Vancomycin HCl 1.75 gm/ Sodium (Chloride) 500 mls @ 250 mls/hr IV Q8H [facility] Last Admin: 09/08/21 06:16 Dose: 250 mls/hr Documented by: Lidocaine (Lidocaine Patch 5%) 1 patch TOP DAILY PRN PRN Reason: PAIN Last Admin: 09/07/21 23:50 Dose: 1 patch Documented by: Methocarbamol (Methocarbamol 500 Mg Tablet) 500 mg PO Q6HR PRN PRN Reason: Spasms Last Admin: 09/07/21 03:39 Dose: 500 mg Documented by: Multi-Ingredient Ointment (Zinc Oxide 20% Oint 30 Gm Tube) 1 applic TOP PRN PRN PRN Reason: Skin Care Last Admin: 09/01/21 21:39 Dose: 1 applic Documented by: Multivitamins/Minerals (Multivitamin W/Minerals Tablet) 1 tab PO DAILYWM [facility] Last Admin: 09/08/21 07:42 Dose: 1 tab Documented by: Nicotine (Nicotine 14 Mg Patch) 1 patch TOP DAILY [facility] Last Admin: 09/08/21 07:41 Dose: 1 patch Documented by: Ondansetron HCl (Ondansetron 4 Mg/2 Ml Vial) 4 mg IVP Q6HR PRN PRN Reason: Nausea / Vomiting Last Admin: 08/28/21 08:08 Dose: 4 mg Documented by: Ondansetron HCl (Ondansetron Odt 4 Mg Tablet) 4 mg TL Q6HR PRN PRN Reason: Nausea / Vomiting Last Admin: 08/28/21 12:44 Dose: 4 mg Documented by: Oxycodone HCl (Oxycodone 5 Mg Tablet) 5 mg PO Q4HR PRN PRN Reason: PAIN Last Admin: 09/08/21 06:17 Dose: 5 mg Documented by: Polyethylene Glycol (Polyethylene Glycol 3350 17 Gm Packet) 17 gm PO DAILY [facility] Last Admin: 09/08/21 07:40 Dose: 17 gm Documented by: Potassium Chloride (Potassium Chloride 20 Meq Tablet) 20 meq PO DAILYWM [facility] Last Admin: 09/08/21 07:43 Dose: 20 meq Documented by: Senna (Senna 8.6 Mg Tablet) 8.6 - 17.2 mg PO DAILY [facility] Last Admin: 09/08/21 07:43 Dose: 8.6 mg Documented by: Simethicone (Simethicone Chew 80 Mg Tablet) 80 mg PO 0900,1300,1800,2100 PRN PRN Reason: Gas Last Admin: 09/08/21 07:50 Dose: 80 mg Documented by: Sodium Chloride (Sodium Chloride Flush 0.9% 10 Ml Syringe) 10 ml IVP PRN PRN PRN Reason: NEEDED PER PROVIDER ORDERS Last Admin: 09/07/21 14:06 Dose: 10 ml Documented by: Sodium Chloride (Sodium Chloride Flush 0.9% 10 Ml Syringe) 10 ml IVP 0100,0900,1700 KATHERINE Last Admin: 09/08/21 07:45 Dose: Not Given Documented by: Aspirin [Aspirin EC] 81 mg PO DAILY 08/27/21 Objective - Vital Signs/Intake & Output Reviewed Vital Signs: Yes Vital Signs: Vital Signs x48h Temp Pulse Resp BP Pulse Ox 09/08/21 08:09 37.9 C 95 18 126/80 100 Intake & Output: Intake & Output 09/05/21 09/06/21 09/07/21 09/08/21 23:59 23:59 23:59 23:59 Intake Total 3400.833 3838.833 3630 500 Output Total 1825 2925 2125 1500 Balance 1575.833 453.381 6157 -1000 - Objective General Appearance: positive: No acute distress, Alert Eyes Bilateral: positive: PERRL, EOMI ENT: positive: No signs of dehydration Neck: positive: No JVD. negative: Stiff neck Respiratory: positive: No respiratory distress. negative: Wheezes, Rales, Rhonchi Cardiovascular: positive: Regular rate & rhythm. negative: Gallop/S4, Friction rub Abdomen: positive: Non-tender, No organomegaly, Nml bowel sounds, No distention Skin: positive: Warm, Dry Extremities: positive: Full ROM, No pedal edema Neurologic/Psychiatric: positive: Oriented x3, CN's nml (2-12), Motor nml (He is ambulating in his room. Eating 100% of his food) - Lab Results Fish Bones: 09/05/21 06:58 09/05/21 06:58 ABX Reporting Has patient been on IV antibiotics over the past 48 hours?: Yes Assessment/Plan - Problem List (1) MRSA bacteremia Impression: Patient is hemodynamically stable and afebrile WBC is coming down Patient underwent ANDERSON at [facility] on 09/02/2021. Shows No evidence of valvular structure no vegetations. Repeat blood cultures drawn 08/30/21 still positive for MRSA. last BCX on 09/04 were negative. Continue 2 weeks IV antibiotics from first negative BCX on 09/04/21 so will need abx until 09/18/21 Due to history of IV drug use, he is not a candidate for outpatient IV antibiotics and may have to complete this course here. (2) Back pain Qualifiers: Back pain location: low back pain Chronicity: acute Back pain laterality: midline Sciatica presence: without sciatica Qualified Code(s): M54.50 - Low back pain, unspecified Assessment/Plan: Stable. Improved from earlier in the admission. osteomyelitis ruled out on negative MRI of lumbar spine (3) Heroin abuse Assessment/Plan: Patient is not exhibiting signs of withdrawal currently He does self report cravings but is agreeable to current management He is interested in possible Suboxone treatment after his discharge
--- NOTE | 2021-09-08 10:30 | XRAY Report ---
PROCEDURE: Chest for Line Placement INDICATIONS: Line placement TECHNIQUE: One view of the chest was acquired. COMPARISON: 08/31/2021 CT chest FINDINGS: Surgical changes and devices: A right approach PICC has been placed in the interval since the prior s tudy, the distal tip of which projects over the inferior aspect of the SVC. Lungs and pleura: No pleural effusions or pneumothorax. Lungs are clear. Mediastinum: Mediastinal contours appear normal. Heart size is normal. Bones and chest wall: No suspicious bony lesions. Overlying soft tissues appear unremarkable. IMPRESSION: Right upper extremity PICC placed in the interval since prior study with distal tip projecting over t he inferior aspect of the SVC. Reviewed by: Geovanny James MD on 09/08/2021 10:29 AM PDT Approved by: Geovanny James MD on 09/08/2021 10:29 AM PDT Station ID: [id number]
--- NOTE | 2021-09-08 11:14 | ANESTHESIA PROCEDURE NOTE ---
Anesth Central Line Template - Central Line Central Line Preparation: Consent Obtained Central line location: Right Basilic Central line type: PICC Single Lumen Central line catheter tip site resides: Superior vena cava (SVC) Central line aftercare: Secured, Placement confirmed, No complications, Bundle checklist complete, Pt tolerated well
[2021-09-08] MEDS: methocarbamoL 500 MG TABLET PO PRN ×2 (16:24→23:36)
[2021-09-08] MEDS: ATORVASTATIN 40 MG TABLET PO SCH (21:39)
[2021-09-08] MEDS: LIDOCAINE PATCH 5% TOP PRN (23:37)
[2021-09-09] MEDS: HYDROmorphone 1 MG/ML CARPUJECT IVP PRN ×5 (00:49→14:48)
[2021-09-09] MEDS: oxyCODONE 5 MG TABLET PO PRN ×2 (04:25→17:55)
[2021-09-09] MEDS: VANCOMYCIN INJ 1.75 GM in SODIUM CHLORIDE 0.9% 500 ML IV SCH (06:04)
[2021-09-09] MEDS: ethyl alcohoL 62% SWAB AMPULE NAS SCH ×2 (07:45→20:40)
[2021-09-09] MEDS: polyethylene glycoL 3350 17 GM PACKET PO SCH (07:50)
[2021-09-09] MEDS: NICOTINE 14 MG PATCH TOP SCH (07:50)
[2021-09-09] MEDS: SENNA 8.6 MG TABLET PO SCH (07:51)
[2021-09-09] MEDS: DOCUSATE SODIUM 250 MG CAPSULE PO SCH (07:51)
[2021-09-09] MEDS: ENOXAPARIN 40 MG/0.4 ML SYRINGE SUBQ SCH (07:51)
[2021-09-09] MEDS: MULTIVITAMIN W/MINERALS TABLET PO SCH (07:51)
[2021-09-09] MEDS: ASPIRIN CHEW 81 MG TABLET PO SCH (07:52)
[2021-09-09] MEDS: POTASSIUM CHLORIDE 20 MEQ TABLET PO SCH (07:52)
[2021-09-09] MEDS: SIMETHICONE CHEW 80 MG TABLET PO PRN ×2 (07:52→18:01)
[2021-09-09] MEDS: SODIUM CHLORIDE FLUSH 0.9% 10 ML SYRINGE IVP SCH ×2 (07:53→17:55)
[2021-09-09] MEDS: SODIUM CHLORIDE FLUSH 0.9% 10 ML SYRINGE IVP PRN (07:58)
--- NOTE | 2021-09-09 11:11 | PROVIDER PROGRESS NOTE ---
Subjective - Prog Note Date Prog Note Date: 09/09/21 Prog Note Time: 11:11 - Subjective Pt reports feeling: No change Subjective: He is ambulating in the hallways, ambulating in the room. Getting 100% of his food and asking for snacks. His main complaint is that of mid to low back pain. He says is a chronic thing for him. I asked if it has limited him in the past. 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 We did worry about osteo with the bacteremia but MRI was neg for that. Now his pain is down to the pain he always has. Right now the pain is stable. Unchanged from his previous back pain. No radiation down the legs. No bowel or bladder incontinence with this. His highest temperature is 37.9 which was yesterday. So no true fevers. He denies sweats. Cough. Shortness of breath. Leg edema. Current Medications - Current Medications Current Medications: Active Medications Acetaminophen (Acetaminophen 325 Mg Tablet) 650 mg PO Q4HR PRN PRN Reason: Pain 1 to 4 Last Admin: 09/08/21 06:17 Dose: 650 mg Documented by: Alcohol (Ethyl Alcohol 62% Swab Ampule) 1 amp JIMMY BID [facility] Last Admin: 09/09/21 07:45 Dose: 1 amp Documented by: Aspirin (Aspirin Chew 81 Mg Tablet) 81 mg PO DAILY [facility] Last Admin: 09/09/21 07:52 Dose: 81 mg Documented by: Atorvastatin Calcium (Atorvastatin 40 Mg Tablet) 40 mg PO QPM [facility] Last Admin: 09/08/21 21:39 Dose: 40 mg Documented by: Diphenhydramine HCl (Diphenhydramine 25 Mg Capsule) 25 mg PO QPM PRN PRN Reason: Insomnia Last Admin: 09/06/21 00:23 Dose: 25 mg Documented by: Docusate Sodium (Docusate Sodium 250 Mg Capsule) 250 - 500 mg PO DAILY [facility] Last Admin: 09/09/21 07:51 Dose: 250 mg Documented by: Enoxaparin Sodium (Enoxaparin 40 Mg/0.4 Ml Syringe) 40 mg SUBQ DAILY [facility] Last Admin: 09/09/21 07:51 Dose: 40 mg Documented by: Hydromorphone HCl (Hydromorphone 1 Mg/Ml Carpuject) 1 mg IVP Q3H PRN PRN Reason: PAIN Last Admin: 09/09/21 14:48 Dose: 1 mg Documented by: Sodium Chloride (Normal Saline 0.9%) 500 mls @ 20 mls/hr IV Q24H PRN PRN Reason: TKO RATE Last Infusion: 09/07/21 17:07 Dose: Infused Documented by: Vancomycin HCl 1 gm/Vancomycin HCl 500 mg/ Sodium Chloride 500 mls @ 250 mls/hr IV Q8H [facility] Lidocaine (Lidocaine Patch 5%) 1 patch TOP DAILY PRN PRN Reason: PAIN Last Admin: 09/08/21 23:37 Dose: 1 patch Documented by: Methocarbamol (Methocarbamol 500 Mg Tablet) 500 mg PO Q6HR PRN PRN Reason: Spasms Last Admin: 09/08/21 23:36 Dose: 500 mg Documented by: Multi-Ingredient Ointment (Zinc Oxide 20% Oint 30 Gm Tube) 1 applic TOP PRN PRN PRN Reason: Skin Care Last Admin: 09/01/21 21:39 Dose: 1 applic Documented by: Multivitamins/Minerals (Multivitamin W/Minerals Tablet) 1 tab PO DAILYWM [facility] Last Admin: 09/09/21 07:51 Dose: 1 tab Documented by: Nicotine (Nicotine 14 Mg Patch) 1 patch TOP DAILY [facility] Last Admin: 09/09/21 07:50 Dose: 1 patch Documented by: Ondansetron HCl (Ondansetron 4 Mg/2 Ml Vial) 4 mg IVP Q6HR PRN PRN Reason: Nausea / Vomiting Last Admin: 08/28/21 08:08 Dose: 4 mg Documented by: Ondansetron HCl (Ondansetron Odt 4 Mg Tablet) 4 mg TL Q6HR PRN PRN Reason: Nausea / Vomiting Last Admin: 08/28/21 12:44 Dose: 4 mg Documented by: Oxycodone HCl (Oxycodone 5 Mg Tablet) 5 mg PO Q4HR PRN PRN Reason: PAIN Last Admin: 09/09/21 04:25 Dose: 5 mg Documented by: Polyethylene Glycol (Polyethylene Glycol 3350 17 Gm Packet) 17 gm PO DAILY [facility] Last Admin: 09/09/21 07:50 Dose: 17 gm Documented by: Potassium Chloride (Potassium Chloride 20 Meq Tablet) 20 meq PO DAILYWM [facility] Last Admin: 09/09/21 07:52 Dose: 20 meq Documented by: Senna (Senna 8.6 Mg Tablet) 8.6 - 17.2 mg PO DAILY [facility] Last Admin: 09/09/21 07:51 Dose: 8.6 mg Documented by: Simethicone (Simethicone Chew 80 Mg Tablet) 80 mg PO 0900,1300,1800,2100 PRN PRN Reason: Gas Last Admin: 09/09/21 07:52 Dose: 80 mg Documented by: Sodium Chloride (Sodium Chloride Flush 0.9% 10 Ml Syringe) 10 ml IVP PRN PRN PRN Reason: NEEDED PER PROVIDER ORDERS Last Admin: 09/09/21 07:58 Dose: 10 ml Documented by: Sodium Chloride (Sodium Chloride Flush 0.9% 10 Ml Syringe) 10 ml IVP 0100,0900,1700 [facility] Last Admin: 09/09/21 07:53 Dose: Not Given Documented by: Aspirin [Aspirin EC] 81 mg PO DAILY 08/27/21 Objective - Vital Signs/Intake & Output Reviewed Vital Signs: Yes Vital Signs: Vital Signs x48h Temp Pulse Resp BP Pulse Ox 09/09/21 08:37 36.9 C 98 18 143/93 H 95 Intake & Output: Intake & Output 09/06/21 09/07/21 09/08/21 09/09/21 23:59 23:59 23:59 23:59 Intake Total 3838.833 3630 4990.000 1220 Output Total 2925 2125 2150 1225 Balance 647.299 9020 2840.000 -5 - Objective General Appearance: positive: No acute distress, Alert Eyes Bilateral: positive: PERRL ENT: positive: No signs of dehydration Neck: positive: No JVD Respiratory: positive: No respiratory distress. negative: Wheezes, Rales, Rhonchi Cardiovascular: positive: Regular rate & rhythm. negative: Gallop/S4, Friction rub Abdomen: positive: Non-tender, No organomegaly, Nml bowel sounds, No distention Skin: positive: Warm, Dry. negative: Diaphoresis Extremities: positive: Full ROM, No pedal edema Neurologic/Psychiatric: positive: Oriented x3, CN's nml (2-12), Motor nml, Sensation nml - Lab Results Fish Bones: 09/05/21 06:58 09/05/21 06:58 ABX Reporting Has patient been on IV antibiotics over the past 48 hours?: Yes Assessment/Plan - Problem List (1) MRSA bacteremia Impression: Patient is hemodynamically stable and afebrile WBC is coming down but not checked since 09/05 Patient underwent ANDERSON at [facility] on 09/02/2021. Shows No evidence of valvular structure no vegetations. Repeat blood cultures drawn 08/30/21 still positive for MRSA. last BCX on 09/04 were negative. Continue 2 weeks IV antibiotics from first negative BCX on 09/04/21 so will need abx until 09/18/21 Due to history of IV drug use, he is not a candidate for outpatient IV antibiotics and may have to complete this course here. Plan: continue abx as is. He is stable. check WBC and CRP for tomorrow (2) Back pain, chronic Qualifiers: Back pain location: low back pain Chronicity: chronic Back pain laterality: midline Sciatica presence: without sciatica Qualified Code(s): M54.50 - Low back pain, unspecified Assessment/Plan: Stable. Improved from earlier in the admission. osteomyelitis ruled out on n egative MRI of lumbar spine. While his presentation was that of acute on chronic back pain. He tells me that the acute component has resolved and his more the baseline back pain he always had Is currently on Dilaudid 1 mg every 3 hours as needed, Robaxin every 6 hours as needed. Oxycodone 5 mg po q6h prn. When he was admitted he was only on ibuprofen from the outpatient setting. Plan: Change IV to p.o. and give every 6 hours for the next day or 2. Continue the other meds as needed. (3) Heroin abuse Assessment/Plan: Patient is not exhibiting signs of withdrawal currently He does self report cravings but is agreeable to current management He is interested in possible Suboxone treatment after his discharge
[2021-09-09 14:02] LABS: VANCOMYCIN,TROUGH 22.2 ug/mL (10.0-20.0)
--- NOTE | 2021-09-09 14:22 | PHARMACY PROGRESS NOTE ---
- Therapy Status Therapy status: Trough supratherapeutic (Trough 22.2) Basis for treatment: Culture result Treatment indication: MRSA bacteremia Trough goal: 15-20 - YASHIRA Risk Risk level for Acute Kidney Injury: High Acute Kidney Injury risk factors: Duration >7 days, Goal trough >15, Total daily Vancomycin >4 grams - Monitoring and Recommendation Clinical response to treatment: I&O Previous 24 hours 09/07/21 09/08/21 09/09/21 23:59 23:59 23:59 Intake Total 3630 4990.000 1700 Output Total 2125 2150 1225 Balance 1505 2840.000 475 Lab Results 09/05/21 09/04/21 09/03/21 06:58 05:34 07:19 ESR BUN 13 12 12 Creatinine 0.8 0.7 0.7 Estimated GFR (MDRD) 100 116 116 09/02/21 09/01/21 08/31/21 05:29 06:19 05:35 ESR BUN 11 9 11 Creatinine 0.6 0.7 0.7 Estimated GFR (MDRD) 139 116 116 08/30/21 08/29/21 08/28/21 06:15 05:25 06:05 ESR BUN 14 15 16 Creatinine 0.7 0.7 0.7 Estimated GFR (MDRD) 116 116 116 08/27/21 08/26/21 08/26/21 05:58 13:02 13:02 ESR 59 H BUN 13 13 Creatinine 0.7 0.8 Estimated GFR (MDRD) 116 100 Vancomycin Monitoring 09/09/21 09/03/21 08/30/21 13:50 14:15 13:05 Vancomycin Trough 22.2 H 19.2 15.8 08/28/21 13:07 Vancomycin Trough 9.6 L Cultures 09/04/21 05:34 Blood Blood Culture - Final NO GROWTH AFTER 5 DAYS 09/04/21 05:38 Blood Blood Culture - Final NO GROWTH AFTER 5 DAYS 08/30/21 08:30 Blood - Right Hand Blood Culture - Final Methicillin Resist S. Aureus 08/30/21 08:25 Blood - Right Hand Blood Culture - Final Methicillin Resist S. Aureus 08/28/21 13:07 Blood Blood Culture - Final Methicillin Resist S. Aureus 08/28/21 13:07 Blood Blood Culture - Final Methicillin Resist S. Aureus 08/26/21 13:02 Blood - Right Iv-Start Blood Culture - Final Methicillin Resist S. Aureus 08/26/21 13:02 Blood - Left Hand Blood Culture - Final Methicillin Resist S. Aureus 08/30/21 08:30 Blood - Right Hand Blood Culture (PCR) - Final Monitoring plan: Daily serum creatinine, Suggest ongoing fluid replacement Pharmacy recommendation: Hold dose (Will hold 1400 dose due to supratherapeutic trough and then decrease maintenance dose to 1.5 grams q8h)
[2021-09-09] MEDS: methocarbamoL 500 MG TABLET PO PRN (17:54)
[2021-09-09] MEDS: ACETAMINOPHEN 325 MG TABLET PO PRN (17:59)
[2021-09-09] MEDS: ATORVASTATIN 40 MG TABLET PO SCH (20:40)
[2021-09-09] MEDS: IBUPROFEN 800 MG TABLET PO PRN (20:40)
[2021-09-09] MEDS: HYDROmorphone 2 MG TABLET PO PRN (20:40)
[2021-09-09] MEDS: ACETAMINOPHEN 500 MG TABLET PO SCH (21:41)
[2021-09-09] MEDS: VANCOMYCIN INJ 1 GM, VANCOMYCIN INJ 500 MG in SODIUM CHLORIDE 0.9% 500 ML IV SCH (21:41)
[2021-09-09] MEDS: diphenhydrAMINE 25 MG CAPSULE PO PRN (21:41)
[2021-09-10] MEDS: SODIUM CHLORIDE FLUSH 0.9% 10 ML SYRINGE IVP SCH ×4 (00:12→23:35)
[2021-09-10] MEDS: oxyCODONE 5 MG TABLET PO PRN ×4 (00:16→21:13)
[2021-09-10] MEDS: methocarbamoL 500 MG TABLET PO PRN ×3 (00:16→18:45)
[2021-09-10] MEDS: SIMETHICONE CHEW 80 MG TABLET PO PRN ×3 (00:20→21:32)
[2021-09-10] MEDS: ACETAMINOPHEN 500 MG TABLET PO SCH ×3 (05:30→21:13)
[2021-09-10] MEDS: VANCOMYCIN INJ 1 GM, VANCOMYCIN INJ 500 MG in SODIUM CHLORIDE 0.9% 500 ML IV SCH ×3 (05:30→21:27)
[2021-09-10] MEDS: HYDROmorphone 2 MG TABLET PO PRN ×3 (05:42→18:44)
[2021-09-10 05:44] LABS: BASOPHILS # (AUTO) 0.2 10^3/uL (0.0-0.1); BASOPHILS % (AUTO) 1.8 %; EOSINOPHILS # (AUTO) 0.3 10^3/uL (0.0-0.7); EOSINOPHILS % (AUTO) 2.2 %; LYMPHOCYTES # (AUTO) 2.6 10^3/uL (1.5-3.5); LYMPHOCYTES % (AUTO) 21.6 %; MEAN CORPUSCULAR HEMOGLOBIN 27.3 pg (27.0-31.0); MEAN CORPUSCULAR HGB CONC 31.6 g/dL (32.0-36.0); MEAN CORPUSCULAR VOLUME 86.6 fL (80.0-94.0); MEAN PLATELET VOLUME 9.1 fL (7.4-11.4); MONOCYTES # (AUTO) 0.8 10^3/uL (0.0-1.0); MONOCYTES % (AUTO) 6.6 %; NEUTROPHILS % (AUTO) 66.5 %; PLT - PLATELET COUNT 434 10^3/uL (130-450); RED BLOOD COUNT 4.39 10^6/uL (4.70-6.10); RED CELL DISTRIBUTION WIDTH 13.7 % (12.0-15.0)
[2021-09-10] MEDS: ENOXAPARIN 40 MG/0.4 ML SYRINGE SUBQ SCH (08:35)
[2021-09-10] MEDS: DOCUSATE SODIUM 250 MG CAPSULE PO SCH (08:36)
[2021-09-10] MEDS: NICOTINE 14 MG PATCH TOP SCH (08:36)
[2021-09-10] MEDS: ethyl alcohoL 62% SWAB AMPULE NAS SCH ×2 (08:36→21:13)
[2021-09-10] MEDS: polyethylene glycoL 3350 17 GM PACKET PO SCH (08:36)
[2021-09-10] MEDS: ASPIRIN CHEW 81 MG TABLET PO SCH (08:37)
[2021-09-10] MEDS: MULTIVITAMIN W/MINERALS TABLET PO SCH (08:37)
[2021-09-10] MEDS: SENNA 8.6 MG TABLET PO SCH (08:37)
[2021-09-10] MEDS: POTASSIUM CHLORIDE 20 MEQ TABLET PO SCH (08:37)
[2021-09-10] MEDS ORDERED: traZODone 50 MG TABLET PO PRN (10:18)
--- NOTE | 2021-09-10 10:27 | PROVIDER PROGRESS NOTE ---
Assessment/Plan - Problem List (1) MRSA bacteremia Assessment/Plan: pt's WBC is trended down, pt is afebrile and hemodynamically stable. pt has history of IV drug use, he is not a candidate for outpatient IV antibiotics and may complete this course at hospital. [facility]ERSON at [facility] on 09/02/2021 which reveal No evidence of valvular structure and no vegetations. His last blood culture on 09/04 were negative. CRP is <1. Continue 2 weeks IV antibiotics from first negative BCX on 09/04/21 so will need abx until 09/18/21, continue lab monitor. (2) Back pain, chronic chronic and stable. pt walk on the hallway. osteomyelitis ruled out on negative MRI of lumbar spine. now pt is PRN on Dilaudid, Oxycodon, Ibuprofen, Tylenol, Lidocaine patch, and Robaxin. (3) Heroin abuse Patient is not exhibiting signs of withdrawal currently. He is interested in possible Suboxone treatment on his PCP management after his discharge (4)insomnia pt ask for sleep meds, add trazodone PRN - Current Meds Current Meds: Current Medications Generic Name Dose Route Start Last Admin Trade Name Freq PRN Reason Stop Dose Admin Acetaminophen 1,000 mg 09/09/21 22:00 09/10/21 05:30 Acetaminophen 500 Mg Tablet PO 1,000 mg TID KATHERINE Administration Alcohol 1 amp 08/27/21 09:00 09/10/21 08:36 Ethyl Alcohol 62% Swab Ampule JIMMY 1 amp BID KATHERINE Administration Aspirin 81 mg 08/27/21 09:00 09/10/21 08:37 Aspirin Chew 81 Mg Tablet PO 81 mg DAILY KATHERINE Administration Atorvastatin Calcium 40 mg 08/28/21 21:00 09/09/21 20:40 Atorvastatin 40 Mg Tablet PO 40 mg QPM KATHERINE Administration Diphenhydramine HCl 25 mg 09/05/21 23:51 09/09/21 21:41 Diphenhydramine 25 Mg Capsule PO 25 mg QPM PRN Administration Insomnia Docusate Sodium 250 - 500 mg 08/28/21 21:00 09/10/21 08:36 Docusate Sodium 250 Mg Capsule PO 250 mg DAILY KATHERINE Administration Enoxaparin Sodium 40 mg 08/27/21 09:00 09/10/21 08:35 Enoxaparin 40 Mg/0.4 Ml Syringe SUBQ 40 mg DAILY KATHERINE Administration Hydromorphone HCl 1 mg 09/09/21 15:29 09/10/21 05:42 Hydromorphone 2 Mg Tablet PO 1 mg Q6HR PRN Administration Severe Pain Sodium Chloride 500 mls @ 20 mls/hr 08/30/21 16:26 09/07/21 17:07 Normal Saline 0.9% IV Infused Q24H PRN Infusion TKO RATE Vancomycin HCl 1 gm/ 500 mls @ 250 mls/hr 09/09/21 22:00 09/10/21 08:37 Vancomycin HCl 500 mg/ Sodium IV Infused Chloride Q8H KATHERINE Infusion Ibuprofen 800 mg 09/09/21 20:14 09/09/21 20:40 Ibuprofen 800 Mg Tablet PO 800 mg BID PRN Administration PAIN Lidocaine 1 patch 09/06/21 07:02 09/08/21 23:37 Lidocaine Patch 5% TOP 1 patch DAILY PRN Administration PAIN Methocarbamol 500 mg 08/27/21 08:27 09/10/21 09:56 Methocarbamol 500 Mg Tablet PO 500 mg Q6HR PRN Administration Spasms Multi-Ingredient Ointment 1 applic 09/01/21 19:26 09/01/21 21:39 Zinc Oxide 20% Oint 30 Gm Tube TOP 1 applic PRN PRN Administration Skin Care Multivitamins/Minerals 1 tab 09/04/21 09:00 09/10/21 08:37 Multivitamin W/Minerals Tablet PO 1 tab DAILYWM KATHERINE Administration Nicotine 1 patch 08/30/21 20:43 09/10/21 08:36 Nicotine 14 Mg Patch TOP 1 patch DAILY KATHERINE Administration Ondansetron HCl 4 mg 08/26/21 14:30 08/28/21 08:08 Ondansetron 4 Mg/2 Ml Vial IVP 4 mg Q6HR PRN Administration Nausea / Vomiting Ondansetron HCl 4 mg 08/26/21 14:30 08/28/21 12:44 Ondansetron Odt 4 Mg Tablet TL 4 mg Q6HR PRN Administration Nausea / Vomiting Oxycodone HCl 5 mg 08/26/21 16:00 09/10/21 08:36 Oxycodone 5 Mg Tablet PO 5 mg Q4HR PRN Administration PAIN Polyethylene Glycol 17 gm 08/28/21 09:00 09/10/21 08:36 Polyethylene Glycol 3350 17 Gm Packet PO 17 gm DAILY KATHERINE Administration Potassium Chloride 20 meq 09/01/21 19:00 09/10/21 08:37 Potassium Chloride 20 Meq Tablet PO 20 meq DAILYWM KATHERINE Administration Senna 8.6 - 17.2 mg 08/28/21 21:00 09/10/21 08:37 Senna 8.6 Mg Tablet PO 8.6 mg DAILY KATHERINE Administration Simethicone 80 mg 09/01/21 18:59 09/10/21 08:36 Simethicone Chew 80 Mg Tablet PO 80 mg 0900,1300,1800,2100 PRN Administration Gas Sodium Chloride 10 ml 08/26/21 14:30 09/09/21 07:58 Sodium Chloride Flush 0.9% 10 Ml Syringe IVP 10 ml PRN PRN Administration NEEDED PER PROVIDER ORDERS Sodium Chloride 10 ml 08/26/21 17:00 09/10/21 08:26 Sodium Chloride Flush 0.9% 10 Ml Syringe IVP 10 ml 0100,0900,1700 KATHERINE Administration - Lab Result Fish Bone Diagrams: 09/10/21 05:35 09/05/21 06:58 - Additional Planning My Orders: My Active Orders 09/10/21 10:18 traZODone [Desyrel] 50 mg PO QPM PRN 09/11/21 05:00 CBC - COMP BLD CT W/AUTO DIFF [HEME] DAILYLAB 09/12/21 05:00 CBC - COMP BLD CT W/AUTO DIFF [HEME] DAILYLAB 09/13/21 05:00 CBC - COMP BLD CT W/AUTO DIFF [HEME] DAILYLAB 09/14/21 05:00 CBC - COMP BLD CT W/AUTO DIFF [HEME] DAILYLAB 09/15/21 05:00 CBC - COMP BLD CT W/AUTO DIFF [HEME] DAILYLAB 09/16/21 05:00 CBC - COMP BLD CT W/AUTO DIFF [HEME] DAILYLAB Subjective - Subjective Patient Reports: Resting Comfortably, Back Pain Objective Vital Signs: Vital Signs - 24 hr 09/09/21 09/10/21 09/10/21 15:52 00:00 07:32 Temperature 37 C 36.3 C L 36.9 C Heart Rate [ 107 H 82 78 Brachial] Respiratory 20 22 20 Rate Blood Pressure 134/70 H 134/96 H 149/90 H [Left Brachial artery] O2 Saturation 96 98 97 Oxygen O2 Source Room air I&O (Last 24 Hrs): Intake and Output Totals x24h 09/08/21 09/09/21 09/10/21 23:59 23:59 23:59 Intake Total 4990.000 2450 1000 Output Total 2150 1225 1635 Balance 2840.000 1225 -635 General: Alert, Oriented x3, Cooperative, No acute distress HEENT: Atraumatic Neck: Supple Lymphatic: no adenopathy Neuro: Alert, Non Focal, Oriented Times 3 Cardiovascular: Regular rate, Normal S1, Normal S2 Respiratory: Chest non-tender, No respiratory distress Abdomen: Normal bowel sounds, Soft, No tenderness Extremities: Normal pulses - Results Results: Laboratory Results WBC 12.0 x10^3/uL (4.8-10.8) H 09/10/21 05:35 RBC 4.39 10^6/uL (4.70-6.10) L 09/10/21 05:35 Hgb 12.0 g/dL (14.0-18.0) L 09/10/21 05:35 Hct 38.0 % (42.0-52.0) L 09/10/21 05:35 MCV 86.6 fL (80.0-94.0) 09/10/21 05:35 MCH 27.3 pg (27.0-31.0) 09/10/21 05:35 MCHC 31.6 g/dL (32.0-36.0) L 09/10/21 05:35 RDW 13.7 % (12.0-15.0) 09/10/21 05:35 Plt Count 434 10^3/uL (130-450) 09/10/21 05:35 MPV 9.1 fL (7.4-11.4) 09/10/21 05:35 Neut # (Auto) 8.0 10^3/uL (1.5-6.6) H 09/10/21 05:35 Lymph # (Auto) 2.6 10^3/uL (1.5-3.5) 09/10/21 05:35 [place] # (Auto) 0.8 10^3/uL (0.0-1.0) 09/10/21 05:35 Eos # (Auto) 0.3 10^3/uL (0.0-0.7) 09/10/21 05:35 Baso # (Auto) 0.2 10^3/uL (0.0-0.1) H 09/10/21 05:35 Absolute Nucleated RBC 0.00 x10^3/uL 09/10/21 05:35 Total Counted 100 09/05/21 06:58 Band Neuts % (Manual) 1 % (0-10) 09/05/21 06:58 Reactive Lymphs % (Man) 5 % 09/05/21 06:58 Abnorm Lymph % (Manual) 0 % 09/05/21 06:58 Metamyelocytes % 1 % (-0) H 09/05/21 06:58 Myelocytes % 2 % (-0) H 09/04/21 05:34 Nucleated RBC % 0.0 /100WBC 09/10/21 05:35 Neutrophils # (Manual) 9.8 10^3/uL (1.5-6.6) H 09/05/21 06:58 Lymphocytes # (Manual) 2.6 10^3/uL (1.5-3.5) 09/05/21 06:58 Monocytes # (Manual) 1.1 10^3/uL (0.0-1.0) H 09/05/21 06:58 Eosinophils # (Manual) 0.1 10^3/uL (0-0.7) 09/05/21 06:58 Basophils # (Manual) 0.0 10^3/uL (0-0.1) 09/05/21 06:58 Differential Comment MANUAL DIFFERENTIAL 09/05/21 06:58 Manual Slide Review Indicated 09/05/21 06:58 WBC Morphology NORMAL APPEARANCE (NORMAL) 09/01/21 06:19 Platelet Estimate NORMAL (130-450,000) (NORMAL) 09/05/21 06:58 Platelet Morphology NORMAL APPEARANCE (NORMAL) 09/05/21 06:58 RBC Morph Micro Appear NORMAL APPEARANCE (NORMAL) 09/05/21 06:58 ESR 59 mm/Hr (0-20) H 08/26/21 13:02 Sodium 135 mmol/L (135-145) 09/05/21 06:58 Potassium 3.9 mmol/L (3.5-5.0) 09/05/21 06:58 Chloride 102 mmol/L (101-111) 09/05/21 06:58 Carbon Dioxide 23 mmol/L (21-32) 09/05/21 06:58 Anion Gap 10.0 (6-13) 09/05/21 06:58 BUN 13 mg/dL (6-20) 09/05/21 06:58 Creatinine 0.8 mg/dL (0.6-1.2) 09/05/21 06:58 Estimated GFR (MDRD) 100 (>89) 09/05/21 06:58 Glucose 135 mg/dL (70-100) H 09/05/21 06:58 Lactic Acid 1.3 mmol/L (0.5-2.2) 08/26/21 13:02 Calcium 8.9 mg/dL (8.5-10.3) 09/05/21 06:58 Magnesium 2.2 mg/dL (1.7-2.8) 09/05/21 06:58 Troponin I High Sens 7.2 ng/L (2.3-19.7) 08/26/21 13:02 C-Reactive Protein < 1.0 mg/dL (0-1.0) 09/10/21 05:35 Urine Color DARK YELLOW 08/26/21 14:20 Urine Clarity CLEAR (CLEAR) 08/26/21 14:20 Urine pH 5.5 PH (5.0-7.5) 08/26/21 14:20 Ur Specific [place] >=1.030 (1.002-1.030) H 08/26/21 14:20 Urine Protein 100 mg/dL (NEGATIVE) H 08/26/21 14:20 Urine Glucose (UA) NEGATIVE mg/dL (NEGATIVE) 08/26/21 14:20 Urine Ketones 15 mg/dL (NEGATIVE) H 08/26/21 14:20 Urine Occult Blood LARGE (NEGATIVE) H 08/26/21 14:20 Urine Nitrite NEGATIVE (NEGATIVE) 08/26/21 14:20 Urine Bilirubin NEGATIVE (NEGATIVE) 08/26/21 14:20 Urine Urobilinogen 0.2 (NORMAL) E.U./dL (NORMAL) 08/26/21 14:20 Ur Leukocyte Esterase NEGATIVE (NEGATIVE) 08/26/21 14:20 Urine RBC 0-5 /HPF (0-5) 08/26/21 14:20 Urine WBC 0-3 /HPF (0-3) 08/26/21 14:20 Ur Squamous Epith Cells NONE SEEN (<= Few) 08/26/21 14:20 Urine Bacteria Few /HPF (None Seen) 08/26/21 14:20 Ur Microscopic Review INDICATED 08/26/21 14:20 Urine Culture Comments NOT INDICATED 08/26/21 14:20 Nasal Adenovirus (PCR) NOT DETECTED 08/26/21 15:40 Nasal B. parapertussis DNA (PCR) NOT DETECTED 08/26/21 15:40 Nasal Coronavir 229E PCR NOT DETECTED 08/26/21 15:40 Nasal Coronavir HKU1 PCR NOT DETECTED 08/26/21 15:40 Nasal Coronavir NL63 PCR NOT DETECTED 08/26/21 15:40 Nasal Coronavir OC43 PCR NOT DETECTED 08/26/21 15:40 Nasal Enterovir/Rhinovir PCR NOT DETECTED 08/26/21 15:40 Nasal Influenza B PCR NOT DETECTED 08/26/21 15:40 Nasal Influenza A PCR NOT DETECTED 08/26/21 15:40 Nasal Parainfluen 1 PCR NOT DETECTED 08/26/21 15:40 Nasal Parainfluen 2 PCR NOT DETECTED 08/26/21 15:40 Nasal Parainfluen 3 PCR NOT DETECTED 08/26/21 15:40 Nasal Parainfluen 4 PCR NOT DETECTED 08/26/21 15:40 Nasal RSV (PCR) NOT DETECTED 08/26/21 15:40 Nasal B.pertussis DNA PCR NOT DETECTED 08/26/21 15:40 Nasal C.pneumoniae (PCR) NOT DETECTED 08/26/21 15:40 Jimmy Human Metapneumo PCR NOT DETECTED 08/26/21 15:40 Nasal M.pneumoniae (PCR) NOT DETECTED 08/26/21 15:40 Nasal SARS-CoV-2 (PCR) NOT DETECTED 08/26/21 15:40 Last Dose Date NA 09/09/21 13:50 Last Dose Time NA 09/09/21 13:50 Vancomycin Trough 22.2 ug/mL (10.0-20.0) H 09/09/21 13:50 - Procedures Procedures: Procedures ENDOSC POLYPECTOMY OF LG INTEST (02/22/15) EXCISION OF RIGHT KNEE BURSA AND LIGAMENT, OPEN APPROACH (07/29/16) ABX Reporting Has patient been on IV antibiotics over the past 48 hours?: Yes Current Medications - Current Medications Current Medications: Active Medications Acetaminophen (Acetaminophen 500 Mg Tablet) 1,000 mg PO TID [facility] Last Admin: 09/10/21 05:30 Dose: 1,000 mg Documented by: Alcohol (Ethyl Alcohol 62% Swab Ampule) 1 amp JIMMY BID [facility] Last Admin: 09/10/21 08:36 Dose: 1 amp Documented by: Aspirin (Aspirin Chew 81 Mg Tablet) 81 mg PO DAILY [facility] Last Admin: 09/10/21 08:37 Dose: 81 mg Documented by: Atorvastatin Calcium (Atorvastatin 40 Mg Tablet) 40 mg PO QPM [facility] Last Admin: 09/09/21 20:40 Dose: 40 mg Documented by: Diphenhydramine HCl (Diphenhydramine 25 Mg Capsule) 25 mg PO QPM PRN PRN Reason: Insomnia Last Admin: 09/09/21 21:41 Dose: 25 mg Documented by: Docusate Sodium (Docusate Sodium 250 Mg Capsule) 250 - 500 mg PO DAILY [facility] Last Admin: 09/10/21 08:36 Dose: 250 mg Documented by: Enoxaparin Sodium (Enoxaparin 40 Mg/0.4 Ml Syringe) 40 mg SUBQ DAILY [facility] Last Admin: 09/10/21 08:35 Dose: 40 mg Documented by: Hydromorphone HCl (Hydromorphone 2 Mg Tablet) 1 mg PO Q6HR PRN PRN Reason: Severe Pain Last Admin: 09/10/21 05:42 Dose: 1 mg Documented by: Sodium Chloride (Normal Saline 0.9%) 500 mls @ 20 mls/hr IV Q24H PRN PRN Reason: TKO RATE Last Infusion: 09/07/21 17:07 Dose: Infused Documented by: Vancomycin HCl 1 gm/Vancomycin HCl 500 mg/ Sodium Chloride 500 mls @ 250 mls/hr IV Q8H [facility] Last Infusion: 09/10/21 08:37 Dose: Infused Documented by: Ibuprofen (Ibuprofen 800 Mg Tablet) 800 mg PO BID PRN PRN Reason: PAIN Last Admin: 09/09/21 20:40 Dose: 800 mg Documented by: Lidocaine (Lidocaine Patch 5%) 1 patch TOP DAILY PRN PRN Reason: PAIN Last Admin: 09/08/21 23:37 Dose: 1 patch Documented by: Methocarbamol (Methocarbamol 500 Mg Tablet) 500 mg PO Q6HR PRN PRN Reason: Spasms Last Admin: 09/10/21 09:56 Dose: 500 mg Documented by: Multi-Ingredient Ointment (Zinc Oxide 20% Oint 30 Gm Tube) 1 applic TOP PRN PRN PRN Reason: Skin Care Last Admin: 09/01/21 21:39 Dose: 1 applic Documented by: Multivitamins/Minerals (Multivitamin W/Minerals Tablet) 1 tab PO DAILYWM [facility] Last Admin: 09/10/21 08:37 Dose: 1 tab Documented by: Nicotine (Nicotine 14 Mg Patch) 1 patch TOP DAILY [facility] Last Admin: 09/10/21 08:36 Dose: 1 patch Documented by: Ondansetron HCl (Ondansetron 4 Mg/2 Ml Vial) 4 mg IVP Q6HR PRN PRN Reason: Nausea / Vomiting Last Admin: 08/28/21 08:08 Dose: 4 mg Documented by: Ondansetron HCl (Ondansetron Odt 4 Mg Tablet) 4 mg TL Q6HR PRN PRN Reason: Nausea / Vomiting Last Admin: 08/28/21 12:44 Dose: 4 mg Documented by: Oxycodone HCl (Oxycodone 5 Mg Tablet) 5 mg PO Q4HR PRN PRN Reason: PAIN Last Admin: 09/10/21 08:36 Dose: 5 mg Documented by: Polyethylene Glycol (Polyethylene Glycol 3350 17 Gm Packet) 17 gm PO DAILY [facility] Last Admin: 09/10/21 08:36 Dose: 17 gm Documented by: Potassium Chloride (Potassium Chloride 20 Meq Tablet) 20 meq PO DAILYWM [facility] Last Admin: 09/10/21 08:37 Dose: 20 meq Documented by: Senna (Senna 8.6 Mg Tablet) 8.6 - 17.2 mg PO DAILY [facility] Last Admin: 09/10/21 08:37 Dose: 8.6 mg Documented by: Simethicone (Simethicone Chew 80 Mg Tablet) 80 mg PO 0900,1300,1800,2100 PRN PRN Reason: Gas Last Admin: 09/10/21 08:36 Dose: 80 mg Documented by: Sodium Chloride (Sodium Chloride Flush 0.9% 10 Ml Syringe) 10 ml IVP PRN PRN PRN Reason: NEEDED PER PROVIDER ORDERS Last Admin: 09/09/21 07:58 Dose: 10 ml Documented by: Sodium Chloride (Sodium Chloride Flush 0.9% 10 Ml Syringe) 10 ml IVP 0100,0900,1700 [facility] Last Admin: 09/10/21 08:26 Dose: 10 ml Documented by: Trazodone HCl (Trazodone 50 Mg Tablet) 50 mg PO QPM PRN PRN Reason: Insomnia Aspirin [Aspirin EC] 81 mg PO DAILY 08/27/21
[2021-09-10] MEDS: LIDOCAINE PATCH 5% TOP PRN (11:08)
[2021-09-10] MEDS: ATORVASTATIN 40 MG TABLET PO SCH (21:33)
[2021-09-10] MEDS: IBUPROFEN 800 MG TABLET PO PRN (22:35)
[2021-09-10] MEDS ORDERED: HYDROmorphone 1 MG/ML CARPUJECT IVP STA (23:22)
[2021-09-11] MEDS: ACETAMINOPHEN 500 MG TABLET PO SCH (05:40)
[2021-09-11] MEDS: VANCOMYCIN INJ 1 GM, VANCOMYCIN INJ 500 MG in SODIUM CHLORIDE 0.9% 500 ML IV SCH (05:40)
[2021-09-11 05:51] LABS: BASOPHILS # (AUTO) 0.2 10^3/uL (0.0-0.1); BASOPHILS % (AUTO) 1.8 %; EOSINOPHILS # (AUTO) 0.2 10^3/uL (0.0-0.7); EOSINOPHILS % (AUTO) 1.6 %; HCT - HEMATOCRIT 38.4 % (42.0-52.0); HGB - HEMOGLOBIN 12.2 g/dL (14.0-18.0); LYMPHOCYTES # (AUTO) 2.5 10^3/uL (1.5-3.5); LYMPHOCYTES % (AUTO) 20.4 %; MEAN CORPUSCULAR HEMOGLOBIN 27.7 pg (27.0-31.0); MEAN CORPUSCULAR HGB CONC 31.8 g/dL (32.0-36.0); MEAN CORPUSCULAR VOLUME 87.3 fL (80.0-94.0); MEAN PLATELET VOLUME 8.8 fL (7.4-11.4); MONOCYTES # (AUTO) 0.8 10^3/uL (0.0-1.0); MONOCYTES % (AUTO) 6.5 %; NEUTROPHILS # (AUTO) 8.4 10^3/uL (1.5-6.6); NEUTROPHILS % (AUTO) 68.6 %; PLT - PLATELET COUNT 434 10^3/uL (130-450); RED CELL DISTRIBUTION WIDTH 13.7 % (12.0-15.0); WHITE BLOOD COUNT 12.2 x10^3/uL (4.8-10.8)
[2021-09-11 07:44] VITALS: BP 140/80
[2021-09-11] MEDS: oxyCODONE 5 MG TABLET PO PRN (08:09)
[2021-09-11] MEDS: ASPIRIN CHEW 81 MG TABLET PO SCH (08:10)
[2021-09-11] MEDS: SENNA 8.6 MG TABLET PO SCH (08:11)
[2021-09-11] MEDS: DOCUSATE SODIUM 250 MG CAPSULE PO SCH (08:11)
[2021-09-11] MEDS: MULTIVITAMIN W/MINERALS TABLET PO SCH (08:11)
[2021-09-11] MEDS: POTASSIUM CHLORIDE 20 MEQ TABLET PO SCH (08:13)
[2021-09-11] MEDS: ethyl alcohoL 62% SWAB AMPULE NAS SCH (08:13)
[2021-09-11] MEDS: LIDOCAINE PATCH 5% TOP PRN (08:15)
[2021-09-11] MEDS: polyethylene glycoL 3350 17 GM PACKET PO SCH (08:19)
[2021-09-11] MEDS: ENOXAPARIN 40 MG/0.4 ML SYRINGE SUBQ SCH (08:19)
[2021-09-11] MEDS: NICOTINE 14 MG PATCH TOP SCH (08:20)
[2021-09-11] MEDS: SODIUM CHLORIDE FLUSH 0.9% 10 ML SYRINGE IVP SCH (08:20)
[2021-09-11 09:45] LABS: CALCIUM 9.5 mg/dL (8.5-10.3); CREATININE 0.7 mg/dL (0.6-1.2); POTASSIUM 3.5 mmol/L (3.5-5.0)
--- NOTE | 2021-09-11 10:42 | PROVIDER PROGRESS NOTE ---
Assessment/Plan - Problem List (1) MRSA bacteremia Assessment/Plan: 09/11 still has slightly elevated WBC, but pt has no fever, repeated blood culture show negative for bacteremia, pt is Hemodynamic stable. We will continue finish antibiotics vancomycin until September 18. pt's WBC is trended down, pt is afebrile and hemodynamically stable. pt has history of IV drug use, he is not a candidate for outpatient IV antibiotics and may complete this course at hospital. [facility]ERSON at [facility] on 09/02/2021 which reveal No evidence of valvular structure and no vegetations. His last blood culture on 09/04 were negative. CRP is <1. Continue 2 weeks IV antibiotics from first negative BCX on 09/04/21 so will need abx until 09/18/21, continue lab monitor. (2) Back pain, chronic 09/11, We will continue current pain regimen. fall precaution, safely walk with pt as pt's tolerance, add PT for pt. chronic and stable. pt walk on the hallway. osteomyelitis ruled out on negative MRI of lumbar spine. now pt is PRN on Dilaudid, Oxycodon, Ibuprofen, Tylenol, Lidocaine patch, and Robaxin. (3) Heroin abuse Patient is not exhibiting signs of withdrawal currently. He is interested in possible Suboxone treatment on his PCP management after his discharge (4)insomnia pt ask for sleep meds, add trazodone PRN - Current Meds Current Meds: Current Medications Generic Name Dose Route Start Last Admin Trade Name Freq PRN Reason Stop Dose Admin Acetaminophen 1,000 mg 09/09/21 22:00 09/11/21 05:40 Acetaminophen 500 Mg Tablet PO 1,000 mg TID KATHERINE Administration Alcohol 1 amp 08/27/21 09:00 09/11/21 08:13 Ethyl Alcohol 62% Swab Ampule JIMMY 1 amp BID KATHERINE Administration Aspirin 81 mg 08/27/21 09:00 09/11/21 08:10 Aspirin Chew 81 Mg Tablet PO 81 mg DAILY KATHERINE Administration Atorvastatin Calcium 40 mg 08/28/21 21:00 09/10/21 21:33 Atorvastatin 40 Mg Tablet PO 40 mg QPM KATHERINE Administration Diphenhydramine HCl 25 mg 09/05/21 23:51 09/09/21 21:41 Diphenhydramine 25 Mg Capsule PO 25 mg QPM PRN Administration Insomnia Docusate Sodium 250 - 500 mg 08/28/21 21:00 09/11/21 08:11 Docusate Sodium 250 Mg Capsule PO 250 mg DAILY KATHERINE Administration Enoxaparin Sodium 40 mg 08/27/21 09:00 09/11/21 08:19 Enoxaparin 40 Mg/0.4 Ml Syringe SUBQ 40 mg DAILY KATHERINE Administration Hydromorphone HCl 1 mg 09/09/21 15:29 09/10/21 18:44 Hydromorphone 2 Mg Tablet PO 1 mg Q6HR PRN Administration Severe Pain Sodium Chloride 500 mls @ 20 mls/hr 08/30/21 16:26 09/07/21 17:07 Normal Saline 0.9% IV Infused Q24H PRN Infusion TKO RATE Vancomycin HCl 1 gm/ 500 mls @ 250 mls/hr 09/09/21 22:00 09/11/21 08:00 Vancomycin HCl 500 mg/ Sodium IV Infused Chloride Q8H KATHERINE Infusion Ibuprofen 800 mg 09/09/21 20:14 09/10/21 22:35 Ibuprofen 800 Mg Tablet PO 800 mg BID PRN Administration PAIN Lidocaine 1 patch 09/06/21 07:02 09/11/21 08:15 Lidocaine Patch 5% TOP 1 patch DAILY PRN Administration PAIN Methocarbamol 500 mg 08/27/21 08:27 09/10/21 18:45 Methocarbamol 500 Mg Tablet PO 500 mg Q6HR PRN Administration Spasms Multi-Ingredient Ointment 1 applic 09/01/21 19:26 09/01/21 21:39 Zinc Oxide 20% Oint 30 Gm Tube TOP 1 applic PRN PRN Administration Skin Care Multivitamins/Minerals 1 tab 09/04/21 09:00 09/11/21 08:11 Multivitamin W/Minerals Tablet PO 1 tab DAILYWM KATHERINE Administration Nicotine 1 patch 08/30/21 20:43 09/11/21 08:20 Nicotine 14 Mg Patch TOP 1 patch DAILY KATHERINE Administration Ondansetron HCl 4 mg 08/26/21 14:30 08/28/21 08:08 Ondansetron 4 Mg/2 Ml Vial IVP 4 mg Q6HR PRN Administration Nausea / Vomiting Ondansetron HCl 4 mg 08/26/21 14:30 08/28/21 12:44 Ondansetron Odt 4 Mg Tablet TL 4 mg Q6HR PRN Administration Nausea / Vomiting Oxycodone HCl 5 mg 08/26/21 16:00 09/11/21 08:09 Oxycodone 5 Mg Tablet PO 5 mg Q4HR PRN Administration PAIN Polyethylene Glycol 17 gm 08/28/21 09:00 09/11/21 08:19 Polyethylene Glycol 3350 17 Gm Packet PO 17 gm DAILY KATHERINE Administration Potassium Chloride 20 meq 09/01/21 19:00 09/11/21 08:13 Potassium Chloride 20 Meq Tablet PO 20 meq DAILYWM KATHERINE Administration Senna 8.6 - 17.2 mg 08/28/21 21:00 09/11/21 08:11 Senna 8.6 Mg Tablet PO 8.6 mg DAILY KATHERINE Administration Simethicone 80 mg 09/01/21 18:59 09/10/21 21:32 Simethicone Chew 80 Mg Tablet PO 80 mg 0900,1300,1800,2100 PRN Administration Gas Sodium Chloride 10 ml 08/26/21 14:30 09/09/21 07:58 Sodium Chloride Flush 0.9% 10 Ml Syringe IVP 10 ml PRN PRN Administration NEEDED PER PROVIDER ORDERS Sodium Chloride 10 ml 08/26/21 17:00 09/11/21 08:20 Sodium Chloride Flush 0.9% 10 Ml Syringe IVP 10 ml 0100,0900,1700 KATHERINE Administration Trazodone HCl 50 mg 09/10/21 10:18 09/10/21 21:13 Trazodone 50 Mg Tablet PO 50 mg QPM PRN Administration Insomnia - Lab Result Fish Bone Diagrams: 09/11/21 05:45 09/11/21 09:33 - Additional Planning My Orders: My Active Orders 09/10/21 10:18 traZODone [Desyrel] 50 mg PO QPM PRN 09/11/21 Evaluate and Treat PT [PT] Routine 09/11/21 10:36 Miscellaenous Nursing Order [RC] QSHIFT 09/11/21 Lunch Regular Diet [DIET] 09/12/21 05:00 CBC - COMP BLD CT W/AUTO DIFF [HEME] DAILYLAB 09/13/21 05:00 CBC - COMP BLD CT W/AUTO DIFF [HEME] DAILYLAB 09/14/21 05:00 CBC - COMP BLD CT W/AUTO DIFF [HEME] DAILYLAB 09/15/21 05:00 CBC - COMP BLD CT W/AUTO DIFF [HEME] DAILYLAB 09/16/21 05:00 CBC - COMP BLD CT W/AUTO DIFF [HEME] DAILYLAB Subjective - Subjective Patient Reports: Resting Comfortably Objective Vital Signs: Vital Signs - 24 hr 09/10/21 09/10/21 09/11/21 16:00 22:49 00:19 Temperature 37 C 36.4 C L 36.8 C Heart Rate [ 93 100 85 Brachial] Respiratory 20 22 18 Rate Blood Pressure 141/92 H 140/85 H 133/85 H [Left Brachial artery] O2 Saturation 95 100 97 09/11/21 07:43 Temperature 37 C Heart Rate [ 85 Brachial] Respiratory 24 Rate Blood Pressure 140/80 H [Left Brachial artery] O2 Saturation 96 Oxygen O2 Source Room air I&O (Last 24 Hrs): Intake and Output Totals x24h 09/09/21 09/10/21 09/11/21 23:59 23:59 23:59 Intake Total 2450 2900 980 Output Total 1225 1785 1500 Balance 1225 1115 -520 General: Alert, Oriented x3, No acute distress HEENT: Atraumatic Neck: Supple Lymphatic: no adenopathy Neuro: Alert, Non Focal, Oriented Times 3 Cardiovascular: Regular rate, Normal S1, Normal S2 Respiratory: Chest non-tender, No respiratory distress Abdomen: Normal bowel sounds, Soft Extremities: Normal pulses - Results Results: Laboratory Results WBC 12.2 x10^3/uL (4.8-10.8) H 09/11/21 05:45 RBC 4.40 10^6/uL (4.70-6.10) L 09/11/21 05:45 Hgb 12.2 g/dL (14.0-18.0) L 09/11/21 05:45 Hct 38.4 % (42.0-52.0) L 09/11/21 05:45 MCV 87.3 fL (80.0-94.0) 09/11/21 05:45 MCH 27.7 pg (27.0-31.0) 09/11/21 05:45 MCHC 31.8 g/dL (32.0-36.0) L 09/11/21 05:45 RDW 13.7 % (12.0-15.0) 09/11/21 05:45 Plt Count 434 10^3/uL (130-450) 09/11/21 05:45 MPV 8.8 fL (7.4-11.4) 09/11/21 05:45 Neut # (Auto) 8.4 10^3/uL (1.5-6.6) H 09/11/21 05:45 Lymph # (Auto) 2.5 10^3/uL (1.5-3.5) 09/11/21 05:45 [place] # (Auto) 0.8 10^3/uL (0.0-1.0) 09/11/21 05:45 Eos # (Auto) 0.2 10^3/uL (0.0-0.7) 09/11/21 05:45 Baso # (Auto) 0.2 10^3/uL (0.0-0.1) H 09/11/21 05:45 Absolute Nucleated RBC 0.00 x10^3/uL 09/11/21 05:45 Total Counted 100 09/05/21 06:58 Band Neuts % (Manual) 1 % (0-10) 09/05/21 06:58 Reactive Lymphs % (Man) 5 % 09/05/21 06:58 Abnorm Lymph % (Manual) 0 % 09/05/21 06:58 Metamyelocytes % 1 % (-0) H 09/05/21 06:58 Myelocytes % 2 % (-0) H 09/04/21 05:34 Nucleated RBC % 0.0 /100WBC 09/11/21 05:45 Neutrophils # (Manual) 9.8 10^3/uL (1.5-6.6) H 09/05/21 06:58 Lymphocytes # (Manual) 2.6 10^3/uL (1.5-3.5) 09/05/21 06:58 Monocytes # (Manual) 1.1 10^3/uL (0.0-1.0) H 09/05/21 06:58 Eosinophils # (Manual) 0.1 10^3/uL (0-0.7) 09/05/21 06:58 Basophils # (Manual) 0.0 10^3/uL (0-0.1) 09/05/21 06:58 Differential Comment MANUAL DIFFERENTIAL 09/05/21 06:58 Manual Slide Review Indicated 09/05/21 06:58 WBC Morphology NORMAL APPEARANCE (NORMAL) 09/01/21 06:19 Platelet Estimate NORMAL (130-450,000) (NORMAL) 09/05/21 06:58 Platelet Morphology NORMAL APPEARANCE (NORMAL) 09/05/21 06:58 RBC Morph Micro Appear NORMAL APPEARANCE (NORMAL) 09/05/21 06:58 ESR 59 mm/Hr (0-20) H 08/26/21 13:02 Sodium 139 mmol/L (135-145) 09/11/21 09:33 Potassium 3.5 mmol/L (3.5-5.0) 09/11/21 09:33 Chloride 103 mmol/L (101-111) 09/11/21 09:33 Carbon Dioxide 26 mmol/L (21-32) 09/11/21 09:33 Anion Gap 10.0 (6-13) 09/11/21 09:33 BUN 13 mg/dL (6-20) 09/11/21 09:33 Creatinine 0.7 mg/dL (0.6-1.2) 09/11/21 09:33 Estimated GFR (MDRD) 116 (>89) 09/11/21 09:33 Glucose 164 mg/dL (70-100) H 09/11/21 09:33 Lactic Acid 1.3 mmol/L (0.5-2.2) 08/26/21 13:02 Calcium 9.5 mg/dL (8.5-10.3) 09/11/21 09:33 Magnesium 2.2 mg/dL (1.7-2.8) 09/05/21 06:58 Troponin I High Sens 7.2 ng/L (2.3-19.7) 08/26/21 13:02 C-Reactive Protein < 1.0 mg/dL (0-1.0) 09/10/21 05:35 Urine Color DARK YELLOW 08/26/21 14:20 Urine Clarity CLEAR (CLEAR) 08/26/21 14:20 Urine pH 5.5 PH (5.0-7.5) 08/26/21 14:20 Ur Specific [place] >=1.030 (1.002-1.030) H 08/26/21 14:20 Urine Protein 100 mg/dL (NEGATIVE) H 08/26/21 14:20 Urine Glucose (UA) NEGATIVE mg/dL (NEGATIVE) 08/26/21 14:20 Urine Ketones 15 mg/dL (NEGATIVE) H 08/26/21 14:20 Urine Occult Blood LARGE (NEGATIVE) H 08/26/21 14:20 Urine Nitrite NEGATIVE (NEGATIVE) 08/26/21 14:20 Urine Bilirubin NEGATIVE (NEGATIVE) 08/26/21 14:20 Urine Urobilinogen 0.2 (NORMAL) E.U./dL (NORMAL) 08/26/21 14:20 Ur Leukocyte Esterase NEGATIVE (NEGATIVE) 08/26/21 14:20 Urine RBC 0-5 /HPF (0-5) 08/26/21 14:20 Urine WBC 0-3 /HPF (0-3) 08/26/21 14:20 Ur Squamous Epith Cells NONE SEEN (<= Few) 08/26/21 14:20 Urine Bacteria Few /HPF (None Seen) 08/26/21 14:20 Ur Microscopic Review INDICATED 08/26/21 14:20 Urine Culture Comments NOT INDICATED 08/26/21 14:20 Nasal Adenovirus (PCR) NOT DETECTED 08/26/21 15:40 Nasal B. parapertussis DNA (PCR) NOT DETECTED 08/26/21 15:40 Nasal Coronavir 229E PCR NOT DETECTED 08/26/21 15:40 Nasal Coronavir HKU1 PCR NOT DETECTED 08/26/21 15:40 Nasal Coronavir NL63 PCR NOT DETECTED 08/26/21 15:40 Nasal Coronavir OC43 PCR NOT DETECTED 08/26/21 15:40 Nasal Enterovir/Rhinovir PCR NOT DETECTED 08/26/21 15:40 Nasal Influenza B PCR NOT DETECTED 08/26/21 15:40 Nasal Influenza A PCR NOT DETECTED 08/26/21 15:40 Nasal Parainfluen 1 PCR NOT DETECTED 08/26/21 15:40 Nasal Parainfluen 2 PCR NOT DETECTED 08/26/21 15:40 Nasal Parainfluen 3 PCR NOT DETECTED 08/26/21 15:40 Nasal Parainfluen 4 PCR NOT DETECTED 08/26/21 15:40 Nasal RSV (PCR) NOT DETECTED 08/26/21 15:40 Nasal B.pertussis DNA PCR NOT DETECTED 08/26/21 15:40 Nasal C.pneumoniae (PCR) NOT DETECTED 08/26/21 15:40 Jimmy Human Metapneumo PCR NOT DETECTED 08/26/21 15:40 Nasal M.pneumoniae (PCR) NOT DETECTED 08/26/21 15:40 Nasal SARS-CoV-2 (PCR) NOT DETECTED 08/26/21 15:40 Last Dose Date NA 09/09/21 13:50 Last Dose Time NA 09/09/21 13:50 Vancomycin Trough 22.2 ug/mL (10.0-20.0) H 09/09/21 13:50 - Procedures Procedures: Procedures ENDOSC POLYPECTOMY OF LG INTEST (02/22/15) EXCISION OF RIGHT KNEE BURSA AND LIGAMENT, OPEN APPROACH (07/29/16) ABX Reporting Has patient been on IV antibiotics over the past 48 hours?: Yes Current Medications - Current Medications Current Medications: Active Medications Acetaminophen (Acetaminophen 500 Mg Tablet) 1,000 mg PO TID [facility] Last Admin: 09/11/21 05:40 Dose: 1,000 mg Documented by: Alcohol (Ethyl Alcohol 62% Swab Ampule) 1 amp JIMMY BID [facility] Last Admin: 09/11/21 08:13 Dose: 1 amp Documented by: Aspirin (Aspirin Chew 81 Mg Tablet) 81 mg PO DAILY [facility] Last Admin: 09/11/21 08:10 Dose: 81 mg Documented by: Atorvastatin Calcium (Atorvastatin 40 Mg Tablet) 40 mg PO QPM [facility] Last Admin: 09/10/21 21:33 Dose: 40 mg Documented by: Diphenhydramine HCl (Diphenhydramine 25 Mg Capsule) 25 mg PO QPM PRN PRN Reason: Insomnia Last Admin: 09/09/21 21:41 Dose: 25 mg Documented by: Docusate Sodium (Docusate Sodium 250 Mg Capsule) 250 - 500 mg PO DAILY [facility] Last Admin: 09/11/21 08:11 Dose: 250 mg Documented by: Enoxaparin Sodium (Enoxaparin 40 Mg/0.4 Ml Syringe) 40 mg SUBQ DAILY [facility] Last Admin: 09/11/21 08:19 Dose: 40 mg Documented by: Hydromorphone HCl (Hydromorphone 2 Mg Tablet) 1 mg PO Q6HR PRN PRN Reason: Severe Pain Last Admin: 09/10/21 18:44 Dose: 1 mg Documented by: Sodium Chloride (Normal Saline 0.9%) 500 mls @ 20 mls/hr IV Q24H PRN PRN Reason: TKO RATE Last Infusion: 09/07/21 17:07 Dose: Infused Documented by: Vancomycin HCl 1 gm/Vancomycin HCl 500 mg/ Sodium Chloride 500 mls @ 250 mls/hr IV Q8H [facility] Last Infusion: 09/11/21 08:00 Dose: Infused Documented by: Ibuprofen (Ibuprofen 800 Mg Tablet) 800 mg PO BID PRN PRN Reason: PAIN Last Admin: 09/10/21 22:35 Dose: 800 mg Documented by: Lidocaine (Lidocaine Patch 5%) 1 patch TOP DAILY PRN PRN Reason: PAIN Last Admin: 09/11/21 08:15 Dose: 1 patch Documented by: Methocarbamol (Methocarbamol 500 Mg Tablet) 500 mg PO Q6HR PRN PRN Reason: Spasms Last Admin: 09/10/21 18:45 Dose: 500 mg Documented by: Multi-Ingredient Ointment (Zinc Oxide 20% Oint 30 Gm Tube) 1 applic TOP PRN PRN PRN Reason: Skin Care Last Admin: 09/01/21 21:39 Dose: 1 applic Documented by: Multivitamins/Minerals (Multivitamin W/Minerals Tablet) 1 tab PO DAILYWM [facility] Last Admin: 09/11/21 08:11 Dose: 1 tab Documented by: Nicotine (Nicotine 14 Mg Patch) 1 patch TOP DAILY [facility] Last Admin: 09/11/21 08:20 Dose: 1 patch Documented by: Ondansetron HCl (Ondansetron 4 Mg/2 Ml Vial) 4 mg IVP Q6HR PRN PRN Reason: Nausea / Vomiting Last Admin: 08/28/21 08:08 Dose: 4 mg Documented by: Ondansetron HCl (Ondansetron Odt 4 Mg Tablet) 4 mg TL Q6HR PRN PRN Reason: Nausea / Vomiting Last Admin: 08/28/21 12:44 Dose: 4 mg Documented by: Oxycodone HCl (Oxycodone 5 Mg Tablet) 5 mg PO Q4HR PRN PRN Reason: PAIN Last Admin: 09/11/21 08:09 Dose: 5 mg Documented by: Polyethylene Glycol (Polyethylene Glycol 3350 17 Gm Packet) 17 gm PO DAILY [facility] Last Admin: 09/11/21 08:19 Dose: 17 gm Documented by: Potassium Chloride (Potassium Chloride 20 Meq Tablet) 20 meq PO DAILYWM [facility] Last Admin: 09/11/21 08:13 Dose: 20 meq Documented by: Senna (Senna 8.6 Mg Tablet) 8.6 - 17.2 mg PO DAILY [facility] Last Admin: 09/11/21 08:11 Dose: 8.6 mg Documented by: Simethicone (Simethicone Chew 80 Mg Tablet) 80 mg PO 0900,1300,1800,2100 PRN PRN Reason: Gas Last Admin: 09/10/21 21:32 Dose: 80 mg Documented by: Sodium Chloride (Sodium Chloride Flush 0.9% 10 Ml Syringe) 10 ml IVP PRN PRN PRN Reason: NEEDED PER PROVIDER ORDERS Last Admin: 09/09/21 07:58 Dose: 10 ml Documented by: Sodium Chloride (Sodium Chloride Flush 0.9% 10 Ml Syringe) 10 ml IVP 0100,0900, 1700 [facility] Last Admin: 09/11/21 08:20 Dose: 10 ml Documented by: Trazodone HCl (Trazodone 50 Mg Tablet) 50 mg PO QPM PRN PRN Reason: Insomnia Last Admin: 09/10/21 21:13 Dose: 50 mg Documented by: Aspirin [Aspirin EC] 81 mg PO DAILY 08/27/21
[2021-09-11] MEDS: IBUPROFEN 800 MG TABLET PO PRN (11:08)
[2021-09-11] MEDS: HYDROmorphone 2 MG TABLET PO PRN (11:08)
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
== END 2021-09-11 12:54 | disposition still patient (30) | DRG 872 ==
LOC: EDUNIT# → ED 12:48 → MS2 14:30
PROVIDERS: ADMIT Internal Medicine; ATTEND Nurse Practitioner Gerontology
PROC: B246ZZ4 Ultrasonography of Right and Left Heart, Transesophageal (ICD-10-PCS; principal; 2021-09-02)
PROC: 02HV33Z Insertion of Infusion Device into Superior Vena Cava, Percutaneous Approach (ICD-10-PCS; 2021-09-08)
DX: R78.81 Bacteremia (principal); B95.62 Methicillin resistant Staphylococcus aureus infection as the cause of diseases classified elsewhere; F11.20 Opioid dependence, uncomplicated; F19.20 Other psychoactive substance dependence, uncomplicated; S90.31XA Contusion of right foot, initial encounter; X58.XXXA Exposure to other specified factors, initial encounter; Z20.822 Contact with and (suspected) exposure to COVID-19; R50.9 Fever, unspecified; G47.30 Sleep apnea, unspecified; F17.200 Nicotine dependence, unspecified, uncomplicated; D72.829 Elevated white blood cell count, unspecified; N40.0 Benign prostatic hyperplasia without lower urinary tract symptoms; F11.10 Opioid abuse, uncomplicated; G89.29 Other chronic pain; M54.50 Low back pain, unspecified; M06.9 Rheumatoid arthritis, unspecified; M79.671 Pain in right foot; N40.1 Benign prostatic hyperplasia with lower urinary tract symptoms; Z86.73 Personal history of transient ischemic attack (TIA), and cerebral infarction without residual deficits; R39.11 Hesitancy of micturition; I10 Essential (primary) hypertension; G47.00 Insomnia, unspecified; I69.320 Aphasia following cerebral infarction; F17.210 Nicotine dependence, cigarettes, uncomplicated; R25.1 Tremor, unspecified; F41.9 Anxiety disorder, unspecified; F41.0 Panic disorder [episodic paroxysmal anxiety]; F40.240 Claustrophobia; Z98.1 Arthrodesis status; Z79.899 Other long term (current) drug therapy; Z87.01 Personal history of pneumonia (recurrent)
CPT/HCPCS: 36415; 71045; 71260; 73630; 74177; 80048; 80202; 81001; 83605; 83735; 84484; 85025; 85651; 86140; 87040; 87150; 87181; 87631; 93005; 93306; 96365; 96375; 99285; 99406; A9270; C1751; J1170; J1650; J3370; J7120; Q0162; Q9967; 0202U; 81003; 87086

== ENCOUNTER 2021-09-09 12:25 | Inpatient (IN) | payer MEDICARE ==
[2021-09-11 13:59] LABS: VANCOMYCIN,TROUGH 20.2 ug/mL (10.0-20.0)
[2021-09-11] MEDS ORDERED: oxyCODONE 5 MG TABLET PO PRN (14:09)
[2021-09-11] MEDS ORDERED: ONDANSETRON 4 MG/2 ML VIAL IVP PRN (14:17)
[2021-09-11] MEDS ORDERED: diphenhydrAMINE 25 MG CAPSULE PO PRN (14:17)
[2021-09-11] MEDS ORDERED: IBUPROFEN 800 MG TABLET PO PRN (14:17)
[2021-09-11] MEDS ORDERED: ONDANSETRON ODT 4 MG TABLET TL PRN (14:17)
--- NOTE | 2021-09-11 14:30 | HISTORY & PHYSICAL EXAMINATION ---
Chief Complaint - Chief Complaint Chief Complaint: MRSA Bacteremia History of Present Illness - Admitted From Admitted From:: Inpatient - History Obtained From Records Reviewed: [facility] History obtained from: Patient and [facility] - History of Present Illness HPI Comment/Other: He is a 56 year old male with a past medical history for signficant stroke with residual aphasia, IVDU, HTN, that is admitted for observation post-inpatient IV abx therapy for MRSA bacteremia.This patient has been staying at the hospital for inpatient management since being admitted on august 26(See prior HPI by Dr. Mccormack.) Pt had a ANDERSON done at [facility] which was negative for signs of endocarditis. Additionally, he had an MRI of spine which did not show signs of discitis, osteomyeltis, or epidural abcess. During the course of treatment in the inpatient setting his repeat blood cultures were negative for bacteremia. He is currently staying in swing bed status for finishing his vancomycin abx on September 18. Upon discussion with patient he currently is aware of the problems his addiction is causing him and feels that he wants to get better. He has chatted with social work and received paperwork from them with information. He is feeling quite anxious currently about his overall situation. He is currently resting in bed and only desired something for his anxiety when asked. He is currently stable and has no additional needs at this time has he continues his course of pain management and abx therapy. History - Past Medical History Cardiovascular: reports: Hypertension Respiratory: reports: Pneumonia Neuro: reports: CVA, Tremors Endocrine/Autoimmune: reports: None GI: reports: Diverticulitis : reports: Benign prostate hypertrophy HEENT: reports: None Psych: reports: Anxiety, Panic attacks, Claustrophobia Musculoskeletal: reports: Rheumatoid arthritis Derm: reports: None MRSA Hx?: Yes - Past Surgical History Ortho: reports: Spine surgery - Family & Social History Family History: Mother: , Father: Family History Comment/Other: He reports his mother had a history of uterine cancer as well as breast cancer. Living arrangement: Other (At an apartment with roommates, but situation seems unstable. He plans on leaving.) Living Situation: With friend(s) Social History Notes: Have a pack a day been doing so for about 20 years. He denies any alcohol use. He admits to heroin use for the past 3 to 4 years. He uses heroin typically 3-4 times a day. - POLST Patient has POLST: No POLST Status: Full Code Meds/Allgy - Home Medications Home Medications: Ambulatory Orders Medication Instructions Recorded Confirmed Propranolol HCl 60 mg PO DAILY #30 tablet 02/03/18 09/11/21 Ibuprofen [Motrin] 800 mg PO Q8H PRN #30 tablet 08/25/21 09/11/21 Aspirin [Aspirin EC] 81 mg PO DAILY 08/27/21 09/11/21 - Allergies Allergies/Adverse Reactions: Allergies Allergy/AdvReac Type Severity Reaction Status Date / Time morphine AdvReac Intermediate Anxiety Verified 08/26/21 13:11 Review of Systems - Constitutional Constitutional: reports: Fatigue, Weakness (minor weakness attributed to laying in bed so much and his illness.). denies: Fever, Chills - Cardiovascular Cariovascular: denies: Chest pain, Edema, Syncope - Respiratory Respiratory: denies: Cough, Wheezing - Gastrointestinal Gastrointestinal: denies: Abdominal pain, Change in bowel habits, Nausea, Vomiting - Musculoskeletal Musculoskeletal: reports: Back pain (Site of inflicted injury. Where prior surgery was. Worse with movement. No radiation.), Stiffness, Limited range of motion (Back pain limits ROM. Used overhead lift assist device to sit up. Repo rts limited motion with walking. Normally walks 5 miles, but now struggles to move around the room. Pain is better than when he first got here.), Joint pain (hx of RA. Worse while in bed immobile.) - Integumentary Integumentary: reports: Rash - Neurological Neurological: reports: Numbness (Residual face numbness from a prior stroke he reports having in 2005.), Slurred speech (Prior stroke leaves his speech affected.). denies: Headache, Dizziness - Psychiatric Psychiatric: reports: Anxiety (Currently feeling an 8 out of 10 anxiety level.) - Endocrine Endocrine: denies: Polyuria Prior Level of Functionality: Usually walks 5 miles a day. Usually independent with his ADLs. Exam - Vital Signs Vital Signs: Oxygen O2 Source Room air Vital Signs - 24 hr 09/11/21 16:20 Temperature 36.9 C Heart Rate [ 92 Brachial] Respiratory 20 Rate Blood Pressure 144/86 H [Left Brachial artery] O2 Saturation 96 Oxygen O2 Source Room air - Physical Exam General Appearance: positive: No acute distress, Anxious (Appears anxious. Fidgeting with hands and moving feet. Doesn't make direct eye contact.) Eyes Bilateral: positive: PERRL, EOMI Neck: positive: No JVD, Trachea midline Respiratory: positive: Chest non-tender, No respiratory distress, Breath sounds nml Cardiovascular: positive: Regular rate & rhythm, No murmur, No gallop Peripheral Pulses: positive: 1+ (Radial and pedal bilateral.) Abdomen: positive: Non-tender, Nml bowel sounds, No distention (Possible mild distention.) Back: positive: Other (No visible deformities or bruising in area of pain at L2- L4. Overal back exam limited due to pain level.) Skin: positive: No rash, Warm, Dry Extremities: positive: Non-tender, No pedal edema. negative: Calf tenderness, Joint swelling Neurologic/Psychiatric: positive: Oriented x3, CN's nml (2-12), Motor nml, Sensation nml, Depressed mood/affect (Down about situation and decreased affect and voice inflection.) Conclusion/Plan - Problem List (1) MRSA bacteremia Conclusion/Plan: Pt is currently hemodynamically stable, pt has no fever, vitals are stable.Pt has negative ANDERSON for Endocarditis, and MRI of spine reveals NO discitis, osteomyelitis, epidural abscess. With the patients status trending in a positive direction throughout his inpatient stay, good overall clinical presentation, and stable vitals we will continue to finish antibiotics vancomycin until September 18 which will be two weeks from his last negative blood culture for MRSA bacteremia. We will continue to monitor his vital signs and labs during the course of his stay. (2) Back pain, chronic Continue pain management course and fall precautions. Pt has PRN on Dilaudid, Oxycodon, Ibuprofen, Tylenol, Lidocaine patch, and Robaxin. (3) Heroin abuse It appears patient has not exhibiting signs of withdrawal currently,but is having increased levels of anxiety. Will order PRN low dose Ativan. Social wor ralf was consulted to help pt and has talked with him about addiction clinics. (4)insomnia Will continue trazodone PRN - Lab Results Lab results reviewed: Yes Other Lab Results: No current labs at this time. Core Measures - Anticipated LOS I expect patient to be DC'd or transferred within 96 hours.: No - DVT/VTE - Prophylaxis VTE/DVT Device ordered at admit?: No VTE/DVT Prophylaxis med ordered at admit?: Yes
--- NOTE | 2021-09-11 14:38 | PHARMACY PROGRESS NOTE ---
- Best Possible Medication History Admit Date and Time: Processed by: Pharmacy Medication History completed: Yes Patient Interview: Completed (PATIENT MED REC COMPLETED ON INPATIENT- TRANDFERED TO SWING BED- COPIED MEDICATIONS OVER) As the person ultimately responsible for medication therapy, providers are able to order a medication from an existing home medication list in [facility] via the "Reconcile Routine" prior to Confirmation of that medication by business support administrator. Such practice is discouraged except when the physician, in their clinical judgment, deems that a medical need exists for a medication without regard to previous use.
[2021-09-11] MEDS ORDERED: VANCOMYCIN INJ 1 GM, VANCOMYCIN INJ 500 MG in SODIUM CHLORIDE 0.9% 500 ML IV SCH (15:00)
[2021-09-11] MEDS: oxyCODONE 5 MG TABLET PO PRN ×3 (16:39→23:59)
[2021-09-11] MEDS: ACETAMINOPHEN 325 MG TABLET PO PRN ×2 (16:39→20:35)
[2021-09-11] MEDS ORDERED: traZODone 50 MG TABLET PO SCH (21:00)
[2021-09-11] MEDS: LORazepam 0.5 MG TABLET PO PRN (21:47)
[2021-09-11] MEDS: VANCOMYCIN INJ 1 GM, VANCOMYCIN INJ 500 MG in SODIUM CHLORIDE 0.9% 500 ML IV SCH (21:47)
[2021-09-11] MEDS: ATORVASTATIN 10 MG TABLET PO SCH (21:47)
[2021-09-11] MEDS: LIDOCAINE PATCH 5% TOP PRN (21:48)
[2021-09-11] MEDS: CYCLOBENZAPRINE 10 MG TABLET PO PRN (23:58)
[2021-09-12] MEDS: SODIUM CHLORIDE FLUSH 0.9% 10 ML SYRINGE IVP SCH ×3 (01:29→21:48)
[2021-09-12] MEDS: oxyCODONE 5 MG TABLET PO PRN ×4 (04:20→17:55)
[2021-09-12] MEDS: VANCOMYCIN INJ 1 GM, VANCOMYCIN INJ 500 MG in SODIUM CHLORIDE 0.9% 500 ML IV SCH ×3 (06:13→21:48)
[2021-09-12] MEDS ORDERED: SIMETHICONE 40 MG/0.6 ML 30 ML BOTTLE PO PRN (06:50)
[2021-09-12] MEDS ORDERED: SIMETHICONE CHEW 80 MG TABLET PO PRN (06:57)
[2021-09-12] MEDS: ENOXAPARIN 40 MG/0.4 ML SYRINGE SUBQ SCH (08:30)
[2021-09-12] MEDS: NICOTINE 14 MG PATCH TOP SCH (08:31)
[2021-09-12] MEDS: polyethylene glycoL 3350 17 GM PACKET PO SCH (08:31)
[2021-09-12] MEDS ORDERED: ASPIRIN CHEW 81 MG TABLET PO SCH (09:00)
--- NOTE | 2021-09-12 10:07 | PROVIDER PROGRESS NOTE ---
Subjective - Prog Note Date Prog Note Date: 09/12/21 Prog Note Time: 10:07 - Subjective Pt reports feeling: No change Subjective: Upon discussion with patient he currently is aware of the problems his addiction is causing him and feels that he wants to get better. As of this morning he is still commited to getting better and not returning to using. Expectations were set about what to expect when he leaves as far as his social situation and medical needs. He wants to go to pain clinic and he would also like to receive mental health counseling. He is feeling less anxious currently about his overall situation. He currently wants more pain control with his pain being a 7 out of 10. He is currently already receiving a fairly high dose of oxycodone. He has Tylenol and other medications to help control his pain. The possibility of adding Toradol and increasing his Trazadone in order for him to sleep was discussed. He is currently stable and has no additional needs at this time has he continues his course of pain management and abx therapy. Current Medications - Current Medications Current Medications: Active Medications Acetaminophen (Acetaminophen 325 Mg Tablet) 650 mg PO Q4HR PRN PRN Reason: Pain 1 to 4 Last Admin: 09/11/21 20:35 Dose: 650 mg Documented by: Aspirin (Aspirin Chew 81 Mg Tablet) 81 mg PO DAILY [facility] Last Admin: 09/12/21 08:30 Dose: 81 mg Documented by: Atorvastatin Calcium (Atorvastatin 10 Mg Tablet) 20 mg PO QPM [facility] Last Admin: 09/11/21 21:47 Dose: 20 mg Documented by: Cyclobenzaprine HCl (Cyclobenzaprine 10 Mg Tablet) 10 mg PO TID PRN PRN Reason: Spasms Last Admin: 09/11/21 23:58 Dose: 10 mg Documented by: Diphenhydramine HCl (Diphenhydramine 25 Mg Capsule) 25 mg PO QPM PRN PRN Reason: Insomnia Enoxaparin Sodium (Enoxaparin 40 Mg/0.4 Ml Syringe) 40 mg SUBQ DAILY [facility] Last Admin: 09/12/21 08:30 Dose: 40 mg Documented by: Vancomycin HCl 1 gm/Vancomycin HCl 500 mg/ Sodium Chloride 500 mls @ 250 mls/hr IV Q8H [facility] Last Infusion: 09/12/21 09:01 Dose: Infused Documented by: Ibuprofen (Ibuprofen 800 Mg Tablet) 800 mg PO BID PRN PRN Reason: PAIN Last Admin: 09/12/21 08:30 Dose: 800 mg Documented by: Lidocaine (Lidocaine Patch 5%) 1 patch TOP DAILY PRN PRN Reason: PAIN Last Admin: 09/11/21 21:48 Dose: 1 patch Documented by: Lorazepam (Lorazepam 0.5 Mg Tablet) 0.5 mg PO Q6H PRN PRN Reason: Anxiety Last Admin: 09/11/21 21:47 Dose: 0.5 mg Documented by: Nicotine (Nicotine 14 Mg Patch) 1 patch TOP DAILY [facility] Last Admin: 09/12/21 08:31 Dose: 1 patch Documented by: Ondansetron HCl (Ondansetron 4 Mg/2 Ml Vial) 4 mg IVP Q4HR PRN PRN Reason: Nausea / Vomiting Ondansetron HCl (Ondansetron Odt 4 Mg Tablet) 4 mg TL Q6HR PRN PRN Reason: Nausea / Vomiting Oxycodone HCl (Oxycodone 5 Mg Tablet) 10 mg PO Q4HR PRN PRN Reason: Pain 8 to 10 Last Admin: 09/12/21 08:30 Dose: 10 mg Documented by: Polyethylene Glycol (Polyethylene Glycol 3350 17 Gm Packet) 17 gm PO DAILY [facility] Last Admin: 09/12/21 08:31 Dose: 17 gm Documented by: Simethicone (Simethicone Chew 80 Mg Tablet) 80 mg PO Q6HR PRN PRN Reason: Gas Sodium Chloride (Sodium Chloride Flush 0.9% 10 Ml Syringe) 10 ml IVP 0100,0900,1700 [facility] Last Admin: 09/12/21 01:29 Dose: 10 ml Documented by: Trazodone HCl (Trazodone 50 Mg Tablet) 50 mg PO QPM [facility] Last Admin: 09/11/21 21:47 Dose: 50 mg Documented by: Aspirin [Aspirin EC] 81 mg PO DAILY 08/27/21 Objective - Vital Signs/Intake & Output Vital Signs: Vital Signs x48h Temp Pulse Resp BP Pulse Ox 09/12/21 08:45 37.1 C 96 18 144/92 H 95 Intake & Output: Intake & Output 09/09/21 09/10/21 09/11/21 09/12/21 23:59 23:59 23:59 23:59 Intake Total 500 1580 Balance 500 1580 - Objective General Appearance: positive: Mild distress (pain 7-8 out of 10.), Anxious (Less anxious than yesterday.) Eyes Bilateral: positive: PERRL, EOMI Neck: positive: No JVD, Trachea midline Respiratory: positive: No respiratory distress, Breath sounds nml Cardiovascular: positive: Regular rate & rhythm Peripheral Pulses: 1+ Dorsalis pedis (R), 1+ Dorsalis pedis (L), 2+ Radial (R), 2+ Radial (L) Abdomen: positive: Non-tender, Nml bowel sounds Back: positive: Other (Limited due to pain Pain in L2-4 primarily) Skin: positive: No rash Extremities: positive: No pedal edema. negative: Calf tenderness Neurologic/Psychiatric: positive: Oriented x3, CN's nml (2-12), Motor nml, Sensation nml - Lab Results Other Labs: Lab Results x24hrs 09/12/21 Range/Units 06:13 C-Reactive Protein 1.7 H (0-1.0) mg/dL Assessment/Plan - Problem List (1) MRSA bacteremia Impression: (1) MRSA bacteremia Conclusion/Plan: Pt is currently hemodynamically stable, pt has no fever, vitals are stable.Pt has negative ANDERSON for Endocarditis, and MRI of spine reveals NO discitis, o steomyelitis, epidural abscess. With the patients status trending in a positive direction throughout his inpatient stay, good overall clinical presentation, and stable vitals we will continue to finish antibiotics vancomycin until September 18 which will be two weeks from his last negative blood culture for MRSA bacteremia. We will continue to monitor his vital signs and labs during the course of his stay. No change 09/12 (2) Back pain, chronic Continue pain management course and fall precautions. Pt has PRN on Dilaudid, Oxycodon, Ibuprofen, Tylenol, Lidocaine patch, and Robaxin. Will put in touch with social work about pain management and discharge plan. (3) Heroin abuse It appears patient has not exhibiting signs of withdrawal currently,but is having increased levels of anxiety. Will order PRN low dose Ativan. cut and cover line worker was consulted to help pt and will talk with him about sabaxone clinics and mental health services. (4)insomnia The patients pain has gotten worse according to the patient. Primarily causing him problems to sleep. The patients immobility in the hospital is most likely exasperating this. His hx of addiciton and substance abuse is a complicating factor in treating his pain.Being able to sleep is important for the patients recovery status. I do not believe that treating his pain in order to increase his ability to sleep will not be excessively harmful to his addiction status and drug use. Plan add Toradol. Will hold Ibuprofen and Aspirin. Will increase his Trazadone from 50mg to 100mg for him to sleep.
[2021-09-12] MEDS ORDERED: oxyCODONE 5 MG TABLET PO PRN (10:39)
[2021-09-12] MEDS: PANTOPRAZOLE 40 MG TABLET PO SCH (11:02)
[2021-09-12] MEDS: CYCLOBENZAPRINE 10 MG TABLET PO PRN ×2 (12:34→20:29)
[2021-09-12] MEDS: LORazepam 0.5 MG TABLET PO PRN (12:35)
[2021-09-12] MEDS: ATORVASTATIN 10 MG TABLET PO SCH (20:29)
[2021-09-12] MEDS: traZODone 50 MG TABLET PO SCH (20:29)
[2021-09-12] MEDS: LIDOCAINE PATCH 5% TOP PRN (20:29)
[2021-09-13] MEDS: SODIUM CHLORIDE FLUSH 0.9% 10 ML SYRINGE IVP SCH ×3 (00:06→16:21)
[2021-09-13] MEDS: oxyCODONE 5 MG TABLET PO PRN ×3 (00:07→20:15)
[2021-09-13] MEDS: PANTOPRAZOLE 40 MG TABLET PO SCH (06:11)
[2021-09-13] MEDS: VANCOMYCIN INJ 1 GM, VANCOMYCIN INJ 500 MG in SODIUM CHLORIDE 0.9% 500 ML IV SCH ×3 (06:11→21:37)
[2021-09-13] MEDS: NICOTINE 14 MG PATCH TOP SCH (08:54)
[2021-09-13] MEDS: ENOXAPARIN 40 MG/0.4 ML SYRINGE SUBQ SCH (08:54)
[2021-09-13] MEDS: polyethylene glycoL 3350 17 GM PACKET PO SCH (08:54)
[2021-09-13] MEDS: CYCLOBENZAPRINE 10 MG TABLET PO PRN ×2 (08:55→16:20)
[2021-09-13] MEDS: KETOROLAC 30 MG/ML VIAL IVP PRN (08:55)
[2021-09-13] MEDS: LORazepam 0.5 MG TABLET PO PRN (21:05)
[2021-09-13] MEDS: traZODone 50 MG TABLET PO SCH (21:05)
[2021-09-13] MEDS: ATORVASTATIN 10 MG TABLET PO SCH (21:06)
[2021-09-14] MEDS: CYCLOBENZAPRINE 10 MG TABLET PO PRN ×2 (01:38→11:56)
[2021-09-14] MEDS: oxyCODONE 5 MG TABLET PO PRN ×5 (01:38→21:28)
[2021-09-14] MEDS: SODIUM CHLORIDE FLUSH 0.9% 10 ML SYRINGE IVP SCH ×3 (02:00→16:10)
[2021-09-14] MEDS: VANCOMYCIN INJ 1 GM, VANCOMYCIN INJ 500 MG in SODIUM CHLORIDE 0.9% 500 ML IV SCH ×3 (05:46→22:14)
[2021-09-14] MEDS: PANTOPRAZOLE 40 MG TABLET PO SCH (06:48)
[2021-09-14] MEDS: NICOTINE 14 MG PATCH TOP SCH (08:13)
[2021-09-14] MEDS: polyethylene glycoL 3350 17 GM PACKET PO SCH (08:14)
[2021-09-14] MEDS: ENOXAPARIN 40 MG/0.4 ML SYRINGE SUBQ SCH (08:15)
[2021-09-14] MEDS: ACETAMINOPHEN 325 MG TABLET PO PRN (13:49)
[2021-09-14] MEDS: KETOROLAC 30 MG/ML VIAL IVP PRN ×2 (13:49→22:25)
[2021-09-14] MEDS: traZODone 50 MG TABLET PO SCH (21:28)
[2021-09-14] MEDS: ATORVASTATIN 10 MG TABLET PO SCH (21:28)
[2021-09-15] MEDS: SODIUM CHLORIDE FLUSH 0.9% 10 ML SYRINGE IVP SCH ×4 (01:33→15:55)
[2021-09-15] MEDS: CYCLOBENZAPRINE 10 MG TABLET PO PRN ×2 (04:21→13:02)
[2021-09-15] MEDS: VANCOMYCIN INJ 1 GM, VANCOMYCIN INJ 500 MG in SODIUM CHLORIDE 0.9% 500 ML IV SCH ×3 (04:21→21:44)
[2021-09-15] MEDS: KETOROLAC 30 MG/ML VIAL IVP PRN ×3 (04:21→20:18)
[2021-09-15] MEDS: oxyCODONE 5 MG TABLET PO PRN ×4 (04:22→20:18)
[2021-09-15] MEDS: ENOXAPARIN 40 MG/0.4 ML SYRINGE SUBQ SCH (04:22)
[2021-09-15] MEDS: ACETAMINOPHEN 325 MG TABLET PO PRN ×3 (04:22→14:36)
[2021-09-15] MEDS: polyethylene glycoL 3350 17 GM PACKET PO SCH (04:23)
[2021-09-15] MEDS: PANTOPRAZOLE 40 MG TABLET PO SCH (04:23)
[2021-09-15] MEDS: NICOTINE 14 MG PATCH TOP SCH (04:23)
[2021-09-15] MEDS: LIDOCAINE PATCH 5% TOP PRN (04:24)
[2021-09-15] MEDS: LORazepam 0.5 MG TABLET PO PRN (15:54)
[2021-09-15] MEDS: ATORVASTATIN 10 MG TABLET PO SCH (21:43)
[2021-09-15] MEDS: traZODone 50 MG TABLET PO SCH (21:43)
[2021-09-16] MEDS: oxyCODONE 5 MG TABLET PO PRN ×4 (03:18→20:06)
[2021-09-16] MEDS: CYCLOBENZAPRINE 10 MG TABLET PO PRN (04:40)
[2021-09-16] MEDS: SODIUM CHLORIDE FLUSH 0.9% 10 ML SYRINGE IVP SCH ×5 (04:41→22:11)
[2021-09-16] MEDS: PANTOPRAZOLE 40 MG TABLET PO SCH (06:15)
[2021-09-16] MEDS: VANCOMYCIN INJ 1 GM, VANCOMYCIN INJ 500 MG in SODIUM CHLORIDE 0.9% 500 ML IV SCH ×3 (06:17→22:08)
[2021-09-16] MEDS: ACETAMINOPHEN 325 MG TABLET PO PRN ×3 (06:21→20:07)
[2021-09-16] MEDS: ENOXAPARIN 40 MG/0.4 ML SYRINGE SUBQ SCH (08:29)
[2021-09-16] MEDS: NICOTINE 14 MG PATCH TOP SCH (08:35)
[2021-09-16] MEDS: LIDOCAINE PATCH 5% TOP PRN (08:35)
[2021-09-16] MEDS: polyethylene glycoL 3350 17 GM PACKET PO SCH (08:35)
[2021-09-16] MEDS: KETOROLAC 30 MG/ML VIAL IVP PRN ×2 (08:36→15:58)
[2021-09-16] MEDS: ATORVASTATIN 10 MG TABLET PO SCH (22:07)
[2021-09-16] MEDS: traZODone 50 MG TABLET PO SCH (22:07)
[2021-09-17] MEDS: oxyCODONE 5 MG TABLET PO PRN ×4 (00:21→20:27)
[2021-09-17] MEDS: SODIUM CHLORIDE FLUSH 0.9% 10 ML SYRINGE IVP SCH ×3 (00:22→17:09)
[2021-09-17] MEDS: KETOROLAC 30 MG/ML VIAL IVP PRN (01:46)
[2021-09-17] MEDS: LORazepam 0.5 MG TABLET PO PRN ×3 (04:46→23:49)
[2021-09-17] MEDS: VANCOMYCIN INJ 1 GM, VANCOMYCIN INJ 500 MG in SODIUM CHLORIDE 0.9% 500 ML IV SCH ×3 (06:39→21:33)
[2021-09-17] MEDS: ACETAMINOPHEN 325 MG TABLET PO PRN ×3 (09:28→20:27)
[2021-09-17] MEDS: PANTOPRAZOLE 40 MG TABLET PO SCH (09:29)
[2021-09-17] MEDS: polyethylene glycoL 3350 17 GM PACKET PO SCH (09:29)
[2021-09-17] MEDS: ENOXAPARIN 40 MG/0.4 ML SYRINGE SUBQ SCH (09:29)
[2021-09-17] MEDS: NICOTINE 14 MG PATCH TOP SCH (09:29)
[2021-09-17] MEDS: CYCLOBENZAPRINE 10 MG TABLET PO PRN ×2 (14:47→21:31)
[2021-09-17] MEDS: LIDOCAINE PATCH 5% TOP PRN (15:33)
[2021-09-17] MEDS: ATORVASTATIN 10 MG TABLET PO SCH (20:27)
[2021-09-17] MEDS: traZODone 50 MG TABLET PO SCH (21:28)
[2021-09-18] MEDS: SODIUM CHLORIDE FLUSH 0.9% 10 ML SYRINGE IVP SCH ×2 (01:00→08:45)
[2021-09-18] MEDS: oxyCODONE 5 MG TABLET PO PRN ×3 (03:04→12:58)
[2021-09-18] MEDS: VANCOMYCIN INJ 1 GM, VANCOMYCIN INJ 500 MG in SODIUM CHLORIDE 0.9% 500 ML IV SCH (06:11)
[2021-09-18] MEDS: PANTOPRAZOLE 40 MG TABLET PO SCH (07:32)
[2021-09-18 08:02] VITALS: BP 144/90
[2021-09-18] MEDS: polyethylene glycoL 3350 17 GM PACKET PO SCH (08:26)
[2021-09-18] MEDS: ENOXAPARIN 40 MG/0.4 ML SYRINGE SUBQ SCH (08:44)
[2021-09-18] MEDS: NICOTINE 14 MG PATCH TOP SCH (08:44)
--- NOTE | 2021-09-18 10:50 | DISCHARGE SUMMARY ---
Discharge Summary Admit Date: 09/11/21 Discharge Date: 09/18/21 Discharging Provider: Freddy Hester Condition at Discharge: Stable Discharge Disposition: 01 Home, Self Care Discharge Facility Name: [facility] - DIAGNOSES Admission Diagnoses: MRSA bacteremia Chronic back pain Heroin abuse Insomnia Discharge Diagnoses with Status of Each Condition: MRSA bacteremia: Patient completed vancomycin IV Chronic back pain: Pain management with ibuprofen and or tylenol. Heroin abuse: Patient given resources by social media executive Insomnia Hypertension: Propranol prescribed - HPI History of Present Illness: He is a 56 year old male with a past medical history for signficant stroke with residual aphasia, IVDU, HTN, that is admitted for observation post-inpatient IV abx therapy for MRSA bacteremia.This patient has been staying at the hospital for inpatient management since being admitted on august 26(See prior HPI by Dr. Mccormack.) Pt had a ANDERSON done at [facility] which was negative for signs of endocarditis. Additionally, he had an MRI of spine which did not show signs of discitis, osteomyeltis, or epidural abcess. During the course of treatment in the inpatient setting his repeat blood cultures were negative for bacteremia. He is currently staying in swing bed status for finishing his vancomycin abx on September 18. Upon discussion with patient he currently is aware of the problems his addiction is causing him and feels that he wants to get better. He has chatted with social work and received paperwork from them with information. He is feeling quite anxious currently about his overall situation. He is currently resting in bed and only desired something for his anxiety when asked. He is currently stable and has no additional needs at this time has he continues his course of pain management and abx therapy. Patient was maintained in the Swing Wing of the [facility] hospital for 7-days to compl ete his IV vancomycin. He was discharged on 09/18/2021 to [facility] with subsequent plan to go to [facility] The rest of his hospital stay was unremarkable. His vancomycin trough level was 20. During this time he remained afebrile. He complained of back pain which is chronic and for which he had been receiving pain medication. He has a referral for follow-up with a primary care physician in December 2021. He was prescribed 3 months worth of propanolol 60 mg p.o. daily to take. He has been cautioned about using ibuprofen too frequently as it could potentially cause gastritis and lower GI bleed and affect his kidneys. - ALLERGIES Allergies/Adverse Reactions: Allergies Allergy/AdvReac Type Severity Reaction Status Date / Time morphine AdvReac Intermediate Anxiety Verified 08/26/21 13:11 - MEDICATIONS Home Medications: Ambulatory Orders Medication Instructions Recorded Confirmed Propranolol HCl 60 mg PO DAILY #30 tablet 02/03/18 09/11/21 Ibuprofen [Motrin] 800 mg PO Q8H PRN #30 tablet 08/25/21 09/11/21 Aspirin [Aspirin EC] 81 mg PO DAILY 08/27/21 09/11/21 Propranolol ER [Inderal LA] 60 mg PO DAILY 30 Days #30 cap 09/18/21 - PHYSICAL EXAM AT DISCHARGE General Appearance: positive: Alert, Mild distress (Chronic Back Pain) Eyes Bilateral: positive: PERRL, EOMI ENT: positive: No signs of dehydration Neck: positive: No JVD, Trachea midline Respiratory: positive: Chest non-tender, No respiratory distress, Breath sounds nml. negative: Wheezes, Rales, Rhonchi Cardiovascular: positive: Regular rate & rhythm Abdomen: positive: Non-tender, No organomegaly, Nml bowel sounds. negative: Guarding, Rebound Extremities: positive: Non-tender, Full ROM, No pedal edema Neurologic/Psychiatric: positive: Oriented x3, Mood/affect nml - TIME SPENT Time Spent in Discharge (Minutes): 25
--- NOTE | 2021-09-18 10:59 | Discharge Plan ---
Discharge Plan Problem Reviewed?: Yes Disposition: Home, Self Care Condition: Stable Prescriptions: Propranolol ER [Inderal LA] 60 mg PO DAILY 30 Days #30 cap Diet: Cardiac Activity Restrictions: Activity as Tolerated Health Concerns: You were initially admitted on August 26, 2021 with MRSA bacteremia. You were started on vancomycin which has been maintained throughout your hospital [facility] until discharge today September 18, 2021. You had a 2D echocardiogram and MRI which were negative for any vegetation and for any discitis, osteomyelitis or epidural abscess. You have been stable throughout your hospital stay. You are being discharged in stable condition. You have a referral to establish care with a primary care physician in December 2021. You have been advised to keep the appointment. You will be discharged with prescriptions for medications for chronic problems excluding narcotics. The above plan was explained to you, you expressed understanding and are agreeable with the plan. No Smoking: If you smoke, Please STOP! Call for help.
== END 2021-09-18 13:30 | disposition home or self-care (01) | DRG 872 ==
LOC: MS2 09-11 14:13
PROVIDERS: ADMIT Specialist; ATTEND Internal Medicine
DX: R78.81 Bacteremia (principal); F11.20 Opioid dependence, uncomplicated; M54.9 Dorsalgia, unspecified; G89.29 Other chronic pain; G47.00 Insomnia, unspecified; I69.320 Aphasia following cerebral infarction; I10 Essential (primary) hypertension; F41.9 Anxiety disorder, unspecified; M06.9 Rheumatoid arthritis, unspecified; I69.398 Other sequelae of cerebral infarction; R20.0 Anesthesia of skin; N40.0 Benign prostatic hyperplasia without lower urinary tract symptoms; Z79.899 Other long term (current) drug therapy
CPT/HCPCS: 36415; 80202; 86140

== ENCOUNTER 2021-09-30 06:45 | Inpatient (IN) | payer MEDICARE ==
[2021-09-30] MEDS ORDERED: ADENOSINE 6 MG/2 ML VIAL IVP STA ×2 (07:23→07:28)
[2021-09-30] MEDS ORDERED: MIDAZOLAM 2 MG/2 ML VIAL IVP STA (07:28)
[2021-09-30 07:32] LABS: BASOPHILS # (AUTO) 0.1 10^3/uL (0.0-0.1); BASOPHILS % (AUTO) 0.5 %; EOSINOPHILS # (AUTO) 0.1 10^3/uL (0.0-0.7); EOSINOPHILS % (AUTO) 0.3 %; HCT - HEMATOCRIT 42.5 % (42.0-52.0); HGB - HEMOGLOBIN 13.7 g/dL (14.0-18.0); LYMPHOCYTES # (AUTO) 2.3 10^3/uL (1.5-3.5); LYMPHOCYTES % (AUTO) 12.2 %; MEAN CORPUSCULAR HGB CONC 32.2 g/dL (32.0-36.0); MEAN CORPUSCULAR VOLUME 83.7 fL (80.0-94.0); MEAN PLATELET VOLUME 10.8 fL (7.4-11.4); MONOCYTES % (AUTO) 10.2 %; NEUTROPHILS # (AUTO) 14.5 10^3/uL (1.5-6.6); NEUTROPHILS % (AUTO) 75.5 %; PLT - PLATELET COUNT 458 10^3/uL (130-450); RED BLOOD COUNT 5.08 10^6/uL (4.70-6.10); RED CELL DISTRIBUTION WIDTH 13.7 % (12.0-15.0); WHITE BLOOD COUNT 19.2 x10^3/uL (4.8-10.8)
[2021-09-30] MEDS ORDERED: diltiaZEM INJ 5 MG/ML VIAL IVP STA ×2 (07:35→07:43)
[2021-09-30 07:37] LABS: SLIDE REVIEW? Indicated
[2021-09-30 07:45] LABS: ALBUMIN 3.4 g/dL (3.2-5.5); ALBUMIN/GLOBULIN RATIO 0.7 (1.0-2.2); BILIRUBIN,TOTAL 0.7 mg/dL (0.2-1.0); CALCIUM 9.7 mg/dL (8.5-10.3); CREATININE 1.7 mg/dL (0.6-1.2); POTASSIUM 3.4 mmol/L (3.5-5.0); TOTAL PROTEIN 8.3 g/dL (6.7-8.2)
[2021-09-30 07:47] LABS: RBC MORPHOLOGY (MULTIPLE) 1+ ANISOCYTOSIS (NORMAL)
[2021-09-30] MEDS ORDERED: MAGNESIUM SULFATE 2 GRAM 2 GM/50 ML BAG IV ONE ×2 (07:47→08:22)
[2021-09-30] MEDS ORDERED: diltiaZEM INJ 5 MG/ML VIAL ONE (07:51)
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
--- NOTE | 2021-09-30 08:08 | XRAY Report ---
PROCEDURE: Chest 1 View X-Ray INDICATIONS: chest pain TECHNIQUE: One view of the chest was acquired. COMPARISON: 09/08/2021, 08/25/2021 FINDINGS: Surgical changes and devices: Defibrillator pad projects over the left chest. Lungs and pleura: Lung volumes are slightly diminished. Diffuse interstitial prominence with fluid no angle in the right minor fissure. Small left pleural effusion. No pneumothorax. Streaky bibasilar opaci ties and patchy left basilar airspace opacities. Mediastinum: Mediastinal contours appear stable. Heart size is normal. Bones and chest wall: No suspicious bony lesions. Overlying soft tissues appear unremarkable. IMPRESSION: Diffuse interstitial prominence with patchy left basilar airspace opacities and suspected bibasilar a telectasis. Trace right and small left bilateral pleural effusions. Findings may represent an infecti ous/inflammatory process although pulmonary edema/CHF may have a similar appearance if clinically bassem ropriate. Recommend follow-up chest radiograph 4-6 weeks after treatment to document resolution of findings/ret urn to baseline exam. Reviewed by: Campbell Fortune MD on 09/30/2021 8:07 AM PDT Approved by: Campbell Fortune MD on 09/30/2021 8:07 AM PDT Station ID: [id number]
[2021-09-30] MEDS ORDERED: BUPRENORPHINE 0.3 MG/ML VIAL IVP ONE (08:32)
[2021-09-30 08:52] LABS: MUDS CUTOFF CONCENTRATIONS CUTOFF CONC BELOW:
[2021-09-30] MEDS: diltiaZEM INJ 125 MG in DEXTROSE 5% 100 ML IVP ONE ×2 (09:04→12:00)
[2021-09-30 09:07] LABS: BILIRUBIN,URINE NEGATIVE (NEGATIVE); GLUCOSE, URINE (UA) NEGATIVE (NEGATIVE); KETONES,URINE (UA) TRACE mg/dL (NEGATIVE); LEUKOCYTE ESTERASE, URINE NEGATIVE (NEGATIVE); NITRITE,URINE NEGATIVE (NEGATIVE); OCCULT BLOOD,URINE SMALL (NEGATIVE); PH,URINE 5.5 PH (5.0-7.5); PROTEIN,URINE 30 mg/dL (NEGATIVE); UROBILINOGEN,URINE 0.2 (NORMAL) E.U./dL (NORMAL)
[2021-09-30 09:09] LABS: AMPHETAMINE SCREEN,URINE POSITIVE (NEGATIVE); BARBITURATE SCREEN,UR NEGATIVE (NEGATIVE); BENZODIAZEPINES SCREEN, URINE NEGATIVE (NEGATIVE); COCAINE SCREEN URINE NEGATIVE (NEGATIVE); METHADONE SCREEN, URINE NEGATIVE (NEGATIVE); METHAMPHETAMINES SCREEN, URINE POSITIVE (NEGATIVE); OPIATE SCREEN, URINE POSITIVE (NEGATIVE); OXYCODONE SCREEN, URINE NEGATIVE (NEGATIVE); PROPOXYPHENE SCREEN, URINE NEGATIVE (NEGATIVE); THC CANNABINOID SCREEN, URINE NEGATIVE (NEGATIVE); TRICYCLIC ANTIDEPRESSANT,URINE NEGATIVE (NEGATIVE)
[2021-09-30 09:53] LABS: B. PARAPERTUSSIS- RESP PCR PAN NOT DETECTED; B. PERTUSSIS- RESP PCR PANEL NOT DETECTED; C. PNEUMONIAE- RESP PCR PANEL NOT DETECTED; CORONAVIRUS 229E-RESP PCR NOT DETECTED; CORONAVIRUS HKU1-RESP PCR NOT DETECTED; CORONAVIRUS NL63-RESP PCR NOT DETECTED; CORONAVIRUS OC43-RESP PCR NOT DETECTED; HUMAN METAPNEUMOVIRUS NOT DETECTED; INFLUENZA A- RESP PCR PANEL NOT DETECTED; INFLUENZA B - RESP PCR PANEL NOT DETECTED; M. PNEUMONIAE- RESP PCR PANEL NOT DETECTED; PARAINFLUENZA VIRUS 1 NOT DETECTED; PARAINFLUENZA VIRUS 2 NOT DETECTED; PARAINFLUENZA VIRUS 3 NOT DETECTED; PARAINFLUENZA VIRUS 4 NOT DETECTED; RHINOVIRUS/ENTEROVIRUS NOT DETECTED; RSV- RESP PCR PANEL NOT DETECTED; SARS-CoV-2 -RESP PCR PANEL NOT DETECTED
[2021-09-30 09:55] LABS: CLARITY,URINE CLOUDY (CLEAR)
[2021-09-30 10:15] LABS: RBC,URINE 0-5 /HPF (0-5)
[2021-09-30 10:16] LABS: BACTERIA,URINE Many /HPF (None Seen); MUCUS,URINE Few Strands; SQUAMOUS EPITHELIAL CELL,UR FEW Squamous (<= Few)
[2021-09-30] MEDS ORDERED: ONDANSETRON 4 MG/2 ML VIAL IVP PRN (11:05)
[2021-09-30] MEDS ORDERED: SODIUM CHLORIDE FLUSH 0.9% 10 ML SYRINGE IVP PRN (11:05)
--- NOTE | 2021-09-30 11:36 | PHARMACY PROGRESS NOTE ---
- Best Possible Medication History Admit Date and Time: 09/30/21 1105 Processed by: Nursing Medication History completed: Yes Patient Interview: Completed (MED REC COMPLETED BY NURSING) As the person ultimately responsible for medication therapy, providers are able to order a medication from an existing home medication list in [facility] via the "Reconcile Routine" prior to Confirmation of that medication by office support. Such practice is discouraged except when the physician, in their clinical judgment, deems that a medical need exists for a medication without regard to previous use.
[2021-09-30] MEDS ORDERED: diltiaZEM INJ 125 MG in DEXTROSE 5% 100 ML IV SCH (12:00)
[2021-09-30] MEDS: IBUPROFEN 800 MG TABLET PO PRN ×2 (14:00→21:53)
[2021-09-30] MEDS: oxyCODONE 5 MG TABLET PO PRN ×3 (14:00→23:46)
[2021-09-30] MEDS: ENOXAPARIN 40 MG/0.4 ML SYRINGE SUBQ SCH (15:43)
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
[2021-09-30] MEDS: SODIUM CHLORIDE FLUSH 0.9% 10 ML SYRINGE IVP SCH ×2 (18:30→23:46)
[2021-09-30] MEDS: methocarbamoL 500 MG TABLET PO PRN (21:53)
[2021-10-01] MEDS: oxyCODONE 5 MG TABLET PO PRN ×3 (04:09→12:00)
[2021-10-01] MEDS: methocarbamoL 500 MG TABLET PO PRN ×3 (04:09→15:34)
[2021-10-01 05:40] LABS: BASOPHILS # (AUTO) 0.1 10^3/uL (0.0-0.1); BASOPHILS % (AUTO) 0.9 %; EOSINOPHILS # (AUTO) 0.2 10^3/uL (0.0-0.7); EOSINOPHILS % (AUTO) 1.9 %; HCT - HEMATOCRIT 33.2 % (42.0-52.0); HGB - HEMOGLOBIN 10.6 g/dL (14.0-18.0); LYMPHOCYTES # (AUTO) 1.9 10^3/uL (1.5-3.5); LYMPHOCYTES % (AUTO) 17.5 %; MEAN CORPUSCULAR HEMOGLOBIN 26.9 pg (27.0-31.0); MEAN CORPUSCULAR HGB CONC 31.9 g/dL (32.0-36.0); MEAN CORPUSCULAR VOLUME 84.3 fL (80.0-94.0); MEAN PLATELET VOLUME 10.1 fL (7.4-11.4); NEUTROPHILS # (AUTO) 7.5 10^3/uL (1.5-6.6); NEUTROPHILS % (AUTO) 69.9 %; PLT - PLATELET COUNT 354 10^3/uL (130-450); RED BLOOD COUNT 3.94 10^6/uL (4.70-6.10); RED CELL DISTRIBUTION WIDTH 13.7 % (12.0-15.0); WHITE BLOOD COUNT 10.8 x10^3/uL (4.8-10.8)
[2021-10-01 05:53] LABS: CALCIUM 8.9 mg/dL (8.5-10.3); CREATININE 0.7 mg/dL (0.6-1.2); MAGNESIUM 2.3 mg/dL (1.7-2.8); PHOSPHORUS 3.4 mg/dL (2.5-4.6); POTASSIUM 3.4 mmol/L (3.5-5.0)
[2021-10-01] MEDS: IBUPROFEN 800 MG TABLET PO PRN ×2 (08:13→15:35)
[2021-10-01] MEDS: ENOXAPARIN 40 MG/0.4 ML SYRINGE SUBQ SCH (08:13)
[2021-10-01] MEDS: SODIUM CHLORIDE FLUSH 0.9% 10 ML SYRINGE IVP SCH (08:14)
[2021-10-01] MEDS ORDERED: PROPRANOLOL HCL 60 MG PO SCH (09:00)
[2021-10-01] MEDS ORDERED: PROPRANOLOL ER 60 MG CAPSULE PO SCH (09:00)
[2021-10-01] MEDS ORDERED: ASPIRIN EC 81 MG TABLET PO SCH (09:00)
[2021-10-01] MEDS ORDERED: NICOTINE 14 MG PATCH TOP SCH (09:00)
[2021-10-01 09:20] LABS: THYROID STIMULATING HORMONE 1.2 uIU/mL (0.34-5.60)
[2021-10-01 09:22] LABS: FREE T4 (FREE THYROXINE) 1.01 ng/dL (0.58-1.64)
--- NOTE | 2021-10-01 12:40 | Discharge Plan ---
Discharge Plan Problem Reviewed?: Yes Disposition: Home, Self Care Prescriptions: Propranolol ER [Inderal LA] 60 mg PO DAILY 30 Days #30 cap methocarbamoL [Robaxin] 500 mg PO BID PRN #10 tablet PRN Reason: Spasms Diet: Regular Activity Restrictions: Activity as Tolerated Shower Restrictions: No Health Concerns: You were admitted to the hospital because of of supraventricular tachycardia ( very fast abnormal heart rhythm) that required IV medicines to terminate it. It appears that this heart rhythm occurred because you were unable to take your prescribed Propranolol Long-Acting, since you did not pick it up from the pharmacy, since you did not have your wallet. You are being discharged with a new prescription sent to a different pharmacy for Propranolol LA and several tablets of a muscle relaxant for your back pain. Went to see a new primary care provider, Dr. Hopkins, in the [facility] on at 3 pm. Please keep that appointment. Please do not be using Meth! Plan of Treatment: As above. Care Goals: Improvement in symptoms and stabilization are the goals. Assessment: The patient understands and is agreeable with the plan. Additional Instructions or Follow Up instructions: If you have new or worsening symptoms, call Dr. Hopkins's office for advice ([phone]), or come to the ER. No Smoking: If you smoke, Please STOP! Call for help. Follow-up with: Cj Hopkins MD [Credentialed Staff Provider] -
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
[2021-10-01 18:08] VITALS: BP 129/88
== END 2021-10-01 15:45 | disposition home or self-care (01) | DRG 309 ==
LOC: ED 06:45 → ICU 11:05 → MS2 18:11
PROVIDERS: ADMIT Internal Medicine; ATTEND Internal Medicine
DX: R00.0 Tachycardia, unspecified (principal); I47.1 Supraventricular tachycardia; F15.13 Other stimulant abuse with withdrawal; M54.6 Pain in thoracic spine; E86.0 Dehydration; T44.7X6A Underdosing of beta-adrenoreceptor antagonists, initial encounter; Z91.120 Patient's intentional underdosing of medication regimen due to financial hardship; I95.9 Hypotension, unspecified; G89.29 Other chronic pain; M54.50 Low back pain, unspecified; I10 Essential (primary) hypertension; F17.200 Nicotine dependence, unspecified, uncomplicated; Z20.822 Contact with and (suspected) exposure to COVID-19; Z72.89 Other problems related to lifestyle; I45.4 Nonspecific intraventricular block; N40.0 Benign prostatic hyperplasia without lower urinary tract symptoms; M06.9 Rheumatoid arthritis, unspecified; F17.210 Nicotine dependence, cigarettes, uncomplicated; F41.9 Anxiety disorder, unspecified; F41.0 Panic disorder [episodic paroxysmal anxiety]; F40.240 Claustrophobia; R25.1 Tremor, unspecified; Z59.00 Homelessness unspecified; Z86.14 Personal history of Methicillin resistant Staphylococcus aureus infection; Z86.73 Personal history of transient ischemic attack (TIA), and cerebral infarction without residual deficits; Z87.01 Personal history of pneumonia (recurrent); Z79.82 Long term (current) use of aspirin; Z79.1 Long term (current) use of non-steroidal anti-inflammatories (NSAID); Z79.899 Other long term (current) drug therapy
CPT/HCPCS: 36415; 71045; 80048; 80053; 80306; 81001; 83605; 83690; 83735; 83880; 84100; 84439; 84443; 84484; 85025; 87040; 87086; 87150; 87181; 87631; 93005; 96365; 96375; 96376; 99284; 99285; A9270; G0480; J0153; J0592; J1650; 0202U; 80320; 81003

== ENCOUNTER 2021-10-12 09:34 | Emergency (ER) | payer MEDICARE ==
[2021-10-12 12:16] LABS: GLUCOSE, URINE (UA) NEGATIVE (NEGATIVE); KETONES,URINE (UA) NEGATIVE (NEGATIVE); LEUKOCYTE ESTERASE, URINE NEGATIVE (NEGATIVE); NITRITE,URINE NEGATIVE (NEGATIVE); OCCULT BLOOD,URINE SMALL (NEGATIVE); PROTEIN,URINE TRACE mg/dL (NEGATIVE); UROBILINOGEN,URINE 0.2 (NORMAL) E.U./dL (NORMAL)
[2021-10-12] MEDS ORDERED: KETOROLAC 60 MG/2 ML VIAL IM STA (12:17)
--- NOTE | 2021-10-12 12:17 | ED Physician Documentation ---
PD HPI ABD PAIN - Stated complaint Stated Complaint: LT SIDE FLANK PAIN - Chief complaint Chief Complaint: Abd Pain - History obtained from History obtained from: Patient - Additional information Additional information: Patient comes emergency department chief complaint of left flank pain. He states it started couple days ago when he rolled over in bed. He states that he has a history of some back problems, but does not have a specific diagnosis. He states he had an MRI at some point and that was negative. He denies any other new injury. He does not have a history of kidney stones. He has had a little burning with urination but has not noticed any blood. No nausea or vomiting. No fevers or chills. No other complaints at this time. No difficulty controlling bowel or bladder. He states that the pain has caused him to not want to eat or drink very much. Review of Systems Ten Systems: 10 systems reviewed and negative Constitutional: reports: Reviewed and negative Eyes: reports: Reviewed and negative Ears: reports: Reviewed and negative Nose: reports: Reviewed and negative Throat: reports: Reviewed and negative Cardiac: reports: Reviewed and negative Respiratory: reports: Reviewed and negative GI: reports: Other (Flank pain) : reports: Reviewed and negative Skin: reports: Reviewed and negative Musculoskeletal: reports: Reviewed and negative Neurologic: reports: Reviewed and negative Psychiatric: reports: Reviewed and negative Endocrine: reports: Reviewed and negative Immunocompromised: reports: Reviewed and negative PD PAST MEDICAL HISTORY - Past Medical History Cardiovascular: Hypertension Respiratory: Pneumonia Neuro: CVA, Tremors Endocrine/Autoimmune: None GI: Diverticulitis : Benign prostate hypertrophy HEENT: None Psych: Anxiety, Panic attacks, Claustrophobia Musculoskeletal: Rheumatoid arthritis Derm: None - Past Surgical History Past Surgical History: Yes Ortho: Spine surgery - Present Medications Home Medications: Ambulatory Orders Medication Instructions Recorded Confirmed Ibuprofen [Motrin] 800 mg PO Q8H PRN #30 tablet 08/25/21 09/30/21 Aspirin [Aspirin EC] 81 mg PO DAILY 08/27/21 09/30/21 Propranolol ER [Inderal LA] 60 mg PO DAILY 30 Days #30 cap 10/01/21 methocarbamoL [Robaxin] 500 mg PO BID PRN #10 tablet 10/01/21 - Allergies Allergies/Adverse Reactions: Allergies Allergy/AdvReac Type Severity Reaction Status Date / Time morphine AdvReac Intermediate Anxiety Verified 10/12/21 09:48 - Social History Does the pt smoke?: Yes Smoking Status: Current every day smoker Does the pt drink ETOH?: No Does the pt have substance abuse?: Yes - Immunizations Immunizations are current?: Yes Immunizations: TDAP >10years/unknown - POLST Patient has POLST: No POLST Status: Full Code PD ED PE NORMAL - Vitals Vital signs reviewed: Yes - General General: Alert and oriented X 3, No acute distress, Well developed/nourished - HEENT HEENT: Atraumatic, PERRL, EOMI, Moist mucous membranes - Neck Neck: Supple, no meningeal sign - Cardiac Cardiac: RRR, No murmur, Strong equal pulses - Respiratory Respiratory: No respiratory distress, Clear bilaterally - Abdomen Abdomen: Soft, Non distended, Other (Left flank tenderness.) - Back Back: No CVA TTP, No spinal TTP, Other (Left flank tenderness, moderate,) - Derm Derm: Normal color, Warm and dry, No rash - Extremities Extremities: No deformity, No edema - Neuro Neuro: Alert and oriented X 3, thread reeler 2-12 intact - Psych Psych: Normal mood, Normal affect Results - Vitals Vitals: Vital Signs - 24 hr 10/12/21 10/12/21 10/12/21 09:44 16:15 18:16 Temperature 36.5 C 36.5 C Heart Rate 106 H 93 89 Respiratory 15 14 18 Rate Blood Pressure 147/82 H 144/78 H 132/91 H O2 Saturation 99 98 99 Oxygen O2 Source Room air - Labs Labs: Microbiology 10/12/21 13:40 Blood Culture - Preliminary Blood - Left Hand 10/12/21 13:40 Blood Culture (PCR) - Final Blood - Left Hand Laboratory Tests 10/12/21 10/12/21 10/12/21 11:58 13:34 13:34 WBC 21.9 H RBC 4.26 L Hgb 11.4 L Hct 35.9 L MCV 84.3 MCH 26.8 L MCHC 31.8 L RDW 14.2 Plt Count 624 H MPV 9.6 Neut # (Auto) 18.4 H Lymph # (Auto) 1.6 [place]oll[place] # (Auto) 1.1 H Eos # (Auto) 0.1 Baso # (Auto) 0.1 Absolute Nucleated RBC 0.00 Nucleated RBC % 0.0 Manual Slide Review Indicated Platelet Morphology RARE GIANT PLATELETS Sodium 137 Potassium 4.1 Chloride 101 Carbon Dioxide 23 Anion Gap 13.0 BUN 15 Creatinine 0.7 Estimated GFR (MDRD) 116 Glucose 101 H Calcium 9.4 Total Bilirubin 0.8 AST < 10 L ALT 14 Alkaline Phosphatase 130 H Total Protein 8.4 H Albumin 2.7 L Globulin 5.7 H Albumin/Globulin Ratio 0.5 L Lipase 25 Urine Color DARK YELLOW Urine Clarity CLEAR Urine pH 5.0 Ur Specific [place] 1.025 Urine Protein TRACE Urine Glucose (UA) NEGATIVE Urine Ketones NEGATIVE Urine Occult Blood SMALL H Urine Nitrite NEGATIVE Urine Bilirubin NEGATIVE Urine Urobilinogen 0.2 (NORMAL) Ur Leukocyte Esterase NEGATIVE Urine RBC 0-5 Urine WBC 0-3 Ur Squamous Epith Cells FEW Squamous Urine Bacteria Few Ur Microscopic Review INDICATED Urine Culture Comments NOT INDICATED Nasal Adenovirus (PCR) Nasal B. parapertussis DNA (PCR) Nasal Coronavir 229E PCR Nasal Coronavir HKU1 PCR Nasal Coronavir NL63 PCR Nasal Coronavir OC43 PCR Nasal Enterovir/Rhinovir PCR Nasal Influenza B PCR Nasal Influenza A PCR Nasal Parainfluen 1 PCR Nasal Parainfluen 2 PCR Nasal Parainfluen 3 PCR Nasal Parainfluen 4 PCR Nasal RSV (PCR) Nasal B.pertussis DNA PCR Nasal C.pneumoniae (PCR) Derrek Human Metapneumo PCR Nasal M.pneumoniae (PCR) Nasal SARS-CoV-2 (PCR) 10/12/21 14:07 WBC RBC Hgb Hct MCV MCH MCHC RDW Plt Count MPV Neut # (Auto) Lymph # (Auto) [place] # (Auto) Eos # (Auto) Baso # (Auto) Absolute Nucleated RBC Nucleated RBC % Manual Slide Review Platelet Morphology Sodium Potassium Chloride Carbon Dioxide Anion Gap BUN Creatinine Estimated GFR (MDRD) Glucose Calcium Total Bilirubin AST ALT Alkaline Phosphatase Total Protein Albumin Globulin Albumin/Globulin Ratio Lipase Urine Color Urine Clarity Urine pH Ur Specific [place] Urine Protein Urine Glucose (UA) Urine Ketones Urine Occult Blood Urine Nitrite Urine Bilirubin Urine Urobilinogen Ur Leukocyte Esterase Urine RBC Urine WBC Ur Squamous Epith Cells Urine Bacteria Ur Microscopic Review Urine Culture Comments Nasal Adenovirus (PCR) NOT DETECTED Nasal B. parapertussis DNA (PCR) NOT DETECTED Nasal Coronavir 229E PCR NOT DETECTED Nasal Coronavir HKU1 PCR NOT DETECTED Nasal Coronavir NL63 PCR NOT DETECTED Nasal Coronavir OC43 PCR NOT DETECTED Nasal Enterovir/Rhinovir PCR NOT DETECTED Nasal Influenza B PCR NOT DETECTED Nasal Influenza A PCR NOT DETECTED Nasal Parainfluen 1 PCR NOT DETECTED Nasal Parainfluen 2 PCR NOT DETECTED Nasal Parainfluen 3 PCR NOT DETECTED Nasal Parainfluen 4 PCR NOT DETECTED Nasal RSV (PCR) NOT DETECTED Nasal B.pertussis DNA PCR NOT DETECTED Nasal C.pneumoniae (PCR) NOT DETECTED Derrek Human Metapneumo PCR NOT DETECTED Nasal M.pneumoniae (PCR) NOT DETECTED Nasal SARS-CoV-2 (PCR) NOT DETECTED - Rads (name of study) CT abd/pelvis Radiology: Final report received, EMP read indepedently, See rad report (T10-11 discitis, osteomyelitis, and adjacent empyema. Recommend CT of the chest.) CT thorax with contrast Radiology: Final report received, EMP read indepedently, See rad report (Left lower lobe empyema versus abscess adjacent to T10-11 osteomyelitis/discitis with phlegmon.) PD MEDICAL DECISION MAKING - ED course Complexity details: reviewed results, re-evaluated patient, considered differential, d/w patient ED course: Patient was treated symptomatically in the emergency department and worked up with urinalysis and noncontrast CT of the abdomen and pelvis. This showed a new finding of discitis, osteomyelitis, and adjacent empyema at the level of T8 10 through 11 since last study in early August of this year. The patient was worked up with laboratory studies and IV was placed. He was found of a white count of nearly 22,000. Blood cultures were drawn and are pending. He was given IV vancomycin and cefepime. We did call a number of hospitals that would have acquisition specialist, thoracic surgery, and infectious disease to deal with the osteomyelitis and discitis, as well as the empyema. Every hospital was full and boarding, but I was able to speak with Dr. Howard at [facility], who did agree with the vancomycin and cefepime. However, they do not have beds and cannot accept the patient at this time. I was also able to speak with [facility], and they will call us back pending the receipt of images of the patient's abdominal pelvic CT and CT of the chest with contrast. Patient is stable at this time. He has been treated with single doses of Dilaudid and Toradol for his pain. At this point in time, the patient is pending consideration at [facility], as well. Patient signed out to the oncoming emergency physician at change of shift, pending acceptance and transfer and final disposition. Departure - Departure Disposition: 02 Transfer Acute Care Hosp Clinical Impression: Polysubstance (including opioids) dependence w/o physiol dependence, Osteomyelitis of spine, Thoracic abscess Discharge Date/Time: 10/12/21 19:08
[2021-10-12 12:24] LABS: CLARITY,URINE CLEAR (CLEAR)
[2021-10-12 12:29] LABS: BILIRUBIN,URINE NEGATIVE (NEGATIVE); ICTOTEST,URINE NEGATIVE
[2021-10-12 12:38] LABS: RBC,URINE 0-5 /HPF (0-5); SQUAMOUS EPITHELIAL CELL,UR FEW Squamous (<= Few); WBC,URINE 0-3 /HPF (0-3)
[2021-10-12 12:39] LABS: BACTERIA,URINE Few /HPF (None Seen)
--- NOTE | 2021-10-12 13:11 | CT Report ---
PROCEDURE: CT abdomen and pelvis without contrast INDICATIONS: L flank pain TECHNIQUE: Noncontrast 5 mm thick sections acquired from the diaphragms to the symphysis. 5 mm coronal and sagi ttal reformats were then performed. For radiation dose reduction, the following was used: automated exposure control, adjustment of mA and/or kV according to patient size. COMPARISON: 08/31/2021 FINDINGS: Image quality: Excellent. ABDOMEN: Lung bases: New from the prior exam, there is T10-11 endplate erosion with increased prevertebral sof t tissue density, consistent with discitis osteomyelitis. There is an adjacent 3 cm encapsulated flui d collection in the left posterior medial pleural space with surrounding atelectasis and or infiltrat e, consistent with probable empyema. Right lung bases clear. Solid organs: Liver and spleen are normal in size. Gallbladder unremarkable. Pancreas is normal in contours. No adrenal nodules. Kidneys are normal in size, without hydronephrosis or nephrolithiasi s. Left renal cysts are stable from the prior exam. No hydronephrosis. Peritoneum and bowel: Unenhanced bowel loops demonstrate normal wall thickness and caliber. No free fluid or air. Nodes and vessels: No retroperitoneal or mesenteric adenopathy by size criteria. Aorta and inferior vena cava are normal in caliber. Miscellaneous: Periumbilical ventral hernia contains fat without bowel involvement. PELVIS: Genitourinary: Bladder wall thickness is normal. Miscellaneous: No inguinal hernias or adenopathy. Bones: L5 decompressive laminectomy with grade 2 anterior spondylolisthesis skin noted unchanged. IMPRESSION: 1. T11-T12 discitis osteomyelitis associated with prevertebral phlegmon and left probable pleural spa ce empyema. Consider follow-up contrasted CT chest to evaluate empyema and follow-up MRI of thoracic spine with contrast to evaluate central canal. 2. Stable L5 decompressive laminectomy, pars defects and grade 2 anterior spondylolisthesis Reviewed by: Efrem Iraheta MD on 10/12/2021 12:10 PM [facility] Approved by: Efrem Iraheta MD on 10/12/2021 12:10 PM [facility] Station ID: [id number]
[2021-10-12] MEDS ORDERED: IOVERSOL 320 100 ML VIAL IVP ONE ×2 (13:41→14:23)
[2021-10-12 13:49] LABS: BASOPHILS # (AUTO) 0.1 10^3/uL (0.0-0.1); BASOPHILS % (AUTO) 0.6 %; EOSINOPHILS # (AUTO) 0.1 10^3/uL (0.0-0.7); EOSINOPHILS % (AUTO) 0.3 %; HCT - HEMATOCRIT 35.9 % (42.0-52.0); HGB - HEMOGLOBIN 11.4 g/dL (14.0-18.0); LYMPHOCYTES # (AUTO) 1.6 10^3/uL (1.5-3.5); LYMPHOCYTES % (AUTO) 7.3 %; MEAN CORPUSCULAR HEMOGLOBIN 26.8 pg (27.0-31.0); MEAN CORPUSCULAR HGB CONC 31.8 g/dL (32.0-36.0); MEAN CORPUSCULAR VOLUME 84.3 fL (80.0-94.0); MEAN PLATELET VOLUME 9.6 fL (7.4-11.4); MONOCYTES # (AUTO) 1.1 10^3/uL (0.0-1.0); MONOCYTES % (AUTO) 5.1 %; NEUTROPHILS # (AUTO) 18.4 10^3/uL (1.5-6.6); NEUTROPHILS % (AUTO) 84.1 %; PLT - PLATELET COUNT 624 10^3/uL (130-450); RED BLOOD COUNT 4.26 10^6/uL (4.70-6.10); RED CELL DISTRIBUTION WIDTH 14.2 % (12.0-15.0); WHITE BLOOD COUNT 21.9 x10^3/uL (4.8-10.8)
[2021-10-12] MEDS ORDERED: HYDROmorphone 1 MG/ML CARPUJECT IVP STA ×3 (13:51→18:49)
[2021-10-12 13:55] LABS: SLIDE REVIEW? Indicated
[2021-10-12 14:00] LABS: ALBUMIN 2.7 g/dL (3.2-5.5); ALBUMIN/GLOBULIN RATIO 0.5 (1.0-2.2); ALKALINE PHOSPHATASE 130 IU/L (42-121); ALT ALANINE AMINOTRANSFERASE 14 IU/L (10-60); AST ASPARTATE AMINOTRANSFERASE < 10 IU/L (10-42); BILIRUBIN,TOTAL 0.8 mg/dL (0.2-1.0); BUN - BLOOD UREA NITROGEN 15 mg/dL (6-20); CALCIUM 9.4 mg/dL (8.5-10.3); CARBON DIOXIDE - CO2 23 mmol/L (21-32); CHLORIDE 101 mmol/L (101-111); CREATININE 0.7 mg/dL (0.6-1.2); GFR - MDRD 116 (>89); GLUCOSE 101 mg/dL (70-100); LIPASE 25 U/L (22-51); POTASSIUM 4.1 mmol/L (3.5-5.0); SODIUM 137 mmol/L (135-145); TOTAL PROTEIN 8.4 g/dL (6.7-8.2)
[2021-10-12 14:21] LABS: PLATELET MORPHOLOGY RARE GIANT PLATELETS (NORMAL)
[2021-10-12] MEDS ORDERED: SODIUM CHLORIDE 0.9% IV STA ×2 (14:42→14:45)
[2021-10-12] MEDS ORDERED: VANCOMYCIN IV STA ×2 (14:42→14:45)
[2021-10-12] MEDS ORDERED: CEFEPIME 2 GM in SODIUM CHLORIDE 0.9% MINIBAG 100 ML IV STA (14:45)
[2021-10-12] MEDS ORDERED: VANCOMYCIN INJ 2 GM, VANCOMYCIN INJ 500 MG in SODIUM CHLORIDE 0.9% 500 ML IV STA (15:09)
--- NOTE | 2021-10-12 15:13 | CT Report ---
PROCEDURE: CT chest with contrast INDICATIONS: empyema CONTRAST: IV CONTRAST: Optiray 320 ml: 100 PO CONTRAST: *NO PO CONTRAST TECHNIQUE: After the administration of intravenous contrast, 1 mm axial images were acquired from th e pulmonary apices through the posterior costophrenic angles. Axial 5 mm soft tissue kernel reconstr uctions were performed as well as 8 mm axial MIP and coronal and sagittal 5 mm reformations. For rad iation dose reduction, the following was used: automated exposure control, adjustment of mA and/or k V according to patient size. COMPARISON: 08/31/2021 FINDINGS: Image quality: Excellent. Lungs and pleura: In the medial left lower lobe, there is a encapsulated fluid collection measuring 4 .0 x 3.2 cm axial by 4.6 cm superior-inferior. Surrounding atelectatic/consolidated lung present. Thi s may reflect lung abscess versus empyema. This is just adjacent to/contiguous with periventricular p hlegmon and soft tissue thickening at the T10-T11 level. Endplate erosions are again noted consistent with discitis osteomyelitis. Small right pleural effusion noted as well. Right lower lobe calcified granulomas noted. Mediastinum: Heart size is normal. No pericardial effusion. Scattered intestinal nodes noted. Large st is a prevascular node measuring 1.2 cm in short axis. Subcarinal node noted as well measuring 1.3 cm short axis. Thoracic aorta and central pulmonary arteries are normal in size. Esophagus is camilla l in caliber. No hiatal hernia. Bones and chest wall: T10-T11 endplate erosions and prevertebral soft tissue phlegmon consistent with discitis/osteomyelitis as above. Incidental note is made of hypoplastic C7 cervical ribs. No axillar y or supraclavicular adenopathy by size criteria. The thyroid is normal in size and there are no inc idental findings.. Abdomen: Left renal cyst bulge cysts noted. Upper abdominal bowel loops are normal in caliber. IMPRESSION: 1. Left lower lobe medial encapsulated fluid collection consistent with either empyema or lung absces s is contiguous with T10-T11 discitis/osteomyelitis and paravertebral phlegmon. Consider follow-up th oracic MRI with contrast 2. Slightly enlarged mediastinal lymph nodes probably reactive, measuring up to 1.3 cm in short axis Reviewed by: Efrem Iraheta MD on 10/12/2021 2:12 PM [facility] Approved by: Efrem Iraheta MD on 10/12/2021 2:12 PM [facility] Station ID: [id number]
[2021-10-12] MEDS ORDERED: oxyCODONE 5 MG TABLET PO PRN (16:47)
[2021-10-12 18:00] LABS: B. PARAPERTUSSIS- RESP PCR PAN NOT DETECTED; B. PERTUSSIS- RESP PCR PANEL NOT DETECTED; C. PNEUMONIAE- RESP PCR PANEL NOT DETECTED; CORONAVIRUS 229E-RESP PCR NOT DETECTED; CORONAVIRUS HKU1-RESP PCR NOT DETECTED; CORONAVIRUS NL63-RESP PCR NOT DETECTED; CORONAVIRUS OC43-RESP PCR NOT DETECTED; HUMAN METAPNEUMOVIRUS NOT DETECTED; INFLUENZA A- RESP PCR PANEL NOT DETECTED; INFLUENZA B - RESP PCR PANEL NOT DETECTED; M. PNEUMONIAE- RESP PCR PANEL NOT DETECTED; PARAINFLUENZA VIRUS 1 NOT DETECTED; PARAINFLUENZA VIRUS 2 NOT DETECTED; PARAINFLUENZA VIRUS 3 NOT DETECTED; PARAINFLUENZA VIRUS 4 NOT DETECTED; RHINOVIRUS/ENTEROVIRUS NOT DETECTED; RSV- RESP PCR PANEL NOT DETECTED; SARS-CoV-2 -RESP PCR PANEL NOT DETECTED
--- NOTE | 2021-10-12 18:01 | ED Physician Documentation ---
ED Addendum - Addendum Addendum: 10/12/21 18:[address] Ponce at shift change. Briefly this is a 56-year-old gentleman with recent history of MRSA bacteremia now with osteomyelitis of the spine and with reactive thoracic abscess. Will need transfer to a higher level of care. Multiple calls had been made and eventually was accepted to [facility] by Dr. Eliana Yeh. Also did a warm handoff with Dr. Rody Anderson with the [facility] ED who accepts as well. Cobras are completed he is stable for transport. Disposition: Transferred to [facility] for specialty care Condition: Stable Diagnoses: 1. Osteomyelitis of the spine 2. Intrathoracic abscess 3. IV drug use
[2021-10-12 18:19] VITALS: BP 132/91
[2021-10-12] MEDS ORDERED: CEFEPIME 2 GM in SODIUM CHLORIDE 0.9% MINIBAG 100 ML IV SCH (22:00)
[2021-10-13] MEDS ORDERED: VANCOMYCIN INJ 1 GM, VANCOMYCIN INJ 500 MG in SODIUM CHLORIDE 0.9% 500 ML IV SCH ×3
== END 2021-10-12 19:08 | disposition short-term general hospital (02) ==
LOC: ED 09:34
DX: M46.24 Osteomyelitis of vertebra, thoracic region (principal); J86.9 Pyothorax without fistula; F11.20 Opioid dependence, uncomplicated; F19.20 Other psychoactive substance dependence, uncomplicated; F17.200 Nicotine dependence, unspecified, uncomplicated; Z20.822 Contact with and (suspected) exposure to COVID-19; Z79.1 Long term (current) use of non-steroidal anti-inflammatories (NSAID); Z79.82 Long term (current) use of aspirin
CPT/HCPCS: 36415; 71260; 74176; 80053; 81001; 83690; 85025; 87040; 87150; 87181; 87631; 96365; 96372; 96375; 96376; 99284; 99285; J1170; J3370; Q9967; 0202U; 81003; 87086

== ENCOUNTER 2021-10-12 18:55 | Outpatient (CLI) | payer MEDICARE | END 2021-10-12 18:56 | disposition short-term general hospital (02) | LOC: EMS 18:55 | PROVIDERS: ATTEND Emergency Medicine | DX: M46.20 Osteomyelitis of vertebra, site unspecified (principal) | CPT/HCPCS: A0425; A0428 ==